=== PATIENT | female | born 1950 | race Caucasian/White ===

== ENCOUNTER 2024-02-09 10:04 | Outpatient (OUT) | payer MEDICARE, SELFPAY ==
--- NOTE | 2024-02-09 10:08 | VEIN_ITS ---
Patient Name: RADHA SALGADO MR#: [id number] : 1950 Exam Date: 02/09/2024 Ordering Doctor: DR AMINATA JACOBSEN RADIOLOGY REPORT PROCEDURE: [facility] - OFFICE VISIT INITIAL COMPARISON: None. PROGRESS NOTES: [age] year old female who presents with a 30 year history of dilated bulging veins, discolored veins, leg pain, swelling, muscle cramping. The patient's right leg symptoms are worse than the left. There has been a progression of symptoms over time. This increases with prolonged leg dependency. The patient describes an improvement with rest, elevation, and compression stockings. The patient denies any signs and symptoms to suggest arterial ischemia. The patient describes a family history varicose veins on maternal side. The patient has drinking and smoking history of occasional alcohol consumption; no tobacco use. Patient has a past medical history significant for hypothyroidism, cellulitis. The patient has a history of prior deep venous thrombus. See separate history and physical for medication list. Remote history of sclerotherapy for treatment of spider veins. Long-term use of compression stockings. After review of nurse notes, history and physical exam I discussed at length the pathophysiology of venous hypertension and possible treatments, therapies and strategies available. We discussed at length the importance of elevating the lower extremities above the level of the heart, increased physical activity and compression stocking use. Ultrasound venous reflux study performed today was discussed at length with the patient. The report demonstrates markedly dilated and incompetent great saphenous veins bilaterally. Abnormally dilated incompetent anterior accessory saphenous veins bilaterally. Incompetent and dilated sports doctor vein within right lower leg adjacent nonhealing wound. Numerous large and incompetent branch saphenous varicosities bilaterally. PHYSICAL EXAM: The right leg demonstrates numerous large varicosities, numerous spider veins, partially healed ulceration, moderate edema, mild skin discoloration. The left leg demonstrates numerous large varicosities, numerous spider veins, no ulceration, moderate edema, mild skin discoloration. Both thighs, legs and feet were symmetrically warm to the touch. Good posterior tibial and dorsalis pedis pulses were present bilaterally. VEIN/[facility] EST Comprehensive IMPRESSION: 1. Marked bilateral lower extremity venous insufficiency 2. Marked lower extremity varicose veins 3. Mild-moderate lower extremity subcutaneous edema 4. No flow significant arterial disease 5. CEAP: C6, EC, AP, VT PLAN: 1. Continued use of compression stockings 2. Elevated legs and increased physical activity symptomatic relief 3. Endovenous laser ablation of right great saphenous, left great saphenous, right sports doctor vein, left anterior accessory saphenous, right anterior accessory saphenous veins. 4. Microfoam chemical ablation of bilateral lower extremity incompetent branch saphenous varicosities. 5. Sclerotherapy of prominent reticular and spider veins bilaterally. Nurse notes, history and physical were reviewed and confirmed, see attached forms. The nurse was present throughout the physical exam and consultation Dictated by: Sundeep Wilkins M.D. on 02/09/2024 at 12:28 Approved by: Sundeep Wilkins M.D. on 02/09/2024 at 13:56
--- NOTE | 2024-02-09 10:09 | VEIN_ITS ---
Patient Name: RADHA SALGADO MR#: [id number] : 1950 Exam Date: 02/09/2024 Ordering Doctor: DR AMINATA JACOBSEN RADIOLOGY REPORT PROCEDURE: VC EXT VENOUS REFLUX DEE LMTD COMPARISON: None. INDICATIONS: I83.813 Bilateral leg painful varicose veins TECHNIQUE: Duplex imaging of the lower extremity to assess the deep and superficial venous system for the presence of deep or superficial venous incompetence and to document the location and severity of disease. The study includes evaluation of the great saphenous vein (GSV), anterior accessory saphenous vein (AASV) and small saphenous vein (SSV). Patient scanned in reverse Trendelenburg and standing. FINDINGS: RIGHT LOWER EXTREMITY: Saphenofemoral Junction Reflux: Yes 9.8mm 4.5 sec GSV: Diam (mm) Reflux/ Time (sec) Proximal Thigh 13.3 Yes 4.3 Mid Thigh 9.8 Yes 2.6 Distal Thigh 2.1 No Prox Calf 1.5 No Mid Calf 0.9 Saphenopopliteal Junction Reflux: 5.8mm Yes 2.9 SSV: Proximal Calf 4.6 Yes 2.1 Mid Calf 2.6 No AASV: Proximal Thigh 5.6 Yes 1.0 Mid Thigh 3.3 Yes 1.7 Distal Thigh Thrombi: No acute or chronic thrombus visualized Compressibility: Normal Flow: Normal Preforator: Mid/med calf near wound 3.7mm with 1.3s reflux. Tech Note: Incompetent GSV and AASV. Patent varicose vein mid/med calf 6.6mm with 3.8s reflux. Patent varicose vein prox/med calf 8.3mm with 2.8s reflux. Patent varicose vein mid/med thigh off GSV 13.3mm with 2.2s reflux. Patent varicose vein 10.1mm with 3.9s reflux. LEFT LOWER EXTREMITY: Saphenofemoral Junction Reflux: Yes 13.6 mm 4.6 sec GSV: Diam (mm) Reflux/Time (sec) Proximal Thigh 13.7 Yes 3.1 Mid Thigh 1.2 No Distal Thigh 1.4 No Prox Calf N/A Mid Calf N/A Saphenopopliteal Junction Relux: 4.3 mm No SSV: Proximal Calf 1.5 No Mid Calf 1.6 No AASV: Proximal Thigh 5.8 Yes 1.4 Mid Thigh 3.5 No Distal Thigh Thrombi: No acute or chronic thrombus visualized Compressibility: Normal Flow: Normal Accounts Receivable Manager: Dist/med 2.3mm with 0s reflux. Tech Note: Incompetent GSV. Patent varicose vein mid/med thigh 7.6mm with 3.4s reflux. Patent varicose vein dist/med thigh 9.0mm with 2.4s reflux. Patent varicose vein mid/med calf 6.4mm with 0s reflux. CONCLUSION: 1. Abnormally dilated and incompetent great saphenous and anterior accessory saphenous veins bilaterally. 2. Abnormally dilated and incompetent life insurance salesperson vein within right calf adjacent nonhealing wound. 3. Numerous large incompetent branch saphenous varicosities bilaterally. Dictated by: Sundeep Wilkins M.D. on 02/09/2024 at 12:07 Approved by: Sundeep Wilkins M.D. on 02/09/2024 at 12:28
== END 2024-02-09 10:05 | disposition home or self-care (01) ==
PROVIDERS: PCP Internal Medicine Infectious Disease; Visit Provider Internal Medicine Infectious Disease
DX: I83.813 Varicose veins of bilateral lower extremities with pain (principal); I80.00 Phlebitis and thrombophlebitis of superficial vessels of unspecified lower extremity
CPT/HCPCS: 93970; G0463

== ENCOUNTER 2024-02-22 09:47 | Outpatient (OUT) | payer MEDICARE, SELFPAY ==
--- NOTE | 2024-02-22 09:54 | VEIN_ITS ---
[address] [address] Patient Name: RADHA SALGADO MRN: [id number] date: 1950 Sex: F Assigned Patient Location: Current Patient Location: Accession/Order Number: [id number] Exam Date: 02/22/2024 09:54 Report Date: 02/22/2024 12:45 At the request of: MAEGAN WALLER Procedure: VC Endovenous Ablation 1VeinRT EXAMINATION: VC Endovenous Ablation 1VeinRT HISTORY: Pain due to varicose veins of bilateral legs I83.813 The risks and benefits of the procedure had been previously discussed, and were rediscussed at length. Informed written consent was obtained. Cristal Claros RDMS and Rossy Weller RDMS, RVT assisted. Time out procedure was performed. The right lower extremity was prepared and draped in the usual sterile fashion to allow knee flexion in the sterile field. Duplex ultrasound probe was draped in a sterile cover, sterile transmission gel was used. Venous mapping was performed with the areas of dilation and large tributaries marked. The total length was 12 cm from the entry mid-upper thigh to 3 cm below the Saphenofemoral junction. The diameter of the right great saphenous vein ranged from 13.3 mm. A 30 gauge needle and 1% buffered lidocaine was used to anesthetize the entry site. A 4 mm incision was made with a scalpel and the saphenous vein was entered percutaneously under direct ultrasound guidance with a micropuncture set, a single stick was successful in gaining access. A micro-guide wire was inserted and the needle removed. A micro-set including a dilator was inserted over the microwire and the needle and dilator were removed. A guide wire was inserted through the micro-set and guided through the saphenous vein to the saphenofemoral junction. The dilator was removed and an introducer sheath was inserted over the wire until the end of the sheath entered the saphenofemoral junction. The dilator and wire were removed and the 600 micron fiber was introduced and placed and positioned so that it extended beyond the sheath and was 3 cm distal to the saphenofemoral or saphenopopliteal junction. Final position of the fiber was determined by ultrasound guidance and duplex imaging. Tumescent anesthetic was delivered by ultrasound guidance. 75 cc of fluid was delivered along the entire course of the saphenous vein. The solution consisted of 1000 cc of normal saline with 40 mL of 1% lidocaine and 20 mL of sodium bicarbonate. A final positioning check was made. The energy source was turned on by means of the foot pedal and the fiber and sheath were withdrawn. The total number of Joules delivered was 619. The laser was active for 77 seconds under continuous pulse, average laser use of 8 J. Laser start time: 11:06 AM Laser stop time: 11:08 AM Date: 02/22/2024. A duplex ultrasound revealed compressibility and flow at the saphenofemoral junction immediately after the procedure. Hemostasis at the access site was achieved. The skin incision of the saphenous vein was closed with a 4 x 4. A compression stocking was applied. Postop instructions were given. A follow up appointment was recommended and scheduled. The patient tolerated the procedure well. Electronically authenticated by: MARIELA BARRAGAN Date: 02/22/2024 12:45
--- OUTSIDE RECORDS SUMMARY | 2024-02-22 10:04 | XMS_ITS | CCD ---
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 Role Phone Unavailable Primary Care Provider Ty Clinton Primary Care Provider [phone] AKSHAT WEBBER Attending TY [facility] TY Clinton Attending TY [facility] AKSHAT Pichardo Attending AKSHAT Cuevas Referring TY [facility] Reynold Corrales Unavailable MD Ty Del Angel Primary Care Provider MD Reynold Roper Attending Provider Medications Current Medications Medication Drug Class(es) Dates Sig (Normalized) Sig (Original) acetaminophen 325 mg oral capsule (2 sources) Start: 02-21-2020 take 650 mg by mouth every four to six hours Acetaminophen Active 650 MG PO EVERY 4-6 HOURS 60 February 21, 2020 12:00am Allergy (4 sources) Allergy PRN Acti ve calcium carbonate 1250 mg / cholecalciferol 200 unt oral tablet (2 sources) Vitamin D take 1 tablet by mouth once daily calcium-vitamin D (OS-SHAQUILLE +D) 500 mg(1,250mg) -200 unit per tablet Take 1 tablet by mouth daily . 0 Active fluconazole 150 mg oral tablet (1 source) Azole Antifungal Start: 04-15-2017 End: 04-15-2017 take 1 tablet by mouth once fluconazole (DIFLUCAN) 150 MG tablet Indications: Candidiasis of vulva and vagina Take 1 (one) tablet (150 mg total) by mouth once for 1 dose. 1 tablet 5 04/15/2017 04/15/2017 Active lactobacillus rhamnosus gg [id number] unt oral capsule (2 sources) take 1 capsule by mouth once daily Lactobacillus rhamnosus GG (CULTURELLE) 10 billion cell capsule Take 1 capsule by mouth daily Takes friendly Betsey . 0 Active levothyroxine sodium 0.075 mg oral tablet (10 sources) l-Thyroxine Start: 02-17-2017 take 1 tablet by mouth once daily Levothyroxine (Synthroid) 75 mcg Tablet Active 75 MCG PO Daily February 21, 2020 12:00am Levothyroxine So dium Active multivitamin (multivitamin) per tablet (2 sources) take 1 tablet by mouth once daily multivitamin (multivitamin) per tablet Take 1 tablet by mouth daily . 0 Active phentermine hydrochloride 37.5 mg oral tablet (1 source) Sympathomimetic Amine Anorectic Start: 017 End: 018 take 1 tablet by mouth once daily in the morning phentermine (ADIPEX-P) 37.5 mg tablet Indications: Fatigue, unspecified type Take 1 (one) tablet (37.5 mg total) by mouth every morning. 14 tablet 1 04/15/2017 04/15/2018 Active rOPINIRole 1 mg oral tablet (1 source) Nonergot Dopamine Agonist Start: 024 take 1 mg by mouth once daily at bedtime Ropinirole Active 1 MG PO Daily at bedtime February 01, 2024 12:00am Completed/Discontinued Medications Medication Drug Class(es) Dates Sig (Normalized) Sig (Original) Allergy Pill (2 sources) Start: 02-21-2020 End: 02-01-2024 take 1 tablet by mouth once daily Allergy Pill Discontinued 1 TAB PO Daily February 21, 2020 12:00am February 01, 2024 1:42pm Start: 02-21-2020 take 1 tablet by mouth once da daisy Allergy Pill Active 1 TAB PO Daily February 21, 2020 12:00am cephalexin 500 mg oral capsule (2 sources) Cephalosporin Antibacterial Start: 02-21-2020 End: 03-02-2020 take 1 capsule by mouth every six hours Cephalexin (Keflex) 500 mg capsule Discontinued 500 MG PO Q6H 28 7 February 21, 2020 12:00am March 02, 2020 9:43am diclofenac sodium 75 mg delayed release oral tablet (2 sources) Nonsteroidal Anti-inflammatory Drug Start: 02-21-2020 End: 02-01-2024 take 75 mg by mouth twice daily Diclofenac Sodium Discontinued 75 MG PO Twice daily February 21, 2020 12:00am February 01, 2024 1:42pm linezolid 600 mg oral tablet (2 sources) Oxazolidinone Antibacterial Start: 03-02-2020 End: 02-01-2024 take 600 mg by mouth twice daily Linezolid Discontinued 600 MG PO Twice daily 12 06March 02, 2020 12:00am February 01, 2024 1:40pm traMADol hydrochloride 50 mg oral tablet (2 sources) Opioid Agonist Start: 03-02-2020 End: 02-01-2024 take 50 mg by mouth every six hours Tramadol Discontinued 50 MG PO Q6H 10 01March 02, 2020 12:00am February 01, 2024 1:42pm Problems Active Problems Problem Classification Problem Date Documented Date Episodic/Chronic Menopausal disorders (1 source) Disorder associated with menstruation AND/OR menopause; Translations: [Menopausal disorder] Chronic Other circulatory disease (2 sources) Elevated blood pressure; Translations: [Elevated blood-pressure reading, without diagnosis of hypertension] 02-28-2020 Episodic Other nervous system disorders (4 sources) Chronic pain; Translations: [Other chronic pain] Chronic Other nervous system disorders (3 sources) Other chronic pain Onset: 04-21-2022 Resolved: 05-09-2022 Chronic Residual codes; unclassified (2 sources) Edema of right lower limb; Translations: [Localized edema] 02-28-2020 Episodic Skin and subcutaneous tissue infections (2 sources) Cellulitis; Translations: [Cellulitis, unspecified] 02-28-2020 Episodic Spondylosis; intervertebral disc disorders; other back problems (7 sources) Cervical spondylosis; Translations: [Spondylosis without myelopathy or radiculopathy, cervical region] Onset: 04-21-2022 Resolved: 05-09-2022 Chronic Spondylosis; intervertebral disc disorders; other back problems (3 sources) Occipital neuralgia Onset: 04-21-2022 Resolved: 05-09-2022 Episodic Unclassified (3 sources) Patient encounter status; Translations: [Encounter for gynecological examination without abnormal finding] Varicose veins of lower extremity (2 sources) Varicose veins of lower extremity; Translations: [Asymptomatic varicose veins of unspecified lower extremity] 02-28-2020 Episodic Past or Other Problems Problem Classification Problem Date Documented Da te Episodic/Chronic Malaise and fatigue (1 source) Fatigue Episodic Mycoses (1 source) Candidal vulvovaginitis Episodic Other bone disease and musculoskeletal deformities (1 source) Osteopenia Episodic Other screening for suspected conditions (not mental disorders or infectious disease) (1 source) Breast neoplasm screening status Episodic Unclassified (1 source) Encounter for gynecological examination without abnormal finding Unclassified (1 source) Screening status Results Test Name Value Interpretation Reference Range Facil ity XR cervical spine w flex/ext on 04-21-2022 XR cervical spine w flex/ext [facility] [place] [address] [place] [address] XRay Report Signed Patient: Janneth Arceo MR#: [id number] : 1950 Acct:[id number] Age/Sex: 71 / F ADM Date: 04/21/22 Loc: XD Room: Type: [facility] Attending Dr: Reynold Roper MD Copies to: Reynold Roper MD Ordering Provider: Reynold Roper MD Date of Service: 04/21/22 XR/XR cervical spine w flex/ext: Cervical spondylosis XR cervical spine w flex/ext 04/21/2022 3:22 PM SIGNS AND SYMPTOMS: Neck pain on right. Right shoulder pain PROTOCOLS: Frontal, lateral, oblique, and flexion-extension views of the cervical spine COMPARISON: None FINDINGS: There is a dextro convex curvature of the cervical spine. Flexion and extension views show no pathologic movement There is preservation of the vertebral body heights. There is severe disc height loss at C2-C3, C3-C4, and C4-C5 with moderate disc height loss at C5-C6, C6-C7, and C7-T1. There is facet hypertrophy throughout. There is uncovertebral joint spurring throughout. There is significant bilateral neural foraminal narrowing throughout cervical spine. Degenerative changes are noted between the lateral masses of C1 and C2 on the right. There is no fracture or destructive lesion. There is partial visualization of calcified mediastinal lymph nodes. XR/XR cervical spine w flex/ext IMPRESSION: No fracture, subluxation, or pathologic movement. Multilevel degenerative changes noted throughout cervical spine and between the lateral masses of C1 and C2 on the right. Impression dictated by: Boris Harrison M.D.04/21/2022 5:49 PM Dictation Location: [place] [address] Transcribed By: [facility] 04/21/221748 Dictated By: Boris Harrison II, MD 04/21/221746 Signed By: 04/21/221748 [facility] MM SCREENING BILATERALon MM SCREENING BILATERAL EXAMINATION: MM SCREENING BILATERAL HISTORY: Screening mammogram, encounter for. Asymptomatic screening. No family history of breast cancer. History of reduction mammoplasty. COMPARISON: Mammograms dating back to 03/22/2015. TECHNIQUE: Digital CC and MLO views of the bilateral breasts were obtained. Computer-aided detection was utilized in the interpretation of this exam. BREAST COMPOSITION: The breast parenchyma is predominantly fatty replaced. FINDINGS: Architectural distortion along the inferior aspects of both breasts redemonstrated related to reduction mammoplasty. Neither breast demonstrates suspicious grouped calcifications, developing mass or architectural distortion. IMPRESSION: No mammographic evidence of malignancy. BIRADS: BIRADS - CATEGORY 2 Benign, no evidence of malignancy. Normal interval follow-up is recommended in 12 months. OVERALL ASSESSMENT - BENIGN A letter of notification will be sent to the patient regarding the results. [facility], along with the [employer], the [employer], and [facility], recommend annual screening mammograms for women age 40 and older. MPH/ges Workstation ID: [id number] Dictated by: CHELSIE PURDY on ThuMay 04, 2020 10:15:06 AM EDT Transcribed by: JAZZY ALBERTO on ThuMay 04, 2020 10:28:17 AM EDT Finalized by: CHELSIE PURDY on ThuMay 04, 2020 10:38:22 AM EDT [facility] Comment on above: Order Comment: Reduc tion 15 years Mammography Screening Andre olivares 04-15-2017 Mammography Screening Bilateral No mammographic evidence of malignancy. BIRADS: BIRADS - CATEGORY 2 Benign, no evidence of malignancy. Normal interval follow-up is recommended in 12 months. OVERALL ASSESSMENT - BENIGN A letter of notification will be sent to the patient regarding the results. [facility], along with the [employer], the [employer], and [facility], recommend annual screening mammograms for women age 40 and older. DSS/margiev Workstation ID: [id number] [facility] Mamm[facility] Screening Bilateral EXAMINATION: MM SCREENING BILATERAL 04/15/2017 Computer-assisted detection utilized in the interpretation of this exam. COMPARISON: Mammogram dated 03/22/2015. FINDINGS: MLO and CC views of both breasts were obtained using digital technique. The breasts are almost entirely fatty. Mild scarring from bilateral reduction surgery again noted, not significantly changed. No standout mass, suspicious calcification, or architectural distortion identified. [facility] Vital Signs Date Time Vital Sign Value Performing Clinician Facility 02-01-2024 13:43-0400 Body height 154.94 cm [facility] 02-01-2024 13:43-0400 Body mass index (BMI) [Ratio] 31.1 kg/m2 [facility] 02-01-2024 13:43-0400 Body temperature 97.8 [degF] [facility] 02-01-2024 13:43-0400 Body weight 74.84 kg [facility] 02-01-2024 13:43-0400 Diastolic blood pressure 84 mm[Hg] [facility] 02-01-2024 13:43-0400 Heart rate 56 /min [facility] 02-01-2024 13:43-0400 Systolic blood pressure 173 mm[Hg] [facility] 05-29-2022 16:30-0400 Body height 160.02 cm Reynold Roper Other [facility] Other 05-29-2022 16:30-0400 Body mass index (BMI) [Ratio] 33.16 kg/m2 Reynold Roper Other [employer] [facility] Other 05-29-2022 16:30-0400 Body weight 84.91 kg Reynold Roper Other [facility] Other 05-29-2022 16:30-0400 Diastolic blood pressure 102 mm[Hg] Reynold Roper Other [employer] [facility] Other 05-29-2022 16:30-0400 SaO2% (BldA) [Mass fraction] 99 % Reynold Jacquelin Other [facility] Other 05-29-2022 16:30-0400 Systolic blood pressure 170 mm[Hg] Reynold Jacquelin Other [facility] Other 05-09-2022 11:15-0400 Body height 160.02 cm Reynold Jacquelin Other [facility] Other 05-09-2022 11:15-0400 Body mass index (BMI) [Ratio] 33.19 kg/m2 Reynold Jacquelin Other [facility] Other 05-09-2022 11:15-0400 Body weight 85 kg Reynold Jacquelin Other [facility] Other 05-09-2022 11:15-0400 Diastolic blood pressure 90 mm[Hg] Reynold Jacquelin Other [facility] Other 05-09-2022 11:15-0400 SaO2% (BldA) [Mass fraction] 99 % Reynold Jacquelin Other [facility] Other 05-09-2022 11:15-0400 Systolic blood pressure 164 mm[Hg] Reynold Jacquelin Other [facility] Other 04-21-2022 15:00-0400 Body height 160.02 cm Reynold Jacquelin Other [facility] Other 04-21-2022 15:00-0400 Body mass index (BMI) [Ratio] 33.12 kg/m2 Reynold Jacquelin Other [facility] Other 04-21-2022 15:00-0400 Body weight 84.82 kg Reynold Roper Other [facility] Other 04-21-2022 15:00-0400 Diastolic blood pressure 82 mm[Hg] Reynold Roper Other [facility] Other 04-21-2022 15:00-0400 SaO2% (BldA) [Mass fraction] 99 % Reynold Roper Other [facility] Other 04-21-2022 15:00-0400 Systolic blood pressure 140 mm[Hg] Reynold Roper Other [facility] Other 05-03-2020 14:46-0400 BMI (Body Mass Index) 31.79 kg/m2 [facility] 05-03-2020 14:46-0400 Body weight 78.83 kg [facility] 05-03-2020 14:46-0400 BP Diastolic 84 mm[Hg] [facility] 05-03-2020 14:46-0400 BP Systolic 160 mm[Hg] [facility] 05-03-2020 14:46-0400 Height 157.5 cm [facility] 05-03-2020 14:46-0400 Pulse (Heart Rate) 81 /min [facility] 04-15-2017 13:39-0400 BMI (Body Mass Index) 33.44 kg/m2 Akshat [facility] Work Phone: 04-15-2017 13:39-0400 BP Diastolic 76 mm[Hg] Akshat [facility] Work Phone: 04-15-2017 13:39-0400 BP Systolic 132 mm[Hg] Akshat [facility] Work Phone: 04-15-2017 13:39-0400 Height 154.9 cm [facility] Work Phone: 04-15-2017 13:39-0400 Weight 80.29 kg Akshat Webber [facility] Work Phone: Encounters Encounter Date Encounter Type Care Provider Facility Start: 02-01-2024 End: 02-01-2024 ambulatory [facility] Work Phone: Start: 02-01-2024 End: 02-01-2024 Patient encounter procedure [facility] Work Phone: Start: 05-29-2022 End: 05-29-2022 ambulatory Reynold Jacquelin Other [facility] Other Start: 05-29-2022 Office outpatient vi sit 25 minutes Reynold Jacquelin [facility] Start: 05-09-2022 End: 05-09-2022 ambulatory Reynold Jacquelin Other [facility] Other Start: 05-09-2022 Patient encounter procedure Reynold Jacquelin [facility] Start: 04-21-2022 End: 04-21-2022 Patient encounter procedure MD Ty Del Angel Work Phone: [facility] Start: 04-21-2022 End: 04-21-2022 ambulatory Reynold Jacquelin Other [facility] Other Start: 04-21-2022 Office consultation new/estab patient 60 min Reynold Jacquelin [facility] Start: 04-15-2022 End: 04-15-2022 ambulatory Reynold Jacquelin Other [facility] Other Start: 04-15-2022 Telephone encounter Reynold Jacquelin [facility] Start: 10-01-2020 End: 10-01-2020 Orders Only Elena De La Rosa Work Phone: [facility] Start: 05-03-2020 End: 05-04-2020 Patient encounter procedure AKSHAT WEBBER [facility] Start: 05-03-2020 End: 05-03-2020 Office outpatient new 30 minutes Akshat Webber Work Phone: [facility] Comment on above: Encounter for gyneco logical examination without abnormal finding (Primary Dx); Menopausal disorder; Special screening for malignant neoplasm of vagina Start: 05-03-2020 End: 05-03-2020 Subsequent hospital visit by physician Akshat Webber Work Phone: [facility] Comment on above: Screening mammogram, encounter for Start: 03-28-2020 End: 03-28-2020 Patient encounter procedure [facility] Start: 04-15-2017 End: 04-15-2017 Periodic preventive med est patient 65yrs& older Akshat Webber Work Phone: [facility] Comment on above: Encounter for gyneco logical examination without abnormal finding (Primary Dx);Special screening for malignant neoplasms, vagina;Candidiasis of vulva and vagina;Fatigue, unspecified type;Osteopenia, unspecified location Start: 04-15-2017 End: 04-15-2017 Patient encounter procedure Akshat Webber Work Phone: [facility] Comment on above: Visit for screening mammogram Procedures Date Procedure Procedure Detail Performing Clinician Start: 04-21-2022 X-ray of cervical spine MD Ty Del Angel Work Phone: Start: 05-03-2020 Mammography Elena doss Start: 04-15-2017 Mammography Akshat mcelroy Plan of Treatment Date Care Activity Detail Author Start: 05-03-2021 Screening mammography Mammogram [facility] Start: 04-24-2020 Influenza vaccinatio n given Sequential Influenza Vaccine (#1) [facility] Start: 04-15-2018 History and physical examination, annual for health maintenance Wellness Visit [facility] Start: 04-15-2018 Screening mammography Mammogram [facility] Start: 04-24-2017 SEQUENTIAL INFLUENZA VACCINE (#1) SEQUENTIAL INFLUENZA VACCINE (#1) [facility] Work Phone: Start: 12-18-2015 Pneumococcal vaccination Pneum ococcal Vaccine Age 65+ (1 of 2 - PCV13) [facility] Start: 12-18-2015 PNEUMOCOCCAL VACCINE AGE 65+ (1 of 2 - PCV13) PNEUMOCOCCAL VACCINE AGE 65+ (1 of 2 - PCV13) [facility] Work Phone: Start: 2010 Zoster vaccine hzv l latisha for subcutaneous use ZOSTER VACCINE [facility] Work Phone: Start: 2000 Administration of he rpes zoster vaccine Zoster Vaccines (1 of 2) [facility] Start: 2000 Screening for malign ant neoplasm of colon [facility] Start: 1968 Hepatitis C antibody , confirmatory test Hepatitis C Screening [facility] Start: 1966 COVID-19 Vaccine (1 of 2) COVI D-19 Vaccine (1 of 2) [facility] Start: 1962 Adolescent depressio n screening assessment Depression Screening (PHQ9) [facility] Start: 1950 Colonoscopy COLONOSCOPY [facility] Work Phone: Start: 1950 Fall risk assessment Falls Risk Asse ssment [facility] Start: 1950 HEPATITIS C SCREENING HEPATITIS C SC REENING [facility] Work Phone: Start: 1950 TETANUS EVERY 10 YR TETANUS EVERY 10 YR [facility] Work Phone: Start: 1950 Tetanus vaccination Tetanus: Every 1 0yrs [facility] End: 05-03-2021 Bone density scan XR Bone Density DEXA Axial Imaging Routine Menopausal disorder 1 Occurrences starting 05/03/2020 until 05/03/2021 [facility] Comment on above: 1 Occurrences starti ng 05/03/2020 until 05/03/2021 End: 05-03-2020 MG Breast - bilateral screening Mammography Screening Bilateral Imaging Routine Screening Mammogram, Encounter For Once for 1 Occurrences starting 05/03/2020 until 05/03/2020 [facility] Comment on above: Once for 1 Occurrenc es starting 05/03/2020 until 05/03/2020 MG Breast - bilatera l screening Mammography Screening Bilateral Imaging Routine Screening mammogram, encounter for 05/03/2020 2:07 PM EDT [facility] Microscopic examinat ion of vaginal Papanicolaou smear Thinprep Pap Smear Pathology and Cytology Routine Special screening for malignant neoplasm of vagina Ordered: 05/03/2020 [facility] Comment on above: Ordered: 05/03/2020 Thinprep Pap Smear, Screening Thinprep Pap Smear, Screening Routine Special screening for malignant neoplasms, vagina Ordered: 04/15/2017 [facility] Work Phone: Comment on above: Ordered: 04/15/2017 Payers Date Payer Category Payer Medicare [employer] MANAGED [facility] A[employer]NA MEDICARE PLAN (PPO) [id number] 2019-Present [id number] 2019 Medicare [id number] 1950 Unknown [id number] 1950 Unknown [id number] 1950 Unknown [id number] Medicare [id number] Medicare [id number] Medicare Medicare [id number] Self-pay Self Pay [id number] Social History Date Type Detail Facility Start: 04-15-2017 End: 02-28-2020 Tobacco smoking status [facility] Never smoker [facility] Sex Assigned At Not on file [facility] Work Phone: Start: 05-03-2020 Tobacco use and exposure Never used [facility] Start: 05-03-2020 Alcohol intake Current drinke r of alcohol (finding) [facility] Start: 04-15-2017 Alcohol Comment [facility] to SARS-CoV-2 (event) Not sure [facility] Sex Assigned At Sex Assigned At [facility] Other Start: 1950 Sex Assigned At Female F [facility] Evaluation note 05-29-2022 Note Date & Type Note Facility 05-29-2022 Evaluation note Encounter Date Diagnosis Assessment Notes May, Occipital neuralgia of right side (ICD-10 - M54.81) Patient reports 50% pain relief following procedure. If her pain persists or worsens, we can consider repeating the occipital nerve in the future, if applicable. May, Cervical spondylosis (ICD-10 - M47.812) 71 year old female here for follow up status post greater and lesser occipital branch nerve block on the right. Patient reports 50% pain relief following procedure. She continiues to complain of neck pain along with residual pain in the back of the skull. She feels pain continues to negatively impact her daily activities and sleeping pattern. Pertinent imaging were reviewed and discussed in detail with the patient which showed multiple levels of advanced arthritis of the cervical spine. Anatomy of cervical spine as well as different treatment options were discussed in detail with patient in regards to patients condition. I recommend we proceed with a right cervical facet medial branch nerve block under fluoroscopic guidance. Risks and benefits of procedure explained to patient; patient verbalizes understanding. Patient states she is leaving for [place] for 6 months and does not wish to proceed with injections at this time. May, Other chronic pain (ICD-10 - G89.29) Continue with current treatment plan. [facility] Other Evaluation note 05-09-2022 Note Date & Type Note Facility 05-09-2022 Evaluation note Encounter Date Diagnosis Assessment Notes Apr, Occipital neuralgia of right side (ICD-10 - M54.81) 71 year old female here for follow up to discuss chronic pain. She voices continued complaints of right sided neck pain with radiation up the back of the skull to her ear. I recommend proceeding with a right greater and lesser occipital nerve block today as previously discussed. She is to follow up in 2-3 weeks to reassess. If her neck pain persists we can consider cervical facet medial branch nerve blocks. Apr, Cervical spondylosis (ICD-10 - M47.812) In order to further evaluate her pain, I will order an updated x-ray of the cervical spine. Apr, Other chronic pain (ICD-10 - G89.29) Continue with current treatment plan. [facility] Other Evaluation note 04-21-2022 Note Date & Type Note Facility 04-21-2022 Evaluation note Encounter Date Diagnosis Assessment Notes Mar, Occipital neuralgia of right side (ICD-10 - M54.81) 71 year old female presents with complaints of pain in the back of her skull on the right side. She also complains of right sided neck and interscapular pain. She states at times her right upper extremity feels fatigued. She states her pain started 2 years ago with no known inciting trauma. She feels her pain negatively impacts her ROM and activities of daily living. 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 She feels pain is negatively impacting her daily activities and sleeping pattern. Prior to examining the patient, I reviewed office notes from referring provider, Dr Del Angel. Different treatment options were discussed in detail with the patient. I recommend we proceed with a right greater and lesser occipital branch nerve block at her next office visit. Risks and benefits of procedure explained to patient; patient verbalizes understanding. Mar, Cervical spondylosis (ICD-10 - M47.812) In order to further evaluate her pain, I will order an updated x-ray of the cervical spine. Mar, Other chronic pain (ICD-10 - G89.29) Continue with current treatment plan. Mar, Other Medical decision making shows a new problem to me with further workup planned or suggested with the potential for extensive treatment options that were considered with the most applicable given this patient's situation as noted above. Treatment options considered include a combination of physical therapy approaches, pharmacologic management, and interventional procedures. Those most applicable to the patient were discussed at this time. Risk of complications and/or morbidity and mortality is high given that acute and chronic pain poses a threat to life and bodily function if undertreated, poorly treated or with failure to maintain adequate treatment and timely followup. Given the serious and fluctuating nature of pain with extensive consideration for whenever pain changes, there always remains the possibility of prolonged functional impairment requiring constant patient reassessment and high-level medical decision making. The amount and complexity of data reviewed is high given that patient labs, radiology reports, and other test were obtained, reviewed and summarized as applicable from the physician portal and/or outside medical records. Pertinent positive and negative findings were considered in medical decision-making. [facility] Other Evaluation note Note Date & Type Note Facility Evaluation note No assessment information vanda cowart [facility] Work Phone: Evaluation note Note Date & Type Note Facility Evaluation note No Information [facility] Other History general Narrative - Reported Note Date & Type Note Facility History general Narrative - Reported Type Medical History CELLULITIS Medical History HYPOTHYROID Medical History hiatal hernia Surgical History HYSTERECTOMY Surgical History L KNEE Surgical History APPENDIX Surgical History GALLBLADDER Hospitalization History see above Hospitalization History cellulitis right leg [facility] Other History of Present Illness * Akshat Webber MD - 04/15/2017 1:47 PM EDT Formatting of this note may be different from the original. 66 y.o. female No LMP recorded. Patient has had a hysterectomy. enters for Annual Exam (During the last year, has been getting yeast infections) . Weight: 80.3 kg (177 lb) Height: 5' 1 BMI: Body mass index is 33.44 kg/(m^2). Vitals: BP 132/76 (BP Location: Right arm, Patient Position: Sitting) Ht 5' 1 Wt 80.3 kg (177 lb) BMI 33.44 kg/m2 History of Present Illness Dictation: HISTORY The patient is a 66-year-old white female, 2, para 1, abort 1, who enters for a well-woman examination. Her last Pap was 03/12/2015, which was negative. The patient had a mammogram today at 1o'clock and the results are still pending. Her last bone density was 03/22/2015 which shows osteopenia. It was recommended to the patient that she be on calcium. The patient has mentioned that she has some recurring vaginal discharge; she thinks it may be a yeast infection. She is nondiabetic and she has not been on antibiotics. The patient is on calcium supplement approximately 1200 mg a day. Physical Exam Dictation: PHYSICAL EXAMINATION General: The patient is an alert white female in no acute distress. HEENT: Normal. Neck: Supple. No masses are felt on her thyroid. Breasts: Symmetrical. The patient has had a breast reduction mammoplasty in the past. There are multiple scars with both breasts. No masses are felt. No dimpling, no retraction. The patient did have a mammogram today, and the results are still pending. Abdomen: Soft. There are no masses. There is no tenderness. Pelvic: Examination revealed the introitus to be marital. The external genitalia are normal. The urethra is normal. Urethral meatus is normal. A speculum was placed in the vagina. The bladder was well supported. The vaginal vault was normal. No abnormalities noted. A Pap smear was taken. The patient has had a previous hysterectomy. Bimanual examination did not reveal any masses. Adnexa were negative. The anus and perineum were negative. LABORATORY DATA A urine was examined; it was negative for protein, negative for glucose, negative for white blood cells. Assessment and Plan Dictation: ASSESSMENT/PLAN 1.Well-woman examination with a Pap test and breast exam. 2.Mammogram done today. Results are still pending. 3.Osteopenia. The last bone density on 03/22/2015 showed little change from previous. The patient is currently on calcium, and she was encouraged to continue this. 4.Fatigue. It is to be noted that the patient, from her previous visits in 2014, has lost 15-18 pounds. At one time I had her on Adipex to help, and she would like to go back on this. She is having some fatigue and feels that this has helped in the past. We reviewed dietary habits. She was given a prescription for Adipex, #14, to be taken once a day. I did put a refill on it. I did tell her that this was a controlled substance and she would have to eventually weight back in. 5.Recurrent yeast infections. The patient has been noticing recurrent yeast infections. She uses [id number] Monistat, which seems to help. I gave her a prescription for Diflucan 150 mg, #1 with 5 refills. I did tell the patient that if she would need refills after this expires, we can do this over the phone as long as it is within 1 year. Review of Systems: I have reviewed and agree with the ROS as gathered by the child support officer. Past Medical History: Diagnosis Date Disease of thyroid gland Past Surgical History: Procedure Laterality Date CHOLECYSTECTOMY HYSTERECTOMY Knee replacment Left OOPHORECTOMY REDUCTION MAMMAPLASTY Family History Problem Relation Age of Onset Cancer Mother uterine Cancer Father lumg Cancer Sister Jaw cancer Heart disease Sister Diabetes Sister Cancer Brother colon Heart disease Brother Cancer Brother lung Heart disease Brother Heart disease Brother Breast cancer Neg Hx Social History Social History Marital status: Spouse name: N/A Number of children: N/A Years of education: N/A Occupational History Not on file. Social History Main Topics Smoking status: Never Smoker Smokeless tobacco: Never Used Alcohol use Yes Comment: Social Drug use: No Sexual activity: Yes Partners: Male control/ protection: Surgical Other Topics Concern Not on file Social History Narrative SNOMED CT(R) 1. Encounter for gynecological examination without abnormal finding FEMALE GENITALIA FINDING No orders of the defined types were placed in this encounter. No results found for this or any previous visit (from the past 336 hour(s)). * Janneth Corral LPN - 04/15/2017 1:46 PM EDT Questions for the Staff to Ask Last Pap: 03/12/2015 neg Last Mammogram: 04/15/2017 Pending Last Bone Density: 03/22/2015 Osteopenia Review of Systems Janneth Arceo 04/15/17 CONSTITUTIONAL: does not report of fever or fatigue. EYES: does not report a change in vision, dry eyes, or painful eyes. ENT: does not report of dry mouth, mouth sores/lesions, dysphagia, or report of jaw pain. CVS: does not report chest pain/discomfort or palpitations. RESPIRATORY: does not report difficulty breathing or report of cough. GI: does not report abdominal pain or heartburn. : does not report hematuria or painful urination. NEURO/PSYCH: does not report oweakness other than involved extremity. SKIN: does not have a rash. HEM/ONC: does not report of bleeding easily. If Janneth Arceo reported Yes to any Review of Symptoms, please explain below: in this encounter* Akshat Webber MD - 05/03/2020 3:37 PM EDT 69 y.o. female No LMP recorded (lmp unknown). Patient has had a hysterectomy. enters for Annual Exam . Weight: 78.8 kg (173 lb 12.8 oz) Height: 5' 2 BMI: Body mass index is 31.79 kg/m . Vitals: BP (!) 160/84 Pulse 81 Ht 5' 2 Wt 78.8 kg (173 lb 12.8 oz) LMP (LMP Unknown) No BMI 31.79 kg/m History of Present Illness Dictation: The patient is a 69-year-old white female 2, para 1, abort 1, who had a previous hysterectomy and enters for a Well-Woman exam. Her last Pap was 04/15/2017, which was read as negative. On a recent reread, it was reread as ASCUS. Her last mammogram was 04/15/2017. She did have a mammogram today and the results are pending. Her last bone density was 03/22/2015, which showed osteopenia and she is currently taking calcium. Physical Exam Dictation: PHYSICAL EXAM General: The patient is an alert, white female in no acute distress. Head, Eyes, Ears, Nose, and Mouth: Normal. Neck: Supple. There is no mass on her thyroid. Breasts: Symmetrical. There are no masses, no dimpling, no retraction. She did have a mammogram today and the results are still pending. Abdomen: Soft. There are no masses. There is no tenderness. Pelvic: Examination revealed the introitus to be marital. Vagina was well- supported. The urethra was normal. The urethral meatus was normal. A speculum was placed in the vagina. The vaginal vault wasnormal. A Pap smear was taken. Bimanual examination did not reveal any masses. The perineum was normal and the rectum was normal. The patient was unable to leave us a urine to examine. Assessment and Plan Dictation: ASSESSMENT AND PLAN 1.Well-Woman examination with a Pap test. 2.Mammogram done today, results are pending. 3.History of osteopenia. Her last bone density was 03/22/2015. The patient is currently taking calcium. We did discuss repeating her bone density. Review of Systems: I have reviewed and agree with the ROS as gathered by the child support officer. Past Medical History: Diagnosis Date Anemia Arthritis Cellulitis and abscess of leg right leg 2020 Disease of thyroid gland hypothyroidism Osteopenia Past Surgical History: Procedure Laterality Date CHOLECYSTECTOMY HYSTERECTOMY (CERVIX REMOVED) Knee replacment Left OOPHORECTOMY REDUCTION MAMMAPLASTY TONSILLECTOMY Family History Problem Relation Age of Onset Cancer Mother uterine COPD Mother Cancer Father lumg Cancer Sister Jaw cancer Heart disease Sister Diabetes Sister Cancer Brother colon Heart disease Brother Cancer Brother lung Heart disease Brother Heart disease Brother Breast cancer Neg Hx Social History Socioeconomic History Marital status: Spouse name: Not on file Number of children: Not on file Years of education: Not on file Highest education level: Not on file Occupational History Not on file Social Needs Financial resource strain: Not on file Food insecurity Worry: Not on file Inability: Not on file Transportation needs Medical: Not on file Non-medical: Not on file Tobacco Use Smoking status: Never Smoker Smokeless tobacco: Never Used Substance and Sexual Activity Alcohol use: Yes Comment: Social Drug use: No Sexual activity: Yes Partners: Male control/protection: Surgical Lifestyle Physical activity Days per week: Not on file Minutes per session: Not on file Stress: Not on file Relationships Social connections Talks on phone: Not on file Gets together: Not on file Attends nondenominational service: Not on file Active member of club or organization: Not on file Attends meetings of clubs or organizations: Not on file Relationship status: Not on file Other Topics Concern Not on file Social History Narrative Not on file No diagnosis found. No orders of the defined types were placed in this encounter. No results found for this or any previous visit (from the past 336 hour(s)). documented in this encounter Assessments Diagnosis Encounter for gynecological examination without abnormal finding - Primary Special screening for malign ant neoplasms, vagina Candidiasis of vulva and vag jame Fatigue, unspecified type Osteopenia, unspecified loca tion Diagnosis Visit for screening mammogra m Diagnosis Encounter for gynecological examination without abnormal finding- Primary Menopausal disorder Unspecified menopausal and postmenopausal disorder Special screening for malignant neoplasm of vagina Special screening for malignant neoplasms, vagina Diagnosis Screening mammogram, encounter for Reason for Referral Status Reason Specialty Diagnoses / Procedures Referre d By Contact Referred To Contact Closed Radiology Diagnoses Visit for screening mammogram Procedures Mammography Screening Bilateral Akshat Webber MD [address] [place] [address] [facility] [address] [id number] Status Reason Specialty Diagnoses / Procedures Referred By Contact Referred To Contact Authorized Radiology Diagnoses Menopausal disorder Procedures XR Bone Density DEXA Axial Akshat Webber MD [address] [place] [id number] Status Reason Specialty Diagnoses / Procedures Referred By Contact Referred To Contact Pending Review Radiology Diagnoses Screening mammogram, encounter for Procedures Mammography Screening Bilateral Akshat Webber MD [address] [place] [phone] Advance Directives Documents on File Type Date Recorded 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 Advance Directives and Livin g Will 05/03/2020 12:00 AM Documents on File Type Date Recorded 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 anation Advance Directives and Livin g Will 05/03/2020 12:00 AM Advance Directive Response Recorded Date/ Time Advance Directives No February 20 4:34pm Summary Purpose Family History Relationship Condition Age at Onset Recorded Date/T rusty father Malignant neoplasm Unknown Unknown Not Specified Unknown Chief Complaint and Reason for Visit Chief Complaint M47.812 Chief Complaint sore on leg Additional Source Comments Reason for Visit (unrecogniz ed section and content) Reason Comments Annual Exam During the last year , has been getting yeast infections Status Reason Specialty Diagnoses / Procedures Referre d By Contact Referred To Contact Closed Radiology Diagnoses Visit for screening mammogram Procedures Mammography Screening Bilateral Akshat Webber MD [address] [place] [id number] [facility] [address] [place] [address] Reason Comments Annual Exam Status Reason Specialty Diagnoses / Procedures Referred By Contact Referred To Contact Pending Review Radiology Diagnoses Screening mammogram, encounter for Procedures Mammography Screening Bilateral Akshat Webber MD [address] [place] [phone] INFORMATION SOURCE (unrecogn ized section and content) DATE CREATED AUTHOR 05/03/2020 [facility] DATE CREATED AUTHOR AUTHOR'S ORGANIZ ATION 05/09/2020 [facility] DATE CREATED AUTHOR AUTHOR'S ORGANIZ ATION 04/22/2022 [facility] Quick Note - Quan, Sallie L, TECHNOLOGIST - 05/03/2020 2:00 PM EDT Miscellaneous Notes (unrecog nized section and content) Pt and Tech wore P.P.E. documented in this encounter Care Teams (unrecognized sec tion and content) Team Status: Inactive Member Role Status Dates Ty Del Angel MD Primary Care Provider Active Reynold Roper MD Attending Provider Active Team Status: Active Member Role Status Dates Ty Del Angel MD Primary Care Provider Active Team Status: Inactive Member Role Status Dates Ty Del Angel MD Primary Care Provider Active Start: February 01, 2024 End: February 01, 2024 Andres Reyes MD Attending Provider Active Sta rt: February 01, 2024 End: February 01, 2024 Goals (unrecognized section and content) Goals may be documented in a n alternate section FOR RECORDS PERTAINING TO PATIENTS WHO ARE OR HAVE BEEN ENROLLED IN A CHEMICAL DEPENDENCY/SUBSTANCEABUSE PROGRAM, SOME INFORMATION MAY BE OMITTED. This clinical summary was aggregated from multiple sources. Caution should be exercised in using it in the provision of clinical care. This summary normalizes information from multiple sources, and as a consequence, information in this document may materially change the coding, format and clinical context of patient data. In addition, data may be omitted in some cases. CLINICAL DECISIONS SHOULD BE BASED ON THE PRIMARY CLINICAL RECORDS. [employer] provides no warranty or guarantee of the accuracy or completeness of information in this document.
[2024-02-22] MEDS: LIDOCAINE HCL 1% 100 MG/10 ML MDV INJ (13:07)
[2024-02-22] MEDS: 0.9 % SODIUM CHLORIDE 500 ML, LIDOCAINE HCL 20 ML, SODIUM BICARBONATE 10 MEQ INJ (13:08)
[2024-02-22 14:16] VITALS: BP 150/82; PULSE 68; O2SAT 100; BMI 30.6
--- NOTE | 2024-02-22 14:16 | VEINCLINIC_ITS ---
Vital Signs 02/22/24 14:16 Height 5 ft 1 in Weight 73.482 kg BMI 30.6 BP 150/82 H BP Location Left Brachial BP Position Sitting BP Cuff Size Adult BP Source Manual Cuff Respiration 18 Pulse 68 Pulse Oximetry (%) 100 Comment The patient's blood pressure is elevated. Varicose Veins Sundeep Arzola MD personally performed the services described in this doc umentation, as scribed by Rossy Weller RVT, RDMS in my presence and it is both accurate and complete. Rossy Arzola RVT, RDMS, am scribing for, and in the presence of, Dr. Sundeep Wilkins and in the presence of the patient. medial (Distal/medial right leg ulcer) thigh: bilateral, knee: bilateral, calf: bilateral and ankle: bilateral cramping, sharp and other 7 30+ years Worsened in recent months: Yes standing elevating extremities, compression stockings and other (Rest) Reports edema, leg edema and other (stasis ulcer to right distal/medial calf, cellulitis, DVT) History of lower extremity trauma: No Superficial thrombophlebitis: No Family history of varicose veins: yes Has patient had previous lower extremity venous surgery: No Patient has previously received the following treatment(s) for lower extremity varicose veins: Reports sclerotherapy Does patient have a history of : yes Does patient intend to have future pregnancies: no Has patient had lower extremity venous scan with relux testing: Yes Support hose used: Yes Prescribed by provider: No Problems walking or doing physical activity: No Do you walk much: Yes Do you stand much: Yes Medication compliance: good Large amounts of Vitamin K: No Review of Systems ROS Narrative Sundeep Arzola MD personally performed the services described in this documentation, as scribed by Rossy Weller RVT, RDMS in my presence and it is both accurate and complete. Rossy Arzola RVT, RDMS, am scribing for, and in the presence of, Dr. Sundeep Wilkins and in the presence of the patient. Status of ROS 10 or more systems reviewed and unremark able except as noted in history and below Cardiovascular Reports: edema, swelling of feet/ankles and leg pain with exertion Musculoskeletal Reports: extremity pain, extremity swelling and muscle cramps Integumentary/Breast Reports: redness, skin swelling, new lesion, non-healing lesion and changes in skin color Neurological Reports: weakness in extremities PFSH [facility] Medical History (Updated 02/22/24 @ 14:50 by Rossy Weller) Varicose veins of bilateral lower extremities with pain ?I83.813 - Varicose veins of bilateral lower extremities with pain (ICD-10) Hypothyroidism ?E03.9 - Hypothyroidism, unspecified (ICD-10) Cellulitis and abscess of leg ?L03.119 - Cellulitis of unspecified part of limb (ICD-10) ?L02.419 - Cutaneous abscess of limb, unspecified (ICD-10) DVT (deep venous thrombosis) ?I82.409 - Acute embolism and thrombosis of unspecified deep veins of unspecified lower extremity (ICD-10) 3 para 3 ?Z78.9 - Other specified health status (ICD-10) Surgical History (Updated 02/22/24 @ 14:45 by Rossy Weller) History of arthroscopic knee surgery ?Z98.890 - Other specified postprocedural states (ICD-10) History of cholecystectomy ?Z90.49 - Acquired absence of other specified parts of digestive tract (ICD- 10) History of hysterectomy ?Z90.710 - Acquired absence of both cervix and uterus (ICD-10) Family History (Updated 02/22/24 @ 14:46 by Rossy Weller) Mother Family history of cancer Varicose veins of bilateral lower extremities with pain Father Family history of cancer Brother Family history of cancer Sister Family history of cancer Social History (Updated 02/22/24 @ 14:47 by Rossy Weller) Within the past year, how often did you have a drink containing alcohol: 2-4 times a month Smoking status: Never smoker Non-prescribed substance use: denies use Meds Home Medications and Allergies Home Medications ?Medication ?Instructions ?Recorded ?Confirmed ?Type ibuprofen 200 mg tablet (IBU-200) 200 mg PO Q8H 02/22/24 02/22/24 History levothyroxine .ROUTE 02/22/24 History ropinirole .ROUTE 02/22/24 History Allergies Allergy/AdvReac Type Severity Reaction Status Date / Time No Known Drug Allergies Allergy Unverified 02/22/24 14:43 Exam Narrative Exam Narrative: Sundeep Arzola MD personally performed the services described in this documentation, as scribed by Rossy Weller RVT, RDMS in my presence and it is both accurate and complete. I, Rossy Weller RVT, RDMS, am scribing for, and in the presence of, Dr. Sundeep Wilkins and in the presence of the patient. Constitutional Documenting provider has reviewed patient's vital signs: yes Common normals: oriented x3 Lymph Lymphatic: no lymphedema noted Cardio Common normals: regular rate Rate: regular rate Peripheral pulses: posterior tibial pulses present and dorsalis pedis pulses present Extremity Common normals: normal capillary refill General: calf tenderness and edema Right lower extremity: upper leg and lower leg Left lower extremity: upper leg and lower leg Neuro Common normals: oriented x3 Assessment and Plan Assessment and Plan (1) Varicose veins of bilateral lower extremities with pain: Plan Plan of care: Risks and benefits of the procedure were discussed at length and informed written consent was obtained.? Time-out completed for verification of correct patient, procedure and site.? Staff present during time-out: ? Sundeep Wilkins MD, Rossy Weller RDMS,JAMA and Cristal Garnett RDMS Time Out Time___1040____ Patient prepped and procedure performed in usual sterile fashion. Risk of injury related to use of Diode laser and/or laser devices? __ME___ ? Serial number of laser used :? [id number] Control panel self test performed, electrical cords in good condition, floor is dry, basin of water available, fire extinguisher in close proximity_EM__ Polycarbonate goggles available and Laser warning signs outside of doors___ME___ Eye protection provided to patient and staff in room_ME___ Use of laser retardant drapes and dull blackened instruments as directed__ME___ Use of nonflammable prep solutions and use of saline soaked sponges to protect tissues as indicated _ME___ Length ____12____ cm Laser operated by ____Dr. Wilkins Physician verbal confirmation laser locked in place__ME__ Laser start time (date and time) ___1106 Laser stop time(date and time) 1108 Good _8.0___ Average laser use __619 Joules Average laser use___77____seconds Pulse continuous ___ME_? Pulse intermittent ___ Amount of Tumescent used ___75___ Evaluated patient for signs and symptoms of electrical injury __ME___ ? Skin clear at insertion site __ME__ Patient tolerated procedure well.? Right leg Coban dressing applied to access site.? Applied Right thigh high leg compression stocking. Will return on 02/29/2024 for Right leg limited venous ultrasound and exam. ISundeep MD personally performed the services described in this documentation, as scribed by Rossy Weller RVT, RDMS in my presence and it is both accurate and complete. I, Rossy Weller RVT, RDMS, am scribing for, and in the presence of, Dr. Sundeep Wilkins and in the presence of the patient.
--- NOTE | 2024-02-22 14:53 | W.VEIN ---
Discharge Plan Discharge Disposition: Home, Self-Care Outpatient Diagnostics: VC EXT Venous RT LMTD (Routine) Timeframe: 2 Weeks Facility: [facility] - Location: Vein Center Ordered By: Sundeep Wilkins Follow Up Appointments: 02/29/2024 Patient Instructions: Endovenous Ablation (DC) Print Language: Croatian Discharge Date/Time: 02/22/24 14:55
== END 2024-02-22 14:55 | disposition home or self-care (01) ==
PROVIDERS: PCP Radiology Diagnostic Radiology; Visit Provider Radiology Diagnostic Radiology
DX: I83.813 Varicose veins of bilateral lower extremities with pain (principal)
CPT/HCPCS: 36478

== ENCOUNTER 2024-02-29 10:18 | Outpatient (OUT) | payer MEDICARE, SELFPAY ==
--- NOTE | 2024-02-29 | VEIN_ITS ---
Patient Name: RADHA SALGADO MR#: [id number] : 1950 Exam Date: 02/29/2024 Ordering Doctor: DR VANCE ZHU M.D. RADIOLOGY REPORT PROCEDURE: VC FACILITY EST LMTD VEIN CENTER - OFFICE VISIT FOLLOW UP COMPARISON: None. PROGRESS NOTES: The patient reports no significant discomfort following endovenous ablation the right great saphenous vein. The patient has worn her compression stocking as directed. The patient does exercise. Physical exam demonstrates no bruising. The incision is healed. No erythema or warmth to suggest cellulitis or thrombophlebitis. No active ulceration. Review of the ultrasound performed the same day demonstrates a small amount of nonocclusive thrombus in the treated right great saphenous vein. No deep vein thrombus These findings were discussed with the patient. Repeat intravenous laser ablation was recommended to the patient in light of her active venous stasis ulceration. VEIN/ Facility EST LMTD IMPRESSION: 1. Technically unsuccessful ablation of the right great saphenous vein 2. Persistent incompetent right great saphenous vein. PLAN: Intravenous laser ablation right great saphenous vein Nurse notes, history and physical were reviewed and confirmed, see attached forms. The nurse was present throughout the physical exam and consultation Dictated by: Vance Zhu MD on 02/29/2024 at 11:18 Approved by: Vance Zhu MD on 02/29/2024 at 11:28
--- NOTE | 2024-02-29 08:38 | VEINCLINIC_ITS ---
Vital Signs 3 02/29/24 11:03 Height 5 ft 1 in Weight 73.482 kg BMI 30.6 BP 150/86 H BP Location Left Brachial BP Position Sitting BP Cuff Size Adult BP Source Manual Cuff Respiration 16 Pulse 72 Pulse Oximetry (%) 100 Comment The patient's blood pressure is elevated. Varicose Veins Vance Arzola MD personally performed the services described in this documentation, as scribed by Cristal Garnett RDMS in my presence and it is both accurate and complete. ICristal RDMS, am scribing for, and in the presence of, Dr. Vance Zhu and in the presence of the patient. medial (Distal/medial right leg ulcer) thigh: bilateral, knee: bilateral, calf: bilateral and ankle: bilateral cramping, sharp and other 7 30+ years Worsened in recent months: Yes standing elevating extremities, compression stockings and other (Rest) Reports edema, leg edema and other (stasis ulcer to right distal/medial calf, cellulitis, DVT) History of lower extremity trauma: No Superficial thrombophlebitis: No Family history of varicose veins: yes Has patient had previous lower extremity venous surgery: No Patient has previously received the following treatment(s) for lower extremity varicose veins: Reports sclerotherapy Does patient have a history of : yes Does patient intend to have future pregnancies: no Has patient had lower extremity venous scan with relux testing: Yes Support hose used: Yes Prescribed by provider: No Problems walking or doing physical activity: No Do you walk much: Yes Do you stand much: Yes Medication compliance: good Large amounts of Vitamin K: No Review of Systems 2 ROS0 Narrative Vance Arzola MD personally performed the services described in this documentation, as scribed by Cristal Garnett RDMS in my presence and it is both accurate and complete. Cristal Arzola RDMS, am scribing for, and in the presence of, Dr. Vance Zhu and in the presence of the patient. Status of ROS 10 or more systems reviewed and unremark able except as noted in history and below Cardiovascular Reports: edema, swelling of feet/ankles and leg pain with exertion Musculoskeletal Reports: extremity pain, extremity swelling, joint pain, joint swelling, muscle cramps and muscle weakness Integumentary/Breast Reports: itching, redness, skin pain, skin tenderness, skin swelling, sores, new lesion, changing lesion, non-healing lesion and changes in skin color Neurological Reports: weakness in extremities Hematologic/Lymphatic Reports: easy bruising PFSH PFS Medical History (Updated 02/22/24 @ 14:54 by Rossy Weller) Phlebitis and thrombophlebitis of superficial vessels of right lower extremity ?I80.01 - Phlebitis and thrombophlebitis of superficial vessels of right lower extremity (ICD-10) Varicose veins of bilateral lower extremities with pain ?I83.813 - Varicose veins of bilateral lower extremities with pain (ICD-10) Hypothyroidism ?E03.9 - Hypothyroidism, unspecified (ICD-10) Cellulitis and abscess of leg ?L03.119 - Cellulitis of unspecified part of limb (ICD-10) ?L02.419 - Cutaneous abscess of limb, unspecified (ICD-10) DVT (deep venous thrombosis) ?I82.409 - Acute embolism and thrombosis of unspecified deep veins of unspecified lower extremity (ICD-10) 3 para 3 ?Z78.9 - Other specified health status (ICD-10) Surgical History (Updated 02/22/24 @ 14:45 by Rossy Weller) History of arthroscopic knee surgery ?Z98.890 - Other specified postprocedural states (ICD-10) History of cholecystectomy ?Z90.49 - Acquired absence of other specified parts of digestive tract (ICD- 10) History of hysterectomy ?Z90.710 - Acquired absence of both cervix and uterus (ICD-10) Family History (Updated 02/22/24 @ 14:46 by Rossy Weller) Mother Family history of cancer Varicose veins of bilateral lower extremities with pain Father Family history of cancer Brother Family history of cancer Sister Family history of cancer Social History (Updated 02/22/24 @ 14:47 by Rossy Weller) Within the past year, how often did you have a drink containing alcohol: 2-4 times a month Smoking status: Never smoker Non-prescribed substance use: denies use Meds Home Medications and Allergies Home Medications ?Medication ?Instructions ?Recorded ?Confirmed ?Type ibuprofen 200 mg tablet (IBU-200) 200 mg PO Q8H 02/22/24 02/22/24 History levothyroxine .ROUTE 02/22/24 History ropinirole .ROUTE 02/22/24 History Allergies Allergy/AdvReac Type Severity Reaction Status Date / Time No Known Drug Allergies Allergy Unverified 02/22/24 14:43 Exam Narrative Exam Narrative: Vance Arzola MD personally performed the services described in this documentation, as scribed by Cristal Garnett RDMS in my presence and it is both accurate and complete. Cristal Arzola RDMS, am scribing for, and in the presence of, Dr. Vance Zhu and in the presence of the patient. Constitutional Documenting provider has reviewed patient's vital signs: yes Common normals: oriented x3 Lymph Lymphatic: no lymphedema noted Cardio Common normals: regular rate Rate: regular rate Peripheral pulses: posterior tibial pulses present and dorsalis pedis pulses present Extremity Common normals: normal capillary refill General: calf tenderness, edema and other findings (Non-healing Ulcer right anterior lower leg) Right lower extremity: lower leg Right lower leg: inspection and palpation Left lower extremity: lower leg Left lower leg: inspection (non-healing venous stasis ulcer mid left calf 2 cm in diameter x 2 months) and palpation Extremity image (front): 2 1. ulcer Neuro Common normals: oriented x3 Results Imaging Venous US: Radiologist's impression: Heat induced partial thrombus in right prox GSV. Unsuccessful ablation of right GSV. Vance Arzola MD personally performed the services described in this documentation, as scribed by Cristal Garnett RDMS in my presence and it is both accurate and complete. Cristal Arzola RDMS, am scribing for, and in the presence of, Dr. Vance Zhu and in the presence of the patient. Assessment and Plan Assessment and Plan (1) Varicose veins of bilateral lower extremities with pain: Plan Patient in today for follow up ultrasound of right lower extremity following EVLT of right GSV completed on 02/22/24. Vance Arzola MD personally performed the services described in this documentation, as scribed by Cristal Garnett RDMS in my presence and it is both accurate and complete. Cristal Arzola RDMS, am scribing for, and in the presence of, Dr. Vance Zhu and in the presence of the patient.
--- NOTE | 2024-02-29 10:32 | VEIN_ITS ---
Patient Name: RADHA SALGADO MR#: [id number] : 1950 Exam Date: 02/29/2024 Ordering Doctor: DR MARIELA BARRAGAN M.D. RADIOLOGY REPORT PROCEDURE: VC EXT VENOUS RT LMTD COMPARISON: None. INDICATIONS: I80.01 - Phlebitis and thrombophlebitis of superficial veins in right lower leg TECHNIQUE: Lower extremity lora scale and Duplex Doppler evaluation of the deep venous system from the inguinal ligament through the calf veins. FINDINGS: REGION: Right lower extremity. THROMBI: Negative for DVT. Minimal heat induced partial thrombus in proximal GSV. Vein remains patent. COMPRESSIBILITY: Partial compressibility of segments. FLOW: Normal waveform and antegrade flow between 5 and 20 cm/s. CONCLUSION: Minimal nonocclusive heat induced thrombus in the proximal right great saphenous vein Dictated by: Vance Zhu MD on 02/29/2024 at 10:55 Approved by: Vance Zhu MD on 02/29/2024 at 10:58
[2024-02-29 11:03] VITALS: BP 150/86; PULSE 72; O2SAT 100; BMI 30.6
--- NOTE | 2024-02-29 11:07 | P.DS_ITS ---
Discharge Plan Discharge Disposition: Home, Self-Care Outpatient Diagnostics: VC Facility EST LMTD (Routine) Timeframe: 2 Weeks Facility: [facility] - Location: Vein Center Ordered By: Vance Zhu VC Endovenous Ablation 1VeinRT (Routine) Timeframe: 2 Weeks Facility: [facility] - Location: Vein Center Ordered By: Vance Zhu Follow Up Appointments: Repeat EVLT of right GSV 03/07/24 Plan of Treatment: Right GSV Allergies: NKDA EVLT Tumescent Anesthesia: 500 mL 0.9% NS with 20 mL 1% Lidocaine and 10 mL 8.4% NAHCO3 Buffered Local Anesthesia: 10 mL of 1% Lidocaine Buffered Print Language: [place] Islander Discharge Date/Time: 02/29/24 14:35
== END 2024-02-29 14:35 | disposition home or self-care (01) ==
PROVIDERS: PCP Radiology Diagnostic Radiology; Visit Provider Radiology Diagnostic Radiology
DX: I80.01 Phlebitis and thrombophlebitis of superficial vessels of right lower extremity (principal)
CPT/HCPCS: 93971; G0463

== ENCOUNTER 2024-03-07 08:17 | Outpatient (OUT) | payer MEDICARE, OTHER, SELFPAY ==
[2024-03-07 08:09] VITALS: BP 136/82; PULSE 74; O2SAT 100; BMI 30.6
--- NOTE | 2024-03-07 08:20 | VEIN_ITS ---
[address] [address] Patient Name: RADHA SALGADO MRN: [id number] date: 1950 Sex: F Assigned Patient Location: Current Patient Location: Accession/Order Number: [id number] Exam Date: 03/07/2024 08:20 Report Date: 03/07/2024 09:38 At the request of: MAEGAN WALLER Procedure: VC Endovenous Ablation 1VeinRT EXAMINATION: VC Endovenous Ablation 1VeinRT HISTORY: I83.813 - Varicose veins of bilateral lower extremities w... COMPARISON: No relevant comparison available. TECHNIQUE: The risks and benefits of the procedure had been previously discussed, and were rediscussed at length. Informed written consent was obtained. Odessa Weller and Mikael Collins assisted. Time out procedure was performed. The right lower extremity was prepared and draped in the usual sterile fashion to allow knee flexion in the sterile field. Duplex ultrasound probe was draped in a sterile cover, sterile transmission gel was used. Venous mapping was performed with the areas of dilation and large tributaries marked. The total length was 16 cm from the entry mid thigh to 3 cm below the saphenofemoral junction. The vein beneath the entry point was tortuous and not amenable to intravenous laser ablation The diameter of the greater saphenous vein ranged from 12-14 mm. A 30 gauge needle and 1% buffered lidocaine was used to anesthetize the entry site. A 4 mm incision was made with a scalpel and the saphenous vein was entered percutaneously under direct ultrasound guidance with a micropuncture set, a single stick was successful in gaining access. A micro-guide wire was inserted and the needle removed. A micro-set including a dilator was inserted over the microwire and the needle and dilator were removed. A 0.018 guide wire was inserted through the micro-set and threaded through the saphenous vein to the saphenofemoral junction. The dilator was removed and an introducer sheath was inserted over the wire until the end of the sheath entered the saphenofemoral junction. The dilator and wire were removed and the 600 micron fiber was introduced and placed and positioned so that it extended beyond the sheath and was 3 cm peripheral to the saphenofemoral femoral junction. Final position of the fiber was determined by ultrasound guidance and duplex imaging. Tumescent anesthetic was delivered by ultrasound guidance. 100 cc of fluid was delivered along the entire course of the saphenous vein. The solution consisted of 1000 cc of normal saline with 40 mL of 1% lidocaine and 20 mL of sodium bicarbonate. A final positioning check was made. The energy source was turned on by means of the foot pedal and the fiber and sheath were withdrawn. The total number of Joules delivered was 1481. The laser was active for 185seconds under continuous pulse, average laser use of 8 J. Laser start time 8:59 AM 03/07/2024 . Laser stop time 9:03 AM 03/07/2024 . A duplex ultrasound revealed compressibility and flow at the saphenofemoral junction immediately after the procedure. Hemostasis at the access site was achieved. The skin incision of the saphenous vein was closed with a 4 x 4. A compression stocking was applied. Postop instructions were given. A follow up appointment was recommended and scheduled. The patient tolerated the procedure well and was discharged in good condition . VEIN/VC Endovenous Ablation 1VeinRT IMPRESSION: Technically successful endovenous laser ablation right great saphenous vein Electronically authenticated by: MAEGAN WALLER Date: 03/07/2024 09:38
--- NOTE | 2024-03-07 09:19 | VEINCLINIC_ITS ---
Vital Signs 03/07/24 08:09 Height 5 ft 1 in Weight 73.482 kg BMI 30.6 BP 136/82 BP Location Left Brachial BP Position Sitting BP Cuff Size Adult BP Source Manual Cuff Respiration 16 Pulse 74 Pulse Oximetry (%) 100 Oxygen Delivery Method Room Air Comment The patient's blood pressure is elevated. Varicose Veins Vance Arzola MD personally performed the services described in this documentation, as scribed by Lobo collins RDMS in my presence and it is both accurate and complete. ILobo RDMS, am scribing for, and in the presence of, Dr. Vance Zhu and in the presence of the patient. medial (Distal/medial right leg ulcer) thigh: bilateral, knee: bilateral, calf: bilateral and ankle: bilateral cramping, sharp and other 7 30+ years Worsened in recent months: Yes standing elevating extremities, compression stockings and other (Rest) Reports edema, leg edema and other (stasis ulcer to right distal/medial calf, cellulitis, DVT) History of lower extremity trauma: No Superficial thrombophlebitis: No Family history of varicose veins: yes Has patient had previous lower extremity venous surgery: No Patient has previously received the following treatment(s) for lower extremity varicose veins: Reports sclerotherapy Does patient have a history of : yes Does patient intend to have future pregnancies: no Has patient had lower extremity venous scan with relux testing: Yes Support hose used: Yes Prescribed by provider: No Problems walking or doing physical activity: No Do you walk much: Yes Do you stand much: Yes Medication compliance: good Large amounts of Vitamin K: No Review of Systems ROS Narrative Vance Arzola MD personally performed the services described in this documentation, as scribed by Lobo Collins RDMS in my presence and it is both accurate and complete. Lobo Arzola RDMS, am scribing for, and in the presence of, Dr. Vance Zhu and in the presence of the patient. Status of ROS 10 or more systems reviewed and unremark able except as noted in history and below Cardiovascular Reports: edema, swelling of feet/ankles and leg pain with exertion Musculoskeletal Reports: extremity pain, extremity swelling, joint pain, joint swelling, muscle cramps and muscle weakness Integumentary/Breast Reports: itching, redness, skin pain, skin tenderness, skin swelling, sores, new lesion, changing lesion, non-healing lesion and changes in skin color Neurological Reports: weakness in extremities Hematologic/Lymphatic Reports: easy bruising PFSH [facility] Medical History (Updated 02/22/24 @ 14:54 by Rossy Weller) Phlebitis and thrombophlebitis of superficial vessels of right lower extremity ?I80.01 - Phlebitis and thrombophlebitis of superficial vessels of right l ower extremity (ICD-10) Varicose veins of bilateral lower extremities with pain ?I83.813 - Varicose veins of bilateral lower extremities with pain (ICD-10) Hypothyroidism ?E03.9 - Hypothyroidism, unspecified (ICD-10) Cellulitis and abscess of leg ?L03.119 - Cellulitis of unspecified part of limb (ICD-10) ?L02.419 - Cutaneous abscess of limb, unspecified (ICD-10) DVT (deep venous thrombosis) ?I82.409 - Acute embolism and thrombosis of unspecified deep veins of unspecified lower extremity (ICD-10) 3 para 3 ?Z78.9 - Other specified health status (ICD-10) Surgical History (Updated 02/22/24 @ 14:45 by Rossy Weller) History of arthroscopic knee surgery ?Z98.890 - Other specified postprocedural states (ICD-10) History of cholecystectomy ?Z90.49 - Acquired absence of other specified parts of digestive tract (ICD- 10) History of hysterectomy ?Z90.710 - Acquired absence of both cervix and uterus (ICD-10) Family History (Updated 02/22/24 @ 14:46 by Rossy Weller) Mother Family history of cancer Varicose veins of bilateral lower extremities with pain Father Family history of cancer Brother Family history of cancer Sister Family history of cancer Social History (Updated 02/22/24 @ 14:47 by Rossy Weller) Within the past year, how often did you have a drink containing alcohol: 2-4 times a month Smoking status: Never smoker Non-prescribed substance use: denies use Meds Home Medications and Allergies Home Medications ?Medication ?Instructions ?Recorded ?Confirmed ?Type ibuprofen 200 mg tablet (IBU-200) 200 mg PO Q8H 02/22/24 03/07/24 History levothyroxine .ROUTE 02/22/24 History ropinirole .ROUTE 02/22/24 History Allergies Allergy/AdvReac Type Severity Reaction Status Date / Time No Known Drug Allergies Allergy Unverified 02/22/24 14:43 Exam Narrative Exam Narrative: I, Vance Zhu MD personally performed the services described in this documentation, as scribed by Lobo Collins RDMS in my presence and it is both accurate and complete. I, Lobo Collins RDMS, am scribing for, and in the presence of, Dr. Vance Zhu and in the presence of the patient. Constitutional Documenting provider has reviewed patient's vital signs: yes Common normals: oriented x3 Lymph Lymphatic: no lymphedema noted Cardio Common normals: regular rate Rate: regular rate Peripheral pulses: posterior tibial pulses present and dorsalis pedis pulses present Extremity Common normals: normal capillary refill General: calf tenderness, edema and other findings (Non-healing Ulcer right anterior lower leg) Right lower extremity: lower leg Right lower leg: inspection and palpation Left lower extremity: lower leg Left lower leg: inspection (non-healing venous stasis ulcer mid left calf 2 cm in diameter x 2 months) and palpation Neuro Common normals: oriented x3 Assessment and Plan Assessment and Plan (1) Varicose veins of bilateral lower extremities with pain: Plan Plan of care: Risks and benefits of the procedure were discussed at length and informed written consent was obtained.? Time-out completed for verification of correct patient, procedure and site.? Staff present during time-out: Lobo Collins RDMS,? Vance Zhu MD, [facility] KEIRY,T. Time Out Time___815____ Patient prepped and procedure performed in usual sterile fashion. Risk of injury related to use of Diode laser and/or laser devices? __DS___ ? Serial number of laser used :? [id number] Control panel self test performed, electrical cords in good condition, floor is dry, basin of water available, fire extinguisher in close proximity_DS__ Polycarbonate goggles available and Laser warning signs outside of doors___DS__ Eye protection provided to patient and staff in room_DS___ Use of laser retardant drapes and dull blackened instruments as directed__DS___ Use of nonflammable prep solutions and use of saline soaked sponges to protect tissues as indicated _DS___ Length __16 cm Laser operated by ____Vance Zhu MD Physician verbal confirmation laser locked in place__DS__ Laser start time (date and time) ____08:53 Laser stop time(date and time) ____09:02 Good _8.0___ Average laser use ___1481___Joules Average laser use____185____seconds Pulse continuous ___DS_? Pulse intermittent ___ Amount of Tumescent used _100cc____ Evaluated patient for signs and symptoms of electrical injury __DS___ ? Skin clear at insertion site __CR___ Patient tolerated procedure well.? Right leg Coban dressing applied to access site.? Applied Right thigh high leg compression stocking. Will return on 03/10/24 for Right leg limited venous ultrasound and exam. IVance MD personally performed the services described in this documentation, as scribed by Lobo Collins RDMS in my presence and it is both accurate and complete. ILobo RDMS, am scribing for, and in the presence of, Dr. Vance Zhu and in the presence of the patient. Procedures Procedure Note Date of procedure: 03/07/24 Pre-op diagnosis: Painful varicose veins Procedure: EVLT Right GSV Anesthesia: local Surgeon: Vance Zhu Pathology: none sent Condition: stable Disposition: same day
--- NOTE | 2024-03-07 09:34 | W.VEIN ---
Discharge Plan Discharge Discharge Medications: No Action levothyroxine .ROUTE ropinirole .ROUTE ibuprofen [IBU-200] 200 mg tablet 200 mg PO Q8H Print Language: Barbadian
[2024-03-07] MEDS: 0.9 % SODIUM CHLORIDE 500 ML, LIDOCAINE HCL 20 ML, SODIUM BICARBONATE 10 MEQ INJ (09:36)
[2024-03-07] MEDS: LIDOCAINE HCL 1% 100 MG/10 ML MDV INJ (09:36)
--- NOTE | 2024-03-07 10:04 | W.VEIN ---
Discharge Plan Discharge Disposition: Home, Self-Care Outpatient Diagnostics: VC Facility EST LMTD (Routine) Timeframe: 2 Weeks Facility: [facility] - Location: Vein Center Ordered By: Vance Zhu VC EXT Venous RT LMTD (Routine) Timeframe: 2 Weeks Facility: [facility] - Location: Vein Center Ordered By: Vance Zhu Follow Up Appointments: 03/10/24 Plan of Treatment: Follow-up Right lower extremity post EVLT RT GSV Patient Instructions: Endovenous Ablation (DC) Print Language: Lebanese Discharge Date/Time: 03/07/24 10:07
== END 2024-03-07 10:07 | disposition home or self-care (01) ==
PROVIDERS: PCP Radiology Diagnostic Radiology; Visit Provider Radiology Diagnostic Radiology
DX: I83.813 Varicose veins of bilateral lower extremities with pain (principal)
CPT/HCPCS: 36478

== ENCOUNTER 2024-03-10 09:21 | Outpatient (OUT) | payer MEDICARE, SELFPAY ==
--- NOTE | 2024-03-10 07:35 | VEINCLINIC_ITS ---
Vital Signs 03/10/24 07:37 Height 5 ft 1 in Weight 73 kg BMI 30.4 Varicose Veins Patient in this day for follow up ultrasound post EVLT of right leg GSV. Sundeep Arzola MD personally performed the services described in this documentation, as scribed by Rossy Weller RVT, RDMS in my presence and it is both accurate and complete. Rossy Arzola RVT, RDMS, am scribing for, and in the presence of, Dr. Sundeep Wilkins and in the presence of the patient. medial (Distal/medial right leg ulcer) thigh: bilateral, knee: bilateral, calf: bilateral and ankle: bilateral cramping, sharp and other 7 30+ years Worsened in recent months: Yes standing elevating extremities, compression stockings and other (Rest) Reports edema, leg edema and other (stasis ulcer to right distal/medial calf, cellulitis, DVT) History of lower extremity trauma: No Superficial thrombophlebitis: No Family history of varicose veins: yes Has patient had previous lower extremity venous surgery: No Patient has previously received the following treatment(s) for lower extremity varicose veins: Reports sclerotherapy Does patient have a history of : yes Does patient intend to have future pregnancies: no Has patient had lower extremity venous scan with relux testing: Yes Support hose used: Yes Prescribed by provider: No Problems walking or doing physical activity: No Do you walk much: Yes Do you stand much: Yes Medication compliance: good Large amounts of Vitamin K: No Review of Systems ROS Narrative Sundeep Arzola MD personally performed the services described in this documentation, as scribed by Rossy Weller RVT, RDMS in my presence and it is both accurate and complete. Rossy Arzola RVT, RDMS, am scribing for, and in the presence of, Dr. Sundeep Wilkins and in the presence of the patient. Status of ROS 10 or more systems reviewed and unremark able except as noted in history and below Cardiovascular Reports: edema and leg pain with exertion Musculoskeletal Reports: extremity pain, extremity swelling and muscle cramps Integumentary/Breast Reports: itching, redness, changing lesion, non-healing lesion and changes in skin color Neurological Reports: weakness in extremities Hematologic/Lymphatic Reports: easy bruising PFSH PFS Medical History (Updated 02/22/24 @ 14:54 by Rossy Weller) Phlebitis and thrombophlebitis of superficial vessels of right lower extremity ?I80.01 - Phlebitis and thrombophlebitis of superficial vessels of right lower extremity (ICD-10) Varicose veins of bilateral lower extremities with pain ?I83.813 - Varicose veins of bilateral lower extremities with pain (ICD-10) Hypothyroidism ?E03.9 - Hypothyroidism, unspecified (ICD-10) Cellulitis and abscess of leg ?L03.119 - Cellulitis of unspecified part of limb (ICD-10) ?L02.419 - Cutaneous abscess of limb, unspecified (ICD-10) DVT (deep venous thrombosis) ?I82.409 - Acute embolism and thrombosis of unspecified deep veins of unspecified lower extremity (ICD-10) 3 para 3 ?Z78.9 - Other specified health status (ICD-10) Surgical History (Updated 02/22/24 @ 14:45 by Rossy Weller) History of arthroscopic knee surgery ?Z98.890 - Other specified postprocedural states (ICD-10) History of cholecystectomy ?Z90.49 - Acquired absence of other specified parts of digestive tract (ICD- 10) History of hysterectomy ?Z90.710 - Acquired absence of both cervix and uterus (ICD-10) Family History (Updated 02/22/24 @ 14:46 by Rossy Weller) Mother Family history of cancer Varicose veins of bilateral lower extremities with pain Father Family history of cancer Brother Family history of cancer Sister Family history of cancer Social History (Updated 02/22/24 @ 14:47 by Rossy Weller) Within the past year, how often did you have a drink containing alcohol: 2-4 times a month Smoking status: Never smoker Non-prescribed substance use: denies use Meds Home Medications and Allergies Home Medications ?Medication ?Instructions ?Recorded ?Confirmed ?Type ibuprofen 200 mg tablet (IBU-200) 200 mg PO Q8H 02/22/24 03/07/24 History levothyroxine .ROUTE 02/22/24 History ropinirole .ROUTE 02/22/24 History Allergies Allergy/AdvReac Type Severity Reaction Status Date / Time No Known Drug Allergies Allergy Unverified 02/22/24 14:43 Exam Narrative Exam Narrative: Sundeep Arzola MD personally performed the services described in this documentation, as scribed by Rossy Weller RVT, RDMS in my presence and it is both accurate and complete. I, Rossy Weller RVT, RDMS, am scribing for, and in the presence of, Dr. Sundeep Wilkins and in the presence of the patient. Constitutional Documenting provider has reviewed patient's vital signs: yes Common normals: oriented x3 Lymph Lymphatic: no lymphedema noted Cardio Common normals: regular rate Rate: regular rate Peripheral pulses: posterior tibial pulses present and dorsalis pedis pulses present Extremity Common normals: normal capillary refill General: other findings (Non-healing Ulcer right anterior lower leg) Right lower extremity: lower leg Right lower leg: inspection and palpation Left lower extremity: lower leg Left lower leg: inspection (non-healing venous stasis ulcer mid left calf 2 cm in diameter x 2 months) and palpation Neuro Common normals: oriented x3 Results Imaging Venous US: Radiologist's impression: The ultrasound demonstrates Heat induced thrombus visualized 1.5cm from the SFJ. The heat induced thrombus extends from groin to mid thigh. Assessment and Plan Assessment and Plan (1) Phlebitis and thrombophlebitis of superficial vessels of right lower extremity: (2) Varicose veins of bilateral lower extremities with pain: Plan Patient in today for follow up ultrasound of lower extremity following treatment of EVLT right leg GSV completed on 03/07/2024. The plan is for the patient to return for EVLT of left leg GSV.
[2024-03-10 07:37] VITALS: BMI 30.4
--- NOTE | 2024-03-10 08:43 | W.VEIN ---
Discharge Plan Discharge Disposition: Home, Self-Care Outpatient Diagnostics: VC Endovenous Ablation 1VeinLT (Routine) Timeframe: 2 Weeks Facility: [facility] - Location: [facility] Ordered By: Vance Zhu Follow Up Appointments: 03/15/2024 Plan of Treatment: EVLT of left leg GSV. Print Language: Romanian Discharge Date/Time: 03/10/24 09:59
--- NOTE | 2024-03-10 09:21 | VEIN_ITS ---
Patient Name: RADHA SALGADO MR#: [id number] : 1950 Exam Date: 03/10/2024 Ordering Doctor: DR MAEGAN WALLER M.D. RADIOLOGY REPORT PROCEDURE: [facility] - OFFICE VISIT FOLLOW [facility] PROGRESS NOTES: The patient reports improvement in leg symptoms. There has been interval reduction in varicosities. The patient has followed our recommendations to walk 20-30 minutes once or twice per day since the procedure. Physical exam demonstrates decrease in varicosities of the leg. Persistent varicosities are identified along the legs bilaterally. Review of the ultrasound performed the same day demonstrates occlusive thrombus extending throughout the treated vein(s), see separate report, consistent with a successful ablation. No thrombus extending into or beyond the saphenofemoral junction. The patient expressed a desire to proceed with treatment of remaining incompetent varicosities. The patient was informed that treatment was a process and would require several procedures/sessions. [facility] 1. Successful ablation of the right great saphenous vein(s). 2. Persistent bilateral varicose veins and lower extremity symptoms. PLAN: 1. Endovenous laser ablation of left great saphenous vein. Nurse notes, history and physical were reviewed and confirmed, see attached forms. The nurse was present throughout the physical exam and consultation Dictated by: Sundeep Wilkins M.D. on 03/10/2024 at 09:49 Approved by: Sundeep Wilkins M.D. on 03/10/2024 at 09:50
--- NOTE | 2024-03-10 09:21 | VEIN_ITS ---
Patient Name: RADHA SALGADO MR#: [id number] : 1950 Exam Date: 03/10/2024 Ordering Doctor: DR MAEGAN WALLER M.D. RADIOLOGY REPORT PROCEDURE: VC EXT VENOUS RT LMTD COMPARISON: VC EXT VENOUS RT LMTD, 02/29/2024. INDICATIONS: I80.01 - Phlebitis and thrombophlebitis of superficial ve... TECHNIQUE: Lower extremity lora scale and Duplex Doppler evaluation of the deep venous system from the inguinal ligament through the calf veins. FINDINGS: REGION: Right lower extremity. THROMBI: Negative for DVT. Heat induced thrombus visualized 1.5cm from the SFJ. The heat induced thrombus extends from groin to mid thigh. COMPRESSIBILITY: Non-compressible segments corresponding to thrombus FLOW: Areas of no flow corresponding to thrombus OTHER: CONCLUSION: 1. Successful post ablation occlusion of right great saphenous vein. Dictated by: Sundeep Wilkins M.D. on 03/10/2024 at 09:47 Approved by: Sundeep Wilkins M.D. on 03/10/2024 at 09:49
--- OUTSIDE RECORDS SUMMARY | 2024-03-10 09:33 | XMS_ITS | CCD ---
Author Organization [facility] Care Team Providers Care Director Career Services Name Role Phone Unavailable Primary Care Provider Ty Clinton Primary Care Provider AKSHAT WEBBER Attending TY Austin Primary Care TY Clinton Attending TY Clinton Primary Care AKSHAT Pichardo Attending AKSHAT Cuevas Referring TY Austin Primary Care Reynold Corrales Unavailable MD Ty Del Angel Primary Care Provider [phone] MD Reynold Roper Attending Provider Medications Current [...] 5 04/15/2017 04/15/2017 Active lactobacillus rhamnosus gg [id number] unt oral capsule (2 sources) take 1 [...] on 04-21-2022 XR cervical spine w flex/ext [facility] [place] [address] [place] [address] XRay Report Signed Patient: Janneth Arceo MR#: [id number] : 1950 Acct:[id number] Age/Sex: 71 / F ADM Date: 04/21/22 Loc: XD Room: Type: [facility] Attending Dr: Reynold Roper MD Copies to: [...] Boris Harrison M.D.04/21/2022 5:49 PM Dictation Location: [place] [address] Transcribed By: [facility] 04/21/221748 Dictated By: Boris Harrison II, MD 04/21/221746 Signed By: 04/21/221748 [facility] MM SCREENING BILATERALon MM SCREENING BILATERAL [...] sent to the patient regarding the results. [facility], along with the National [employer], the [employer], and [facility], recommend annual screening mammograms for women age 40 and older. MPH/ges Workstation ID: [id number] Dictated by: CHELSIE PURDY on ThuMay 04, 2020 10:15:06 AM EDT Transcribed by: JAZZY ALBERTO on ThuMay 04, 2020 10:28:17 AM EDT Finalized by: CHELSIE PURDY on ThuMay 04, 2020 10:38:22 AM EDT [facility] Comment on above: Order Comment: Reduc tion 15 years Mammography Screening Andre olivares 04-15-2017 Mammography Screening Bilateral No mammographic evidence of malignancy. BIRADS: BIRADS - CATEGORY 2 Benign, no evidence of malignancy. Normal interval follow-up is recommended in 12 months. OVERALL ASSESSMENT - BENIGN A letter of notification will be sent to the patient regarding the results. [facility], along with the National [employer], [employer], and [facility], recommend annual screening mammograms for women age 40 and older. DSS/margiev Workstation ID: [id number] [facility] Scre[facility] Bilateral EXAMINATION: MM SCREENING BILATERAL 04/15/2017 Computer-assisted detection utilized in the interpretation of this exam. COMPARISON: Mammogram dated 03/22/2015. FINDINGS: MLO and CC views of both breasts were obtained using digital technique. The breasts are almost entirely fatty. Mild scarring from bilateral reduction surgery again noted, not significantly changed. No standout mass, suspicious calcification, or architectural distortion identified. [facility] Vital Signs Date Time Vital Sign Value Performing Clinician Facility 02-01-2024 13:43-0400 Body height 154.94 cm [facility] 02-01-2024 13:43-0400 Body mass index (BMI) [Ratio] 31.1 kg/m2 [facility] 02-01-2024 13:43-0400 Body temperature 97.8 [degF] [facility] 02-01-2024 13:43-0400 Body weight 74.84 kg [facility] 02-01-2024 13:43-0400 Diastolic blood pressure 84 mm[Hg] [facility] 02-01-2024 13:43-0400 Heart rate 56 /min [facility] 02-01-2024 13:43-0400 Systolic blood pressure 173 mm[Hg] [facility] 05-29-2022 16:30-0400 Body height 160.02 cm Reynold Roper Other [facility] Other 05-29-2022 16:30-0400 Body mass index (BMI) [Ratio] 33.16 kg/m2 Reynold Roper Other [facility] Other 05-29-2022 16:30-0400 Body weight 84.91 kg Reynold Roper Other [facility] Other 05-29-2022 16:30-0400 Diastolic blood pressure 102 mm[Hg] Reynold Roper Other [facility] Other 05-29-2022 16:30-0400 SaO2% (BldA) [Mass fraction] 99 % Reynold Jacquelin Other [facility] Other 05-29-2022 16:30-0400 Systolic blood pressure 170 mm[Hg] Reynold Jacquelin Other [facility] Other 05-09-2022 11:15-0400 Body height 160.02 cm Reynold Jacquelin Other [facility] Other 05-09-2022 11:15-0400 Body mass index (BMI) [Ratio] 33.19 kg/m2 Reynold Jacquelin Other [facility] Other 05-09-2022 11:15-0400 Body weight 85 kg Reynold Jacquelin Other [facility] Other 05-09-2022 11:15-0400 Diastolic blood pressure 90 mm[Hg] Reynold Jacquelin Other [facility] Other 05-09-2022 11:15-0400 SaO2% (BldA) [Mass fraction] 99 % Reynold Jacquelin Other [facility] Other 05-09-2022 11:15-0400 Systolic blood pressure 164 mm[Hg] Reynold Jacquelin Other [facility] Other 04-21-2022 15:00-0400 Body height 160.02 cm Reynold Jacquelin Other [facility] Other 04-21-2022 15:00-0400 Body mass index (BMI) [Ratio] 33.12 kg/m2 Reynold Jacquelin Other [facility] Other 04-21-2022 15:00-0400 Body weight 84.82 kg Reynold Roper Other [facility] Other 04-21-2022 15:00-0400 Diastolic blood pressure 82 mm[Hg] Reynold Roper Other [facility] Other 04-21-2022 15:00-0400 SaO2% (BldA) [Mass fraction] 99 % Reynold Roper Other [facility] Other 04-21-2022 15:00-0400 Systolic blood pressure 140 mm[Hg] Reynold Roper Other [facility] Other 05-03-2020 14:46-0400 BMI (Body Mass Index) 31.79 kg/m2 [facility] 05-03-2020 14:46-0400 Body weight 78.83 kg [facility] 05-03-2020 14:46-0400 BP Diastolic 84 mm[Hg] [facility] 05-03-2020 14:46-0400 BP Systolic 160 mm[Hg] [facility] 05-03-2020 14:46-0400 Height 157.5 cm [facility] 05-03-2020 14:46-0400 Pulse (Heart Rate) 81 /min [facility] 04-15-2017 13:39-0400 BMI (Body Mass Index) 33.44 kg/m2 Akshat [facility] Work Phone: 04-15-2017 13:39-0400 BP Diastolic 76 mm[Hg] Akshat [facility] Work Phone: 04-15-2017 13:39-0400 BP Systolic 132 mm[Hg] Akshat [facility] Work Phone: 04-15-2017 13:39-0400 Height 154.9 cm [facility] Work Phone: 04-15-2017 13:39-0400 Weight 80.29 kg Akshat Webber [facility] Work Phone: Encounters Encounter Date Encounter Type Care Provider Facility Start: 02-01-2024 End: 02-01-2024 ambulatory [facility] Work Phone: Start: 02-01-2024 End: 02-01-2024 Patient encounter procedure [facility] Physician [facility] Work Phone: Start: 05-29-2022 End: 05-29-2022 ambulatory Reynold Jacquelin Other [facility] Other Start: 05-29-2022 Office outpatient vi sit 25 minutes Reynold Jacquelin [facility] Start: 05-09-2022 End: 05-09-2022 ambulatory Reynold Jacquelin Other [facility] Other Start: 05-09-2022 Patient encounter procedure Reynold Jacquelin [facility] Start: 04-21-2022 End: 04-21-2022 Patient encounter procedure MD Ty Del Angel Work Phone: [facility] Start: 04-21-2022 End: 04-21-2022 ambulatory Reynold Jacquelin Other [facility] Other Start: 04-21-2022 Office consultation new/estab patient 60 min Reynold Jacquelin [facility] Start: 04-15-2022 End: 04-15-2022 ambulatory Reynold Jacquelin Other [facility] Other Start: 04-15-2022 Telephone encounter Reynold Jacquelin [facility] Start: 10-01-2020 End: 10-01-2020 Orders Only Elena De La Rosa Work Phone: [facility] Start: 05-03-2020 End: 05-04-2020 Patient encounter procedure AKSHAT WEBBER [facility] Start: 05-03-2020 End: 05-03-2020 Office outpatient new 30 minutes Akshat Webber Work Phone: [facility] Comment on above: Encounter for gyneco logical examination without abnormal finding (Primary Dx); Menopausal disorder; Special screening for malignant neoplasm of vagina Start: 05-03-2020 End: 05-03-2020 Subsequent hospital visit by physician Akshat Webber Work Phone: [facility] Comment on above: Screening mammogram, encounter for Start: 03-28-2020 End: 03-28-2020 Patient encounter procedure [facility] Start: 04-15-2017 End: 04-15-2017 Periodic preventive med est patient 65yrs& older Akshat Webber Work Phone: [facility]ne[facility] Comment on above: Encounter for gyneco logical examination without abnormal finding (Primary Dx);Special screening for malignant neoplasms, vagina;Candidiasis of vulva and vagina;Fatigue, unspecified type;Osteopenia, unspecified location Start: 04-15-2017 End: 04-15-2017 Patient encounter procedure Akshat Webber Work Phone: [facility] M[facility] Comment on above: Visit for screening mammogram Procedures Date Procedure Procedure Detail Performing Clinician Start: 04-21-2022 X-ray of cervical spine MD Ty Del Angel Work Phone: Start: 05-03-2020 Mammography Elena doss Start: 04-15-2017 Mammography Akshat mcelroy Plan of Treatment Date Care Activity Detail Author Start: 05-03-2021 Screening mammography Mammogram [facility] Start: 04-24-2020 Influenza vaccinatio n given Sequential Influenza Vaccine (#1) [facility] Start: 04-15-2018 History and physical examination, annual for health maintenance Wellness Visit [facility] Start: 04-15-2018 Screening mammography Mammogram [facility] Start: 04-24-2017 SEQUENTIAL INFLUENZA VACCINE (#1) SEQUENTIAL INFLUENZA VACCINE (#1) [facility] Work Phone: Start: 12-18-2015 Pneumococcal vaccination Pneum ococcal Vaccine Age 65+ (1 of 2 - PCV13) [facility] Start: 12-18-2015 PNEUMOCOCCAL VACCINE AGE 65+ (1 of 2 - PCV13) PNEUMOCOCCAL VACCINE AGE 65+ (1 of 2 - PCV13) [facility] Work Phone: Start: 2010 Zoster vaccine hzv l latisha for subcutaneous use ZOSTER VACCINE [facility] Work Phone: Start: 2000 Administration of he rpes zoster vaccine Zoster Vaccines (1 of 2) [facility] Start: 2000 Screening for malign ant neoplasm of colon [facility] Start: 1968 Hepatitis C antibody , confirmatory test Hepatitis C Screening [facility] Start: 1966 COVID-19 Vaccine (1 of 2) COVI D-19 Vaccine (1 of 2) [facility] Start: 1962 Adolescent depressio n screening assessment Depression Screening (PHQ9) [facility] Start: 1950 Colonoscopy COLONOSCOPY [facility] Work Phone: Start: 1950 Fall risk assessment Falls Risk Asse ssment [facility] Start: 1950 HEPATITIS C SCREENING HEPATITIS C SC REENING [facility] Work Phone: Start: 1950 TETANUS EVERY 10 YR TETANUS EVERY 10 YR [facility] Work Phone: Start: 1950 Tetanus vaccination Tetanus: Every 1 0yrs [facility] End: 05-03-2021 Bone density scan XR Bone Density DEXA Axial Imaging Routine Menopausal disorder 1 Occurrences starting 05/03/2020 until 05/03/2021 [facility] Comment on above: 1 Occurrences starti ng 05/03/2020 until 05/03/2021 End: 05-03-2020 MG Breast - bilateral screening Mammography Screening Bilateral Imaging Routine Screening Mammogram, Encounter For Once for 1 Occurrences starting 05/03/2020 until 05/03/2020 [facility] Comment on above: Once for 1 Occurrenc es starting 05/03/2020 until 05/03/2020 MG Breast - bilatera l screening Mammography Screening Bilateral Imaging Routine Screening mammogram, encounter for 05/03/2020 2:07 PM EDT [facility] Microscopic examinat ion of vaginal Papanicolaou smear Thinprep Pap Smear Pathology and Cytology Routine Special screening for malignant neoplasm of vagina Ordered: 05/03/2020 [facility] Comment on above: Ordered: 05/03/2020 Thinprep Pap Smear, Screening Thinprep Pap Smear, Screening Routine Special screening for malignant neoplasms, vagina Ordered: 04/15/2017 [facility] Work Phone: Comment on above: Ordered: 04/15/2017 Payers Date Payer Category Payer Medicare [employer] [place] [employer] A[employer] MEDICARE PLAN (PPO) [id number] 2019-Present [id number] 2019 Medicare [id number] 1950 Unknown [id number] 1950 Unknown [id number] 1950 Unknown [id number] Medicare [id number] Medicare [id number] Medicare Medicare [id number] Self-pay Self Pay [id number] Social History Date Type Detail Facility Start: 04-15-2017 End: 02-28-2020 Tobacco smoking status [facility] Never smoker [facility] Sex Assigned At Not on file [facility] Work Phone: Start: 05-03-2020 Tobacco use and exposure Never used [facility] Start: 05-03-2020 Alcohol intake Current drinke r of alcohol (finding) [facility] Start: 04-15-2017 Alcohol Comment Social [facility] Exposure to SARS-CoV-2 (event) Not sure [facility] Sex Assigned At Sex Assigned At [facility] Other Start: 1950 Sex Assigned At Female F [facility] Evaluation note 05-29-2022 Note Date & Type [...] understanding. Patient states she is leaving for [place] for 6 months and does not wish to proceed with injections at this time. May, Other chronic pain (ICD-10 - G89.29) Continue with current treatment plan. [facility] Other Evaluation note 05-09-2022 Note Date & [...] - G89.29) Continue with current treatment plan. 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 She feels pain is negatively impacting [...] negative findings were considered in medical decision-making. [facility] Other Evaluation note Note Date & Type Note Facility Evaluation note No assessment information vanda cowart [facility] Work Phone: Evaluation note Note Date & Type Note Facility Evaluation note No Information [employer] Other History general Narrative - Reported Note Date & Type Note Facility History general Narrative - Reported Type Medical History CELLULITIS Medical History HYPOTHYROID Medical History hiatal hernia Surgical History HYSTERECTOMY Surgical History L KNEE Surgical History APPENDIX Surgical History GALLBLADDER Hospitalization History see above Hospitalization History cellulitis right leg [facility] Other History of Present Illness * Akshat [...] been noticing recurrent yeast infections. She uses [id number] Monistat, which seems to help. I gave her a prescription for Diflucan 150 mg, #1 with 5 refills. I did tell the patient that if she would need refills after this expires, we can do this over the phone as long as it is within 1 year. Review of Systems: I have reviewed and agree with the ROS as gathered by the integrated logistics support manager. Past Medical History: Diagnosis Date Disease of [...] with the ROS as gathered by the integrated logistics support manager. Past Medical History: Diagnosis Date Anemia Arthritis [...] file Gets together: Not on file Attends methodist service: Not on file Active member of [...] Mammography Screening Bilateral Akshat Webber MD [address] [place] [address] [facility] [address] [place] [id number] Status Reason Specialty Diagnoses / Procedures Referred By Contact Referred To Contact Authorized Radiology Diagnoses Menopausal disorder Procedures XR Bone Density DEXA Axial Akshat Webber MD [address] [place] [id number] Status Reason Specialty Diagnoses / Procedures Referred By Contact Referred To Contact Pending Review Radiology Diagnoses Screening mammogram, encounter for Procedures Mammography Screening Bilateral Akshat Webber MD [address] [place] [id number] Advance Directives Documents on File Type Date Recorded Patient Supervisor Drapery Hanging Expl anation Advance Directives and Livin g Will 05/03/2020 12:00 AM Documents on File Type Date Recorded Patient Supervisor Drapery Hanging Expl anation Advance Directives and Livin g [...] Procedures Mammography Screening Bilateral Akshat Webber MD [address] [place] [id number] [facility] [address] [place] [address] Reason Comments Annual Exam Status Reason Specialty Diagnoses / Procedures Referred By Contact Referred To Contact Pending Review Radiology Diagnoses Screening mammogram, encounter for Procedures Mammography Screening Bilateral Akshat Webber MD [address] [place] [id number] INFORMATION SOURCE (unrecogn ized section and content) DATE CREATED AUTHOR 05/03/2020 [facility] DATE CREATED AUTHOR AUTHOR'S ORGANIZ ATION 05/09/2020 [facility] DATE CREATED AUTHOR AUTHOR'S ORGANIZ ATION 04/22/2022 [facility] Quick Note - Quan, Sallie L, [...] BE BASED ON THE PRIMARY CLINICAL RECORDS. [employer] provides no warranty or guarantee of the accuracy or completeness of information in this document.
== END 2024-03-10 09:59 | disposition home or self-care (01) ==
LOC: VC 09:21
PROVIDERS: PCP Radiology Diagnostic Radiology; Visit Provider Radiology Diagnostic Radiology
DX: I80.01 Phlebitis and thrombophlebitis of superficial vessels of right lower extremity (principal)
CPT/HCPCS: 93971; G0463

== ENCOUNTER 2024-03-15 08:41 | Outpatient (OUT) | payer MEDICARE, SELFPAY ==
--- NOTE | 2024-03-14 14:24 | VEINCLINIC_ITS ---
Vital Signs 03/15/24 08:18 03/15/24 09:08 Height 5 ft 1 in Weight 73.482 kg BP 142/70 H BP Location Right Brachial BP Position Sitting BP Cuff Size Adult BP Source Manual Cuff Respiration 16 Pulse 61 Pulse Source Monitor Pulse Oximetry (%) 97 Oxygen Delivery Method Room Air Comment The patient's blood pressure is elevated. Varicose Veins Patient in this day for EVLT of left GSV Sundeep Arzola MD personally performed the services described in this documentation, as scribed by Ranjit Henderson RN in my presence and it is both accurate and complete. IRanjit RN, am scribing for, and in the presence of, Dr. Sundeep Wilkins and in the presence of the patient. medial (Distal/medial right leg ulcer) thigh: bilateral, knee: bilateral, calf: bilateral and ankle: bilateral cramping, sharp and other 7 30+ years Worsened in recent months: Yes standing elevating extremities, compression stockings and other (Rest) Reports edema, leg edema and other (stasis ulcer to right distal/medial calf, cellulitis, DVT) History of lower extremity trauma: No Superficial thrombophlebitis: No Family history of varicose veins: yes Has patient had previous lower extremity venous surgery: No Patient has previously received the following treatment(s) for lower extremity varicose veins: Reports sclerotherapy Does patient have a history of : yes Does patient intend to have future pregnancies: no Has patient had lower extremity venous scan with relux testing: Yes Support hose used: Yes Prescribed by provider: No Problems walking or doing physical activity: No Do you walk much: Yes Do you stand much: Yes Medication compliance: good Large amounts of Vitamin K: No Review of Systems ROS Narrative Sundeep Arzola MD personally performed the services described in this documentation, as scribed by Ranjit Henderson RN in my presence and it is both accurate and complete. Ranjit Arzola RN, am scribing for, and in the presence of, Dr. Sundeep Wilkins and in the presence of the patient. Status of ROS 10 or more systems reviewed and unremark able except as noted in history and below Cardiovascular Reports: edema and leg pain with exertion Musculoskeletal Reports: extremity pain, extremity swelling and muscle cramps Integumentary/Breast Reports: itching, redness, changing lesion, non-healing lesion and changes in skin color Neurological Reports: weakness in extremities Hematologic/Lymphatic Reports: easy bruising [facility] Medical History (Updated 03/10/24 @ 09:44 by Rossy Weller) Phlebitis and thrombophlebitis of superficial vessels of left lower extremity ?I80.02 - Phlebitis and thrombophlebitis of superficial vessels of left lower extremity (ICD-10) Phlebitis and thrombophlebitis of superficial vessels of right lower extremity ?I80.01 - Phlebitis and thrombophlebitis of superficial vessels of right lower extremity (ICD-10) Varicose veins of bilateral lower extremities with pain ?I83.813 - Varicose veins of bilateral lower extremities with pain (ICD-10) Hypothyroidism ?E03.9 - Hypothyroidism, unspecified (ICD-10) Cellulitis and abscess of leg ?L03.119 - Cellulitis of unspecified part of limb (ICD-10) ?L02.419 - Cutaneous abscess of limb, unspecified (ICD-10) DVT (deep venous thrombosis) ?I82.409 - Acute embolism and thrombosis of unspecified deep veins of unspecified lower extremity (ICD-10) 3 para 3 ?Z78.9 - Other specified health status (ICD-10) Surgical History (Updated 02/22/24 @ 14:45 by Rossy Weller) History of arthroscopic knee surgery ?Z98.890 - Other specified postprocedural states (ICD-10) History of cholecystectomy ?Z90.49 - Acquired absence of other specified parts of digestive tract (ICD- 10) History of hysterectomy ?Z90.710 - Acquired absence of both cervix and uterus (ICD-10) Family History (Updated 02/22/24 @ 14:46 by Rossy Weller) Mother Family history of cancer Varicose veins of bilateral lower extremities with pain Father Family history of cancer Brother Family history of cancer Sister Family history of cancer Social History (Updated 02/22/24 @ 14:47 by Rossy Weller) Within the past year, how often did you have a drink containing alcohol: 2-4 times a month Smoking status: Never smoker Non-prescribed substance use: denies use Meds Home Medications and Allergies Home Medications ?Medication ?Instructions ?Recorded ?Confirmed ?Type ibuprofen 200 mg tablet (IBU-200) 200 mg PO Q8H 02/22/24 03/07/24 History levothyroxine .ROUTE 02/22/24 History ropinirole .ROUTE 02/22/24 History Allergies Allergy/AdvReac Type Severity Reaction Status Date / Time No Known Drug Allergies Allergy Unverified 02/22/24 14:43 Exam Narrative Exam Narrative: Sundeep Arzola MD personally performed the services described in this documentation, as scribed by Ranjit Henderson RN in my presence and it is both accurate and complete. I, Ranjit Henderson RN, am scribing for, and in the presence of, Dr. Sundeep Wilkins and in the presence of the patient. Constitutional Documenting provider has reviewed patient's vital signs: yes Common normals: oriented x3 Lymph Lymphatic: no lymphedema noted Cardio Common normals: regular rate Rate: regular rate Peripheral pulses: posterior tibial pulses present and dorsalis pedis pulses present Extremity Common normals: normal capillary refill General: other findings (Non-healing Ulcer right anterior lower leg) Right lower extremity: lower leg Right lower leg: inspection and palpation Left lower extremity: lower leg Left lower leg: inspection (non-healing venous stasis ulcer mid left calf 2 cm in diameter x 2 months) and palpation Neuro Common normals: oriented x3 Assessment and Plan Assessment and Plan (1) Varicose veins of bilateral lower extremities with pain: Plan Plan of care: Risks and benefits of the procedure were discussed at length and informed written consent was obtained.? Time-out completed for verification of correct patient, procedure and site.? Staff present during time-out: Ranjit Henderson RN,? Sundeep Wilkins MD, [facility],RVT. Oralia Multani (student) Time Out Time_932 Patient prepped and procedure performed in usual sterile fashion. Risk of injury related to use of Diode laser and/or laser devices__CR___ ? Serial number of laser used :? [id number] Control panel self test performed, electrical cords in good condition, floor is dry, basin of water available, fire extinguisher in close proximity_CR__ Polycarbonate goggles available and Laser warning signs outside of doors___CR__ Eye protection provided to patient and staff in room_CR___ Use of laser retardant drapes and dull blackened instruments as directed__CR___ Use of nonflammable prep solutions and use of saline soaked sponges to protect tissues as indicated _CR___ Length _27__ cm Laser operated by _Dr. Wilkins____ Physician verbal confirmation laser locked in place__CR__ Laser start time (date and time) _03/15/2024@_0950____ Laser stop time(date and time) _03/15/2024@_0953 Good _8.0___ Average laser use __1762 Joules Average laser use__220 seconds Pulse continuous ___CR_? Pulse intermittent ___ Amount of Tumescent used _225cc Evaluated patient for signs and symptoms of electrical injury __CR___ ? Skin clear at insertion site __CR___ Patient tolerated procedure well.? Left leg Coban dressing applied to access site.? Applied Left thigh high leg compression stocking. Will return on 03/18/2024 for Left leg limited venous ultrasound and exam. ISundeep MD personally performed the services described in this documentation, as scribed by Ranjit Henderson RN in my presence and it is both accurate and complete. I, Ranjit Henderson RN, am scribing for, and in the presence of, Dr. Sundeep Wilkins and in the presence of the patient.
--- NOTE | 2024-03-15 08:18 | P.DS_ITS ---
Discharge Plan Discharge Disposition: Home, Self-Care Outpatient Diagnostics: VC Facility EST LMTD (Routine) Timeframe: 2 Weeks Facility: [facility] - Location: [facility] Ordered By: Vance Zhu VC EXT Venous LT Limited (Routine) Timeframe: 2 Weeks Facility: [facility] - Location: Vein Center Ordered By: Vance Zhu Follow Up Appointments: 03/18/2024@0800 Plan of Treatment: follow-up evaluation with physician along with left leg limited u/s Patient Instructions: Endovenous Ablation (DC) Print Language: [place] Discharge Date/Time: 03/15/24 09:39
[2024-03-15] MEDS: LIDOCAINE HCL 1% 100 MG/10 ML MDV INJ (08:54)
[2024-03-15] MEDS: 0.9 % SODIUM CHLORIDE 500 ML, LIDOCAINE HCL 20 ML, SODIUM BICARBONATE 10 MEQ INJ (08:54)
--- NOTE | 2024-03-15 08:59 | VEIN_ITS ---
The [address] [address] Patient Name: RADHA SALGADO MRN: [id number] date: 1950 Sex: F Assigned Patient Location: Current Patient Location: Accession/Order Number: [id number] Exam Date: 03/15/2024 09:02 Report Date: 03/15/2024 11:27 At the request of: MAEGAN WALLER Procedure: VC Endovenous Ablation 1VeinLT EXAMINATION: VC Endovenous Ablation 1VeinLT HISTORY: I83.813 bilateral leg painful varicose veins The risks and benefits of the procedure had been previously discussed, and were rediscussed at length. Informed written consent was obtained. Ranjit Henderson RN and Rossy Weller RDMS, RVT assisted. Time out procedure was performed. The left lower extremity was prepared and draped in the usual sterile fashion to allow knee flexion in the sterile field. Duplex ultrasound probe was draped in a sterile cover, sterile transmission gel was used. Venous mapping was performed with the areas of dilation and large tributaries marked. The total length was 27 cm from the entry distal thigh to 3 cm below the Saphenofemoral junction. The diameter of the left great saphenous vein ranged from 13.7 mm. A 30 gauge needle and 1% buffered lidocaine was used to anesthetize the entry site. A 4 mm incision was made with a scalpel and the saphenous vein was entered percutaneously under direct ultrasound guidance with a micropuncture set, a single stick was successful in gaining access. A micro-guide wire was inserted and the needle removed. A micro-set including a dilator was inserted over the microwire and the needle and dilator were removed. A guide wire was inserted through the micro-set and guided through the saphenous vein to the saphenofemoral junction. The dilator was removed and an introducer sheath was inserted over the wire until the end of the sheath entered the saphenofemoral junction. The dilator and wire were removed and the 600 micron fiber was introduced and placed and positioned so that it extended beyond the sheath and was 3 cm distal to the saphenofemoral or saphenopopliteal junction. Final position of the fiber was determined by ultrasound guidance and duplex imaging. Tumescent anesthetic was delivered by ultrasound guidance. 2025 cc of fluid was delivered along the entire course of the saphenous vein. The solution consisted of 1000 cc of normal saline with 40 mL of 1% lidocaine and 20 mL of sodium bicarbonate. A final positioning check was made. The energy source was turned on by means of the foot pedal and the fiber and sheath were withdrawn. The total number of Joules delivered was 1762. The laser was active for 220 seconds under continuous pulse, average laser use of 8 J. Laser start time: 9:50 AM Laser stop time: 9:53 AM Date: 03/15/2024. A duplex ultrasound revealed compressibility and flow at the saphenofemoral junction immediately after the procedure. Hemostasis at the access site was achieved. The skin incision of the saphenous vein was closed with a 4 x 4. A compression stocking was applied. Postop instructions were given. A follow up appointment was recommended and scheduled. The patient tolerated the procedure well. Electronically authenticated by: MARIELA BARRAGAN Date: 03/15/2024 11:27
[2024-03-15 09:08] VITALS: BP 142/70; PULSE 61; O2SAT 97
--- NOTE | 2024-03-15 09:08 | V.VEINS.HP ---
Vital Signs 03/15/24 08:18 03/15/24 09:08 Height 5 ft 1 in Weight 73.482 kg BP Location Right Brachial BP Position Sitting BP Cuff Size Adult BP Source Manual Cuff Respiration 16 Pulse 61 Pulse Source Monitor Pulse Oximetry (%) 97 Oxygen Delivery Method Room Air Varicose Veins Patient in this day for follow up ultrasound post EVLT of left leg GSV. Sundeep Arzola MD personally performed the services described in this documentation, as scribed by Ranjit Henderson RN in my presence and it is both accurate and complete. Ranjit Arzola RN, am scribing for, and in the presence of, Dr. Sundeep Wilkins and in the presence of the patient. medial (Distal/medial right leg ulcer) thigh: bilateral, knee: bilateral, calf: bilateral and ankle: bilateral cramping, sharp and other 7 30+ years Worsened in recent months: Yes standing elevating extremities, compression stockings and other (Rest) Reports edema, leg edema and other (stasis ulcer to right distal/medial calf, cellulitis, DVT) History of lower extremity trauma: No Superficial thrombophlebitis: No Family history of varicose veins: yes Has patient had previous lower extremity venous surgery: No Patient has previously received the following treatment(s) for lower extremity varicose veins: Reports sclerotherapy Does patient have a history of : yes Does patient intend to have future pregnancies: no Has patient had lower extremity venous scan with relux testing: Yes Support hose used: Yes Prescribed by provider: No Problems walking or doing physical activity: No Do you walk much: Yes Do you stand much: Yes Medication compliance: good Large amounts of Vitamin K: No Review of Systems ROS Narrative Sundeep Arzola MD personally performed the services described in this documentation, as scribed by Rossy Weller RVT, RDMS in my presence and it is both accurate and complete. Rossy Arzola RVT, RDMS, am scribing for, and in the presence of, Dr. Sundeep Wilkins and in the presence of the patient. Status of ROS 10 or more systems reviewed and unremarkable except as noted in history and below Cardiovascular Reports: edema and leg pain with exertion Musculoskeletal Reports: extremity pain, extremity swelling and muscle cramps Integumentary/Breast Reports: itching, redness, changing lesion, non-healing lesion and changes in skin color Neurological Reports: weakness in extremities Hematologic/Lymphatic Reports: easy bruising [facility] Medical History (Updated 03/10/24 @ 09:44 by Rossy Weller) Phlebitis and thrombophlebitis of superficial vessels of left lower extremity ?I80.02 - Phlebitis and thrombophlebitis of superficial vessels of left lower extremity (ICD-10) Phlebitis and thrombophlebitis of superficial vessels of right lower extremity ?I80.01 - Phlebitis and thrombophlebitis of superficial vessels of right lower extremity (ICD-10) Varicose veins of bilateral lower extremities with pain ?I83.813 - Varicose veins of bilateral lower extremities with pain (ICD-10) Hypothyroidism ?E03.9 - Hypothyroidism, unspecified (ICD-10) Cellulitis and abscess of leg ?L03.119 - Cellulitis of unspecified part of limb (ICD-10) ?L02.419 - Cutaneous abscess of limb, unspecified (ICD-10) DVT (deep venous thrombosis) ?I82.409 - Acute embolism and thrombosis of unspecified deep veins of unspecified lower extremity (ICD-10) 3 para 3 ?Z78.9 - Other specified health status (ICD-10) Surgical History (Updated 02/22/24 @ 14:45 by Rossy Weller) History of arthroscopic knee surgery ?Z98.890 - Other specified postprocedural states (ICD-10) History of cholecystectomy ?Z90.49 - Acquired absence of other specified parts of digestive tract (ICD-10) History of hysterectomy ?Z90.710 - Acquired absence of both cervix and uterus (ICD-10) Family History (Updated 02/22/24 @ 14:46 by Rossy Weller) Mother Family history of cancer Varicose veins of bilateral lower extremities with pain Father Family history of cancer Brother Family history of cancer Sister Family history of cancer Social History (Updated 02/22/24 @ 14:47 by Rossy Weller) Within the past year, how often did you have a drink containing alcohol: 2-4 times a month Smoking status: Never smoker Non-prescribed substance use: denies use Meds Home Medications and Allergies Home Medications ?Medication ?Instructions ?Recorded ?Confirmed ?Type ibuprofen 200 mg tablet (IBU-200) 200 mg PO Q8H 02/22/24 03/07/24 History levothyroxine .ROUTE 02/22/24 History ropinirole .ROUTE 02/22/24 History Allergies Allergy/AdvReac Type Severity Reaction Status Date / Time No Known Drug Allergies Allergy Unverified 02/22/24 14:43 Assessment and Plan Assessment and Plan (1) Varicose veins of bilateral lower extremities with pain: Plan Plan of care: Risks and benefits of the procedure were discussed at length and informed written consent was obtained.? Time-out completed for verification of correct patient, procedure and site.? Staff present during time-out: Ranjit Henderson RN,? Sundeep Wilkins MD, Rossy Weller RDMS,RVT. Time Out Time Patient prepped and procedure performed in usual sterile fashion. Risk of injury related to use of Diode laser and/or laser devices__CR___ ? Serial number of laser used :? [id number] Control panel self test performed, electrical cords in good condition, floor is dry, basin of water available, fire extinguisher in close proximity_CR__ Polycarbonate goggles available and Laser warning signs outside of doors___CR__ Eye protection provided to patient and staff in room_CR___ Use of laser retardant drapes and dull blackened instruments as directed__CR___ Use of nonflammable prep solutions and use of saline soaked sponges to protect tissues as indicated _CR___ Length cm Laser operated by _Dr. Wilkins____ Physician verbal confirmation laser locked in place__CR__ Laser start time (date and time) _03/15/2024@ Laser stop time(date and time) _03/15/2024@ Good _8.0___ Average laser use Joules Average laser use seconds Pulse continuous ___CR_? Pulse intermittent ___ Amount of Tumescent used Evaluated patient for signs and symptoms of electrical injury __CR___ ? Skin clear at insertion site __CR___ Patient tolerated procedure well.? Left leg Coban dressing applied to access site.? Applied Left thigh high leg compression stocking. Will return on 03/18/2024 for Left leg limited venous ultrasound and exam.
== END 2024-03-15 09:39 | disposition home or self-care (01) ==
LOC: VC 08:53
PROVIDERS: PCP Radiology Diagnostic Radiology; Visit Provider Radiology Diagnostic Radiology
DX: I83.813 Varicose veins of bilateral lower extremities with pain (principal)
CPT/HCPCS: 36478

== ENCOUNTER 2024-03-18 07:48 | Outpatient (OUT) | payer MEDICARE, SELFPAY ==
--- NOTE | 2024-03-18 07:28 | VEINCLINIC_ITS ---
Vital Signs 03/18/24 07:29 Height 5 ft 1 in Weight 73 kg BMI 30.4 BP 128/72 BP Location Left Brachial BP Position Sitting BP Cuff Size Adult BP Source Manual Cuff Respiration 18 Pulse Oximetry (%) 100 Comment The patient's blood pressure is elevated. Varicose Veins Patient in this day for follow up ultrasound post EVLT of left GSV Sundeep Arzola MD personally performed the services described in this documentation, as scribed by Rossy Weller RVT, RDMS in my presence and it is both accurate and complete. Rossy Arzola RVT, RDMS, am scribing for, and in the presence of, Dr. Sundeep Wilkins and in the presence of the patient. medial (Distal/medial right leg ulcer) thigh: bilateral, knee: bilateral, calf: bilateral and ankle: bilateral cramping, sharp and other 7 30+ years Worsened in recent months: Yes standing elevating extremities, compression stockings and other (Rest) Reports edema, leg edema and other (stasis ulcer to right distal/medial calf, cellulitis, DVT) History of lower extremity trauma: No Superficial thrombophlebitis: No Family history of varicose veins: yes Has patient had previous lower extremity venous surgery: No Patient has previously received the following treatment(s) for lower extremity varicose veins: Reports sclerotherapy Does patient have a history of : yes Does patient intend to have future pregnancies: no Has patient had lower extremity venous scan with relux testing: Yes Support hose used: Yes Prescribed by provider: No Problems walking or doing physical activity: No Do you walk much: Yes Do you stand much: Yes Medication compliance: good Large amounts of Vitamin K: No Review of Systems ROS Narrative Sundeep Arzola MD personally performed the services described in this documentation, as scribed by Rossy Weller RVT, RDMS in my presence and it is both accurate and complete. Rossy Arzola RVT, RDMS, am scribing for, and in the presence of, Dr. Sundeep Wilkins and in the presence of the patient. Status of ROS 10 or more systems reviewed and unremark able except as noted in history and below Cardiovascular Reports: edema and leg pain with exertion Musculoskeletal Reports: extremity pain, extremity swelling and muscle cramps Integumentary/Breast Reports: itching, redness, changing lesion, non-healing lesion and changes in skin color Neurological Reports: weakness in extremities Hematologic/Lymphatic Reports: easy bruising PFSH PFS Medical History (Updated 03/10/24 @ 09:44 by Rossy Weller) Phlebitis and thrombophlebitis of superficial vessels of left lower extremity ?I80.02 - Phlebitis and thrombophlebitis of superficial vessels of left lower extremity (ICD-10) Phlebitis and thrombophlebitis of superficial vessels of right lower extremity ?I80.01 - Phlebitis and thrombophlebitis of superficial vessels of right lower extremity (ICD-10) Varicose veins of bilateral lower extremities with pain ?I83.813 - Varicose veins of bilateral lower extremities with pain (ICD-10) Hypothyroidism ?E03.9 - Hypothyroidism, unspecified (ICD-10) Cellulitis and abscess of leg ?L03.119 - Cellulitis of unspecified part of limb (ICD-10) ?L02.419 - Cutaneous abscess of limb, unspecified (ICD-10) DVT (deep venous thrombosis) ?I82.409 - Acute embolism and thrombosis of unspecified deep veins of unspecified lower extremity (ICD-10) 3 para 3 ?Z78.9 - Other specified health status (ICD-10) Surgical History (Updated 02/22/24 @ 14:45 by Rossy Weller) History of arthroscopic knee surgery ?Z98.890 - Other specified postprocedural states (ICD-10) History of cholecystectomy ?Z90.49 - Acquired absence of other specified parts of digestive tract (ICD- 10) History of hysterectomy ?Z90.710 - Acquired absence of both cervix and uterus (ICD-10) Family History (Updated 02/22/24 @ 14:46 by Rossy Weller) Mother Family history of cancer Varicose veins of bilateral lower extremities with pain Father Family history of cancer Brother Family history of cancer Sister Family history of cancer Social History (Updated 02/22/24 @ 14:47 by Rossy Weller) Within the past year, how often did you have a drink containing alcohol: 2-4 times a month Smoking status: Never smoker Non-prescribed substance use: denies use Meds Home Medications and Allergies Home Medications ?Medication ?Instructions ?Recorded ?Confirmed ?Type ibuprofen 200 mg tablet (IBU-200) 200 mg PO Q8H 07/01/24 07/15/24 History levothyroxine .ROUTE 02/22/24 History ropinirole .ROUTE 02/22/24 History Allergies Allergy/AdvReac Type Severity Reaction Status Date / Time No Known Drug Allergies Allergy Unverified 02/22/24 14:43 Exam Narrative Exam Narrative: Sundeep Arzola MD personally performed the services described in this documentation, as scribed by Rossy Weller RVT, RDMS in my presence and it is both accurate and complete. Rossy Arzola RVT, RDMS, am scribing for, and in the presence of, Dr. Sundeep Wilkins and in the presence of the patient. Results Imaging Venous US: Radiologist's impression: The ultrasound demonstrates Heat induced thrombus visualized 2.2cm from the SGFJ. The heat induced thrombus extends from groin to knee. Assessment and Plan Assessment and Plan (1) Phlebitis and thrombophlebitis of superficial vessels of left lower extremity: (2) Varicose veins of bilateral lower extremities with pain: Plan Patient in today for follow up ultrasound of lower extremity following treatment of EVLT of left leg GSV. The plan if for the patient to return for EVLT of right leg perforating veins.
[2024-03-18 07:29] VITALS: BP 128/72; O2SAT 100; BMI 30.4
--- NOTE | 2024-03-18 07:33 | W.VEIN ---
Discharge Plan Discharge Disposition: Home, Self-Care Outpatient Diagnostics: VC Endovenous Perf Ablation RT (Routine) Timeframe: 2 Weeks Facility: [facility] - Location: Vein Center Ordered By: Vance Zhu Follow Up Appointments: 03/21/24 Print Language: Citizen [place]
--- NOTE | 2024-03-18 07:53 | VEIN_ITS ---
Patient Name: RADHA SALGADO MR#: [id number] : 1950 Exam Date: 03/18/2024 Ordering Doctor: DR MAEGAN WALLER M.D. RADIOLOGY REPORT PROCEDURE: VC EXT VENOUS LT LIMITED COMPARISON: None. INDICATIONS: I80.02 Phlebitis of superficial veins of lt lower extremity TECHNIQUE: Lower extremity lora scale and Duplex Doppler evaluation of the deep venous system from the inguinal ligament through the calf veins. FINDINGS: REGION: Left lower extremity. THROMBI: Negative for DVT. Heat induced thrombus visualized 2.2cm from the SFJ. The heat induced thrombus extends from groin to knee. COMPRESSIBILITY: Non-compressible segments corresponding to thrombus FLOW: Areas of no flow corresponding to thrombus OTHER: CONCLUSION: 1. Successful post ablation occlusion of left great saphenous vein. Dictated by: Sundeep Wilkins M.D. on 03/18/2024 at 10:34 Approved by: Sundeep Wilkins M.D. on 03/18/2024 at 11:41
--- NOTE | 2024-03-18 07:53 | VEIN_ITS ---
Patient Name: RADHA SALGADO MR#: [id number] : 1950 Exam Date: 03/18/2024 Ordering Doctor: DR MAEGAN WALLER M.D. RADIOLOGY REPORT PROCEDURE: [facility] - OFFICE VISIT FOLLOW UP [facility] PROGRESS NOTES: The patient reports improvement in leg symptoms. There has been interval reduction in varicosities. The patient has followed our recommendations to walk 20-30 minutes once or twice per day since the procedure. Physical exam demonstrates decrease in varicosities of the leg. Persistent varicose veins are identified along the legs bilaterally. Review of the ultrasound performed the same day demonstrates occlusive thrombus extending throughout the treated vein(s), see separate report, consistent with a successful ablation. No thrombus extending into or beyond the saphenofemoral junction. The patient expressed a desire to proceed with treatment of remaining incompetent varicosities. The patient was informed that treatment was a process and would require several procedures/sessions. VEIN/[facility] EST TD IMPRESSION: 1. Successful ablation of the left great saphenous vein(s). 2. Persistent varicose veins and lower extremity symptoms. PLAN: 1. Endovenous laser ablation of lower right leg lead network architect vein(s). Nurse notes, history and physical were reviewed and confirmed, see attached forms. The nurse was present throughout the physical exam and consultation Dictated by: Sundeep Wilkins M.D. on 03/18/2024 at 11:41 Approved by: Sundeep Wilkins M.D. on 03/18/2024 at 11:42
--- OUTSIDE RECORDS SUMMARY | 2024-03-18 07:54 | XMS_ITS | CCD ---
Author Organization [facility] Care Team Providers Care Sales Strategy Manager Name Role Phone Unavailable Primary Care Provider Ty Clinton Primary Care Provider [phone] AKSHAT WEBBER Attending TY [facility] TY Clinton Attending TY Clinton [facility] AKSHAT Pichardo Attending AKSHAT Cuevas Referring TY [facility] Reynold Corrales Unavailable MD Ty Del Angel Primary Care Provider [phone] MD Reynold Roper Attending Provider Medications Current [...] 5 04/15/2017 04/15/2017 Active lactobacillus rhamnosus gg [id number] unt oral capsule (2 sources) take 1 [...] on 04-21-2022 XR cervical spine w flex/ext [facility] Main [place] [address] [place] [address] XRay Report Signed Patient: Janneth Arceo MR#: [id number] : 1950 Acct:[id number] Age/Sex: 71 / F ADM Date: 04/21/22 Loc: XD Room: Type: [facility] Attending Dr: Reynold Roper MD Copies to: [...] Boris Harrison M.D.04/21/2022 5:49 PM Dictation Location: [place] [address] Transcribed By: [facility] 04/21/221748 Dictated By: Boris Harrison II, MD 04/21/221746 Signed By: 04/21/221748 [facility] MM SCREENING BILATERALon MM SCREENING [...] sent to the patient regarding the results. [facility], along with the [employer], the [employer], and [facility], recommend annual screening mammograms for women age 40 and older. MPH/ges Workstation ID: [id number] Dictated by: CHELSIE PURDY on ThuMay 04, 2020 10:15:06 AM EDT Transcribed by: JAZZY ALBERTO on ThuMay 04, 2020 10:28:17 AM EDT Finalized by: CHELSIE PURDY on ThuMay 04, 2020 10:38:[address] [facility] Comment on above: Order Comment: Reduc tion 15 years Mammography Screening Andre olivares 04-15-2017 Mammography Screening Bilateral No mammographic evidence of malignancy. BIRADS: BIRADS - CATEGORY 2 Benign, no evidence of malignancy. Normal interval follow-up is recommended in 12 months. OVERALL ASSESSMENT - BENIGN A letter of notification will be sent to the patient regarding the results. [facility], along with the National [employer], the [employer], and [facility], recommend annual screening mammograms for women age 40 and older. DSS/margiev Workstation ID: [id number] [facility] M[facility] Screening Bilateral EXAMINATION: MM SCREENING BILATERAL 04/15/2017 Computer-assisted detection utilized in the interpretation of this exam. COMPARISON: Mammogram dated 03/22/2015. FINDINGS: MLO and CC views of both breasts were obtained using digital technique. The breasts are almost entirely fatty. Mild scarring from bilateral reduction surgery again noted, not significantly changed. No standout mass, suspicious calcification, or architectural distortion identified. [facility] Vital Signs Date Time Vital Sign Value Performing Clinician Facility 02-01-2024 13:43-0400 Body height 154.94 cm [facility] 02-01-2024 13:43-0400 Body mass index (BMI) [Ratio] 31.1 kg/m2 [facility] 02-01-2024 13:43-0400 Body temperature 97.8 [degF] [facility] 02-01-2024 13:43-0400 Body weight 74.84 kg [facility] 02-01-2024 13:43-0400 Diastolic blood pressure 84 mm[Hg] [facility] 02-01-2024 13:43-0400 Heart rate 56 /min [facility] 02-01-2024 13:43-0400 Systolic blood pressure 173 mm[Hg] [facility] 05-29-2022 16:30-0400 Body height 160.02 cm Reynold Roper Other [facility] [employer] Other 05-29-2022 16:30-0400 Body mass index (BMI) [Ratio] 33.16 kg/m2 Reynold Roper Other [employer] [facility] [employer] Other 05-29-2022 16:30-0400 Body weight 84.91 kg Reynold Roper Other [employer] Other 05-29-2022 16:30-0400 Diastolic blood pressure 102 mm[Hg] Reynold Roper Other [employer] [facility] [employer] Other 05-29-2022 16:30-0400 SaO2% (BldA) [Mass fraction] 99 % Reynold Jacquelin Other [employer] Other 05-29-2022 16:30-0400 Systolic blood pressure 170 mm[Hg] Reynold Jacquelin Other [employer] Other 05-09-2022 11:15-0400 Body height 160.02 cm Reynold Jacquelin Other [employer] Other 05-09-2022 11:15-0400 Body mass index (BMI) [Ratio] 33.19 kg/m2 Reynold Jacquelin Other [employer] Other 05-09-2022 11:15-0400 Body weight 85 kg Reynold Jacquelin Other [employer] Other 05-09-2022 11:15-0400 Diastolic blood pressure 90 mm[Hg] Reynold Jacquelin Other [employer] Other 05-09-2022 11:15-0400 SaO2% (BldA) [Mass fraction] 99 % Reynold Jacquelin Other [employer] Other 05-09-2022 11:15-0400 Systolic blood pressure 164 mm[Hg] Reynold Jacquelin Other [employer] Other 04-21-2022 15:00-0400 Body height 160.02 cm Reynold Jacquelin Other [employer] Other 04-21-2022 15:00-0400 Body mass index (BMI) [Ratio] 33.12 kg/m2 Reynold Jacquelin Other [employer] Other 04-21-2022 15:00-0400 Body weight 84.82 kg Reynold Roper Other [employer] Other 04-21-2022 15:00-0400 Diastolic blood pressure 82 mm[Hg] Reynold Roper Other [employer] Other 04-21-2022 15:00-0400 SaO2% (BldA) [Mass fraction] 99 % Reynold Roper Other [employer] Other 04-21-2022 15:00-0400 Systolic blood pressure 140 mm[Hg] Reynold Roper Other [employer] Other 05-03-2020 14:46-0400 BMI (Body Mass Index) 31.79 kg/m2 [facility] 05-03-2020 14:46-0400 Body weight 78.83 kg [facility] 05-03-2020 14:46-0400 BP Diastolic 84 mm[Hg] [facility] 05-03-2020 14:46-0400 BP Systolic 160 mm[Hg] [facility] 05-03-2020 14:46-0400 Height 157.5 cm [facility] 05-03-2020 14:46-0400 Pulse (Heart Rate) 81 /min [facility] 04-15-2017 13:39-0400 BMI (Body Mass Index) 33.44 kg/m2 Akshat [facility] Work Phone: 04-15-2017 13:39-0400 BP Diastolic 76 mm[Hg] Akshat [facility] Work Phone: 04-15-2017 13:39-0400 BP Systolic 132 mm[Hg] Akshat [facility] Work Phone: 04-15-2017 13:39-0400 Height 154.9 cm [facility] Work Phone: 04-15-2017 13:39-0400 Weight 80.29 kg Akshat Webber [facility] Work Phone: Encounters Encounter Date Encounter Type Care Provider Facility Start: 02-01-2024 End: 02-01-2024 ambulatory [facility] Work Phone: Start: 02-01-2024 End: 02-01-2024 Patient encounter procedure [facility] Work Phone: Start: 05-29-2022 End: 05-29-2022 ambulatory Reynold Jacquelin Other [employer] Other Start: 05-29-2022 Office outpatient vi sit 25 minutes Reynold Jacquelin [facility] Start: 05-09-2022 End: 05-09-2022 ambulatory Reynold Jacquelin Other [employer] Other Start: 05-09-2022 Patient encounter procedure Reynold Jacquelin [facility] Start: 04-21-2022 End: 04-21-2022 Patient encounter procedure MD Ty Del Angel Work Phone: [facility] Start: 04-21-2022 End: 04-21-2022 ambulatory Reynold Jacquelin Other [employer] Other Start: 04-21-2022 Office consultation new/estab patient 60 min Reynold Jacquelin [facility] Start: 04-15-2022 End: 04-15-2022 ambulatory Reynold Jacquelin Other [employer] Other Start: 04-15-2022 Telephone encounter Reynold Jacquelin [facility] Start: 10-01-2020 End: 10-01-2020 Orders Only Elena De La Rosa Work Phone: [facility] Start: 05-03-2020 End: 05-04-2020 Patient encounter procedure AKSHAT WEBBER [facility] Start: 05-03-2020 End: 05-03-2020 Office outpatient new 30 minutes Akshat Webber Work Phone: [facility] Comment on above: Encounter for gyneco logical examination without abnormal finding (Primary Dx); Menopausal disorder; Special screening for malignant neoplasm of vagina Start: 05-03-2020 End: 05-03-2020 Subsequent hospital visit by physician Akshat Webber Work Phone: [facility] Comment on above: Screening mammogram, encounter for Start: 03-28-2020 End: 03-28-[address] [facility] Start: 04-15-2017 End: 04-15-2017 Periodic preventive med est patient 65yrs& older Akshat Webber Work Phone: [facility] Comment on above: Encounter for gyneco logical examination without abnormal finding (Primary Dx);Special screening for malignant neoplasms, vagina;Candidiasis of vulva and vagina;Fatigue, unspecified type;Osteopenia, unspecified location Start: 04-15-2017 End: 04-15-2017 Patient encounter procedure Akshat Webber Work Phone: [facility] Comment on above: Visit [...] vaccinatio n given Sequential Influenza Vaccine (#1) [facility] Start: 04-15-2018 History and physical examination, annual for health maintenance Wellness Visit [facility] Start: 04-15-2018 Screening mammography Mammogram [facility] Start: 04-24-2017 SEQUENTIAL INFLUENZA VACCINE (#1) SEQUENTIAL INFLUENZA VACCINE (#1) [facility] Work Phone: Start: 12-18-2015 Pneumococcal vaccination Pneum ococcal Vaccine Age 65+ (1 of 2 - PCV13) [facility] Start: 12-18-2015 PNEUMOCOCCAL VACCINE AGE 65+ (1 of 2 - PCV13) PNEUMOCOCCAL VACCINE AGE 65+ (1 of 2 - PCV13) [facility] Work Phone: Start: 2010 Zoster vaccine hzv l latisha for subcutaneous use ZOSTER VACCINE [facility] Work Phone: Start: 2000 Administration of he rpes zoster vaccine Zoster Vaccines (1 of 2) [facility] Start: 2000 Screening for malign ant neoplasm of colon [facility] Start: 1968 Hepatitis C antibody , confirmatory test Hepatitis C Screening [facility] Start: 1966 COVID-19 Vaccine (1 of 2) COVI D-19 Vaccine (1 of 2) [facility] Start: 1962 Adolescent depressio n screening assessment Depression Screening (PHQ9) [facility] Start: 1950 Colonoscopy COLONOSCOPY [facility] Work Phone: Start: 1950 Fall risk assessment Falls Risk Asse ssment [facility] Start: 1950 HEPATITIS C SCREENING HEPATITIS C SC REENING [facility] Work Phone: Start: 1950 TETANUS EVERY 10 YR TETANUS EVERY 10 YR [facility] Work Phone: Start: 1950 Tetanus vaccination Tetanus: Every 1 0yrs [facility] End: 05-03-2021 Bone density scan XR Bone Density DEXA Axial Imaging Routine Menopausal disorder 1 Occurrences starting 05/03/2020 until 05/03/2021 [facility] Comment on above: 1 Occurrences starti ng 05/03/2020 until 05/03/2021 End: 05-03-2020 MG Breast - bilateral screening Mammography Screening Bilateral Imaging Routine Screening Mammogram, Encounter For Once for 1 Occurrences starting 05/03/2020 until 05/03/2020 [facility] Comment on above: Once for 1 Occurrenc es starting 05/03/2020 until 05/03/2020 MG Breast - bilatera l screening Mammography Screening Bilateral Imaging Routine Screening mammogram, encounter for 05/03/2020 2:07 PM EDT [facility] Microscopic examinat ion of vaginal Papanicolaou smear Thinprep Pap Smear Pathology and Cytology Routine Special screening for malignant neoplasm of vagina Ordered: 05/03/2020 [facility] Comment on above: Ordered: 05/03/2020 Thinprep Pap Smear, Screening Thinprep Pap Smear, Screening Routine Special screening for malignant neoplasms, vagina Ordered: 04/15/2017 [facility] Work Phone: Comment on above: Ordered: 04/15/2017 Payers Date Payer Category Payer Medicare [employer] [facility] AETNA MEDICARE PLAN (PPO) [id number] 2019-Present [id number] 2019 Medicare [id number] 1950 Unknown [id number] 1950 Unknown [id number] 1950 Unknown [id number] Medicare [id number] Medicare [id number] Medicare Medicare [id number] Self-pay Self Pay [id number] Social History Date Type Detail Facility Start: 04-15-2017 End: 02-28-2020 Tobacco smoking status [facility] Never smoker [facility] Sex Assigned At Not on file [facility] Work Phone: Start: 05-03-2020 Tobacco use and exposure Never used [facility] Start: 05-03-2020 Alcohol intake Current drinke r of alcohol (finding) [facility] Start: 04-15-2017 Alcohol Comment [facility] to SARS-CoV-2 (event) Not sure [facility] Sex Assigned At Sex Assigned At [facility] [employer] Other Start: 1950 Sex Assigned At Female F [facility] Evaluation note 05-29-2022 Note Date & [...] understanding. Patient states she is leaving for [place] for 6 months and does not wish to proceed with injections at this time. May, Other chronic pain (ICD-10 - G89.29) Continue with current treatment plan. [employer] Other Evaluation note 05-09-2022 Note Date & [...] - G89.29) Continue with current treatment plan. 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 She feels pain is negatively impacting [...] negative findings were considered in medical decision-making. [employer] Other Evaluation note Note Date & Type Note Facility Evaluation note No assessment information vanda cowart [facility] Work Phone: Evaluation note Note Date & Type Note Facility Evaluation note No Information Service[employer] Other History general Narrative - Reported Note Date & Type Note Facility History general Narrative - Reported Type Medical History CELLULITIS Medical History HYPOTHYROID Medical History hiatal hernia Surgical History HYSTERECTOMY Surgical History L KNEE Surgical History APPENDIX Surgical History GALLBLADDER Hospitalization History see above Hospitalization History cellulitis right leg [employer] Other History of Present Illness * Akshat [...] been noticing recurrent yeast infections. She uses [id number] Monistat, which seems to help. I gave her a prescription for Diflucan 150 mg, #1 with 5 refills. I did tell the patient that if she would need refills after this expires, we can do this over the phone as long as it is within 1 year. Review of Systems: I have reviewed and agree with the ROS as gathered by the peer support specialist. Past Medical History: Diagnosis Date Disease of [...] with the ROS as gathered by the peer support specialist. Past Medical History: Diagnosis Date Anemia Arthritis [...] file Gets together: Not on file Attends uatsdin service: Not on file Active member of [...] Mammography Screening Bilateral Akshat Webber MD [address] [place] [address] [facility] [address] [place] [id number] Status Reason Specialty Diagnoses / Procedures Referred By Contact Referred To Contact Authorized Radiology Diagnoses Menopausal disorder Procedures XR Bone Density DEXA Axial Akshat Webber MD [address] [place] [id number] Status Reason Specialty Diagnoses / Procedures Referred By Contact Referred To Contact Pending Review Radiology Diagnoses Screening mammogram, encounter for Procedures Mammography Screening Bilateral Akshat Webber MD [address] [place] [id number] Advance Directives Documents on File Type Date Recorded 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 Advance Directives and Livin g Will 05/03/2020 12:00 AM Documents on File Type Date Recorded 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 Advance Directives and Livin g [...] Procedures Mammography Screening Bilateral Akshat Webber MD [address] [place] [id number] [facility] [address] [place] [address] Reason Comments Annual Exam Status Reason Specialty Diagnoses / Procedures Referred By Contact Referred To Contact Pending Review Radiology Diagnoses Screening mammogram, encounter for Procedures Mammography Screening Bilateral Akshat Webber MD [address] [place] [id number] INFORMATION SOURCE (unrecogn ized section and content) DATE CREATED AUTHOR 05/03/2020 [facility] DATE CREATED AUTHOR AUTHOR'S ORGANIZ ATION 05/09/2020 [facility] DATE CREATED AUTHOR AUTHOR'S ORGANIZ ATION 04/22/2022 [facility] Quick Note - Quan, Sallie L, [...] BE BASED ON THE PRIMARY CLINICAL RECORDS. [employer] provides no warranty or guarantee of the accuracy or completeness of information in this document.
== END 2024-03-18 08:21 | disposition home or self-care (01) ==
LOC: VC 07:52
PROVIDERS: PCP Radiology Diagnostic Radiology; Visit Provider Radiology Diagnostic Radiology
DX: I80.02 Phlebitis and thrombophlebitis of superficial vessels of left lower extremity (principal)
CPT/HCPCS: 93971; G0463

== ENCOUNTER 2024-03-21 09:25 | Outpatient (OUT) | payer MEDICARE, SELFPAY ==
--- NOTE | 2024-03-18 13:33 | V.VEINS.HP ---
Vital Signs 03/18/24 13:41 03/21/24 09:46 Height 5 ft 1 in Weight 162 kg BP 160/78 H BP Location Left Brachial BP Position Sitting BP Cuff Size Adult BP Source Manual Cuff Respiration 18 Pulse 64 Pulse Source Monitor Pulse Oximetry (%) 98 Oxygen Delivery Method Room Air Comment The patient's blood pressure is elevated. Varicose Veins Patient in this day for EVLT of right leg perforating veins Sundeep Arzola MD personally performed the services described in this documentation, as scribed by Ranjit Henderson RN in my presence and it is both accurate and complete. IRanjit RN, am scribing for, and in the presence of, Dr. Sundeep Wilkins and in the presence of the patient. medial (Distal/medial right leg ulcer) thigh: bilateral, knee: bilateral, calf: bilateral and ankle: bilateral cramping, sharp and other 7 30+ years Worsened in recent months: Yes standing elevating extremities, compression stockings and other (Rest) Reports edema, leg edema and other (stasis ulcer to right distal/medial calf, cellulitis, DVT) History of lower extremity trauma: No Superficial thrombophlebitis: No Family history of varicose veins: yes Has patient had previous lower extremity venous surgery: No Patient has previously received the following treatment(s) for lower extremity varicose veins: Reports sclerotherapy Does patient have a history of : yes Does patient intend to have future pregnancies: no Has patient had lower extremity venous scan with relux testing: Yes Support hose used: Yes Prescribed by provider: No Problems walking or doing physical activity: No Do you walk much: Yes Do you stand much: Yes Medication compliance: good Large amounts of Vitamin K: No Review of Systems ROS Narrative Sundeep Arzola MD personally performed the services described in this documentation, as scribed by Ranjit Henderson RN in my presence and it is both accurate and complete. IRanjit RN, am scribing for, and in the presence of, Dr. Sundeep Wilkins and in the presence of the patient.. Status of ROS 10 or more systems reviewed and unremarkable except as noted in history and below Cardiovascular Reports: edema and leg pain with exertion Musculoskeletal Reports: extremity pain, extremity swelling and muscle cramps Integumentary/Breast Reports: itching, redness, changing lesion, non-healing lesion and changes in skin color Neurological Reports: weakness in extremities Hematologic/Lymphatic Reports: easy bruising [facility] Medical History (Updated 03/10/24 @ 09:44 by Rossy Weller) Phlebitis and thrombophlebitis of superficial vessels of left lower extremity ?I80.02 - Phlebitis and thrombophlebitis of superficial vessels of left lower extremity (ICD-10) Phlebitis and thrombophlebitis of superficial vessels of right lower extremity ?I80.01 - Phlebitis and thrombophlebitis of superficial vessels of right lower extremity (ICD-10) Varicose veins of bilateral lower extremities with pain ?I83.813 - Varicose veins of bilateral lower extremities with pain (ICD-10) Hypothyroidism ?E03.9 - Hypothyroidism, unspecified (ICD-10) Cellulitis and abscess of leg ?L03.119 - Cellulitis of unspecified part of limb (ICD-10) ?L02.419 - Cutaneous abscess of limb, unspecified (ICD-10) DVT (deep venous thrombosis) ?I82.409 - Acute embolism and thrombosis of unspecified deep veins of unspecified lower extremity (ICD-10) 3 para 3 ?Z78.9 - Other specified health status (ICD-10) Surgical History (Updated 02/22/24 @ 14:45 by Rossy Weller) History of arthroscopic knee surgery ?Z98.890 - Other specified postprocedural states (ICD-10) History of cholecystectomy ?Z90.49 - Acquired absence of other specified parts of digestive tract (ICD-10) History of hysterectomy ?Z90.710 - Acquired absence of both cervix and uterus (ICD-10) Family History (Updated 02/22/24 @ 14:46 by Rossy Weller) Mother Family history of cancer Varicose veins of bilateral lower extremities with pain Father Family history of cancer Brother Family history of cancer Sister Family history of cancer Social History (Updated 02/22/24 @ 14:47 by Rossy Weller) Within the past year, how often did you have a drink containing alcohol: 2-4 times a month Smoking status: Never smoker Non-prescribed substance use: denies use Meds Home Medications and Allergies Home Medications ?Medication ?Instructions ?Recorded ?Confirmed ?Type ibuprofen 200 mg tablet (IBU-200) 200 mg PO Q8H 02/22/24 03/21/24 History levothyroxine .ROUTE 02/22/24 History ropinirole .ROUTE 02/22/24 History Allergies Allergy/AdvReac Type Severity Reaction Status Date / Time No Known Drug Allergies Allergy Unverified 02/22/24 14:43 Exam Narrative Exam Narrative: Sundeep Arzola MD personally performed the services described in this documentation, as scribed by Ranjit Henderson RN in my presence and it is both accurate and complete. I, Ranjit Henderson RN, am scribing for, and in the presence of, Dr. Sundeep Wilkins and in the presence of the patient. Assessment and Plan Assessment and Plan (1) Varicose veins of bilateral lower extremities with pain: (2) Phlebitis and thrombophlebitis of superficial vessels of right lower extremity: (3) Phlebitis and thrombophlebitis of superficial vessels of left lower extremity: Plan f/u examination with physician along with limited u/s right leg Procedures Procedure Instructions Procedures Plan of care: Risks and benefits of the procedure were discussed at length and informed written consent was obtained.? Time-out completed for verification of correct patient, procedure and site.? Staff present during time-out: Ranjit Henderson RN,? Sundeep Wilkins MD, [facility]. Time Out Time__1011 Patient prepped and procedure performed in usual sterile fashion. Risk of injury related to use of Diode laser and/or laser devices__CR___ Serial number of laser used :? [id number] Control panel self test performed, electrical cords in good condition, floor is dry, basin of water available, fire extinguisher in close proximity_CR__ Polycarbonate goggles available and Laser warning signs outside of doors___CR__ Eye protection provided to patient and staff in room_CR___ Use of laser retardant drapes and dull blackened instruments as directed__CR___ Use of nonflammable prep solutions and use of saline soaked sponges to protect tissues as indicated _CR___ Laser operated by _Dr. Wilkins___ Laser Site #1 right distal medial lower leg Seconds: 22 Joules: 181 Laser Site #2 right mid anterior lower leg Seconds: 15 Joules: 119 Physician verbal confirmation laser locked in place__CR__ Laser start time (date and time) _03/21/2024@__1022 Laser stop time(date and time) __03/21/2024@__1030 Good _8.0___ Pulse continuous ___CR_? Pulse intermittent ___ Evaluated patient for signs and symptoms of electrical injury __CR___ ? Skin clear at insertion site __CR___ Patient tolerated procedure well.? Left leg Coban dressing applied to access site.? Applied Left thigh high leg compression stocking. Will return on 03/28/2024 for Left leg limited venous ultrasound and exam. ISundeep MD personally performed the services described in this documentation, as scribed by Ranjit Henderson RN in my presence and it is both accurate and complete. I, Ranjit Henderson RN, am scribing for, and in the presence of, Dr. Sundeep Wilkins and in the presence of the patient.
--- NOTE | 2024-03-18 13:39 | W.VEIN ---
Discharge Plan Discharge Disposition: Home, Self-Care Outpatient Diagnostics: VC Facility EST LMTD (Routine) Timeframe: 2 Weeks Facility: [facility] - Location: [facility] Ordered By: Vance Zhu VC EXT Venous RT LMTD (Routine) Timeframe: 2 Weeks Facility: [facility] - Location: Vein Center Ordered By: Vance Zhu Follow Up Appointments: 03/28/2024 Plan of Treatment: EVLT of left AASV Patient Instructions: Endovenous Ablation (DC) Print Language: Indonesian Discharge Date/Time: 03/21/24 10:14
--- NOTE | 2024-03-21 09:27 | VEIN_ITS ---
[address] [address] Patient Name: RADHA SALGADO MRN: [id number] date: 1950 Sex: F Assigned Patient Location: Current Patient Location: Accession/Order Number: [id number] Exam Date: 03/21/2024 09:31 Report Date: 03/21/2024 12:08 At the request of: MAEGAN WALLER Procedure: VC Endovenous Perf Ablation RT EXAMINATION: VC Endovenous Perf Ablation RT COMPARISON: INDICATIONS: I83.813 Bilateral leg painful varicose veins OPERATIVE REPORT: Diagnosis: Superficial venous reflux, incompetent perforating veins Procedure: Endovenous laser ablation of the right carpet installation specialist(s) Procedure: The patient was positioned supine on the table and the leg was prepped and draped to allow for visualization during venous access. A sterile cover was draped over a 16 mhz ultrasound probe. Venous mapping was performed prior to the procedure noting location and size of vessel(s). Instrumentation Manager vein 1: Distal medial lower right leg. The diameter of the vein ranged from 4 mm's below the muscular fascia to 4 mm's at the entry point. Using a 30 gauge needle the entry site was anesthetized with 1 cc of 1% buffered lidocaine. Access was gained percutaneously, with a 21-gauge needle, into the carpet installation specialist vein under ultrasound guidance. The needle was advanced into the desired position and the pre-measured 400-micron fiber was then inserted into the needle and locked in place. The position of the fiber was imaged with ultrasound guidance. The fiber tip was visualized to be 10 mm from the deep vessel. An anesthetic solution of 6 cc 1% buffered lidocaine was delivered along the course of the vein under ultrasound guidance using a syringe. A final positioning check of the laser fiber tip was performed. The laser was activated by means of a foot-pedal and the fiber and needle were withdrawn together in accordance to the desired joules per treatment area/spot weld. 3 areas/spot welds were performed, and the total number of joules delivered was 181. The total time of energy delivery was 22 seconds. A duplex ultrasound revealed compressibility and flow of the deep system immediately after the procedure. Hemostasis of the access site was achieved and dressed. A 20-30 mm compression stocking over coban was placed on the treated leg. Post-Op instructions were given, and a follow-up appointment was made. Instrumentation Manager vein 2: Distal medial lower right leg. The diameter of the vein ranged from 4 mm's below the muscular fascia to 4 mm's at the entry point. Using a 30 gauge needle the entry site was anesthetized with 1 cc of 1% buffered lidocaine. Access was gained percutaneously, with a 21-gauge needle, into the carpet installation specialist vein under ultrasound guidance. The needle was advanced into the desired position and the pre-measured 400-micron fiber was then inserted into the needle and locked in place. The position of the fiber was imaged with ultrasound guidance. The fiber tip was visualized to be 10 mm from the deep vessel. An anesthetic solution of 8 cc 1% buffered lidocaine was delivered along the course of the vein under ultrasound guidance using a syringe. A final positioning check of the laser fiber tip was performed. The laser was activated by means of a foot-pedal and the fiber and needle were withdrawn together in accordance to the desired joules per treatment area/spot weld. 2 areas/spot welds were performed, and the total number of joules delivered was 119. The total time of energy delivery was 15 seconds. A duplex ultrasound revealed compressibility and flow of the deep system immediately after the procedure. Hemostasis of the access site was achieved and dressed. A 20-30 mm compression stocking over coban was placed on the treated leg. Post-Op instructions were given, and a follow-up appointment was made. CONCLUSION: 1. Technically successful endovenous laser ablation of 2 carpet installation specialist veins within distal lower right leg. Electronically authenticated by: MARIELA BARRAGAN Date: 03/21/2024 12:08
--- OUTSIDE RECORDS SUMMARY | 2024-03-21 09:27 | XMS_ITS | CCD ---
Author Organization [facility] Care Team Providers Care Watch Mechanic Name Role Phone Unavailable Primary Care Provider Ty Clinton Primary Care Provider [phone] AKSHAT WEBBER Attending TY Austin Primary Care TY Clinton Attending TY Clinton Primary Care AKSHAT Pichardo Attending AKSHAT Cuevas Referring TY Austin Primary Care Reynold Corrales Unavailable MD Ty Del Angel Primary Care Provider [phone] MD Reynold Roper Attending Provider [phone] Medications Current Medications Medication Drug Class(es) Dates [...] 5 04/15/2017 04/15/2017 Active lactobacillus rhamnosus gg [id number] unt oral capsule (2 sources) take 1 [...] on 04-21-2022 XR cervical spine w flex/ext [facility] [place] [address] [place] [address] XRay Report Signed Patient: Janneth Arceo MR#: [id number] : 1950 Acct:[id number] Age/Sex: 71 / F ADM Date: 04/21/22 Loc: XD Room: Type: [facility] Attending Dr: Reynold Roper MD Copies [...] Boris Harrison M.D.04/21/2022 5:49 PM Dictation Location: [place] [address] Transcribed By: [facility] 04/21/221748 Dictated By: Boris Harrison II, MD 04/21/221746 Signed By: 04/21/221748 [facility] MM SCREENING BILATERALon MM SCREENING BILATERAL [...] sent to the patient regarding the results. [facility], along with the National [employer], the [employer], and [facility], recommend annual screening mammograms for women age 40 and older. MPH/ges Workstation ID: [id number] Dictated by: CHELSIE PURDY on ThuMay 04, 2020 10:15:06 AM EDT Transcribed by: JAZZY ALBERTO on ThuMay 04, 2020 10:28:17 AM EDT Finalized by: CHELSIE PURDY on ThuMay 04, 2020 10:38:22 AM EDT [facility] Comment on above: Order Comment: Reduc tion 15 years Mammography Screening Andre olivares 04-15-2017 Mammography Screening Bilateral No mammographic evidence of malignancy. BIRADS: BIRADS - CATEGORY 2 Benign, no evidence of malignancy. Normal interval follow-up is recommended in 12 months. OVERALL ASSESSMENT - BENIGN A letter of notification will be sent to the patient regarding the results. [facility], along with the National Comprehensive [employer], the [employer], and [facility], recommend annual screening mammograms for women age 40 and older. DSS/margiev Workstation ID: [id number] [facility] Mamm[facility] Screening Bilateral EXAMINATION: MM SCREENING BILATERAL 04/15/2017 Computer-assisted detection utilized in the interpretation of this exam. COMPARISON: Mammogram dated 03/22/2015. FINDINGS: MLO and CC views of both breasts were obtained using digital technique. The breasts are almost entirely fatty. Mild scarring from bilateral reduction surgery again noted, not significantly changed. No standout mass, suspicious calcification, or architectural distortion identified. [facility] Vital Signs Date Time Vital Sign Value Performing Clinician Facility 02-01-2024 13:43-0400 Body height 154.94 cm [facility] 02-01-2024 13:43-0400 Body mass index (BMI) [Ratio] 31.1 kg/m2 [facility] 02-01-2024 13:43-0400 Body temperature 97.8 [degF] [facility] 02-01-2024 13:43-0400 Body weight 74.84 kg [facility] 02-01-2024 13:43-0400 Diastolic blood pressure 84 mm[Hg] [facility] 02-01-2024 13:43-0400 Heart rate 56 /min [facility] 02-01-2024 13:43-0400 Systolic blood pressure 173 mm[Hg] [facility] 05-29-2022 16:30-0400 Body height 160.02 cm Reynold Roper Other Located [facility] Other 05-29-2022 16:30-0400 Body mass index (BMI) [Ratio] 33.16 kg/m2 Reynold Roper Other [facility] Other 05-29-2022 16:30-0400 Body weight 84.91 kg Reynold Roper Other [facility] Other 05-29-2022 16:30-0400 Diastolic blood pressure 102 mm[Hg] Reynold Roper Other [facility] Other 05-29-2022 16:30-0400 SaO2% (BldA) [Mass fraction] 99 % Reynold Jacquelin Other [facility] Other 05-29-2022 16:30-0400 Systolic blood pressure 170 mm[Hg] Reynold Jacquelin Other [facility] Other 05-09-2022 11:15-0400 Body height 160.02 cm Reynold Jacquelin Other [facility] Other 05-09-2022 11:15-0400 Body mass index (BMI) [Ratio] 33.19 kg/m2 Reynold Jacquelin Other [facility] Other 05-09-2022 11:15-0400 Body weight 85 kg Reynold Jacquelin Other [facility] Other 05-09-2022 11:15-0400 Diastolic blood pressure 90 mm[Hg] Reynold Jacquelin Other [facility] Other 05-09-2022 11:15-0400 SaO2% (BldA) [Mass fraction] 99 % Reynold Jacquelin Other [facility] Other 05-09-2022 11:15-0400 Systolic blood pressure 164 mm[Hg] Reynold Jacquelin Other [facility] Other 04-21-2022 15:00-0400 Body height 160.02 cm Reynold Jacquelin Other [facility] Other 04-21-2022 15:00-0400 Body mass index (BMI) [Ratio] 33.12 kg/m2 Reynold Jacquelin Other [facility] Other 04-21-2022 15:00-0400 Body weight 84.82 kg Reynold Roper Other [facility] Other 04-21-2022 15:00-0400 Diastolic blood pressure 82 mm[Hg] Reynold Roper Other [facility] Other 04-21-2022 15:00-0400 SaO2% (BldA) [Mass fraction] 99 % Reynold Roper Other [facility] Other 04-21-2022 15:00-0400 Systolic blood pressure 140 mm[Hg] Reynold Roper Other [facility] Other 05-03-2020 14:46-0400 BMI (Body Mass Index) 31.79 kg/m2 [facility] 05-03-2020 14:46-0400 Body weight 78.83 kg [facility] 05-03-2020 14:46-0400 BP Diastolic 84 mm[Hg] [facility] 05-03-2020 14:46-0400 BP Systolic 160 mm[Hg] [facility] 05-03-2020 14:46-0400 Height 157.5 cm [facility] 05-03-2020 14:46-0400 Pulse (Heart Rate) 81 /min [facility] 04-15-2017 13:39-0400 BMI (Body Mass Index) 33.44 kg/m2 Akshat [facility] Work Phone: 04-15-2017 13:39-0400 BP Diastolic 76 mm[Hg] Akshat [facility] Work Phone: 04-15-2017 13:39-0400 BP Systolic 132 mm[Hg] Akshat [facility] Work Phone: 04-15-2017 13:39-0400 Height 154.9 cm [facility] Work Phone: 04-15-2017 13:39-0400 Weight 80.29 kg Akshat Webber [facility] Work Phone: Encounters Encounter Date Encounter Type Care Provider Facility Start: 02-01-2024 End: 02-01-[address] [facility] Work Phone: Start: 02-01-2024 End: 02-01-2024 Patient encounter procedure [facility] Phys[facility] Work Phone: Start: 05-29-2022 End: 05-29-2022 ambulatory Reynold Jacquelin Other [facility] Other Start: 05-29-2022 Office outpatient vi sit 25 minutes Reynold Jacquelin [facility] Start: 05-09-2022 End: 05-09-2022 ambulatory Reynold Jacquelin Other [facility] Other Start: 05-09-2022 Patient encounter procedure Reynold Jacquelin [facility] Start: 04-21-2022 End: 04-21-2022 Patient encounter procedure MD Ty Del Angel Work Phone: [facility] Start: 04-21-2022 End: 04-21-2022 ambulatory Reynold Jacquelin Other [facility] Other Start: 04-21-2022 Office consultation new/estab patient 60 min Reynold Jacquelin [facility] Start: 04-15-2022 End: 04-15-2022 ambulatory Reynold Jacquelin Other [facility] Other Start: 04-15-2022 Telephone encounter Reynold Jacquelin [facility] Start: 10-01-2020 End: 10-01-2020 Orders Only Elena De La Rosa Work Phone: [facility] Start: 05-03-2020 End: 05-04-2020 Patient encounter procedure AKSHAT WEBBER [facility] Start: 05-03-2020 End: 05-03-2020 Office outpatient new 30 minutes Akshat Webber Work Phone: [facility] Comment on above: Encounter for gyneco logical examination without abnormal finding (Primary Dx); Menopausal disorder; Special screening for malignant neoplasm of vagina Start: 05-03-2020 End: 05-03-2020 Subsequent hospital visit by physician Akshat Webber Work Phone: [facility] Comment on above: Screening mammogram, encounter for Start: 03-28-2020 End: 03-28-2020 Patient encounter procedure [facility] Start: 04-15-2017 End: 04-15-2017 Periodic preventive med est patient 65yrs& older Akshat Webber Work Phone: [facility] Comment on above: Encounter for gyneco logical examination without abnormal finding (Primary Dx);Special screening for malignant neoplasms, vagina;Candidiasis of vulva and vagina;Fatigue, unspecified type;Osteopenia, unspecified location Start: 04-15-2017 End: 04-15-2017 Patient encounter procedure Akshat Webber Work Phone: [facility] Comment on above: Visit [...] vaccinatio n given Sequential Influenza Vaccine (#1) [facility] Start: 04-15-2018 History and physical examination, annual for health maintenance Wellness Visit [facility] Start: 04-15-2018 Screening mammography Mammogram [facility] Start: 04-24-2017 SEQUENTIAL INFLUENZA VACCINE (#1) SEQUENTIAL INFLUENZA VACCINE (#1) [facility] Work Phone: Start: 12-18-2015 Pneumococcal vaccination Pneum ococcal Vaccine Age 65+ (1 of 2 - PCV13) [facility] Start: 12-18-2015 PNEUMOCOCCAL VACCINE AGE 65+ (1 of 2 - PCV13) PNEUMOCOCCAL VACCINE AGE 65+ (1 of 2 - PCV13) [facility] Work Phone: Start: 2010 Zoster vaccine hzv l latisha for subcutaneous use ZOSTER VACCINE [facility] Work Phone: Start: 2000 Administration of he rpes zoster vaccine Zoster Vaccines (1 of 2) [facility] Start: 2000 Screening for malign ant neoplasm of colon [facility] Start: 1968 Hepatitis C antibody , confirmatory test Hepatitis C Screening [facility] Start: 1966 COVID-19 Vaccine (1 of 2) COVI D-19 Vaccine (1 of 2) [facility] Start: 1962 Adolescent depressio n screening assessment Depression Screening (PHQ9) [facility] Start: 1950 Colonoscopy COLONOSCOPY [facility] Work Phone: Start: 1950 Fall risk assessment Falls Risk Asse ssment [facility] Start: 1950 HEPATITIS C SCREENING HEPATITIS C SC REENING [facility] Work Phone: Start: 1950 TETANUS EVERY 10 YR TETANUS EVERY 10 YR [facility] Work Phone: Start: 1950 Tetanus vaccination Tetanus: Every 1 0yrs [facility] End: 05-03-2021 Bone density scan XR Bone Density DEXA Axial Imaging Routine Menopausal disorder 1 Occurrences starting 05/03/2020 until 05/03/2021 [facility] Comment on above: 1 Occurrences starti ng 05/03/2020 until 05/03/2021 End: 05-03-2020 MG Breast - bilateral screening Mammography Screening Bilateral Imaging Routine Screening Mammogram, Encounter For Once for 1 Occurrences starting 05/03/2020 until 05/03/2020 [facility] Comment on above: Once for 1 Occurrenc es starting 05/03/2020 until 05/03/2020 MG Breast - bilatera l screening Mammography Screening Bilateral Imaging Routine Screening mammogram, encounter for 05/03/2020 2:07 PM EDT [facility] Microscopic examinat ion of vaginal Papanicolaou smear Thinprep Pap Smear Pathology and Cytology Routine Special screening for malignant neoplasm of vagina Ordered: 05/03/2020 [facility] Comment on above: Ordered: 05/03/2020 Thinprep Pap Smear, Screening Thinprep Pap Smear, Screening Routine Special screening for malignant neoplasms, vagina Ordered: 04/15/2017 [facility] Work Phone: Comment on above: Ordered: 04/15/2017 Payers Date Payer Category Payer Medicare [employer] [facility] [place] [facility]IC[facility]AN (PPO) [id number] 2019-Present [id number] 2019 Medicare [id number] 1950 Unknown [id number] 1950 Unknown [id number] 1950 Unknown [id number] Medicare [id number] Medicare [id number] Medicare Medicare [id number] Self-pay Self Pay [id number] Social History Date Type Detail Facility Start: 04-15-2017 End: 02-28-2020 Tobacco smoking status [facility] Never smoker [facility] Sex Assigned At Not on file [facility] Work Phone: Start: 05-03-2020 Tobacco use and exposure Never used [facility] Start: 05-03-2020 Alcohol intake Current drinke r of alcohol (finding) [facility] Start: 04-15-2017 Alcohol Comment [facility] Exposure to SARS-CoV-2 (event) Not sure [facility] Sex Assigned At Sex Assigned At [facility] Start: 1950 Sex Assigned At Female F [facility] Evaluation note 05-29-2022 Note Date & Type [...] understanding. Patient states she is leaving for [place] for 6 months and does not wish to proceed with injections at this time. May, Other chronic pain (ICD-10 - G89.29) Continue with current treatment plan. [facility] Other Evaluation note 05-09-2022 Note Date & [...] - G89.29) Continue with current treatment plan. [facility] Other Evaluation note 04-21-2022 Note Date & [...] recently attended physical therapy which provided minimal director long term care improvement. She feels pain is negatively impacting [...] negative findings were considered in medical decision-making. [facility] Other Evaluation note Note Date & Type Note Facility Evaluation note No assessment information vanda cowart [facility] Work Phone: Evaluation note Note Date & Type Note Facility Evaluation note No Information [employer] Other History general Narrative - Reported Note Date & Type Note Facility History general Narrative - Reported Type Medical History CELLULITIS Medical History HYPOTHYROID Medical History hiatal hernia Surgical History HYSTERECTOMY Surgical History L KNEE Surgical History APPENDIX Surgical History GALLBLADDER Hospitalization History see above Hospitalization History cellulitis right leg [facility] Other History of Present Illness * Akshat [...] been noticing recurrent yeast infections. She uses [id number] Monistat, which seems to help. I gave her a prescription for Diflucan 150 mg, #1 with 5 refills. I did tell the patient that if she would need refills after this expires, we can do this over the phone as long as it is within 1 year. Review of Systems: I have reviewed and agree with the ROS as gathered by the software support technician. Past Medical History: Diagnosis Date Disease of [...] with the ROS as gathered by the software support technician. Past Medical History: Diagnosis Date Anemia Arthritis [...] file Gets together: Not on file Attends hinduism service: Not on file Active member of [...] Mammography Screening Bilateral Akshat Webber MD [address] [place] [address] [facility] [address] [place] [id number] Status Reason Specialty Diagnoses / Procedures Referred By Contact Referred To Contact Authorized Radiology Diagnoses Menopausal disorder Procedures XR Bone Density DEXA Axial Akshat Webber MD [address] [place] [id number] Status Reason Specialty Diagnoses / Procedures Referred By Contact Referred To Contact Pending Review Radiology Diagnoses Screening mammogram, encounter for Procedures Mammography Screening Bilateral Akshat Webber MD [address] [place] [id number] Advance Directives Documents on File Type Date Recorded Patient Systems Software Developer Expl anation Advance Directives and Livin g Will 05/03/2020 12:00 AM Documents on File Type Date Recorded Patient Systems Software Developer Expl anation Advance Directives and Livin g [...] Procedures Mammography Screening Bilateral Akshat Webber MD [address] [place] [address] [facility] [address] [place] [address] Reason Comments Annual Exam Status Reason Specialty Diagnoses / Procedures Referred By Contact Referred To Contact Pending Review Radiology Diagnoses Screening mammogram, encounter for Procedures Mammography Screening Bilateral Akshat Webber MD [address] [place] [id number] INFORMATION SOURCE (unrecogn ized section and content) DATE CREATED AUTHOR 05/03/2020 [facility] DATE CREATED AUTHOR AUTHOR'S ORGANIZ ATION 05/09/2020 [facility] DATE CREATED AUTHOR AUTHOR'S ORGANIZ ATION 04/22/2022 [facility] Quick Note - Quan, Sallie L, TECHNOLOGIST [...] BE BASED ON THE PRIMARY CLINICAL RECORDS. [employer] provides no warranty or guarantee of the accuracy or completeness of information in this document.
[2024-03-21] MEDS: LIDOCAINE HCL 20 ML, SODIUM BICARBONATE 2 MEQ INJ (09:35)
[2024-03-21 09:46] VITALS: BP 160/78; PULSE 64; O2SAT 98
== END 2024-03-21 10:14 | disposition home or self-care (01) ==
LOC: VC 09:25
PROVIDERS: PCP Radiology Diagnostic Radiology; Visit Provider Radiology Diagnostic Radiology
DX: I83.813 Varicose veins of bilateral lower extremities with pain (principal)
CPT/HCPCS: 36478

== ENCOUNTER 2024-03-28 09:12 | Outpatient (OUT) | payer MEDICARE, SELFPAY ==
--- NOTE | 2024-03-28 09:17 | VEIN_ITS ---
[address] [address] Patient Name: RADHA SALGADO MRN: [id number] date: 1950 Sex: F Assigned Patient Location: Current Patient Location: Accession/Order Number: [id number] Exam Date: 03/28/2024 09:30 Report Date: 03/28/2024 10:25 At the request of: MAEGAN WALLER Procedure: VC Endovenous Ablation 1VeinLT EXAMINATION: VC Endovenous Ablation 1VeinLT HISTORY: I83.813 - Varicose veins of bilateral lower extremities w... The risks and benefits of the procedure had been previously discussed, and were rediscussed at length. Informed written consent was obtained. Ranjit Henderson RN and Cristal Claros RDMS assisted. Time out procedure was performed. The left lower extremity was prepared and draped in the usual sterile fashion to allow knee flexion in the sterile field. Duplex ultrasound probe was draped in a sterile cover, sterile transmission gel was used. Venous mapping was performed with the areas of dilation and large tributaries marked. The total length was 8 cm from the entry mid-upper thigh to 4 cm below the Saphenofemoral junction. The diameter of the left anterior accessory saphenous vein ranged from 5.8 mm. A 30 gauge needle and 1% buffered lidocaine was used to anesthetize the entry site. A 4 mm incision was made with a scalpel and the saphenous vein was entered percutaneously under direct ultrasound guidance with a micropuncture set, a single stick was successful in gaining access. A micro-guide wire was inserted and the needle removed. A micro-set including a dilator was inserted over the microwire and the needle and dilator were removed. A guide wire was inserted through the micro-set and guided through the saphenous vein to the saphenofemoral junction. The dilator was removed and an introducer sheath was inserted over the wire until the end of the sheath entered the saphenofemoral junction. The dilator and wire were removed and the 600 micron fiber was introduced and placed and positioned so that it extended beyond the sheath and was 3 cm distal to the saphenofemoral or saphenopopliteal junction. Final position of the fiber was determined by ultrasound guidance and duplex imaging. Tumescent anesthetic was delivered by ultrasound guidance. 75 cc of fluid was delivered along the entire course of the saphenous vein. The solution consisted of 1000 cc of normal saline with 40 mL of 1% lidocaine and 20 mL of sodium bicarbonate. A final positioning check was made. The energy source was turned on by means of the foot pedal and the fiber and sheath were withdrawn. The total number of Joules delivered was 592. The laser was active for 74 seconds under continuous pulse, average laser use of 8 J. Laser start time: 10:09 AM Laser stop time: 10:10 AM Date: 03/28/2024. A duplex ultrasound revealed compressibility and flow at the saphenofemoral junction immediately after the procedure. Hemostasis at the access site was achieved. The skin incision of the saphenous vein was closed with a 4 x 4. A compression stocking was applied. Postop instructions were given. A follow up appointment was recommended and scheduled. The patient tolerated the procedure well. Electronically authenticated by: MARIELA BARRAGAN Date: 03/28/2024 10:25
--- OUTSIDE RECORDS SUMMARY | 2024-03-28 09:28 | XMS_ITS | CCD ---
Author Organization [facility] Care Team Providers Care Reducing Salon Attendant Name Role Phone Unavailable Primary Care Provider Ty Clinton Primary Care Provider AKSHAT WEBBER Attending TY Austin Primary Care TY Clinton Attending TY Clinton Primary Care AKSHAT Pichardo Attending AKSHAT Cuevas Referring TY Austin Primary Care Reynold Corrales Unavailable MD Ty Del nAgel Primary Care Provider [phone] MD Reynold Roper Attending Provider Medications Current [...] 5 04/15/2017 04/15/2017 Active lactobacillus rhamnosus gg [id number] unt oral capsule (2 sources) take 1 [...] on 04-21-2022 XR cervical spine w flex/ext [facility] Main [place] [address] [place] [address] XRay Report Signed Patient: Janneth Arceo MR#: [id number] : 1950 Acct:[id number] Age/Sex: 71 / F ADM Date: 04/21/22 Loc: XD Room: Type: [facility] Attending Dr: Reynold Roper MD Copies [...] Boris Harrison M.D.04/21/2022 5:49 PM Dictation Location: [place] [address] Transcribed By: [facility] 04/21/221748 Dictated By: Boris Harrison II, MD 04/21/221746 Signed By: 04/21/221748 [facility] [place] MM SCREENING BILATERALon MM SCREENING BILATERAL EXAMINATION: [...] sent to the patient regarding the results. [facility], along with the National [employer], the [employer], and [facility], recommend annual screening mammograms for women age 40 and older. MPH/ges Workstation ID: [id number] Dictated by: CHELSIE PURDY on ThuMay 04, 2020 10:15:06 AM EDT Transcribed by: JAZZY ALBERTO on ThuMay 04, 2020 10:28:17 AM EDT Finalized by: CHELSIE PURDY on ThuMay 04, 2020 10:38:22 AM EDT [facility] Comment on above: Order Comment: Reduc tion 15 years Mammography Screening Andre olivares 04-15-2017 Mammography Screening Bilateral No mammographic evidence of malignancy. BIRADS: BIRADS - CATEGORY 2 Benign, no evidence of malignancy. Normal interval follow-up is recommended in 12 months. OVERALL ASSESSMENT - BENIGN A letter of notification will be sent to the patient regarding the results. [facility], along with the National Comprehensive Cancer Network, the [employer], and [facility], recommend annual screening mammograms for women age 40 and older. DSS/margiev Workstation ID: [id number] [employer] [facility] Mammography Screening Bilateral EXAMINATION: MM SCREENING BILATERAL 04/15/2017 Computer-assisted detection utilized in the interpretation of this exam. COMPARISON: Mammogram dated 03/22/2015. FINDINGS: MLO and CC views of both breasts were obtained using digital technique. The breasts are almost entirely fatty. Mild scarring from bilateral reduction surgery again noted, not significantly changed. No standout mass, suspicious calcification, or architectural distortion identified. [facility] Vital Signs Date Time Vital Sign Value Performing Clinician Facility 02-01-2024 13:43-0400 Body height 154.94 cm [facility] 02-01-2024 13:43-0400 Body mass index (BMI) [Ratio] 31.1 kg/m2 [facility] 02-01-2024 13:43-0400 Body temperature 97.8 [degF] [facility] 02-01-2024 13:43-0400 Body weight 74.84 kg [facility] 02-01-2024 13:43-0400 Diastolic blood pressure 84 mm[Hg] [facility] 02-01-2024 13:43-0400 Heart rate 56 /min [facility] 02-01-2024 13:43-0400 Systolic blood pressure 173 mm[Hg] [facility] 05-29-2022 16:30-0400 Body height 160.02 cm Reynold Roper Other [facility] [employer] Other 05-29-2022 16:30-0400 Body mass index (BMI) [Ratio] 33.16 kg/m2 Reynold Roper Other [facility] [employer] Other 05-29-2022 16:30-0400 Body weight 84.91 kg Reynold Roper Other [facility] Other 05-29-2022 16:30-0400 Diastolic blood pressure 102 mm[Hg] Reynold Roper Other [facility] [employer] Other 05-29-2022 16:30-0400 SaO2% (BldA) [Mass fraction] 99 % Reynold Jacquelin Other [facility] Other 05-29-2022 16:30-0400 Systolic blood pressure 170 mm[Hg] Reynold Jacquelin Other [facility] Other 05-09-2022 11:15-0400 Body height 160.02 cm Reynold Jacquelin Other [facility] Other 05-09-2022 11:15-0400 Body mass index (BMI) [Ratio] 33.19 kg/m2 Reynold Jacquelin Other [facility] Other 05-09-2022 11:15-0400 Body weight 85 kg Reynold Jacquelin Other [facility] Other 05-09-2022 11:15-0400 Diastolic blood pressure 90 mm[Hg] Reynold Jacquelin Other [facility] Other 05-09-2022 11:15-0400 SaO2% (BldA) [Mass fraction] 99 % Reynold Jacquelin Other [facility] Other 05-09-2022 11:15-0400 Systolic blood pressure 164 mm[Hg] Reynold Jacquelin Other [facility] Other 04-21-2022 15:00-0400 Body height 160.02 cm Reynold Jacquelin Other [facility] Other 04-21-2022 15:00-0400 Body mass index (BMI) [Ratio] 33.12 kg/m2 Reynold Jacquelin Other [employer] Other 04-21-2022 15:00-0400 Body weight 84.82 kg Reynold Roper Other [employer] Other 04-21-2022 15:00-0400 Diastolic blood pressure 82 mm[Hg] Reynold Roper Other [facility] Other 04-21-2022 15:00-0400 SaO2% (BldA) [Mass fraction] 99 % Reynold Roper Other [facility] Other 04-21-2022 15:00-0400 Systolic blood pressure 140 mm[Hg] Reynold Roper Other [employer] Other 05-03-2020 14:46-0400 BMI (Body Mass Index) 31.79 kg/m2 [facility] 05-03-2020 14:46-0400 Body weight 78.83 kg [facility] 05-03-2020 14:46-0400 BP Diastolic 84 mm[Hg] [facility] 05-03-2020 14:46-0400 BP Systolic 160 mm[Hg] [facility] 05-03-2020 14:46-0400 Height 157.5 cm [facility] 05-03-2020 14:46-0400 Pulse (Heart Rate) 81 /min [facility] 04-15-2017 13:39-0400 BMI (Body Mass Index) 33.44 kg/m2 Akshat [facility] Work Phone: 04-15-2017 13:39-0400 BP Diastolic 76 mm[Hg] Akshat [facility] Work Phone: 04-15-2017 13:39-0400 BP Systolic 132 mm[Hg] Akshat [facility] Work Phone: 04-15-2017 13:39-0400 Height 154.9 cm [facility] Work Phone: 04-15-2017 13:39-0400 Weight 80.29 kg Akshat Webber [facility] Work Phone: Encounters Encounter Date Encounter Type Care Provider Facility Start: 02-01-2024 End: 02-01-2024 ambulatory [facility] Work Phone: Start: 02-01-2024 End: 02-01-2024 Patient encounter procedure [facility] Phys[facility] Work Phone: Start: 05-29-2022 End: 05-29-2022 ambulatory Reynold Jacquelin Other [facility] Other Start: 05-29-2022 Office outpatient vi sit 25 minutes Reynold Jacquelin [facility] Start: 05-09-2022 End: 05-09-2022 ambulatory Reynold Jacquelin Other [facility] Other Start: 05-09-2022 Patient encounter procedure Reynold Jacquelin [facility] Start: 04-21-2022 End: 04-21-2022 Patient encounter procedure MD Ty Del Angel Work Phone: [facility] Start: 04-21-2022 End: 04-21-2022 ambulatory Reynold Jacquelin Other [facility] Other Start: 04-21-2022 Office consultation new/estab patient 60 min Reynold Jacquelin [facility] Start: 04-15-2022 End: 04-15-2022 ambulatory Reynold Jacquelin Other [facility] Other Start: 04-15-2022 Telephone encounter Reynold Jacquelin [facility] Start: 10-01-2020 End: 10-01-2020 Orders Only Elena De La Rosa Work Phone: [facility] Start: 05-03-2020 End: 05-04-2020 Patient encounter procedure AKSHAT WEBBER [facility] Start: 05-03-2020 End: 05-03-2020 Office outpatient new 30 minutes Akshat Webber Work Phone: [facility] Comment on above: Encounter for gyneco logical examination without abnormal finding (Primary Dx); Menopausal disorder; Special screening for malignant neoplasm of vagina Start: 05-03-2020 End: 05-03-2020 Subsequent hospital visit by physician Akshat Webber Work Phone: [facility] Comment on above: Screening mammogram, encounter for Start: 03-28-2020 End: 03-28-2020 Patient encounter procedure [facility] Start: 04-15-2017 End: 04-15-2017 Periodic preventive med est patient 65yrs& older Akshat Webber Work Phone: [facility] Comment on above: Encounter for gyneco logical examination without abnormal finding (Primary Dx);Special screening for malignant neoplasms, vagina;Candidiasis of vulva and vagina;Fatigue, unspecified type;Osteopenia, unspecified location Start: 04-15-2017 End: 04-15-2017 Patient encounter procedure Akshat Webber Work Phone: [facility] Comment on above: [...] vaccinatio n given Sequential Influenza Vaccine (#1) [facility] Start: 04-15-2018 History and physical examination, annual for health maintenance Wellness Visit [facility] Start: 04-15-2018 Screening mammography [facility] Start: 04-24-2017 SEQUENTIAL INFLUENZA VACCINE (#1) SEQUENTIAL INFLUENZA VACCINE (#1) [facility] Work Phone: Start: 12-18-2015 Pneumococcal vaccination Pneum ococcal Vaccine Age 65+ (1 of 2 - PCV13) [facility] Start: 12-18-2015 PNEUMOCOCCAL VACCINE AGE 65+ (1 of 2 - PCV13) PNEUMOCOCCAL VACCINE AGE 65+ (1 of 2 - PCV13) [facility] Work Phone: Start: 2010 Zoster vaccine hzv l latisha for subcutaneous use ZOSTER VACCINE [facility] Work Phone: Start: 2000 Administration of he rpes zoster vaccine Zoster Vaccines (1 of 2) [facility] Start: 2000 Screening for malign ant neoplasm of colon [facility] Start: 1968 Hepatitis C antibody , confirmatory test Hepatitis C Screening [facility] Start: 1966 COVID-19 Vaccine (1 of 2) COVI D-19 Vaccine (1 of 2) [facility] Start: 1962 Adolescent depressio n screening assessment Depression Screening (PHQ9) [facility] Start: 1950 Colonoscopy COLONOSCOPY [facility] Work Phone: Start: 1950 Fall risk assessment Falls Risk Asse ssment [facility] Start: 1950 HEPATITIS C SCREENING HEPATITIS C SC REENING [facility] Work Phone: Start: 1950 TETANUS EVERY 10 YR TETANUS EVERY 10 YR [facility] Work Phone: Start: 1950 Tetanus vaccination Tetanus: Every 1 0yrs [facility] End: 05-03-2021 Bone density scan XR Bone Density DEXA Axial Imaging Routine Menopausal disorder 1 Occurrences starting 05/03/2020 until 05/03/2021 [facility] Comment on above: 1 Occurrences starti ng 05/03/2020 until 05/03/2021 End: 05-03-2020 MG Breast - bilateral screening Mammography Screening Bilateral Imaging Routine Screening Mammogram, Encounter For Once for 1 Occurrences starting 05/03/2020 until 05/03/2020 [facility] Comment on above: Once for 1 Occurrenc es starting 05/03/2020 until 05/03/2020 MG Breast - bilatera l screening Mammography Screening Bilateral Imaging Routine Screening mammogram, encounter for 05/03/2020 2:07 PM EDT [facility] Microscopic examinat ion of vaginal Papanicolaou smear Thinprep Pap Smear Pathology and Cytology Routine Special screening for malignant neoplasm of vagina Ordered: 05/03/2020 [facility] Comment on above: Ordered: 05/03/2020 Thinprep Pap Smear, Screening Thinprep Pap Smear, Screening Routine Special screening for malignant neoplasms, vagina Ordered: 04/15/2017 [facility] Work Phone: Comment on above: Ordered: 04/15/2017 Payers Date Payer Category Payer Medicare [employer] [place] [facility] AETNA MEDICARE PLAN (PPO) [id number] 2019-Present [id number] 2019 Medicare [id number] 1950 Unknown [id number] 1950 Unknown [id number] 1950 Unknown [id number] Medicare [id number] Medicare [id number] Medicare Medicare [id number] Self-pay Self Pay [id number] Social History Date Type Detail Facility Start: 04-15-2017 End: 02-28-2020 Tobacco smoking status [facility] Never smoker [facility] Sex Assigned At Not on file [facility] Work Phone: Start: 05-03-2020 Tobacco use and exposure Never used [facility] Start: 05-03-2020 Alcohol intake Current drinke r of alcohol (finding) [facility] Start: 04-15-2017 Alcohol Comment Social [facility] Exposure to SARS-CoV-2 (event) Not sure [facility] Sex Assigned At Sex Assigned At [facility] Other Start: 1950 Sex Assigned At Female F [facility] Evaluation note 05-29-2022 Note Date & [...] understanding. Patient states she is leaving for [place] for 6 months and does not wish to proceed with injections at this time. May, Other chronic pain (ICD-10 - G89.29) Continue with current treatment plan. [facility] Other Evaluation note 05-09-2022 Note Date & [...] - G89.29) Continue with current treatment plan. [facility] Other Evaluation note 04-21-2022 Note Date & [...] recently attended physical therapy which provided minimal skilled nursing improvement. She feels pain is negatively impacting [...] negative findings were considered in medical decision-making. [facility] Other Evaluation note Note Date & Type Note Facility Evaluation note No assessment information vanda cowart [facility] Work Phone: Evaluation note Note Date & Type Note Facility Evaluation note No Information [facility] Other History general Narrative - Reported Note Date & Type Note Facility History general Narrative - Reported Type Medical History CELLULITIS Medical History HYPOTHYROID Medical History hiatal hernia Surgical History HYSTERECTOMY Surgical History L KNEE Surgical History APPENDIX Surgical History GALLBLADDER Hospitalization History see above Hospitalization History cellulitis right leg [facility] Other History of Present Illness * Akshat [...] been noticing recurrent yeast infections. She uses [id number] Monistat, which seems to help. I gave her a prescription for Diflucan 150 mg, #1 with 5 refills. I did tell the patient that if she would need refills after this expires, we can do this over the phone as long as it is within 1 year. Review of Systems: I have reviewed and agree with the ROS as gathered by the donor support technician. Past Medical History: Diagnosis Date [...] with the ROS as gathered by the donor support technician. Past Medical History: Diagnosis Date [...] file Gets together: Not on file Attends sikh service: Not on file Active member of [...] Mammography Screening Bilateral Akshat Webber MD [address] [place] [address] [facility] [address] [place] [id number] Status Reason Specialty Diagnoses / Procedures Referred By Contact Referred To Contact Authorized Radiology Diagnoses Menopausal disorder Procedures XR Bone Density DEXA Axial Akshat Webber MD [address] [place] [id number] Status Reason Specialty Diagnoses / Procedures Referred By Contact Referred To Contact Pending Review Radiology Diagnoses Screening mammogram, encounter for Procedures Mammography Screening Bilateral Akshat Webber MD [address] [place] [id number] Advance Directives Documents on File Type Date 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 Advance Directives and Livin g Will 05/03/2020 12:00 AM Documents on File Type Date Recorded 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 Advance Directives and Livin g [...] Procedures Mammography Screening Bilateral Akshat Webber MD [address] [place] [address] [facility] [address] [place] [address] Reason Comments Annual Exam Status Reason Specialty Diagnoses / Procedures Referred By Contact Referred To Contact Pending Review Radiology Diagnoses Screening mammogram, encounter for Procedures Mammography Screening Bilateral Akshat Webber MD [address] [place] [phone] INFORMATION SOURCE (unrecogn ized section and content) DATE CREATED AUTHOR 05/03/2020 [facility] DATE CREATED AUTHOR AUTHOR'S ORGANIZ ATION 05/09/2020 [facility] DATE CREATED AUTHOR AUTHOR'S ORGANIZ ATION 04/22/2022 [facility] Quick Note - Quan, Sallie L, [...] BE BASED ON THE PRIMARY CLINICAL RECORDS. [employer] provides no warranty or guarantee of the accuracy or completeness of information in this document.
[2024-03-28 09:57] VITALS: BP 150/72; PULSE 69; O2SAT 97
--- NOTE | 2024-03-28 09:57 | VEINCLINIC_ITS ---
Vital Signs 03/28/24 09:57 03/28/24 10:01 Height 5 ft 1 in Weight 73.482 kg BP 150/72 H BP Location Right Brachial BP Position Sitting BP Cuff Size Adult BP Source Manual Cuff Respiration 16 Pulse 69 Pulse Source Monitor Pulse Oximetry (%) 97 Oxygen Delivery Method Room Air Comment The patient's blood pressure is elevated. Varicose Veins Patient in this day for EVLT of right AASV veins Sundeep Arzola MD personally performed the services described in this documentation, as scribed by Ranjit Henderson RN in my presence and it is both accurate and complete. Ranjit Arzola RN, am scribing for, and in the presence of, Dr. Sundeep Wilkins and in the presence of the patient. medial (Distal/medial right leg ulcer) thigh: bilateral, knee: bilateral, calf: bilateral and ankle: bilateral cramping, sharp and other 7 30+ years Worsened in recent months: Yes standing elevating extremities, compression stockings and other (Rest) Reports edema, leg edema and other (stasis ulcer to right distal/medial calf, cellulitis, DVT) History of lower extremity trauma: No Superficial thrombophlebitis: No Family history of varicose veins: yes Has patient had previous lower extremity venous surgery: No Patient has previously received the following treatment(s) for lower extremity varicose veins: Reports sclerotherapy Does patient have a history of : yes Does patient intend to have future pregnancies: no Has patient had lower extremity venous scan with relux testing: Yes Support hose used: Yes Prescribed by provider: No Problems walking or doing physical activity: No Do you walk much: Yes Do you stand much: Yes Medication compliance: good Large amounts of Vitamin K: No Review of Systems ROS Narrative Sundeep Arzola MD personally performed the services described in this documentation, as scribed by Ranjit Henderson RN in my presence and it is both accurate and complete. Ranjit Arzola RN, am scribing for, and in the presence of, Dr. Sundeep Wilkins and in the presence of the patient.. Status of ROS 10 or more systems reviewed and unremark able except as noted in history and below Cardiovascular Reports: edema and leg pain with exertion Musculoskeletal Reports: extremity pain, extremity swelling and muscle cramps Integumentary/Breast Reports: itching, redness, changing lesion, non-healing lesion and changes in skin color Neurological Reports: weakness in extremities Hematologic/Lymphatic Reports: easy bruising [facility] Medical History (Updated 03/10/24 @ 09:44 by Rossy Weller) Phlebitis and thrombophlebitis of superficial vessels of left lower extremity ?I80.02 - Phlebitis and thrombophlebitis of superficial vessels of left lower extremity (ICD-10) Phlebitis and thrombophlebitis of superficial vessels of right lower extremity ?I80.01 - Phlebitis and thrombophlebitis of superficial vessels of right lower extremity (ICD-10) Varicose veins of bilateral lower extremities with pain ?I83.813 - Varicose veins of bilateral lower extremities with pain (ICD-10) Hypothyroidism ?E03.9 - Hypothyroidism, unspecified (ICD-10) Cellulitis and abscess of leg ?L03.119 - Cellulitis of unspecified part of limb (ICD-10) ?L02.419 - Cutaneous abscess of limb, unspecified (ICD-10) DVT (deep venous thrombosis) ?I82.409 - Acute embolism and thrombosis of unspecified deep veins of unspecified lower extremity (ICD-10) 3 para 3 ?Z78.9 - Other specified health status (ICD-10) Surgical History (Updated 02/22/24 @ 14:45 by Rossy Weller) History of arthroscopic knee surgery ?Z98.890 - Other specified postprocedural states (ICD-10) History of cholecystectomy ?Z90.49 - Acquired absence of other specified parts of digestive tract (ICD- 10) History of hysterectomy ?Z90.710 - Acquired absence of both cervix and uterus (ICD-10) Family History (Updated 02/22/24 @ 14:46 by Rossy Weller) Mother Family history of cancer Varicose veins of bilateral lower extremities with pain Father Family history of cancer Brother Family history of cancer Sister Family history of cancer Social History (Updated 02/22/24 @ 14:47 by Rossy Weller) Within the past year, how often did you have a drink containing alcohol: 2-4 times a month Smoking status: Never smoker Non-prescribed substance use: denies use Meds Home Medications and Allergies Home Medications ?Medication ?Instructions ?Recorded ?Confirmed ?Type ibuprofen 200 mg tablet (IBU-200) 200 mg PO Q8H 02/22/24 03/21/24 History levothyroxine .ROUTE 02/22/24 History ropinirole .ROUTE 02/22/24 History Allergies Allergy/AdvReac Type Severity Reaction Status Date / Time No Known Drug Allergies Allergy Unverified 02/22/24 14:43 Exam Narrative Exam Narrative: ISundeep MD personally performed the services described in this documentation, as scribed by Ranjit Henderson RN in my presence and it is both accurate and complete. I, Ranjit Henderson RN, am scribing for, and in the presence of, Dr. Sundeep Wilkins and in the presence of the patient. Procedures Procedure Instructions Procedures Plan of care: Risks and benefits of the procedure were discussed at length and informed written consent was obtained.? Time-out completed for verification of correct patient, procedure and site.? Staff present during time-out: Ranjit Henderson RN,? Sundeep Wilkins MD, Cristal Garnett [facility], Time Out Time__954 Patient prepped and procedure performed in usual sterile fashion. Risk of injury related to use of Diode laser and/or laser devices__CR___ ? Serial number of laser used :? [id number] Control panel self test performed, electrical cords in good condition, floor is dry, basin of water available, fire extinguisher in close proximity_CR__ Polycarbonate goggles available and Laser warning signs outside of doors___CR__ Eye protection provided to patient and staff in room_CR___ Use of laser retardant drapes and dull blackened instruments as directed__CR___ Use of nonflammable prep solutions and use of saline soaked sponges to protect tissues as indicated _CR___ Length __8__ cm Laser operated by _Dr. Wilkins Physician verbal confirmation laser locked in place__CR__ Laser start time (date and time) _03/28/2024@1009 Laser stop time(date and time) __03/28/2024@1010 Good _8.0___ Average laser use __592__Joules Average laser use___74__seconds Pulse continuous ___CR_? Pulse intermittent ___ Amount of Tumescent used _75cc Evaluated patient for signs and symptoms of electrical injury __CR___ ? Skin clear at insertion site __CR___ Patient tolerated procedure well.? Left leg Coban dressing applied to access site.? Applied Left thigh high leg compression stocking. Will return on 04/04/2024 for Left leg limited venous ultrasound and exam.
--- NOTE | 2024-03-28 10:00 | W.VEIN ---
Discharge Plan Discharge Disposition: Home, Self-Care Outpatient Diagnostics: [facility] Facility EST LMTD (Routine) Timeframe: 2 Weeks Facility: [facility] - Location: Vein Center Ordered By: Vance Zhu VC EXT Venous RT LMTD (Routine) Timeframe: 2 Weeks Facility: [facility] - Location: Vein Center Ordered By: Vance Zhu Follow Up Appointments: 04/05/2024 Plan of Treatment: f/u examination by physician and right limited u/s Print Language: [place] Discharge Date/Time: 03/28/24 10:03
[2024-03-28] MEDS: 0.9 % SODIUM CHLORIDE 500 ML, LIDOCAINE HCL 20 ML, SODIUM BICARBONATE 10 MEQ INJ (10:30)
[2024-03-28] MEDS: LIDOCAINE HCL 1% 100 MG/10 ML MDV INJ (10:30)
== END 2024-03-28 10:03 | disposition home or self-care (01) ==
PROVIDERS: PCP Radiology Diagnostic Radiology; Visit Provider Radiology Diagnostic Radiology
DX: I83.813 Varicose veins of bilateral lower extremities with pain (principal)
CPT/HCPCS: 36478

== ENCOUNTER 2024-04-04 10:01 | Outpatient (OUT) | payer MEDICARE, SELFPAY ==
--- NOTE | 2024-04-04 10:04 | VEIN_ITS ---
Patient Name: RADHA SALGADO MR#: [id number] : 1950 Exam Date: 04/04/2024 Ordering Doctor: DR VANCE ZHU M.D. RADIOLOGY REPORT PROCEDURE: [facility] EST LMTD [facility] - OFFICE VISIT FOLLOW UP COMPARISON: [facility] EST LMTD, 03/18/2024. [facility] EST LMTD, 03/10/2024. PROGRESS NOTES: The patient reports some numbness of the distal right leg. This occurred after intravenous laser ablation of the perforating veins. The patient reports no significant problems in the left leg following intravenous laser ablation of the anterior accessory saphenous vein. The patient did wear her compression stocking and tried exercise. The patient did not require oral analgesics. The patient does have concern as her treatments need to be completed by May 19 for her trip to [place]. Physical exam demonstrates no erythema or warmth to suggest cellulitis or thrombophlebitis. There is a 5 mm healing venous stasis ulceration on the anterior medial mid to distal right lower leg, markedly improved from the prior exams. 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 Review of the ultrasound performed the same day demonstrates occlusive thrombus extending throughout the treated right leg treated perforating vein in left leg anterior accessory saphenous vein. Heat induced thrombus is 7.9 cm from the saphenofemoral junction. No deep vein thrombus.. The patient expressed a desire to proceed with treatment of incompetent varicose veins with micro foam chemical ablation. I informed the patient this would likely require multiple bilateral sessions given the large amount of varicose veins.. VEIN/[facility] EST LMTD IMPRESSION: 1. Successful ablation of treated right leg incompetent perforating veins in treated left leg anterior accessory saphenous vein 2. Persistent bilateral incompetent varicose, reticular and spider veins. PLAN: Micro foam chemical ablation incompetent varicose veins Nurse notes, history and physical were reviewed and confirmed, see attached forms. The nurse was present throughout the physical exam and consultation Dictated by: Vance Zhu MD on 04/04/2024 at 11:50 Approved by: Vance Zhu MD on 04/04/2024 at 11:52
--- NOTE | 2024-04-04 10:04 | VEIN_ITS ---
Patient Name: RADHA SALGADO MR#: [id number] : 1950 Exam Date: 04/04/2024 Ordering Doctor: DR VANCE ZHU M.D. RADIOLOGY REPORT PROCEDURE: [facility] EXT VENOUS DEE LIMITED COMPARISON: None. INDICATIONS: Phlebitis of superficial vein of bilateral lower extremities I80.03 TECHNIQUE: Lower extremity lora scale and Duplex Doppler evaluation of the deep venous system from the inguinal ligament through the calf veins. FINDINGS: REGION: Right lower extremity. THROMBI: Acute occlusive thrombus. Heat induced thrombus in two perforators distal medial lower leg. COMPRESSIBILITY: Non-compressible segments. FLOW: Areas on no flow. OTHER: Negative. REGION: Left lower extremity. THROMBI: Acute occlusive thrombus. Heat induced thrombus in proximal AASV 7.9 cm from SFJ and extends to mid/distal thigh. COMPRESSIBILITY: Non-compressible segments. FLOW: Areas on no flow. OTHER: Patent varicose vein off of proximal AASV measures 4.6 mm. *Exam performed in accordance with [facility] practice guidelines- Peripheral venous ultrasound, November 17, 2009. CONCLUSION: Post ablation occlusion of treated right leg incompetent perforating veins. Post ablation occlusion of the left anterior accessory saphenous vein with heat induced thrombus 7.9 cm from the saphenofemoral junction Dictated by: Vance Zhu MD on 04/04/2024 at 11:49 Approved by: Vance Zhu MD on 04/04/2024 at 11:50
--- OUTSIDE RECORDS SUMMARY | 2024-04-04 10:21 | XMS_ITS | CCD ---
Author Organization 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 Estate Firm Manager Name Role Phone Unavailable Primary Care Provider Ty Clinton Primary Care Provider [phone] AKSHAT WEBBER Attending TY Austin Primary Care TY Clinton Attending TY Clinton Primary Care AKSHAT Pichardo Attending AKSHAT Cuevas Referring TY Austin Primary Care Reynold Corrales Unavailable MD Ty Del Angel Primary Care Provider MD Reynold Roper Attending Provider MD Ty Del Angel Primary Care Provider MD Reynold Roper Attending Provider Reynold Roper Attending Unavailable Reynold Roper Admitting Unavailable Ty Del Angel Primary Care Unavailable Medications Current Medications Medication Drug Class(es) Dates Sig (Normalized) Sig (Original) acetaminophen 325 mg oral capsule (4 sources) Start: 02-21-2020 take 650 mg by mouth every four to six hours Acetaminophen Active 650 MG PO EVERY 4-6 HOURS 60 February 21, 2020 12:00am Allergy (4 sources) Allergy PRN Acti ve calcium carbonate 1250 mg / cholecalciferol 200 unt oral tablet (2 sources) Vitamin D take 1 tablet by mouth once daily calcium-vitamin D (OS-[place] +D) 500 mg(1,250mg) -200 unit per tablet [...] 5 04/15/2017 04/15/2017 Active lactobacillus rhamnosus gg [id number] unt oral capsule (2 sources) take 1 capsule by mouth once daily Lactobacillus rhamnosus GG (CULTURELLE) 10 billion cell capsule Take 1 capsule by mouth daily Takes friendly Betsey . 0 Active levothyroxine sodium 0.075 mg oral tablet (12 sources) l-Thyroxine Start: 02-17-2017 take 1 tablet [...] 04/15/2018 Active rOPINIRole 1 mg oral tablet (3 sources) Nonergot Dopamine Agonist Start: 024 take 1 mg by mouth once daily at bedtime Ropinirole Active 1 MG PO Daily at bedtime February 01, 2024 12:00am Completed/Discontinued Medications Medication Drug Class(es) Dates Sig (Normalized) Sig (Original) Allergy Pill (4 sources) Start: 02-21-2020 End: 02-01-2024 take 1 tablet by mouth once daily Allergy Pill Discontinued 1 TAB PO Daily February 21, 2020 12:00am February 01, 2024 1:42pm Start: 02-21-2020 take 1 tablet by mouth once da daisy Allergy Pill Active 1 TAB PO Daily February 21, 2020 12:00am cephalexin 500 mg oral capsule (4 sources) Cephalosporin Antibacterial Start: 02-21-2020 End: 03-02-2020 take 1 capsule by mouth every six hours Cephalexin (Keflex) 500 mg capsule Discontinued 500 MG PO Q6H 28 February 21, 2020 12:00am March 02, 2020 9:43am diclofenac sodium 75 mg delayed release oral tablet (4 sources) Nonsteroidal Anti-inflammatory Drug Start: 02-21-2020 End: 02-01-2024 take 75 mg by mouth twice daily Diclofenac Sodium Discontinued 75 MG PO Twice daily February 21, 2020 12:00am February 01, 2024 1:42pm linezolid 600 mg oral tablet (4 sources) Oxazolidinone Antibacterial Start: 03-02-2020 End: 02-01-2024 take 600 mg by mouth twice daily Linezolid Discontinued 600 MG PO Twice daily 12 06March 02, 2020 12:00am February 01, 2024 1:40pm traMADol hydrochloride 50 mg oral tablet (4 sources) Opioid Agonist Start: 03-02-2020 End: 02-01-2024 take 50 mg by mouth every six hours Tramadol Discontinued 50 MG PO Q6H 10 01March 02, 2020 12:00am February 01, 2024 1:42pm Problems Active Problems Problem Classification Problem Date Documented Da te Episodic/Chronic Menopausal disorders (1 source) Disorder associated with menstruation AND/OR menopause; Translations: [Menopausal disorder] Chronic Other circulatory disease (4 sources) Elevated blood pressure; Translations: [Elevated blood-pressure reading, without diagnosis of hypertension] 02-28-2020 Episodic Other nervous system disorders (6 sources) Chronic pain; Translations: [Other chronic pain] 03-28-2024 Chronic Other nervous system disorders (5 sources) Other chronic pain; Translations: [Other chronic pain] Onset: 2 Resolved: 2 Chronic Phlebitis; thrombophlebitis and thromboembolism (4 sources) Venous thrombosis; Translations: [Phlebitis and thrombophlebitis of unspecified site] 02-01-2024 Episodic Residual codes; unclassified (4 sources) Edema of right lower limb; Translations: [Localized edema] 02-28-2020 Episodic Skin and subcutaneous tissue infections (4 sources) Cellulitis; Translations: [Cellulitis, unspecified] 02-28-2020 Episodic Spondylosis; intervertebral disc disorders; other back problems (16 sources) Cervical spondylosis; Translations: [Spondylosis without myelopathy or radiculopathy, cervical region] Onset: 2 Resolved: 2 Chronic Spondylosis; intervertebral disc disorders; other back problems (3 sources) Occipital neuralgia Onset: 2 Resolved: 2 Episodic Unclassified (3 sources) Patient encounter status; Translations: [Encounter for gynecological examination without abnormal finding] Varicose veins of lower extremity (4 sources) Varicose veins of lower extremity; Translations: [...] Value Interpretation Reference Range Facil ity XR lumbar spine AP/LAT/FLX/E XTon 03-28-2024 XR lumbar spine AP/LAT/FLX/EXT [facility] [place] [address] XRay Report Signed Patient: Janneth Arceo MR#: [id number] : 1950 Acct:[id number] Age/Sex: 73 / F ADM Date: 03/28/24 Loc: XD Room: Type: [facility] Attending Dr: Reynold Roper MD Copies to: Reynold Roper MD Ordering Provider: Reynold Roper MD Date of Service: 03/28/24 XR/XR lumbar spine AP/LAT/FLX/EXT: M47.817 - Spondylosis without myelopathy or radiculopathy... LUMBAR SPINE - 4 views CLINICAL HISTORY: Low back pain radiating to left hip for 2 months COMPARISON: None FINDINGS: Vertebral body heights appear maintained. Diffuse moderate degenerative disease with endplate and facet joint degenerative changes without pathological motion. SI joints also demonstrate mild degenerative change. XR/XR lumbar spine AP/LAT/FLX/EXT IMPRESSION: DIFFUSE MODERATE DEGENERATIVE DISC DISEASE. Impression dictated by: Marcel Landry Jr., D.OMusa03/28/2024 3:28 PM Dictation Location: [place] [address] Transcribed By: [facility] 03/28/24 1528 Dictated By: Marcel Landry Jr, DO 03/28/24 1526 Signed By: 03/28/24 1528 Normal [facility] MM SCREENING BILATERALon MM SCREENING BILATERAL EXAMINATION: [...] sent to the patient regarding the results. [facility], along with the National [employer], the [employer], and [facility], recommend annual screening mammograms for women age 40 and older. MPH/ges Workstation ID: [id number] Dictated by: CHELSIE PURDY on ThuMay 04, 2020 10:15:06 AM EDT Transcribed by: JAZZY ALBERTO on ThuMay 04, 2020 10:28:17 AM EDT Finalized by: CHELSIE PURDY on ThuMay 04, 2020 10:38:22 AM EDT Normal [facility] Comment on above: Order Comment: Reduc tion 15 years Mammography Screening Bilwan raldanita 04-15-2017 Mammography Screening Bilateral No mammographic evidence of malignancy. BIRADS: BIRADS - CATEGORY 2 Benign, no evidence of malignancy. Normal interval follow-up is recommended in 12 months. OVERALL ASSESSMENT - BENIGN A letter of notification will be sent to the patient regarding the results. [facility], along with the National Comprehensive Cancer Network, the [employer], and [facility], recommend annual screening mammograms for women age 40 and older. DSS/margiev Workstation ID: [id number] [facility] Mammography Screening Bilateral EXAMINATION: MM SCREENING BILATERAL 04/15/2017 Computer-assisted detection utilized in the interpretation of this exam. COMPARISON: Mammogram dated 03/22/2015. FINDINGS: MLO and CC views of both breasts were obtained using digital technique. The breasts are almost entirely fatty. Mild scarring from bilateral reduction surgery again noted, not significantly changed. No standout mass, suspicious calcification, or architectural distortion identified. [facility] Vital Signs Date Time Vital Sign Value Performing Clinician Facility 03-28-2024 11:16-0400 Diastolic blood pressure 80 mm[Hg] [facility] 03-28-2024 11:16-0400 Heart rate 70 /min [facility] 03-28-2024 11:16-0400 SaO2% (BldA) [Mass fraction] 99 % [facility] 03-28-2024 11:16-0400 Systolic blood pressure 140 mm[Hg] [facility] 02-01-2024 13:43-0400 Body height 154.94 cm [facility] 02-01-2024 13:43-0400 Body mass index (BMI) [Ratio] 31.1 kg/m2 [facility] 02-01-2024 13:43-0400 Body temperature 97.8 [degF] [facility] 02-01-2024 13:43-0400 Body weight 74.84 kg [facility] 02-01-2024 13:43-0400 Diastolic blood pressure 84 mm[Hg] [facility] 02-01-2024 13:43-0400 Heart rate 56 /min [facility] 02-01-2024 13:43-0400 Systolic blood pressure 173 mm[Hg] [facility] 05-29-2022 16:30-0400 Body height 160.02 cm Reynold Roper Other [facility] Other 05-29-2022 16:30-0400 Body mass index (BMI) [Ratio] 33.16 kg/m2 Reynold Roper Other [facility] Other 05-29-2022 16:30-0400 Body weight 84.91 kg Reynold Roper Other [facility] Other 05-29-2022 16:30-0400 Diastolic blood pressure 102 mm[Hg] Reynold Roper Other [facility] Other 05-29-2022 16:30-0400 SaO2% (BldA) [Mass fraction] 99 % Reynold Roper Other [facility] Other 05-29-2022 16:30-0400 Systolic blood pressure 170 mm[Hg] Reynold Roper Other [facility] Other 05-09-2022 11:15-0400 Body height 160.02 cm Reynold Roper Other [facility] Other 05-09-2022 11:15-0400 Body mass index (BMI) [Ratio] 33.19 kg/m2 Reynold Roper Other [facility] Other 05-09-2022 11:15-0400 Body weight 85 kg Reynold Roper Other [facility] Other 05-09-2022 11:15-0400 Diastolic blood pressure 90 mm[Hg] Reynold Roper Other [facility] Other 05-09-2022 11:15-0400 SaO2% (BldA) [Mass fraction] 99 % Reynold Roper Other [facility] Other 05-09-2022 11:15-0400 Systolic blood pressure 164 mm[Hg] Reynold Roper Other [facility] Other 04-21-2022 15:00-0400 Body height 160.02 cm Reynold Roper Other [facility] Other 04-21-2022 15:00-0400 Body mass index (BMI) [Ratio] 33.12 kg/m2 Reynold Roper Other [facility] Other 04-21-2022 15:00-0400 Body weight 84.82 kg Reynold Roper Other [facility] Other 04-21-2022 15:00-0400 Diastolic blood pressure 82 mm[Hg] Reynold Roper Other [facility] Other 04-21-2022 15:00-0400 SaO2% (BldA) [Mass fraction] 99 % Reynold Roper Other [facility] Other 04-21-2022 15:00-0400 Systolic blood pressure 140 mm[Hg] Reynold Roper Other [facility] Other 05-03-2020 14:46-0400 BMI (Body Mass Index) 31.79 kg/m2 Akshat Webber [facility] 05-03-2020 14:46-0400 Body [facility] 78.83 [facility]-2020 14:46-0400 BP Diastolic 84 mm[Hg] [facility] 05-03-2020 14:46-0400 BP Systolic 160 mm[Hg] [facility] 05-03-2020 14:46-0400 Height 157.5 cm [facility] 05-03-2020 14:46-0400 Pulse (Heart Rate) 81 /min Akshat Webber [facility] 04-15-2017 13:39-0400 BMI (Body Mass Index) 33.44 kg/m2 Akshat Webber [facility] Work Phone: 04-15-2017 13:39-0400 BP Diastolic 76 mm[Hg] Akshat Webber [facility] Work Phone: 04-15-2017 13:39-0400 BP Systolic 132 mm[Hg] Akshat Webber [facility] Work Phone: 04-15-2017 13:39-0400 Height 154.9 cm Akshat Webber [facility] Work Phone: 04-15-2017 13:39-0400 Weight 80.29 kg Akshat Webber [facility] Work Phone: Encounters Encounter Date Encounter Type Care Provider Facility Start: 03-28-2024 End: 03-28-2024 ambulatory MD Ty Del Angel Work Phone: [facility] Work Phone: Start: 03-28-2024 End: 03-28-2024 Patient encounter procedure [facility] Work Phone: Start: 02-01-2024 End: 02-01-2024 ambulatory [facility] Work Phone: Start: 02-01-2024 End: 02-01-2024 Patient encounter procedure [facility] Work Phone: Start: 05-29-2022 End: 05-29-2022 ambulatory Reynold Roper Other [facility] Other Start: 05-29-2022 Office outpatient vi sit 25 minutes Reynold Roper [facility] Start: 05-09-2022 End: 05-09-2022 ambulatory Reynold Roper Other [facility] Other Start: 05-09-2022 Patient encounter procedure Reynold Roper [facility] Start: 04-21-2022 End: 04-21-2022 Patient encounter procedure MD Ty Del Angel Work Phone: [facility] Start: 04-21-2022 End: 04-21-2022 ambulatory Reynold Roper Other [facility] Other Start: 04-21-2022 Office consultation new/estab patient 60 min Reynold Roper [facility] Start: 04-15-2022 End: 04-15-2022 ambulatory Reynold Roper Other [facility] Other Start: 04-15-2022 Telephone encounter Reynold Roper [facility] Start: 10-01-2020 End: 10-01-2020 Orders Only Elena To Estrella Work Phone: [facility] Start: 05-03-2020 End: 05-04-2020 Patient encounter procedure AKSHAT WEBBER [facility] Start: 05-03-2020 End: 05-03-2020 Office outpatient new 30 minutes Akshat Webber Work Phone: [facility] Comment on above: Encounter for gyneco logical examination without abnormal finding (Primary Dx); Menopausal disorder; Special screening for malignant neoplasm of vagina Start: 05-03-2020 End: 05-03-2020 Subsequent hospital visit by physician Akshat Webber Work Phone: [facility] Comment on above: Screening mammogram, encounter for Start: 03-28-2020 End: 03-28-2020 Patient encounter procedure [facility] Start: 04-15-2017 End: 04-15-2017 Periodic preventive med est patient 65yrs& older Akshat Webber Work Phone: [facility] Comment on above: Encounter for gyneco logical examination without abnormal finding (Primary Dx);Special screening for malignant neoplasms, vagina;Candidiasis of vulva and vagina;Fatigue, unspecified type;Osteopenia, unspecified location Start: 04-15-2017 End: 04-15-2017 Patient encounter procedure Akshat Webber Work Phone: [facility] Comment on above: Visit for screening mammogram Procedures Date Procedure Procedure Detail Performing Clinician Start: 03-28-2024 X-ray of lumbar spin e, four views MD Ty Del Angel Work Phone: Start: 04-21-2022 X-ray of cervical spine MD Ty Del Angel Work Phone: Start: 05-03-2020 Mammography Elena doss Start: 04-15-2017 Mammography Akshat mcelroy Plan of Treatment Date Care Activity Detail Author Start: 05-03-2021 Screening mammography Mammogram [facility] Start: 04-24-2020 Influenza vaccinatio n given Sequential Influenza Vaccine (#1) [facility] Start: 04-15-2018 History and physical examination, annual for health maintenance Wellness Visit [facility] Start: 04-15-2018 Screening mammography Mammogram [facility] Start: 04-24-2017 SEQUENTIAL INFLUENZA VACCINE (#1) SEQUENTIAL INFLUENZA VACCINE (#1) [facility] Work Phone: Start: 12-18-2015 Pneumococcal vaccination Pneum ococcal Vaccine Age 65+ (1 of 2 - PCV13) [facility] Start: 12-18-2015 PNEUMOCOCCAL VACCINE AGE 65+ (1 of 2 - PCV13) PNEUMOCOCCAL VACCINE AGE 65+ (1 of 2 - PCV13) [facility] Work Phone: Start: 2010 Zoster vaccine hzv l latisha for subcutaneous use ZOSTER VACCINE [facility] Work Phone: Start: 2000 Administration of he rpes zoster vaccine Zoster Vaccines (1 of 2) [facility] Start: 2000 Screening for malign ant neoplasm of colon [facility] Start: 1968 Hepatitis C antibody , confirmatory test Hepatitis C Screening [facility] Start: 1966 COVID-19 Vaccine (1 of 2) COVI D-19 Vaccine (1 of 2) [facility] Start: 1962 Adolescent depressio n screening assessment Depression Screening (PHQ9) [facility] Start: 1950 Colonoscopy COLONOSCOPY [facility] Work Phone: Start: 1950 Fall risk assessment Falls Risk Asse ssment [facility] Start: 1950 HEPATITIS C SCREENING HEPATITIS C SC REENING [facility] Work Phone: Start: 1950 TETANUS EVERY 10 YR TETANUS EVERY 10 YR [facility] Work Phone: Start: 1950 Tetanus vaccination Tetanus: Every 1 0yrs [facility] End: 05-03-2021 Bone density scan XR Bone Density DEXA Axial Imaging Routine Menopausal disorder 1 Occurrences starting 05/03/2020 until 05/03/2021 [facility] Comment on above: 1 Occurrences starti ng 05/03/2020 until 05/03/2021 End: 05-03-2020 MG Breast - bilateral screening Mammography Screening Bilateral Imaging Routine Screening Mammogram, Encounter For Once for 1 Occurrences starting 05/03/2020 until 05/03/2020 [facility] Comment on above: Once for 1 Occurrenc es starting 05/03/2020 until 05/03/2020 MG Breast - bilatera l screening Mammography Screening Bilateral Imaging Routine Screening mammogram, encounter for 05/03/2020 2:07 PM EDT [facility] Microscopic examinat ion of vaginal Papanicolaou smear Thinprep Pap Smear Pathology and Cytology Routine Special screening for malignant neoplasm of vagina Ordered: 05/03/2020 [facility] Comment on above: Ordered: 05/03/2020 Thinprep Pap Smear, Screening Thinprep Pap Smear, Screening Routine Special screening for malignant neoplasms, vagina Ordered: 04/15/2017 [facility] Work Phone: Comment on above: Ordered: 04/15/2017 XR Lumbar spine 4 Views [facility] Payers Date Payer Category Payer Medicare [id number] 2024 Self-pay [id number] 2019 Medicare [employer] MANAGED [place] DICARE A[employer]NA MEDICARE PLAN (PPO) [id number] 2019-Present [id number] 2019 Medicare [id number] 1950 Unknown [id number] 1950 Unknown [id number] 1950 Unknown [id number] Medicare [id number] Medicare Medicare [id number] Unknown [id number] Social History Date Type Detail Facility Start: 04-15-2017 End: 02-28-2020 Tobacco smoking status UTIS Never smoker [facility] Sex Assigned At Not on file [employer] Work Phone: Start: 05-03-2020 Tobacco use and exposure Never used [facility] Start: 05-03-2020 Alcohol intake Current drinke r of alcohol (finding) [facility] Start: 04-15-2017 Alcohol Comment Social [facility] Exposure to SARS-CoV-2 (event) Not sure [facility] Sex Assigned At Sex Assigned At [facility] [employer] Other Start: 1950 Sex Assigned At Female F [facility] Evaluation note 05-29-2022 Note Date & [...] understanding. Patient states she is leaving for [place] for 6 months and does not wish to proceed with injections at this time. May, Other chronic pain (ICD-10 - G89.29) Continue with current treatment plan. [facility] Other Evaluation note 05-09-2022 Note Date & [...] - G89.29) Continue with current treatment plan. [facility] Other Evaluation note 04-21-2022 Note Date & [...] recently attended physical therapy which provided minimal senior living improvement. She feels pain is negatively impacting [...] negative findings were considered in medical decision-making. [employer] Other Evaluation note Note Date & Type Note Facility Evaluation note No assessment information availa [facility] Work Phone: Evaluation note Note Date & Type Note Facility Evaluation note No Information [facility] [employer] Other Evaluation note Note Date & Type Note Facility Evaluation note Diagnosis Onset Date Phlebitis and thrombophlebitis acute Lumbosacral spondylosis acut e Other chronic pain acute Sacroiliitis [facility] Work Phone: History general Narrative - Reported Note Date & Type Note Facility History general Narrative - Reported Type Medical History CELLULITIS Medical History HYPOTHYROID Medical History hiatal hernia Surgical History HYSTERECTOMY Surgical History L KNEE Surgical History APPENDIX Surgical History GALLBLADDER Hospitalization History see above Hospitalization History cellulitis right leg [facility] Other History of Present Illness * Akshat [...] been noticing recurrent yeast infections. She uses [id number] Monistat, which seems to help. I gave her a prescription for Diflucan 150 mg, #1 with 5 refills. I did tell the patient that if she would need refills after this expires, we can do this over the phone as long as it is within 1 year. Review of Systems: I have reviewed and agree with the ROS as gathered by the student support counselor. Past Medical History: Diagnosis Date Disease of [...] (from the past 336 hour(s)). * Janneth CorralJESSIE - 04/15/2017 1:46 PM EDT Questions for the Staff to Ask Last Pap: 03/12/2015 neg Last Mammogram: 04/15/2017 Pending Last Bone Density: 03/22/2015 Osteopenia Review of Systems Janneth A Adis 04/15/17 CONSTITUTIONAL: does not report of fever [...] not report of bleeding easily. If Janneth A Adis reported Yes to any Review of Symptoms, [...] with the ROS as gathered by the student support counselor. Past Medical History: Diagnosis Date Anemia Arthritis [...] file Gets together: Not on file Attends scientology service: Not on file Active member of [...] Procedures Mammography Screening Bilateral Akshat Webber MD [address] [place] [address] [facility] [address] [place] [address] Status Reason Specialty Diagnoses / Procedures Referred By Contact Referred To Contact Authorized Radiology Diagnoses Menopausal disorder Procedures XR Bone Density DEXA Axial Akshat Webber MD [address] [place] [address] Status Reason Specialty Diagnoses / Procedures Referred By Contact Referred To Contact Pending Review Radiology Diagnoses Screening mammogram, encounter for Procedures Mammography Screening Bilateral Akshat Webber MD [address] [place] [address] Advance Directives No Advanced Directives Records FoundDocuments on File Type Date Recorded Patient Or Rn Expl anation Advance Directives and Livin g Will 05/03/2020 12:00 AM Documents on File Type Date Recorded Patient Or Rn Expl anation Advance Directives and Livin g Will 05/03/2020 12:00 AM Advance Directive Response Recorded Date/ Time Advance Directives No February 20 4:34pm Summary Purpose Family History No Family History Records Found Relationship Condition Age at Onset Recorded Date/T rusty father Malignant neoplasm Unknown Unknown Not Specified Unknown Relationship Condition Age at Onset Recorded Date/T rusty father Malignant neoplasm Unknown Unknown mother Unknown Chief Complaint and Reason for Visit Chief Complaint M47.812 Chief Complaint sore on leg Chief Complaint sore on leg Back/hip pain ( last seen 05/2022) Reason for Visit Phlebitis and thromb ophlebitis Lumbosacral spondylosis Other chronic pain Sacroiliitis Chief Complaint sore on leg Back/hip pain ( last seen 05/2022) M47.817 Reason for Visit Phlebitis and thromb ophlebitis Lumbosacral spondylosis Other chronic pain Sacroiliitis Additional Source Comments Reason for Visit (unrecogniz ed section and content) Reason Comments Annual Exam During the last year , has been getting yeast infections Status Reason Specialty Diagnoses / Procedures Referre d By Contact Referred To Contact Closed Radiology Diagnoses Visit for screening mammogram Procedures Mammography Screening Bilateral Akshat Webber MD [address] [place] [address] [facility] [address] [place] [address] Reason Comments Annual Exam Status Reason Specialty Diagnoses / Procedures Referred By Contact Referred To Contact Pending Review Radiology Diagnoses Screening mammogram, encounter for Procedures Mammography Screening Bilateral Akshat Webber MD [address] [place] [id number] INFORMATION SOURCE (unrecogn ized section and content) DATE CREATED AUTHOR 05/03/2020 [facility] DATE CREATED AUTHOR AUTHOR'S ORGANIZ ATION 05/09/2020 [facility] DATE CREATED AUTHOR AUTHOR'S ORGANIZ ATION 03/30/2024 [facility] Quick Note - Sallie Quan TECHNOLOGIST - 05/03/2020 2:00 PM EDT Miscellaneous [...] February 01, 2024 End: February 01, 2024 Team Status: Inactive Member Role Status Dates Ty Del Angel MD Primary Care Provider Active Start: March 28, 2024 End: March 28, 2024 Reynold Roper MD Attending Provider Active Sta rt: March 28, 2024 End: March 28, 2024 Goals (unrecognized section and content) Goals [...] BE BASED ON THE PRIMARY CLINICAL RECORDS. [facility]. provides no warranty or guarantee of the accuracy or completeness of information in this document.
[2024-04-04 10:44] VITALS: BP 145/78; PULSE 78; O2SAT 97; BMI 30.6
--- NOTE | 2024-04-04 10:44 | VEINCLINIC_ITS ---
Vital Signs 3 04/04/24 10:44 Height 5 ft 1 in Weight 73.5 kg BMI 30.6 BP 145/78 H BP Location Left Brachial BP Position Sitting BP Cuff Size Adult BP Source Automatic Cuff Respiration 16 Pulse 78 Pulse Oximetry (%) 97 Comment The patient's blood pressure is elevated. Varicose Veins Patient in today for follow up ultrasound of bilateral lower extremities following EVLT of right perforators and left AASV completed on 03/21/24 and 03/28/24. IVance MD personally performed the services described in this documentation, as scribed by Cristal Garnett RDMS in my presence and it is both accurate and complete. I, Cristal Garnett RDMS, am scribing for, and in the presence of, Dr. Vance Zhu and in the presence of the patient. medial (Distal/medial right leg ulcer) thigh: bilateral, knee: bilateral, calf: bilateral and ankle: bilateral cramping, sharp and other 7 30+ years Worsened in recent months: Yes standing elevating extremities, compression stockings and other (Rest) Reports edema, leg edema and other (stasis ulcer to right distal/medial calf, cellulitis, DVT) History of lower extremity trauma: No Superficial thrombophlebitis: No Family history of varicose veins: yes Has patient had previous lower extremity venous surgery: No Patient has previously received the following treatment(s) for lower extremity varicose veins: Reports sclerotherapy Does patient have a history of : yes Does patient intend to have future pregnancies: no Has patient had lower extremity venous scan with relux testing: Yes Support hose used: Yes Prescribed by provider: No Problems walking or doing physical activity: No Do you walk much: Yes Do you stand much: Yes Medication compliance: good Large amounts of Vitamin K: No Review of Systems 2 ROS0 Narrative Vance Arzola MD personally performed the services described in this documentation, as scribed by Cristal Garnett RDMS in my presence and it is both accurate and complete. I, Cristal Garnett RDMS, am scribing for, and in the presence of, Dr. Vance Zhu and in the presence of the patient. Status of ROS 10 or more systems reviewed and unremark able except as noted in history and below Cardiovascular Reports: edema and leg pain with exertion Musculoskeletal Reports: extremity pain, extremity swelling and muscle cramps Integumentary/Breast Reports: itching, redness, changing lesion, non-healing lesion and changes in skin color Neurological Reports: weakness in extremities Hematologic/Lymphatic Reports: easy bruising PFSH PFS Medical History (Updated 04/04/24 @ 10:48 by Cristal Garnett) Phlebitis and thrombophlebitis of superficial vessels of lower extremities, bilateral ?I80.03 - Phlebitis and thrombophlebitis of superficial vessels of lower extremities, bilateral (ICD-10) Phlebitis and thrombophlebitis of superficial vessels of left lower extremity ?I80.02 - Phlebitis and thrombophlebitis of superficial vessels of left lower extremity (ICD-10) Phlebitis and thrombophlebitis of superficial vessels of right lower extremity ?I80.01 - Phlebitis and thrombophlebitis of superficial vessels of right lower extremity (ICD-10) Varicose veins of bilateral lower extremities with pain ?I83.813 - Varicose veins of bilateral lower extremities with pain (ICD-10) Hypothyroidism ?E03.9 - Hypothyroidism, unspecified (ICD-10) Cellulitis and abscess of leg ?L03.119 - Cellulitis of unspecified part of limb (ICD-10) ?L02.419 - Cutaneous abscess of limb, unspecified (ICD-10) DVT (deep venous thrombosis) ?I82.409 - Acute embolism and thrombosis of unspecified deep veins of unspecified lower extremity (ICD-10) 3 para 3 ?Z78.9 - Other specified health status (ICD-10) Surgical History (Updated 02/22/24 @ 14:45 by Rossy Weller) History of arthroscopic knee surgery ?Z98.890 - Other specified postprocedural states (ICD-10) History of cholecystectomy ?Z90.49 - Acquired absence of other specified parts of digestive tract (ICD- 10) History of hysterectomy ?Z90.710 - Acquired absence of both cervix and uterus (ICD-10) Family History (Updated 02/22/24 @ 14:46 by Rossy Weller) Mother Family history of cancer Varicose veins of bilateral lower extremities with pain Father Family history of cancer Brother Family history of cancer Sister Family history of cancer Social History (Updated 02/22/24 @ 14:47 by Rossy Weller) Within the past year, how often did you have a drink containing alcohol: 2-4 times a month Smoking status: Never smoker Non-prescribed substance use: denies use Meds Home Medications and Allergies Home Medications ?Medication ?Instructions ?Recorded ?Confirmed ?Type ibuprofen 200 mg tablet (IBU-200) 200 mg PO Q8H 02/22/24 03/21/24 History levothyroxine .ROUTE 02/22/24 History ropinirole .ROUTE 02/22/24 History Allergies Allergy/AdvReac Type Severity Reaction Status Date / Time No Known Drug Allergies Allergy Unverified 02/22/24 14:43 Exam Narrative Exam Narrative: Patient has some tenderness to distal right leg and numbness. Vance Arzola MD personally performed the services described in this documentation, as scribed by Cristal Garnett RDMS in my presence and it is both accurate and complete. Cristal Arzola RDMS, am scribing for, and in the presence of, Dr. Vance Zhu and in the presence of the patient. Constitutional Documenting provider has reviewed patient's vital signs: yes Common normals: oriented x3 Lymph Lymphatic: no lymphedema noted Cardio Common normals: regular rate Rate: regular rate Peripheral pulses: posterior tibial pulses present and dorsalis pedis pulses present Extremity Common normals: normal capillary refill General: calf tenderness and edema Right lower extremity: upper leg and lower leg (tenderness and numbness ) Left lower extremity: upper leg and lower leg Extremity image (front): 2 1. wound Neuro Common normals: oriented x3 Results Imaging Venous US: Radiologist's impression: Heat induced thrombus in two perforators right lower leg. Heat induced thrombus in left AASV 8.0 cm from SFJ and extends to mid/distal thigh. Vance Arzola MD personally performed the services described in this documentation, as scribed by Crisatl Garnett RDMS in my presence and it is both accurate and complete. Cristal Arzola RDMS, am scribing for, and in the presence of, Dr. Vance Zhu and in the presence of the patient. Assessment and Plan Assessment and Plan (1) Phlebitis and thrombophlebitis of superficial vessels of lower extremities, bilateral: Plan Plan is for patient to return for Varithena of right leg on 04/05/24. Vance Arzola MD personally performed the services described in this documentation, as scribed by Cristal Garnett RDMS in my presence and it is both accurate and complete. I, Cristal Garnett RDMS, am scribing for, and in the presence of, Dr. Vance Zhu and in the presence of the patient.
--- NOTE | 2024-04-04 13:11 | P.DS_ITS ---
Discharge Plan Discharge Disposition: Home, Self-Care Outpatient Diagnostics: VC Facility EST LMTD (Routine) Timeframe: 2 Weeks Facility: [facility] - Location: [facility] Center Ordered By: Vance Zhu VC INJ Foam Sclerosant WUS CHICKEN AND FISH BUTCHER (Routine) Timeframe: 2 Weeks Facility: [facility] - Location: Vein Center Ordered By: Vance Zhu VC EXT Venous DEE Limited (Routine) Timeframe: 2 Weeks Facility: [facility] - Location: Vein Center Ordered By: Vance Zhu Follow Up Appointments: 04/05/24 Plan of Treatment: Varithena/microfoam of right leg Print Language: Greenlandic Discharge Date/Time: 04/04/24 13:13
== END 2024-04-04 13:13 | disposition home or self-care (01) ==
PROVIDERS: PCP Radiology Diagnostic Radiology; Visit Provider Radiology Diagnostic Radiology
DX: I80.03 Phlebitis and thrombophlebitis of superficial vessels of lower extremities, bilateral (principal)
CPT/HCPCS: 93970; G0463

== ENCOUNTER 2024-04-05 07:58 | Outpatient (OUT) | payer MEDICARE, SELFPAY ==
--- NOTE | 2024-04-04 14:14 | VEINCLINIC_ITS ---
Vital Signs 04/05/24 08:05 04/05/24 08:43 Height 5 ft 1 in Weight 73.482 kg BP 150/82 H BP Location Right Brachial BP Position Sitting BP Cuff Size Adult BP Source Manual Cuff Respiration 16 Pulse 91 H Pulse Source Monitor Pulse Oximetry (%) 99 Oxygen Delivery Method Room Air Comment The patient's blood pressure is elevated. Varicose Veins Patient in this day for microfoam chemical ablation right leg Vance Arzola MD personally performed the services described in this documentation, as scribed by Ranjit Henderson RN in my presence and it is both accurate and complete. IRanjit RN, am scribing for, and in the presence of, Dr. Vance Zhu and in the presence of the patient. medial (Distal/medial right leg ulcer) thigh: bilateral, knee: bilateral, calf: bilateral and ankle: bilateral cramping, sharp and other 7 30+ years Worsened in recent months: Yes standing elevating extremities, compression stockings and other (Rest) Reports edema, leg edema and other (stasis ulcer to right distal/medial calf, cellulitis, DVT) History of lower extremity trauma: No Superficial thrombophlebitis: No Family history of varicose veins: yes Has patient had previous lower extremity venous surgery: No Patient has previously received the following treatment(s) for lower extremity varicose veins: Reports sclerotherapy Does patient have a history of : yes Does patient intend to have future pregnancies: no Has patient had lower extremity venous scan with relux testing: Yes Support hose used: Yes Prescribed by provider: No Problems walking or doing physical activity: No Do you walk much: Yes Do you stand much: Yes Medication compliance: good Large amounts of Vitamin K: No Review of Systems ROS Narrative Vance Arzola MD personally performed the services described in this documentation, as scribed by Ranjit Henderson RN in my presence and it is both accurate and complete. Ranjit Arzola RN, am scribing for, and in the presence of, Dr. Vance Zhu and in the presence of the patient. Status of ROS 10 or more systems reviewed and unremark able except as noted in history and below Cardiovascular Reports: edema and leg pain with exertion Musculoskeletal Reports: extremity pain, extremity swelling and muscle cramps Integumentary/Breast Reports: itching, redness, changing lesion, non-healing lesion and changes in skin color Neurological Reports: weakness in extremities Hematologic/Lymphatic Reports: easy bruising PFSH [facility] Medical History (Updated 04/04/24 @ 10:48 by Cristal Garnett) Phlebitis and thrombophlebitis of superficial vessels of lower extremities, bilateral ?I80.03 - Phlebitis and thrombophlebitis of superficial vessels of lower extremities, bilateral (ICD-10) Phlebitis and thrombophlebitis of superficial vessels of left lower extremity ?I80.02 - Phlebitis and thrombophlebitis of superficial vessels of left lower extremity (ICD-10) Phlebitis and thrombophlebitis of superficial vessels of right lower extremity ?I80.01 - Phlebitis and thrombophlebitis of superficial vessels of right lower extremity (ICD-10) Varicose veins of bilateral lower extremities with pain ?I83.813 - Varicose veins of bilateral lower extremities with pain (ICD-10) Hypothyroidism ?E03.9 - Hypothyroidism, unspecified (ICD-10) Cellulitis and abscess of leg ?L03.119 - Cellulitis of unspecified part of limb (ICD-10) ?L02.419 - Cutaneous abscess of limb, unspecified (ICD-10) DVT (deep venous thrombosis) ?I82.409 - Acute embolism and thrombosis of unspecified deep veins of unspecified lower extremity (ICD-10) 3 para 3 ?Z78.9 - Other specified health status (ICD-10) Surgical History (Updated 02/22/24 @ 14:45 by Rossy Weller) History of arthroscopic knee surgery ?Z98.890 - Other specified postprocedural states (ICD-10) History of cholecystectomy ?Z90.49 - Acquired absence of other specified parts of digestive tract (ICD- 10) History of hysterectomy ?Z90.710 - Acquired absence of both cervix and uterus (ICD-10) Family History (Updated 02/22/24 @ 14:46 by Rossy Weller) Mother Family history of cancer Varicose veins of bilateral lower extremities with pain Father Family history of cancer Brother Family history of cancer Sister Family history of cancer Social History (Updated 02/22/24 @ 14:47 by Rossy Weller) Within the past year, how often did you have a drink containing alcohol: 2-4 times a month Smoking status: Never smoker Non-prescribed substance use: denies use Meds Home Medications and Allergies Home Medications ?Medication ?Instructions ?Recorded ?Confirmed ?Type ibuprofen 200 mg tablet (IBU-200) 200 mg PO Q8H 02/22/24 03/21/24 History levothyroxine .ROUTE 02/22/24 History ropinirole .ROUTE 02/22/24 History Allergies Allergy/AdvReac Type Severity Reaction Status Date / Time No Known Drug Allergies Allergy Unverified 02/22/24 14:43 Exam Narrative Exam Narrative: Patient has some tenderness to distal right leg and numbness. Vance Arzola MD personally performed the services described in this documentation, as scribed by Ranjit Henderson RN in my presence and it is both accurate and complete. IRanjit RN, am scribing for, and in the presence of, Dr. Vance Zhu and in the presence of the patient. Constitutional Documenting provider has reviewed patient's vital signs: yes Common normals: oriented x3 Lymph Lymphatic: no lymphedema noted Cardio Common normals: regular rate Rate: regular rate Peripheral pulses: posterior tibial pulses present and dorsalis pedis pulses present Extremity Common normals: normal capillary refill General: calf tenderness and edema Right lower extremity: upper leg and lower leg (tenderness and numbness ) Left lower extremity: upper leg and lower leg Neuro Common normals: oriented x3 Assessment and Plan Assessment and Plan (1) Varicose veins of bilateral lower extremities with pain: Plan f/u examination with physician along with right leg limited u/s Vance Arzola MD personally performed the services described in this documentation, as scribed by Ranjit Henderson RN in my presence and it is both accurate and complete. Ranjit Arzola RN, am scribing for, and in the presence of, Dr. Vance Zhu and in the presence of the patient. Procedures Procedure Instructions Procedures Right leg microfoam chemical ablation/Varithena: Risks and benefits of the procedure were discussed at length and informed written consent was obtained.? Time-out procedure was performed and the correct patient and procedure were confirmed.? Staff present during time-out: Ranjit Henderson RN and Vance Zhu MD.? Patient prepped and procedure performed in usual sterile fashion.? Patient was placed in Trendelenburg prior to Polidocanol/Varithena injections. Sclerosing Agent:?? 15cc 1% Polidocanol/Varithena Site Injected: Right lecc varithena administered in to a 5cc varicose vein distal medial right lower leg 7cc varithena administered in to a 6mm varicose vein distal right GSV 2cc varithena administere in to a 5mm varicose vein right mid to distal anterior lower leg Number of Injections:? 3 The patient tolerated the procedure well without complication.? Hemostasis was obtained and thigh-high compression stocking was applied with foam pads.? Instructed patient to wear stocking for at least 96 hours and sleep with it and only remove for showering.? The patient was instructed to? wear stocking for 2 weeks.? Patient verbalizes understanding and states they will comply.? Patient was given post-procedure instructions. Patient was discharged in good condition.? Scheduled to undergo limited venous ultrasound and? exam on 04/08/2024. IVance MD personally performed the services described in this doc umentation, as scribed by Ranjit Henderson RN in my presence and it is both accurate and complete. IRanjit RN, am scribing for, and in the presence of, Dr. Vance Zhu and in the presence of the patient.
--- NOTE | 2024-04-04 14:18 | W.VEIN ---
Discharge Plan Discharge Disposition: Home, Self-Care Outpatient Diagnostics: VC Facility EST LMTD (Routine) Timeframe: 2 Weeks Facility: [facility] - Location: Vein Center Ordered By: Vance Zhu VC EXT Venous RT LMTD (Routine) Timeframe: 2 Weeks Facility: [facility] - Location: Vein Center Ordered By: Vance Zhu Follow Up Appointments: f/u 04/08/2024 Plan of Treatment: f/u evaluation with physician along with right leg limited u/s Patient Instructions: Polidocanol (By injection) (Asclera, Varithena) Print Language: Sinhala Discharge Date/Time: 04/05/24 08:44
--- NOTE | 2024-04-05 08:00 | VEIN_ITS ---
[address] [address] Patient Name: RADHA SALGADO MRN: [id number] date: 1950 Sex: F Assigned Patient Location: Current Patient Location: Accession/Order Number: [id number] Exam Date: 04/05/2024 08:00 Report Date: 04/05/2024 08:44 At the request of: MAEGAN WALLER Procedure: VC INJ Foam Sclerosant WUS CLEANER PROCEDURE: VC INJ Foam Sclerosant WUS CLEANER COMPARISON: None. HISTORY: I83.813 - Varicose veins of bilateral lower extremities w... Pre-operative Diagnosis: CEAP class C6 venous insufficiency with pain, tenderness, edema and incompetent right saphenous and varicose vein(s), chronic venous insufficiency right leg secondary to venous incompetence Post-operative Diagnosis: CEAP class C6 venous insufficiency with pain, tenderness, edema and incompetent right saphenous and varicose vein(s), chronic venous insufficiency right leg secondary to venous incompetence Procedure Performed: 1. Ultrasound-guided microfoam chemical ablation with Varithenaregistered 2. Intraoperative ultrasound guidance Anesthesia: None Indications for Procedure: 73-year-old female who presents with a long history of lower extremity pain and swelling varicose veins culminating and nonhealing venous stasis ulcerations. The patient failed conservative medical therapy including medical compression stockings, exercise and analgesics. Prior procedures include a venous laser ablation. Multiple incompetent varicosities of the right leg. Duplex scan showed reflux and enlarged diameters up to 6 mm. The patient underwent informed consent including management options where the complications of infection, bleeding, pain, and skin injury were discussed. Particular attention was spent discussing thrombus extension and deep vein thrombosis as well as the possibility of pulmonary embolus and treatment with oral or injectable blood thinners. Procedure: The patient walked to the procedure room. All applicable staff donned appropriate apparel. A procedure timeout was performed to confirm correct patient, correct extremity, correct procedure, and correct room set-up including presence of all applicable supplies, devices, and drugs. A duplex ultrasound, performed by myself confirmed the location and incompetence of branch saphenous varicosities and their course was marked on the skin together with the dilated tributaries. The extent of treatment of the vein and the associated varicosities was determined through ultrasound mapping. The skin was prepped and then punctured with a butterfly needle and advanced under ultrasound guidance. The Varithenaregistered canister was activated and the canister was primed and purged as required in the instructions for use. Varithenaregistered was drawn into a sterile syringe. The following injections were made: 6 cc injected into a 5 mm varicose vein distal medial right lower leg 7 cc injected into a patent distal right great saphenous vein measuring 6 mm 2 cc injected into a 5 mm varicose vein right mid to distal anterior lower leg Varithenaregistered was slowly administered at 0.5-1.0 cc/second with close observation by ultrasound of its course in the vessels. Total volume utilized was: 15cc. Following administration of Varithenaregistered the leg was elevated and the patient was asked to repeatedly dorsiflex the ankle to limit flow of Varithenaregistered into perforating veins. Once appropriate spasm had been confirmed in the treated veins, the vascular catheter was removed from the leg and light pressure was applied over the puncture site for hemostasis. The common femoral and deep superficial veins were then evaluated for flow and compressibility prior to dressing placement. The lower extremity was kept elevated at 45 degrees above the horizontal and cording material was applied over the saphenous segments and tributaries to allow for eccentric compression over the target vessels including the targeted saphenous vein(s). A multilayer dressing was applied consisting of foam pads, coban and thigh-high 20-30 mm Hg compression elastic support hose were placed on the patient. The leg was lowered only after compression had been applied and the patient was immediately ambulatory. The patient ambulated 10 minutes under supervision and was without apparent concerns at time of release. Post-care instructions include advising patient to keep post-treatment bandages in place and dry for 48 hours, avoid extended periods of inactivity, avoid heavy exercise for one week, wear compression stockings on the treated leg continuously for two weeks, to walk daily for 10 minutes over the next month. The patient was instructed to take an anti-inflammatory medicine as needed and to follow up for color duplex scan of the Saphenous veins, the treated branch saphenous varicosities, the adjacent deep veins, and additional treatment within 7 days. PERSONNEL: Ranjit Henderson RN Electronically authenticated by: MAEGAN WALLER Date: 04/05/2024 08:44
[2024-04-05 08:05] VITALS: BP 150/82; PULSE 91; O2SAT 99
== END 2024-04-05 08:44 | disposition home or self-care (01) ==
LOC: VC 07:58
PROVIDERS: PCP Radiology Diagnostic Radiology; Visit Provider Radiology Diagnostic Radiology
DX: I83.813 Varicose veins of bilateral lower extremities with pain (principal)
CPT/HCPCS: 36466

== ENCOUNTER 2024-04-08 10:43 | Outpatient (OUT) | payer MEDICARE, SELFPAY ==
--- NOTE | 2024-04-08 07:40 | V.VEINS.HP ---
Vital Signs 04/08/24 11:38 Height 5 ft 1 in Weight 73.5 kg BMI 30.6 BP 155/90 H BP Location Left Brachial BP Position Sitting BP Cuff Size Adult BP Source Automatic Cuff Respiration 16 Pulse 72 Pulse Oximetry (%) 99 Comment The patient's blood pressure is elevated. Varicose Veins Patient in today for follow up ultrasound of right lower extremity following treatment of Varithena/microfoam completed on 04/05/24. Sundeep Arzola MD personally performed the services described in this documentation, as scribed by Cristal Garnett RDMS in my presence and it is both accurate and complete. Cristal Arzola RDMS, am scribing for, and in the presence of, Dr. Emy Wilkins and in the presence of the patient. medial (Distal/medial right leg ulcer) thigh: bilateral, knee: bilateral, calf: bilateral and ankle: bilateral cramping, sharp and other 7 30+ years Worsened in recent months: Yes standing elevating extremities, compression stockings and other (Rest) Reports edema, leg edema and other (stasis ulcer to right distal/medial calf, cellulitis, DVT) History of lower extremity trauma: No Superficial thrombophlebitis: No Family history of varicose veins: yes Has patient had previous lower extremity venous surgery: No Patient has previously received the following treatment(s) for lower extremity varicose veins: Reports sclerotherapy Does patient have a history of : yes Does patient intend to have future pregnancies: no Has patient had lower extremity venous scan with relux testing: Yes Support hose used: Yes Prescribed by provider: No Problems walking or doing physical activity: No Do you walk much: Yes Do you stand much: Yes Medication compliance: good Large amounts of Vitamin K: No Review of Systems ROS Narrative Sundeep Arzola MD personally performed the services described in this documentation, as scribed by Cristal Garnett RDMS in my presence and it is both accurate and complete. Cristal Arzola RDMS, am scribing for, and in the presence of, Dr. Emy Wilkins and in the presence of the patient. Status of ROS 10 or more systems reviewed and unremarkable except as noted in history and below Cardiovascular Reports: edema and leg pain with exertion Musculoskeletal Reports: extremity pain, extremity swelling and muscle cramps Integumentary/Breast Reports: itching, redness, changing lesion, non-healing lesion and changes in skin color Neurological Reports: weakness in extremities Hematologic/Lymphatic Reports: easy bruising PFSH [facility] Medical History (Updated 04/04/24 @ 10:48 by Cristal Garnett) Phlebitis and thrombophlebitis of superficial vessels of lower extremities, bilateral ?I80.03 - Phlebitis and thrombophlebitis of superficial vessels of lower extremities, bilateral (ICD-10) Phlebitis and thrombophlebitis of superficial vessels of left lower extremity ?I80.02 - Phlebitis and thrombophlebitis of superficial vessels of left lower extremity (ICD-10) Phlebitis and thrombophlebitis of superficial vessels of right lower extremity ?I80.01 - Phlebitis and thrombophlebitis of superficial vessels of right lower extremity (ICD-10) Varicose veins of bilateral lower extremities with pain ?I83.813 - Varicose veins of bilateral lower extremities with pain (ICD-10) Hypothyroidism ?E03.9 - Hypothyroidism, unspecified (ICD-10) Cellulitis and abscess of leg ?L03.119 - Cellulitis of unspecified part of limb (ICD-10) ?L02.419 - Cutaneous abscess of limb, unspecified (ICD-10) DVT (deep venous thrombosis) ?I82.409 - Acute embolism and thrombosis of unspecified deep veins of unspecified lower extremity (ICD-10) 3 para 3 ?Z78.9 - Other specified health status (ICD-10) Surgical History (Updated 02/22/24 @ 14:45 by Rossy Weller) History of arthroscopic knee surgery ?Z98.890 - Other specified postprocedural states (ICD-10) History of cholecystectomy ?Z90.49 - Acquired absence of other specified parts of digestive tract (ICD-10) History of hysterectomy ?Z90.710 - Acquired absence of both cervix and uterus (ICD-10) Family History (Updated 02/22/24 @ 14:46 by Rossy Weller) Mother Family history of cancer Varicose veins of bilateral lower extremities with pain Father Family history of cancer Brother Family history of cancer Sister Family history of cancer Social History (Updated 02/22/24 @ 14:47 by Rossy Weller) Within the past year, how often did you have a drink containing alcohol: 2-4 times a month Smoking status: Never smoker Non-prescribed substance use: denies use Meds Home Medications and Allergies Home Medications ?Medication ?Instructions ?Recorded ?Confirmed ?Type ibuprofen 200 mg tablet (IBU-200) 200 mg PO Q8H 02/22/24 03/21/24 History levothyroxine .ROUTE 02/22/24 History ropinirole .ROUTE 02/22/24 History aspirin 325 mg tablet 325 mg PO DAILY 04/08/24 04/08/24 History Allergies Allergy/AdvReac Type Severity Reaction Status Date / Time No Known Drug Allergies Allergy Unverified 02/22/24 14:43 Exam Narrative Exam Narrative: Patient has no complaints today. Sundeep Arzola MD personally performed the services described in this documentation, as scribed by Cristal Garnett RDMS in my presence and it is both accurate and complete. Cristal Arzola RDMS, am scribing for, and in the presence of, Dr. Emy Wilkins and in the presence of the patient. Constitutional Documenting provider has reviewed patient's vital signs: yes Common normals: oriented x3 Lymph Lymphatic: no lymphedema noted Cardio Common normals: regular rate Rate: regular rate Peripheral pulses: posterior tibial pulses present and dorsalis pedis pulses present Extremity Common normals: normal capillary refill General: calf tenderness and edema Right lower extremity: upper leg and lower leg (tenderness and numbness ) Left lower extremity: upper leg and lower leg Neuro Common normals: oriented x3 Results Imaging Venous US: Radiologist's impression: Chemically induced thrombus in multiple varicose veins right leg. Thrombus extends into a 4 cm segment of one of the PTVs. Sundeep Arzola MD personally performed the services described in this documentation, as scribed by Cristal Garnett RDMS in my presence and it is both accurate and complete. Cristal Arzola RDMS, am scribing for, and in the presence of, Dr. Emy Wilkins and in the presence of the patient. Assessment and Plan Assessment and Plan (1) Phlebitis and thrombophlebitis of superficial vessels of right lower extremity: Plan Plan is for patient to return for Varithena/microfoam of left leg on 04/12/24. I, Sundeep Wilkins MD personally performed the services described in this documentation, as scribed by Cristal Garnett RDMS in my presence and it is both accurate and complete. I, Cristal Garnett RDMS, am scribing for, and in the presence of, Dr. Emy Wilkins and in the presence of the patient.
--- NOTE | 2024-04-08 10:58 | VEIN_ITS ---
Patient Name: RADHA SALGADO MR#: [id number] : 1950 Exam Date: 04/08/2024 Ordering Doctor: DR MAEGAN WALLER M.D. RADIOLOGY REPORT PROCEDURE: VC EXT VENOUS RT LMTD COMPARISON: VC EXT VENOUS RT LMTD, 03/10/2024. INDICATIONS: I80.01 - Phlebitis and thrombophlebitis of superficial veins right leg TECHNIQUE: Lower extremity lora scale and Duplex Doppler evaluation of the deep venous system from the inguinal ligament through the calf veins. FINDINGS: REGION: Right lower extremity. THROMBI: Positive for DVT. Chemically induced thrombus in multiple varicose veins in right leg. Thrombus extends into a 4 cm segment mid to distal PTV. COMPRESSIBILITY: Non-compressible segments corresponding to thrombus FLOW: Areas of no flow corresponding to thrombus OTHER: Multiple patent varicose veins remain. CONCLUSION: 1. Successful post ablation occlusion of right leg treated branch saphenous varicosities. 2. Short segment of deep vein thrombus within mid-distal posterior tibial vein. Dictated by: Sundeep Wilkins M.D. on 04/08/2024 at 11:41 Approved by: Sundeep Wilkins M.D. on 04/08/2024 at 11:43
--- NOTE | 2024-04-08 10:58 | VEIN_ITS ---
Patient Name: RADHA SALGADO MR#: [id number] : 1950 Exam Date: 04/08/2024 Ordering Doctor: DR MAEGAN WALLER M.D. RADIOLOGY REPORT PROCEDURE: [facility] EST [facility] - OFFICE VISIT FOLLOW UP [facility] PROGRESS NOTES: The patient reports improvement in leg symptoms. There has been interval reduction in varicosities. The patient has followed our recommendations to walk 20-30 minutes once or twice per day since the procedure. Physical exam demonstrates decrease in varicosities of the leg. Persistent varicosities and spider veins are identified along the legs bilaterally. Review of the ultrasound performed the same day demonstrates occlusive thrombus extending throughout the treated vein(s), see separate report, consistent with a successful ablation. No thrombus extending into or beyond the saphenofemoral junction. Short segment of deep vein thrombus within distal posterior tibial vein. The patient expressed a desire to proceed with treatment of remaining incompetent varicosities and spider veins. The patient was informed that treatment was a process and would require several procedures/sessions. VEIN/[facility] LMTD IMPRESSION: 1. Successful ablation of the right leg treated branch saphenous vein(s). 2. Persistent varicose veins and lower extremity symptoms. 3. Short segment of deep vein thrombus within distal posterior tibial vein. PLAN: 1. Microfoam chemical ablation of incompetent branch saphenous varicosities within left leg. 2. 325 mg aspirin once per day for 14 days for treatment of small deep vein thrombus within distal posterior tibial vein of right leg. Follow-up ultrasound evaluation in 2 weeks. Nurse notes, history and physical were reviewed and confirmed, see attached forms. The nurse was present throughout the physical exam and consultation Dictated by: Sundeep Wilkins M.D. on 04/08/2024 at 11:43 Approved by: Sundeep Wilkins M.D. on 04/08/2024 at 11:46
--- OUTSIDE RECORDS SUMMARY | 2024-04-08 11:05 | XMS_ITS | CCD ---
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 Name Role Phone Unavailable Primary Care Provider Ty Clinton Primary Care Provider AKSHAT WEBBER Attending TY Austin Primary Care TY Clinton Attending TY Clinton Primary Care AKSHAT Pichardo Attending AKSHAT Cuevas Referring TY Austin Primary Care Reynold Corrales Unavailable MD Ty Del Angel Primary Care Provider MD Reynold Roper Attending Provider MD Ty Del Angel Primary Care Provider [phone] MD Reynold Roper Attending Provider Reynold Roper [...] 5 04/15/2017 04/15/2017 Active lactobacillus rhamnosus gg [id number] unt oral capsule (2 sources) take 1 [...] AP/LAT/FLX/E XTon 03-28-2024 XR lumbar spine AP/LAT/FLX/EXT [facility] [place] [address] XRay Report Signed Patient: Janneth Arceo MR#: [id number] : 1950 Acct:[id number] Age/Sex: 73 / F ADM Date: 03/28/24 Loc: XD Room: Type: [facility] Attending [...] Landry Jr., D.OMusa03/28/2024 3:28 PM Dictation Location: [place] [address] Transcribed By: [facility] 03/28/24 1528 Dictated By: Marcel Landry Jr, DO 03/28/24 1526 Signed By: 03/28/24 1528 Normal [facility] MM SCREENING BILATERALon MM SCREENING [...] sent to the patient regarding the results. [facility], along with the National [employer], the [employer], and [facility], recommend annual screening mammograms for women age 40 and older. MPH/ges Workstation ID: [id number] Dictated by: CHELSIE PURDY on ThuMay 04, 2020 10:15:06 AM EDT Transcribed by: JAZZY ALBERTO on ThuMay 04, 2020 10:28:17 AM EDT Finalized by: CHELSIE PURDY on ThuMay 04, 2020 10:38:22 AM EDT Normal [facility] Comment on above: Order Comment: Reduc tion 15 years Mammography Screening Bilwan raldanita 04-15-2017 Mammography Screening Bilateral No mammographic evidence of malignancy. BIRADS: BIRADS - CATEGORY 2 Benign, no evidence of malignancy. Normal interval follow-up is recommended in 12 months. OVERALL ASSESSMENT - BENIGN A letter of notification will be sent to the patient regarding the results. [facility], along with the National Comprehensive Cancer Network, the [employer], and [facility], recommend annual screening mammograms for women age 40 and older. DSS/margiev Workstation ID: [id number] [facility] Mammography Screening Bilateral EXAMINATION: MM SCREENING BILATERAL 04/15/2017 Computer-assisted detection utilized in the interpretation of this exam. COMPARISON: Mammogram dated 03/22/2015. FINDINGS: MLO and CC views of both breasts were obtained using digital technique. The breasts are almost entirely fatty. Mild scarring from bilateral reduction surgery again noted, not significantly changed. No standout mass, suspicious calcification, or architectural distortion identified. [facility] Vital Signs Date Time Vital Sign Value Performing Clinician Facility 03-28-2024 11:16-0400 Diastolic blood pressure 80 mm[Hg] [facility] 03-28-2024 11:16-0400 Heart rate 70 /min [facility] 03-28-2024 11:16-0400 SaO2% (BldA) [Mass fraction] 99 % [facility] 03-28-2024 11:16-0400 Systolic blood pressure 140 mm[Hg] [facility] 02-01-2024 13:43-0400 Body height 154.94 cm [facility] 02-01-2024 13:43-0400 Body mass index (BMI) [Ratio] 31.1 kg/m2 [facility] 02-01-2024 13:43-0400 Body temperature 97.8 [degF] [facility] 02-01-2024 13:43-0400 Body weight 74.84 kg [facility] 02-01-2024 13:43-0400 Diastolic blood pressure 84 mm[Hg] [facility] 02-01-2024 13:43-0400 Heart rate 56 /min [facility] 02-01-2024 13:43-0400 Systolic blood pressure 173 mm[Hg] [facility] 05-29-2022 16:30-0400 Body height 160.02 cm Reynold Roper Other [facility] Other 05-29-2022 16:30-0400 Body mass index (BMI) [Ratio] 33.16 kg/m2 Reynold Roper Other [facility] Other 05-29-2022 16:30-0400 Body weight 84.91 kg Reynold Roper Other [facility] Other 05-29-2022 16:30-0400 Diastolic blood pressure 102 mm[Hg] Reynold Roper Other [facility] Other 05-29-2022 16:30-0400 SaO2% (BldA) [Mass fraction] 99 % Reynold Roper Other [facility] Other 05-29-2022 16:30-0400 Systolic blood pressure 170 mm[Hg] Reynold Roper Other [facility] Other 05-09-2022 11:15-0400 Body height 160.02 cm Reynold Roper Other [facility] Other 05-09-2022 11:15-0400 Body mass index (BMI) [Ratio] 33.19 kg/m2 Reynold Roper Other [facility] Other 05-09-2022 11:15-0400 Body weight 85 kg Reynold Roper Other [facility] Other 05-09-2022 11:15-0400 Diastolic blood pressure 90 mm[Hg] Reynold Roper Other [facility] Other 05-09-2022 11:15-0400 SaO2% (BldA) [Mass fraction] 99 % Reynold Roper Other [facility] Other 05-09-2022 11:15-0400 Systolic blood pressure 164 mm[Hg] Reynold Roper Other [facility] Other 04-21-2022 15:00-0400 Body height 160.02 cm Reynold Roper Other [facility] Other 04-21-2022 15:00-0400 Body mass index (BMI) [Ratio] 33.12 kg/m2 Reynold Roper Other [facility] Other 04-21-2022 15:00-0400 Body weight 84.82 kg Reynold Roper Other [facility] Other 04-21-2022 15:00-0400 Diastolic blood pressure 82 mm[Hg] Reynold Roper Other [facility] Other 04-21-2022 15:00-0400 SaO2% (BldA) [Mass fraction] 99 % Reynold Roper Other [facility] Other 04-21-2022 15:00-0400 Systolic blood pressure 140 mm[Hg] Reynold Roper Other [facility] Other 05-03-2020 14:46-0400 BMI (Body Mass Index) 31.79 kg/m2 Akshat Webber [facility] 05-03-2020 14:46-0400 [facility] 14:46-0400 BP Diastolic 84 mm[Hg] [facility] 05-03-2020 14:46-0400 BP Systolic 160 mm[Hg] [facility] 05-03-2020 14:46-0400 Height 157.5 cm [facility] 05-03-2020 14:46-0400 Pulse (Heart Rate) 81 /min Akshat Webber [facility] 04-15-2017 13:39-0400 BMI (Body Mass Index) 33.44 kg/m2 Akshat Webber [facility] Work Phone: 04-15-2017 13:39-0400 BP Diastolic 76 mm[Hg] Akshat Webber [facility] Work Phone: 04-15-2017 13:39-0400 BP Systolic 132 mm[Hg] Akshat Webber [facility] Work Phone: 04-15-2017 13:39-0400 Height 154.9 cm Akshat Webber [facility] Work Phone: 04-15-2017 13:39-0400 Weight 80.29 kg Akshat Webber [facility] Work Phone: Encounters Encounter Date Encounter Type Care Provider Facility Start: 03-28-2024 End: 03-28-2024 ambulatory MD Ty Del Angel Work Phone: [facility] Work Phone: Start: 03-28-2024 End: 03-28-2024 Patient encounter procedure [facility] Work Phone: Start: 02-01-2024 End: 02-01-2024 ambulatory [facility] Work Phone: Start: 02-01-2024 End: 02-01-2024 Patient encounter procedure [facility] Work Phone: Start: 05-29-2022 End: 05-29-2022 ambulatory Reynold Roper Other [facility] [employer] Other Start: 05-29-2022 Office outpatient vi sit 25 minutes Reynold Roper [facility] Start: 05-09-2022 End: 05-09-2022 ambulatory Reynold Roper Other [facility] Other Start: 05-09-2022 Patient encounter procedure Reynold Roper [facility] Start: 04-21-2022 End: 04-21-2022 Patient encounter procedure MD Ty Del Angel Work Phone: [facility] Start: 04-21-2022 End: 04-21-2022 ambulatory Reynold Roper Other [facility] Other Start: 04-21-2022 Office consultation new/estab patient 60 min Reynold Roper [facility] Start: 04-15-2022 End: 04-15-2022 ambulatory Reynold Roper Other [facility] Other Start: 04-15-2022 Telephone encounter Reynold Roper [facility] Start: 10-01-2020 End: 10-01-2020 Orders Only Elena To Estrella Work Phone: [facility] Start: 05-03-2020 End: 05-04-2020 Patient encounter procedure AKSHAT WEBBER [facility] Start: 05-03-2020 End: 05-03-2020 Office outpatient new 30 minutes Akshat Webber Work Phone: [facility] Comment on above: Encounter for gyneco logical examination without abnormal finding (Primary Dx); Menopausal disorder; Special screening for malignant neoplasm of vagina Start: 05-03-2020 End: 05-03-2020 Subsequent hospital visit by physician Akshat Webber Work Phone: [facility] Comment on above: Screening mammogram, encounter for Start: 03-28-2020 End: 03-28-2020 Patient encounter procedure [facility] Start: 04-15-2017 End: 04-15-2017 Periodic preventive med est patient 65yrs& older Akshat Webber Work Phone: [facility] Comment on above: Encounter for gyneco logical examination without abnormal finding (Primary Dx);Special screening for malignant neoplasms, vagina;Candidiasis of vulva and vagina;Fatigue, unspecified type;Osteopenia, unspecified location Start: 04-15-2017 End: 04-15-2017 Patient encounter procedure Akshat Webber Work Phone: [facility] Comment on above: Visit [...] vaccinatio n given Sequential Influenza Vaccine (#1) [facility] Start: 04-15-2018 History and physical examination, annual for health maintenance Wellness Visit [facility] Start: 04-15-2018 Screening mammography [facility]ammogram [facility] Start: 04-24-2017 SEQUENTIAL INFLUENZA VACCINE (#1) SEQUENTIAL INFLUENZA VACCINE (#1) [facility] Work Phone: Start: 12-18-2015 Pneumococcal vaccination Pneum ococcal Vaccine Age 65+ (1 of 2 - PCV13) [facility] Start: 12-18-2015 PNEUMOCOCCAL VACCINE AGE 65+ (1 of 2 - PCV13) PNEUMOCOCCAL VACCINE AGE 65+ (1 of 2 - PCV13) [facility] Work Phone: Start: 2010 Zoster vaccine hzv l latisha for subcutaneous use ZOSTER VACCINE [facility] Work Phone: Start: 2000 Administration of he rpes zoster vaccine Zoster Vaccines (1 of 2) [facility] Start: 2000 Screening for malign ant neoplasm of colon [facility] Start: 1968 Hepatitis C antibody , confirmatory test Hepatitis C Screening [facility] Start: 1966 COVID-19 Vaccine (1 of 2) COVI D-19 Vaccine (1 of 2) [facility] Start: 1962 Adolescent depressio n screening assessment Depression Screening (PHQ9) [facility] Start: 1950 Colonoscopy COLONOSCOPY [facility] Work Phone: Start: 1950 Fall risk assessment Falls Risk Asse ssment [facility] Start: 1950 HEPATITIS C SCREENING HEPATITIS C SC REENING [facility] Work Phone: Start: 1950 TETANUS EVERY 10 YR TETANUS EVERY 10 YR [facility] Work Phone: Start: 1950 Tetanus vaccination Tetanus: Every 1 0yrs [facility] End: 05-03-2021 Bone density scan XR Bone Density DEXA Axial Imaging Routine Menopausal disorder 1 Occurrences starting 05/03/2020 until 05/03/2021 [facility] Comment on above: 1 Occurrences starti ng 05/03/2020 until 05/03/2021 End: 05-03-2020 MG Breast - bilateral screening Mammography Screening Bilateral Imaging Routine Screening Mammogram, Encounter For Once for 1 Occurrences starting 05/03/2020 until 05/03/2020 [facility] Comment on above: Once for 1 Occurrenc es starting 05/03/2020 until 05/03/2020 MG Breast - bilatera l screening Mammography Screening Bilateral Imaging Routine Screening mammogram, encounter for 05/03/2020 2:07 PM EDT [facility] Microscopic examinat ion of vaginal Papanicolaou smear Thinprep Pap Smear Pathology and Cytology Routine Special screening for malignant neoplasm of vagina Ordered: 05/03/2020 [facility] Comment on above: Ordered: 05/03/2020 Thinprep Pap Smear, Screening Thinprep Pap Smear, Screening Routine Special screening for malignant neoplasms, vagina Ordered: 04/15/2017 [facility] Work Phone: Comment on above: Ordered: 04/15/2017 XR Lumbar spine [address] [facility] Payers Date Payer Category Payer Medicare [id number] 2024 Self-pay [id number] 2019 Medicare [employer] MANAGED [place] DICARE AETNA MEDICARE PLAN (PPO) [id number] 2019-Present [id number] 2019 Medicare [id number] 1950 Unknown [id number] 1950 Unknown [id number] 1950 Unknown [id number] Medicare [id number] Medicare Medicare [id number] Unknown [id number] Social History Date Type Detail Facility Start: 04-15-2017 End: 02-28-2020 Tobacco smoking status OHIS Never smoker [facility] Sex Assigned At Not on file [employer] Zachary Prell Work Phone: Start: 05-03-2020 Tobacco use and exposure Never used [facility] Start: 05-03-2020 Alcohol intake Current drinke r of alcohol (finding) [facility] Start: 04-15-2017 Alcohol Comment Social [facility] Exposure to SARS-CoV-2 (event) Not sure [facility] Sex Assigned At Sex Assigned At [facility] Other Start: 1950 Sex Assigned At Female F [facility] Evaluation note 05-29-2022 Note Date & Type [...] understanding. Patient states she is leaving for [place] for 6 months and does not wish to proceed with injections at this time. May, Other chronic pain (ICD-10 - G89.29) Continue with current treatment plan. [facility] Other Evaluation note 05-09-2022 Note Date & [...] - G89.29) Continue with current treatment plan. [facility] Other Evaluation note 04-21-2022 Note Date & [...] recently attended physical therapy which provided minimal fpc improvement. She feels pain is negatively impacting [...] negative findings were considered in medical decision-making. [facility] Other Evaluation note Note Date & Type Note Facility Evaluation note No assessment information availa [facility] Work Phone: Evaluation note Note Date & Type Note Facility Evaluation note No Information [facility] [employer] Other Evaluation note Note Date & Type Note Facility Evaluation note Diagnosis Onset Date Phlebitis and thrombophlebitis acute Lumbosacral spondylosis acut e Other chronic pain acute Sacroiliitis [facility] Work Phone: History general Narrative - Reported Note Date & Type Note Facility History general Narrative - Reported Type Medical History CELLULITIS Medical History HYPOTHYROID Medical History hiatal hernia Surgical History HYSTERECTOMY Surgical History L KNEE Surgical History APPENDIX Surgical History GALLBLADDER Hospitalization History see above Hospitalization History cellulitis right leg [facility] Other History of Present Illness * Akshat [...] been noticing recurrent yeast infections. She uses zytort-[id number] Monistat, which seems to help. I gave her a prescription for Diflucan 150 mg, #1 with 5 refills. I did tell the patient that if she would need refills after this expires, we can do this over the phone as long as it is within 1 year. Review of Systems: I have reviewed and agree with the ROS as gathered by the sales support rep. Past Medical History: Diagnosis Date Disease of [...] with the ROS as gathered by the sales support rep. Past Medical History: Diagnosis Date Anemia Arthritis [...] file Gets together: Not on file Attends episcopal service: Not on file Active member of [...] Procedures Mammography Screening Bilateral Akshat Webber MD [address] [place] [address] [facility] [address] [place] [address] Status Reason Specialty Diagnoses / Procedures Referred By Contact Referred To Contact Authorized Radiology Diagnoses Menopausal disorder Procedures XR Bone Density DEXA Axial Akshat Webber MD [address] [place] [address] Status Reason Specialty Diagnoses / Procedures Referred By Contact Referred To Contact Pending Review Radiology Diagnoses Screening mammogram, encounter for Procedures Mammography Screening Bilateral Akshat Webber MD [address] [place] [address] Advance Directives No Advanced Directives Records FoundDocuments on File Type Date Recorded 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 Advance Directives and Livin g Will 05/03/2020 12:00 AM Documents on File Type Date Recorded 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 Advance Directives and Livin [...] Procedures Mammography Screening Bilateral Akshat Webber MD [address] [place] [address] [facility] [address] [place] [address] Reason Comments Annual Exam Status Reason Specialty Diagnoses / Procedures Referred By Contact Referred To Contact Pending Review Radiology Diagnoses Screening mammogram, encounter for Procedures Mammography Screening Bilateral Akshat Webber MD [address] [place] [id number] INFORMATION SOURCE (unrecogn ized section and content) DATE CREATED AUTHOR 05/03/2020 [facility] DATE CREATED AUTHOR AUTHOR'S ORGANIZ ATION 05/09/2020 [facility] DATE CREATED AUTHOR AUTHOR'S ORGANIZ ATION 03/30/2024 [facility] Quick Note - Sallie Quan [...] BE BASED ON THE PRIMARY CLINICAL RECORDS. [facility] [employer] [facility]. provides no warranty or guarantee of the accuracy or completeness of information in this document.
[2024-04-08 11:38] VITALS: BP 155/90; PULSE 72; O2SAT 99; BMI 30.6
--- NOTE | 2024-04-08 11:39 | P.DS_ITS ---
Discharge Plan Discharge Disposition: Home, Self-Care Outpatient Diagnostics: VC INJ Foam Sclerosant SE FITNESS DIRECTOR (Routine) Timeframe: 2 Weeks Facility: [facility] - Location: [facility] Ordered By: Sundeep Wilkins Follow Up Appointments: 04/12/24 Plan of Treatment: Varithena/microfoam of left leg Print Language: Albanian Discharge Date/Time: 04/08/24 11:42
--- NOTE | 2024-04-08 11:39 | W.VEIN ---
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
== END 2024-04-08 11:42 | disposition home or self-care (01) ==
PROVIDERS: PCP Radiology Diagnostic Radiology; Visit Provider Radiology Diagnostic Radiology
DX: I80.01 Phlebitis and thrombophlebitis of superficial vessels of right lower extremity (principal)
CPT/HCPCS: 93971; G0463

== ENCOUNTER 2024-04-12 08:52 | Outpatient (OUT) | payer MEDICARE, SELFPAY ==
--- NOTE | 2024-04-11 10:57 | V.VEINS.HP ---
Vital Signs 04/12/24 08:55 04/12/24 09:33 Height 5 ft 1 in Weight 73.482 kg BP 130/70 BP Location Right Radial BP Position Sitting BP Cuff Size Adult BP Source Manual Cuff Respiration 16 Pulse 77 Pulse Source Monitor Pulse Oximetry (%) 97 Oxygen Delivery Method Room Air Comment The patient's blood pressure is elevated. Varicose Veins Patient in today for microfoam chemical ablation Vance Arzola MD personally performed the services described in this documentation, as scribed by Ranjit Henderson RN in my presence and it is both accurate and complete. IRanjit RN, am scribing for, and in the presence of, Dr. Vance Zhu and in the presence of the patient. medial (Distal/medial right leg ulcer) thigh: bilateral, knee: bilateral, calf: bilateral and ankle: bilateral cramping, sharp and other 7 30+ years Worsened in recent months: Yes standing elevating extremities, compression stockings and other (Rest) Reports edema, leg edema and other (stasis ulcer to right distal/medial calf, cellulitis, DVT) History of lower extremity trauma: No Superficial thrombophlebitis: No Family history of varicose veins: yes Has patient had previous lower extremity venous surgery: No Patient has previously received the following treatment(s) for lower extremity varicose veins: Reports sclerotherapy Does patient have a history of : yes Does patient intend to have future pregnancies: no Has patient had lower extremity venous scan with relux testing: Yes Support hose used: Yes Prescribed by provider: No Problems walking or doing physical activity: No Do you walk much: Yes Do you stand much: Yes Medication compliance: good Large amounts of Vitamin K: No Review of Systems ROS Narrative Vance Arzola MD personally performed the services described in this documentation, as scribed by Ranjit Henderson RN in my presence and it is both accurate and complete. Ranjit Arzola RN, am scribing for, and in the presence of, Dr. Vance Zhu and in the presence of the patient. Status of ROS 10 or more systems reviewed and unremarkable except as noted in history and below Cardiovascular Reports: edema and leg pain with exertion Musculoskeletal Reports: extremity pain, extremity swelling and muscle cramps Integumentary/Breast Reports: itching, redness, changing lesion, non-healing lesion and changes in skin color Neurological Reports: weakness in extremities Hematologic/Lymphatic Reports: easy bruising PFSH [facility] Medical History (Updated 04/04/24 @ 10:48 by Cristal Garnett) Phlebitis and thrombophlebitis of superficial vessels of lower extremities, bilateral ?I80.03 - Phlebitis and thrombophlebitis of superficial vessels of lower extremities, bilateral (ICD-10) Phlebitis and thrombophlebitis of superficial vessels of left lower extremity ?I80.02 - Phlebitis and thrombophlebitis of superficial vessels of left lower extremity (ICD-10) Phlebitis and thrombophlebitis of superficial vessels of right lower extremity ?I80.01 - Phlebitis and thrombophlebitis of superficial vessels of right lower extremity (ICD-10) Varicose veins of bilateral lower extremities with pain ?I83.813 - Varicose veins of bilateral lower extremities with pain (ICD-10) Hypothyroidism ?E03.9 - Hypothyroidism, unspecified (ICD-10) Cellulitis and abscess of leg ?L03.119 - Cellulitis of unspecified part of limb (ICD-10) ?L02.419 - Cutaneous abscess of limb, unspecified (ICD-10) DVT (deep venous thrombosis) ?I82.409 - Acute embolism and thrombosis of unspecified deep veins of unspecified lower extremity (ICD-10) 3 para 3 ?Z78.9 - Other specified health status (ICD-10) Surgical History (Updated 02/22/24 @ 14:45 by Rossy Weller) History of arthroscopic knee surgery ?Z98.890 - Other specified postprocedural states (ICD-10) History of cholecystectomy ?Z90.49 - Acquired absence of other specified parts of digestive tract (ICD-10) History of hysterectomy ?Z90.710 - Acquired absence of both cervix and uterus (ICD-10) Family History (Updated 02/22/24 @ 14:46 by Rossy Weller) Mother Family history of cancer Varicose veins of bilateral lower extremities with pain Father Family history of cancer Brother Family history of cancer Sister Family history of cancer Social History (Updated 02/22/24 @ 14:47 by Rossy Weller) Within the past year, how often did you have a drink containing alcohol: 2-4 times a month Smoking status: Never smoker Non-prescribed substance use: denies use Meds Home Medications and Allergies Home Medications ?Medication ?Instructions ?Recorded ?Confirmed ?Type ibuprofen 200 mg tablet (IBU-200) 200 mg PO Q8H 02/22/24 03/21/24 History levothyroxine .ROUTE 02/22/24 History ropinirole .ROUTE 02/22/24 History aspirin 325 mg tablet 325 mg PO DAILY 04/08/24 04/08/24 History Allergies Allergy/AdvReac Type Severity Reaction Status Date / Time No Known Drug Allergies Allergy Unverified 02/22/24 14:43 Exam Narrative Exam Narrative: Vance Arzola MD personally performed the services described in this documentation, as scribed by Ranjit Henderson RN in my presence and it is both accurate and complete. IRanjit RN, am scribing for, and in the presence of, Dr. Vance Zhu and in the presence of the patient. Constitutional Documenting provider has reviewed patient's vital signs: yes Common normals: oriented x3 Lymph Lymphatic: no lymphedema noted Cardio Common normals: regular rate Rate: regular rate Peripheral pulses: posterior tibial pulses present and dorsalis pedis pulses present Extremity Common normals: normal capillary refill General: calf tenderness and edema Right lower extremity: upper leg and lower leg (tenderness and numbness ) Left lower extremity: upper leg and lower leg Neuro Common normals: oriented x3 Assessment and Plan Assessment and Plan (1) Varicose veins of bilateral lower extremities with pain: Plan f/u evaluation along with left leg limited u/s Vance Arzola MD personally performed the services described in this documentation, as scribed by Ranjit Henderson RN in my presence and it is both accurate and complete. Ranjit Arzola RN, am scribing for, and in the presence of, Dr. Vance Zhu and in the presence of the patient. Procedures Procedure Instructions Procedures leg microfoam chemical ablation/Varithena: Risks and benefits of the procedure were discussed at length and informed written consent was obtained.? Time-out procedure was performed and the correct patient and procedure were confirmed.? Staff present during time-out: Ranjit Henderson RN and Vance Zhu MD.? Patient prepped and procedure performed in usual sterile fashion.? Patient was placed in Trendelenburg prior to Polidocanol/Varithena injections. Sclerosing Agent:??14 cc 1% Polidocanol/Varithena Site Injected: left lecc varithena administered in to a 5mm distal GSV 5cc varithena administered in to a 5mm varicose vein proximal medial lower leg 2cc varithena administered in to a 3mm varicose vein anterior lower leg 1cc varithena administered in to a lateral ankle 1cc varithena administered in to a medial ankle Number of Injections:? 5 The patient tolerated the procedure well without complication.? Hemostasis was obtained and thigh-high compression stocking was applied with foam pads.? Instructed patient to wear stocking for at least 96 hours and sleep with it and only remove for showering.? The patient was instructed to? wear stocking for 2 weeks.? Patient verbalizes understanding and states they will comply.? Patient was given post-procedure instructions. Patient was discharged in good condition.? Scheduled to undergo limited venous ultrasound and? exam on 04/15/2024. IVance MD personally performed the services described in this documentation, as scribed by Ranjit Henderson RN in my presence and it is both accurate and complete. IRanjit RN, am scribing for, and in the presence of, Dr. Vance Zhu and in the presence of the patient.
--- NOTE | 2024-04-11 11:08 | W.VEIN ---
Discharge Plan Discharge Disposition: Home, Self-Care Outpatient Diagnostics: VC EXT Venous LT Limited (Routine) Timeframe: 2 Weeks Facility: [facility] - Location: [facility] Ordered By: Vance Zhu Follow Up Appointments: 04/15/2024 Plan of Treatment: f/u evaluation with physician along with left leg limited u/s Patient Instructions: Polidocanol (By injection) (Asclera, Varithena) Print Language: Kinyarwanda Discharge Date/Time: 04/12/24 09:34
--- NOTE | 2024-04-11 11:09 | V.VEINS.HP ---
[facility] Medical History (Updated 04/04/24 @ 10:48 by Cristal Garnett) Phlebitis and thrombophlebitis of superficial vessels of lower extremities, bilateral ?I80.03 - Phlebitis and thrombophlebitis of superficial vessels of lower extremities, bilateral (ICD-10) Phlebitis and thrombophlebitis of superficial vessels of left lower extremity ?I80.02 - Phlebitis and thrombophlebitis of superficial vessels of left lower extremity (ICD-10) Phlebitis and thrombophlebitis of superficial vessels of right lower extremity ?I80.01 - Phlebitis and thrombophlebitis of superficial vessels of right lower extremity (ICD-10) Varicose veins of bilateral lower extremities with pain ?I83.813 - Varicose veins of bilateral lower extremities with pain (ICD-10) Hypothyroidism ?E03.9 - Hypothyroidism, unspecified (ICD-10) Cellulitis and abscess of leg ?L03.119 - Cellulitis of unspecified part of limb (ICD-10) ?L02.419 - Cutaneous abscess of limb, unspecified (ICD-10) DVT (deep venous thrombosis) ?I82.409 - Acute embolism and thrombosis of unspecified deep veins of unspecified lower extremity (ICD-10) 3 para 3 ?Z78.9 - Other specified health status (ICD-10) Surgical History (Updated 02/22/24 @ 14:45 by Rossy Weller) History of arthroscopic knee surgery ?Z98.890 - Other specified postprocedural states (ICD-10) History of cholecystectomy ?Z90.49 - Acquired absence of other specified parts of digestive tract (ICD-10) History of hysterectomy ?Z90.710 - Acquired absence of both cervix and uterus (ICD-10) Family History (Updated 02/22/24 @ 14:46 by Rossy Weller) Mother Family history of cancer Varicose veins of bilateral lower extremities with pain Father Family history of cancer Brother Family history of cancer Sister Family history of cancer Social History (Updated 02/22/24 @ 14:47 by Rossy Weller) Within the past year, how often did you have a drink containing alcohol: 2-4 times a month Smoking status: Never smoker Non-prescribed substance use: denies use Meds Home Medications and Allergies Home Medications ?Medication ?Instructions ?Recorded ?Confirmed ?Type ibuprofen 200 mg tablet (IBU-200) 200 mg PO Q8H 02/22/24 03/21/24 History levothyroxine .ROUTE 02/22/24 History ropinirole .ROUTE 02/22/24 History aspirin 325 mg tablet 325 mg PO DAILY 04/08/24 04/08/24 History Allergies Allergy/AdvReac Type Severity Reaction Status Date / Time No Known Drug Allergies Allergy Unverified 02/22/24 14:43 Assessment and Plan Assessment and Plan (1) Varicose veins of bilateral lower extremities with pain: Plan f/u evaluation with physician along with left leg limited u/s IVance MD personally performed the services described in this documentation, as scribed by Ranjit Henderson RN in my presence and it is both accurate and complete. IRanjit RN, am scribing for, and in the presence of, Dr. Vance Zhu and in the presence of the patient.
--- NOTE | 2024-04-12 08:53 | VEIN_ITS ---
[address] [address] Patient Name: RADHA SALGADO MRN: [id number] date: 1950 Sex: F Assigned Patient Location: Current Patient Location: Accession/Order Number: [id number] Exam Date: 04/12/2024 08:53 Report Date: 04/12/2024 10:07 At the request of: MARIELA BARRAGAN Procedure: VC INJ Foam Sclerosant [employer]IST PROCEDURE: VC INJ Foam Sclerosant [employer]US [employer]IST COMPARISON: None. HISTORY: I83.813 - Varicose veins of bilateral lower extremities w... Pre-operative Diagnosis: CEAP class C6 venous insufficiency with pain, tenderness, edema and incompetent left saphenous and varicose vein(s), chronic venous insufficiency left leg secondary to venous incompetence Post-operative Diagnosis: CEAP class C6 venous insufficiency with pain, tenderness, edema and incompetent left saphenous and varicose vein(s), chronic venous insufficiency left leg secondary to venous incompetence Procedure Performed: 1. Ultrasound-guided microfoam chemical ablation with Varithenaregistered 2. Intraoperative ultrasound guidance Anesthesia: None Indications for Procedure: 73-year-old female presents with a long history of lower extremity pain and swelling culminating in venous stasis ulcerations. The patient failed conservative medical therapy including medical compression stockings, exercise and analgesics. Prior procedures include a venous laser ablation. Multiple incompetent varicosities of the left leg. Duplex scan showed reflux and enlarged diameters up to 5 mm. The patient underwent informed consent including management options where the complications of infection, bleeding, pain, and skin injury were discussed. Particular attention was spent discussing thrombus extension and deep vein thrombosis as well as the possibility of pulmonary embolus and treatment with oral or injectable blood thinners. Procedure: The patient walked to the procedure room. All applicable staff donned appropriate apparel. A procedure timeout was performed to confirm correct patient, correct extremity, correct procedure, and correct room set-up including presence of all applicable supplies, devices, and drugs. A duplex ultrasound, performed by myself confirmed the location and incompetence of branch saphenous varicosities and their course was marked on the skin together with the dilated tributaries. The extent of treatment of the vein and the associated varicosities was determined through ultrasound mapping. The skin was prepped and then punctured with a butterfly needle and advanced under ultrasound guidance. The Varithenaregistered canister was activated and the canister was primed and purged as required in the instructions for use. Varithenaregistered was drawn into a sterile syringe. The following injections were made: 6 cc injected into a distal left 5 mm incompetent great saphenous vein 5 cc injected into a 5 mm varicose vein proximal medial lower leg 2 cc injected into a 3 mm varicose vein anterior lower leg 1 cc injected into a lateral ankle varicose vein 1 cc injected into a medial ankle The spleen Varithenaregistered was slowly administered at 0.5-1.0 cc/second with close observation by ultrasound of its course in the vessels. Total volume utilized was: 14cc. Following administration of Varithenaregistered the leg was elevated and the patient was asked to repeatedly dorsiflex the ankle to limit flow of Varithenaregistered into perforating veins. Once appropriate spasm had been confirmed in the treated veins, the vascular catheter was removed from the leg and light pressure was applied over the puncture site for hemostasis. The common femoral and deep superficial veins were then evaluated for flow and compressibility prior to dressing placement. The lower extremity was kept elevated at 45 degrees above the horizontal and cording material was applied over the saphenous segments and tributaries to allow for eccentric compression over the target vessels including the targeted saphenous vein(s). A multilayer dressing was applied consisting of foam pads, coban and thigh-high 20-30 mm Hg compression elastic support hose were placed on the patient. The leg was lowered only after compression had been applied and the patient was immediately ambulatory. The patient ambulated 10 minutes under supervision and was without apparent concerns at time of release. Post-care instructions include advising patient to keep post-treatment bandages in place and dry for 48 hours, avoid extended periods of inactivity, avoid heavy exercise for one week, wear compression stockings on the treated leg continuously for two weeks, to walk daily for 10 minutes over the next month. The patient was instructed to take an anti-inflammatory medicine as needed and to follow up for color duplex scan of the Saphenous veins, the treated branch saphenous varicosities, the adjacent deep veins, and additional treatment within 7 days. PERSONNEL: Ranjit Henderson RN Electronically authenticated by: MAEGAN WALLER Date: 04/12/2024 10:07
[2024-04-12 08:55] VITALS: BP 130/70; PULSE 77; O2SAT 97
--- OUTSIDE RECORDS SUMMARY | 2024-04-12 09:14 | XMS_ITS | CCD ---
Author Organization [facility] Care Team Providers Care Cork Insulation Setter Name Role Phone Unavailable Primary Care Provider Ty Clinton Primary Care Provider AKSHAT WEBBER Attending TY Austin Primary Care TY Clinton Attending TY Clinton Primary Care AKSHAT Pichardo Attending AKSHAT Cuevas Referring TY Austin Primary Care Reynold Corrales Unavailable MD Ty Del Angel Primary Care Provider MD Reynold Roper Attending Provider MD Ty Del Angel Primary Care Provider [phone] MD Reynold Roper Attending Provider Reynold Roper [...] 5 04/15/2017 04/15/2017 Active lactobacillus rhamnosus gg [id number] unt oral capsule (2 sources) take 1 [...] AP/LAT/FLX/E XTon 03-28-2024 XR lumbar spine AP/LAT/FLX/EXT [facility] [place] [address] XRay Report Signed Patient: Janneth Arceo MR#: [id number] : 1950 Acct:[id number] Age/Sex: 73 / F ADM Date: 03/28/24 Loc: XD Room: Type: [facility] Attending Dr: Reynold Roper MD Copies to: [...] Landry Jr., D.OMusa03/28/2024 3:28 PM Dictation Location: [place] [address] Transcribed By: [facility] 03/28/24 1528 Dictated By: Marcel Landry Jr, DO 03/28/24 1526 Signed By: 03/28/24 1528 Normal [facility] MM SCREENING BILATERALon MM SCREENING [...] sent to the patient regarding the results. [facility], along with the National [employer], the [employer], and [facility], recommend annual screening mammograms for women age 40 and older. MPH/ges Workstation ID: [id number] Dictated by: CHELSIE PURDY on ThuMay 04, 2020 10:15:06 AM EDT Transcribed by: JAZZY ALBERTO on ThuMay 04, 2020 10:28:17 AM EDT Finalized by: CHELSIE PURDY on ThuMay 04, 2020 10:38:22 AM EDT Normal [facility] Comment on above: Order Comment: Reduc tion 15 years Mammography Screening Bilwan raldanita 04-15-2017 Mammography Screening Bilateral No mammographic evidence of malignancy. BIRADS: BIRADS - CATEGORY 2 Benign, no evidence of malignancy. Normal interval follow-up is recommended in 12 months. OVERALL ASSESSMENT - BENIGN A letter of notification will be sent to the patient regarding the results. [facility], along with the National Comprehensive Cancer Network, the [employer], and [facility], recommend annual screening mammograms for women age 40 and older. DSS/margiev Workstation ID: [id number] [facility] Mammography Screening Bilateral EXAMINATION: MM SCREENING BILATERAL 04/15/2017 Computer-assisted detection utilized in the interpretation of this exam. COMPARISON: Mammogram dated 03/22/2015. FINDINGS: MLO and CC views of both breasts were obtained using digital technique. The breasts are almost entirely fatty. Mild scarring from bilateral reduction surgery again noted, not significantly changed. No standout mass, suspicious calcification, or architectural distortion identified. [facility] Vital Signs Date Time Vital Sign Value Performing Clinician Facility 03-28-2024 11:16-0400 Diastolic blood pressure 80 mm[Hg] [facility] 03-28-2024 11:16-0400 Heart rate 70 /min [facility] 03-28-2024 11:16-0400 SaO2% (BldA) [Mass fraction] 99 % [facility] 03-28-2024 11:16-0400 Systolic blood pressure 140 mm[Hg] [facility] 02-01-2024 13:43-0400 Body height 154.94 cm [facility] 02-01-2024 13:43-0400 Body mass index (BMI) [Ratio] 31.1 kg/m2 [facility] 02-01-2024 13:43-0400 Body temperature 97.8 [degF] [facility] 02-01-2024 13:43-0400 Body weight 74.84 kg [facility] 02-01-2024 13:43-0400 Diastolic blood pressure 84 mm[Hg] [facility] 02-01-2024 13:43-0400 Heart rate 56 /min [facility] 02-01-2024 13:43-0400 Systolic blood pressure 173 mm[Hg] [facility] 05-29-2022 16:30-0400 Body height 160.02 cm Reynold Roper Other [facility] 05-29-2022 16:30-0400 Body mass index (BMI) [Ratio] 33.16 kg/m2 Reynold Roper Other [facility] Other 05-29-2022 16:30-0400 Body weight 84.91 kg Reynold Roper Other [facility] Other 05-29-2022 16:30-0400 Diastolic blood pressure 102 mm[Hg] Reynold Roper Other [facility] 05-29-2022 16:30-0400 SaO2% (BldA) [Mass fraction] 99 % Reynold Roper Other [facility] 05-29-2022 16:30-0400 Systolic blood pressure 170 mm[Hg] Reynold Roper Other [facility] 05-09-2022 11:15-0400 Body height 160.02 cm Reynold Roper Other [facility] Other 05-09-2022 11:15-0400 Body mass index (BMI) [Ratio] 33.19 kg/m2 Reynold Roper Other [facility] Other 05-09-2022 11:15-0400 Body weight 85 kg Reynold Roper Other [facility] Other 05-09-2022 11:15-0400 Diastolic blood pressure 90 mm[Hg] Reynold Roper Other [facility] 05-09-2022 11:15-0400 SaO2% (BldA) [Mass fraction] 99 % Reynold Roper Other [facility] 05-09-2022 11:15-0400 Systolic blood pressure 164 mm[Hg] Reynold Roper Other [facility] 04-21-2022 15:00-0400 Body height 160.02 cm Reynold Roper Other [facility] 04-21-2022 15:00-0400 Body mass index (BMI) [Ratio] 33.12 kg/m2 Reynold Roper Other [facility] 04-21-2022 15:00-0400 Body weight 84.82 kg Reynold Roper Other [facility] Other 04-21-2022 15:00-0400 Diastolic blood pressure 82 mm[Hg] Reynold Roper Other [facility] 04-21-2022 15:00-0400 SaO2% (BldA) [Mass fraction] 99 % Reynold Roper Other [facility] 04-21-2022 15:00-0400 Systolic blood pressure 140 mm[Hg] Reynold Roper Other [facility] Other 05-03-2020 14:46-0400 BMI (Body Mass Index) 31.79 kg/m2 Akshat Webber [facility] 05-03-2020 14:46-0400 Body [facility] 14:46-0400 BP Diastolic 84 mm[Hg] [facility] 05-03-2020 14:46-0400 BP Systolic 160 mm[Hg] [facility] 05-03-2020 14:46-0400 Height 157.5 cm [facility] 05-03-2020 14:46-0400 Pulse (Heart Rate) 81 /min Akshat Webber [facility] 04-15-2017 13:39-0400 BMI (Body Mass Index) 33.44 kg/m2 Akshat Webber [facility] Work Phone: 04-15-2017 13:39-0400 BP Diastolic 76 mm[Hg] Akshat Webber [facility] Work Phone: 04-15-2017 13:39-0400 BP Systolic 132 mm[Hg] Akshat Webber [facility] Work Phone: 04-15-2017 13:39-0400 Height 154.9 cm Akshat Webber [facility] Work Phone: 04-15-2017 13:39-0400 Weight 80.29 kg Akshat Webber [facility] Work Phone: Encounters Encounter Date Encounter Type Care Provider Facility Start: 03-28-2024 End: 03-28-2024 ambulatory MD Ty Del Angel Work Phone: [facility] Work Phone: Start: 03-28-2024 End: 03-28-2024 Patient encounter procedure [facility] Work Phone: Start: 02-01-2024 End: 02-01-2024 ambulatory [facility] Work Phone: Start: 02-01-2024 End: 02-01-2024 Patient encounter procedure [facility] Work Phone: Start: 05-29-2022 End: 05-29-2022 ambulatory Reynold Roper Other [facility] Other Start: 05-29-2022 Office outpatient vi sit 25 minutes Reynold Roper [facility] Start: 05-09-2022 End: 05-09-2022 ambulatory Reynold Roper Other [facility] Other Start: 05-09-2022 Patient encounter procedure Reynold Roper [facility] Start: 04-21-2022 End: 04-21-2022 Patient encounter procedure MD Ty Del Angel Work Phone: [facility] Start: 04-21-2022 End: 04-21-2022 ambulatory Reynold Roper Other [facility] Other Start: 04-21-2022 Office consultation new/estab patient 60 min Reynold Roper [facility] Start: 04-15-2022 End: 04-15-2022 ambulatory Reynold Roper Other [facility] Other Start: 04-15-2022 Telephone encounter Reynold Roper [facility] Start: 10-01-2020 End: 10-01-2020 Orders Only Elena To Estrella Work Phone: [facility] Start: 05-03-2020 End: 05-04-2020 Patient encounter procedure AKSHAT WEBBER [facility] Start: 05-03-2020 End: 05-03-2020 Office outpatient new 30 minutes Akshat Webber Work Phone: [facility] Comment on above: Encounter for gyneco logical examination without abnormal finding (Primary Dx); Menopausal disorder; Special screening for malignant neoplasm of vagina Start: 05-03-2020 End: 05-03-2020 Subsequent hospital visit by physician Akshat Webber Work Phone: [facility] Comment on above: Screening mammogram, encounter for Start: 03-28-2020 End: 03-28-2020 Patient encounter procedure [facility] Start: 04-15-2017 End: 04-15-2017 Periodic preventive med est patient 65yrs& older Akshat Webber Work Phone: [facility] Comment on above: Encounter for gyneco logical examination without abnormal finding (Primary Dx);Special screening for malignant neoplasms, vagina;Candidiasis of vulva and vagina;Fatigue, unspecified type;Osteopenia, unspecified location Start: 04-15-2017 End: 04-15-2017 Patient encounter procedure Akshat Webber Work Phone: [facility] Comment on above: [...] vaccinatio n given Sequential Influenza Vaccine (#1) [facility] Start: 04-15-2018 History and physical examination, annual for health maintenance Wellness Visit [facility] Start: 04-15-2018 Screening mammography Mammogram [facility] Start: 04-24-2017 SEQUENTIAL INFLUENZA VACCINE (#1) SEQUENTIAL INFLUENZA VACCINE (#1) [facility] Work Phone: Start: 12-18-2015 Pneumococcal vaccination Pneum ococcal Vaccine Age 65+ (1 of 2 - PCV13) [facility] Start: 12-18-2015 PNEUMOCOCCAL VACCINE AGE 65+ (1 of 2 - PCV13) PNEUMOCOCCAL VACCINE AGE 65+ (1 of 2 - PCV13) [facility] Work Phone: Start: 2010 Zoster vaccine hzv l latisha for subcutaneous use ZOSTER VACCINE [facility] Work Phone: Start: 2000 Administration of he rpes zoster vaccine Zoster Vaccines (1 of 2) [facility] Start: 2000 Screening for malign ant neoplasm of colon [facility] Start: 1968 Hepatitis C antibody , confirmatory test Hepatitis C Screening [facility] Start: 1966 COVID-19 Vaccine (1 of 2) COVI D-19 Vaccine (1 of 2) [facility] Start: 1962 Adolescent depressio n screening assessment Depression Screening (PHQ9) [facility] Start: 1950 Colonoscopy COLONOSCOPY [facility] Work Phone: Start: 1950 Fall risk assessment Falls Risk Asse ssment [facility] Start: 1950 HEPATITIS C SCREENING HEPATITIS C SC REENING [facility] Work Phone: Start: 1950 TETANUS EVERY 10 YR TETANUS EVERY 10 YR [facility] Work Phone: Start: 1950 Tetanus vaccination Tetanus: Every 1 0yrs [facility] End: 05-03-2021 Bone density scan XR Bone Density DEXA Axial Imaging Routine Menopausal disorder 1 Occurrences starting 05/03/2020 until 05/03/2021 [facility] Comment on above: 1 Occurrences starti ng 05/03/2020 until 05/03/2021 End: 05-03-2020 MG Breast - bilateral screening Mammography Screening Bilateral Imaging Routine Screening Mammogram, Encounter For Once for 1 Occurrences starting 05/03/2020 until 05/03/2020 [facility] Comment on above: Once for 1 Occurrenc es starting 05/03/2020 until 05/03/2020 MG Breast - bilatera l screening Mammography Screening Bilateral Imaging Routine Screening mammogram, encounter for 05/03/2020 2:07 PM EDT [facility] Microscopic examinat ion of vaginal Papanicolaou smear Thinprep Pap Smear Pathology and Cytology Routine Special screening for malignant neoplasm of vagina Ordered: 05/03/2020 [facility] Comment on above: Ordered: 05/03/2020 Thinprep Pap Smear, Screening Thinprep Pap Smear, Screening Routine Special screening for malignant neoplasms, vagina Ordered: 04/15/2017 [facility] Work Phone: Comment on above: Ordered: 04/15/2017 XR Lumbar spine 4 Views [facility] Payers Date Payer Category Payer Medicare [id number] 2024 Self-pay [id number] 2019 Medicare [employer] MANAGED [place] DICARE A[employer]NA MEDICARE PLAN (PPO) [id number] 2019-Present [id number] 2019 Medicare [id number] 1950 Unknown [id number] 1950 Unknown [id number] 1950 Unknown [id number] Medicare [id number] Medicare Medicare [id number] Unknown [id number] Social History Date Type Detail Facility Start: 04-15-2017 End: 02-28-2020 Tobacco smoking status DCIS Never smoker [facility] Sex Assigned At Not on file [facility] [employer] Work Phone: Start: 05-03-2020 Tobacco use and exposure Never used [facility] Start: 05-03-2020 Alcohol intake Current drinke r of alcohol (finding) [facility] Start: 04-15-2017 Alcohol Comment Social [facility] Exposure to SARS-CoV-2 (event) Not sure [facility] Sex Assigned At Sex Assigned At [facility] Other Start: 1950 Sex Assigned At Female F [facility] Evaluation note 05-29-2022 Note Date & [...] understanding. Patient states she is leaving for [place] for 6 months and does not wish to proceed with injections at this time. May, Other chronic pain (ICD-10 - G89.29) Continue with current treatment plan. [facility] Other Evaluation note 05-09-2022 Note Date & [...] - G89.29) Continue with current treatment plan. [facility] Other Evaluation note 04-21-2022 Note Date & [...] recently attended physical therapy which provided minimal assisted improvement. She feels pain is negatively impacting [...] negative findings were considered in medical decision-making. [facility] Other Evaluation note Note Date & Type Note Facility Evaluation note No assessment information availa [facility] Work Phone: Evaluation note Note Date & Type Note Facility Evaluation note No Information [facility] [employer] Other Evaluation note Note Date & Type Note Facility Evaluation note Diagnosis Onset Date Phlebitis and thrombophlebitis acute Lumbosacral spondylosis acut e Other chronic pain acute Sacroiliitis [facility] Work Phone: History general Narrative - Reported Note Date & Type Note Facility History general Narrative - Reported Type Medical History CELLULITIS Medical History HYPOTHYROID Medical History hiatal hernia Surgical History HYSTERECTOMY Surgical History L KNEE Surgical History APPENDIX Surgical History GALLBLADDER Hospitalization History see above Hospitalization History cellulitis right leg [facility] Other History of Present Illness * Akshat [...] been noticing recurrent yeast infections. She uses [id number]-[id number] Monistat, which seems to help. I gave her a prescription for Diflucan 150 mg, #1 with 5 refills. I did tell the patient that if she would need refills after this expires, we can do this over the phone as long as it is within 1 year. Review of Systems: I have reviewed and agree with the ROS as gathered by the application support administrator. Past Medical History: Diagnosis Date Disease of [...] with the ROS as gathered by the application support administrator. Past Medical History: Diagnosis Date Anemia Arthritis [...] file Gets together: Not on file Attends latter-day service: Not on file Active member of [...] Procedures Mammography Screening Bilateral Akshat Webber MD [address] [place] [address] [facility] [address] [place] [place] [address] Status Reason Specialty Diagnoses / Procedures Referred By Contact Referred To Contact Authorized Radiology Diagnoses Menopausal disorder Procedures XR Bone Density DEXA Axial Akshat Webber MD [address] [place] [address] Status Reason Specialty Diagnoses / Procedures Referred By Contact Referred To Contact Pending Review Radiology Diagnoses Screening mammogram, encounter for Procedures Mammography Screening Bilateral Akshat Webber MD [address] [place] [address] Advance Directives No Advanced Directives Records FoundDocuments on File Type Date Recorded 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 Advance Directives and Livin g Will 05/03/2020 12:00 AM Documents on File Type Date Recorded 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 Advance Directives and Livin g [...] Procedures Mammography Screening Bilateral Akshat Webber MD [address] [place] [address] [facility] [address] [place] [place] [address] Reason Comments Annual Exam Status Reason Specialty Diagnoses / Procedures Referred By Contact Referred To Contact Pending Review Radiology Diagnoses Screening mammogram, encounter for Procedures Mammography Screening Bilateral Akshat Webber MD [address] [place] [id number] INFORMATION SOURCE (unrecogn ized section and content) DATE CREATED AUTHOR 05/03/2020 [facility] DATE CREATED AUTHOR AUTHOR'S ORGANIZ ATION 05/09/2020 [facility] DATE CREATED AUTHOR AUTHOR'S ORGANIZ ATION 03/30/2024 [facility] Quick Note - Sallie [...] BE BASED ON THE PRIMARY CLINICAL RECORDS. [facility] [employer] [facility]. provides no warranty or guarantee of the accuracy or completeness of information in this document.
== END 2024-04-12 09:34 | disposition home or self-care (01) ==
LOC: VC 08:52
PROVIDERS: PCP Radiology Diagnostic Radiology; Visit Provider Radiology Diagnostic Radiology
DX: I83.813 Varicose veins of bilateral lower extremities with pain (principal)
CPT/HCPCS: 36466

== ENCOUNTER 2024-04-15 08:25 | Outpatient (OUT) | payer MEDICARE, SELFPAY ==
[2024-04-15 07:28] VITALS: BMI 30.4
--- NOTE | 2024-04-15 07:28 | V.VEINS.HP ---
Vital Signs 04/15/24 07:28 Height 5 ft 1 in Weight 73 kg BMI 30.4 Varicose Veins Patient in today for follow up ultrasound post Varithena/microfoam chemical ablation left leg. Vance Arzola MD personally performed the services described in this documentation, as scribed by Rossy Weller RVT, RDMS in my presence and it is both accurate and complete. Rossy Arzola RVT, RDMS, am scribing for, and in the presence of, Dr. Vance Zhu and in the presence of the patient. medial (Distal/medial right leg ulcer) thigh: bilateral, knee: bilateral, calf: bilateral and ankle: bilateral cramping, sharp and other 7 30+ years Worsened in recent months: Yes standing elevating extremities, compression stockings and other (Rest) Reports edema, leg edema and other (stasis ulcer to right distal/medial calf, cellulitis, DVT) History of lower extremity trauma: No Superficial thrombophlebitis: No Family history of varicose veins: yes Has patient had previous lower extremity venous surgery: No Patient has previously received the following treatment(s) for lower extremity varicose veins: Reports sclerotherapy Does patient have a history of : yes Does patient intend to have future pregnancies: no Has patient had lower extremity venous scan with relux testing: Yes Support hose used: Yes Prescribed by provider: No Problems walking or doing physical activity: No Do you walk much: Yes Do you stand much: Yes Medication compliance: good Large amounts of Vitamin K: No Review of Systems ROS Narrative Vance Arzola MD personally performed the services described in this documentation, as scribed by Rossy Weller RVT, RDMS in my presence and it is both accurate and complete. Rossy Arzola RVT, RDMS, am scribing for, and in the presence of, Dr. Vance Zhu and in the presence of the patient. Status of ROS 10 or more systems reviewed and unremarkable except as noted in history and below Cardiovascular Reports: edema and leg pain with exertion Musculoskeletal Reports: extremity pain, extremity swelling and muscle cramps Integumentary/Breast Reports: itching, redness, changing lesion, non-healing lesion and changes in skin color Neurological Reports: weakness in extremities Hematologic/Lymphatic Reports: easy bruising [facility] Medical History (Updated 04/04/24 @ 10:48 by Cristal Garnett) Phlebitis and thrombophlebitis of superficial vessels of lower extremities, bilateral ?I80.03 - Phlebitis and thrombophlebitis of superficial vessels of lower extremities, bilateral (ICD-10) Phlebitis and thrombophlebitis of superficial vessels of left lower extremity ?I80.02 - Phlebitis and thrombophlebitis of superficial vessels of left lower extremity (ICD-10) Phlebitis and thrombophlebitis of superficial vessels of right lower extremity ?I80.01 - Phlebitis and thrombophlebitis of superficial vessels of right lower extremity (ICD-10) Varicose veins of bilateral lower extremities with pain ?I83.813 - Varicose veins of bilateral lower extremities with pain (ICD-10) Hypothyroidism ?E03.9 - Hypothyroidism, unspecified (ICD-10) Cellulitis and abscess of leg ?L03.119 - Cellulitis of unspecified part of limb (ICD-10) ?L02.419 - Cutaneous abscess of limb, unspecified (ICD-10) DVT (deep venous thrombosis) ?I82.409 - Acute embolism and thrombosis of unspecified deep veins of unspecified lower extremity (ICD-10) 3 para 3 ?Z78.9 - Other specified health status (ICD-10) Surgical History (Updated 02/22/24 @ 14:45 by Rossy Weller) History of arthroscopic knee surgery ?Z98.890 - Other specified postprocedural states (ICD-10) History of cholecystectomy ?Z90.49 - Acquired absence of other specified parts of digestive tract (ICD-10) History of hysterectomy ?Z90.710 - Acquired absence of both cervix and uterus (ICD-10) Family History (Updated 02/22/24 @ 14:46 by Rossy Weller) Mother Family history of cancer Varicose veins of bilateral lower extremities with pain Father Family history of cancer Brother Family history of cancer Sister Family history of cancer Social History (Updated 02/22/24 @ 14:47 by Rossy Weller) Within the past year, how often did you have a drink containing alcohol: 2-4 times a month Smoking status: Never smoker Non-prescribed substance use: denies use Meds Home Medications and Allergies Home Medications ?Medication ?Instructions ?Recorded ?Confirmed ?Type ibuprofen 200 mg tablet (IBU-200) 200 mg PO Q8H 02/22/24 03/21/24 History levothyroxine .ROUTE 02/22/24 History ropinirole .ROUTE 02/22/24 History aspirin 325 mg tablet 325 mg PO DAILY 04/08/24 04/08/24 History Allergies Allergy/AdvReac Type Severity Reaction Status Date / Time No Known Drug Allergies Allergy Unverified 02/22/24 14:43 Exam Narrative Exam Narrative: Vance Arzola MD personally performed the services described in this documentation, as scribed by Rossy Weller RVT, RDMS in my presence and it is both accurate and complete. Rossy Arzola RVT, RDMS, am scribing for, and in the presence of, Dr. Vance Zhu and in the presence of the patient. Constitutional Documenting provider has reviewed patient's vital signs: yes Common normals: oriented x3 Lymph Lymphatic: no lymphedema noted Cardio Common normals: regular rate Rate: regular rate Peripheral pulses: posterior tibial pulses present and dorsalis pedis pulses present Extremity Common normals: normal capillary refill General: calf tenderness and edema Right lower extremity: upper leg and lower leg (tenderness and numbness ) Left lower extremity: upper leg and lower leg Neuro Common normals: oriented x3 Results Imaging Venous US: Radiologist's impression: The ultrasound demonstrates 1 cm segment of DVT in rt distal ATV. Otherwise negative for DVT bilaterally. Varithena induced thrombus visualized at prox/med calf, dist/lat calf, and lateral ankle. Assessment and Plan Assessment and Plan (1) Varicose veins of bilateral lower extremities with pain: (2) Phlebitis and thrombophlebitis of superficial vessels of left lower extremity: Plan Patient in today for follow up ultrasound of lower extremity following treatment of Varithena/microfoam completed on 04/12/24.
--- NOTE | 2024-04-15 07:31 | W.VEIN ---
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 Print Language: Tamazight Discharge Date/Time: 04/15/24 09:22
--- NOTE | 2024-04-15 08:27 | VEIN_ITS ---
Patient Name: RADHA SALGADO MR#: [id number] : 1950 Exam Date: 04/15/2024 Ordering Doctor: DR VANCE ZHU M.D. RADIOLOGY REPORT PROCEDURE: FACILITY EST [facility] - OFFICE VISIT FOLLOW UP COMPARISON: [facility] EST [facility], 04/08/2024. FACILITY EST [facility], 04/04/2024. PROGRESS NOTES: The patient reports no significant problems following micro foam chemical ablation of left leg incompetent varicose veins. The patient did wear her compression stocking. The patient did not require oral analgesics. The patient has exercise. Physical exam demonstrates multiple bilateral thrombosed varicose veins. No residual varicose veins in the left leg. Multiple patent right leg varicose veins. Review of the ultrasound performed the same day demonstrates occlusive thrombus extending throughout the treated left leg varicose veins. A 1 cm segment of deep vein thrombus is identified in the distal anterior tibial vein at the level of the ankle, no treatment for this thrombus was recommended to the patient. No residual varicose veins on the left leg. Multiple right leg incompetent varicose veins The patient expressed a desire to proceed with treatment of right leg incompetent varicose veins with micro foam chemical ablation. VEIN/ Facility EST LMTD IMPRESSION: 1. Successful ablation of left leg incompetent varicose veins. 2. Persistent right leg incompetent varicose veins. PLAN: Micro foam chemical ablation right leg incompetent varicose veins Nurse notes, history and physical were reviewed and confirmed, see attached forms. The nurse was present throughout the physical exam and consultation Dictated by: Vance Zhu MD on 04/15/2024 at 09:09 Approved by: Vance Zhu MD on 04/15/2024 at 09:13
--- OUTSIDE RECORDS SUMMARY | 2024-04-15 08:29 | XMS_ITS | CCD ---
Author Organization [facility] Care Team Providers Care Ladderman Name Role Phone Unavailable Primary Care Provider Ty Clinton Primary Care Provider AKSHAT WEBBER Attending TY Austin Primary Care TY Clinton Attending TY Clinton Primary Care AKSHAT Pichardo Attending AKSHAT Cuevas Referring TY Austin Primary Care Reynold Corrales Unavailable MD Ty Shah Primary Care Provider [phone] MD Reynold Roper Attending Provider [phone] MD Ty Shah Primary Care Provider [phone] MD Reynold Roper Attending Provider Reynold Roper Attending Unavailable Reynold Roper Admitting Unavailable Ty Shah Primary Care Unavailable JOSLYN OLIVARES Attending Unavailable REYNOLD ROPER Referring Unavailable Medications Current Medications Medication Drug Class(es) [...] 5 04/15/2017 04/15/2017 Active lactobacillus rhamnosus gg [id number] unt oral capsule (2 sources) take 1 [...] hours Tramadol Discontinued 50 MG PO Q6H 20 March 02, 2020 12:00am February 01, 2024 1:42pm [...] AP/LAT/FLX/E XTon 03-28-2024 XR lumbar spine AP/LAT/FLX/EXT [facility] Main [place] [address] [place] [address] XRay Report Signed Patient: Radha Salgado MR#: [id number] : 1950 Acct:[id number] Age/Sex: 73 / F ADM Date: 03/28/24 Loc: XD Room: Type: [facility] Attending Dr: Reynold Roper MD Copies [...] DISEASE. Impression dictated by: Marcel Landry Jr., D.O.03/28/2024 3:28 PM Dictation Location: [place] [address] Transcribed By: [facility] 03/28/24 1528 Dictated By: Marcel Landry Jr, DO 03/28/24 1526 Signed By: 03/28/24 1528 Normal [facility] MM SCREENING BILATERALon MM [...] sent to the patient regarding the results. [facility], along with the National [employer], the [employer], and [facility], recommend annual screening mammograms for women age 40 and older. MPH/ges Workstation ID: [id number] Dictated by: CHELSIE PURDY on ThuMay 04, 2020 10:15:06 AM EDT Transcribed by: JAZZY ALBERTO on ThuMay 04, 2020 10:28:17 AM EDT Finalized by: CHELSIE PURDY on ThuMay 04, 2020 10:38:[address] [facility] Comment on above: Order Comment: Reduc tion 15 years Mammography Screening Bilwan olivares 04-15-2017 Mammography Screening Bilateral No mammographic evidence of malignancy. BIRADS: BIRADS - CATEGORY 2 Benign, no evidence of malignancy. Normal interval follow-up is recommended in 12 months. OVERALL ASSESSMENT - BENIGN A letter of notification will be sent to the patient regarding the results. [facility], along with the National [employer] Network, the [employer], and [facility], recommend annual screening mammograms for women age 40 and older. DSS/mkv Workstation ID: [id number] [facility] Mammography Screening Bilateral EXAMINATION: MM SCREENING BILATERAL 04/15/2017 Computer-assisted detection utilized in the interpretation of this exam. COMPARISON: Mammogram dated 03/22/2015. FINDINGS: MLO and CC views of both breasts were obtained using digital technique. The breasts are almost entirely fatty. Mild scarring from bilateral reduction surgery again noted, not significantly changed. No standout mass, suspicious calcification, or architectural distortion identified. [facility] Vital Signs Date Time Vital Sign Value Performing Clinician Facility 03-28-2024 11:16-0400 Diastolic blood pressure 80 mm[Hg] [facility] 03-28-2024 11:16-0400 Heart rate 70 /min [facility] 03-28-2024 11:16-0400 SaO2% (BldA) [Mass fraction] 99 % [facility] 03-28-2024 11:16-0400 Systolic blood pressure 140 mm[Hg] [facility] 02-01-2024 13:43-0400 Body height 154.94 cm [facility] 02-01-2024 13:43-0400 Body mass index (BMI) [Ratio] 31.1 kg/m2 [facility] 02-01-2024 13:43-0400 Body temperature 97.8 [degF] [facility] 02-01-2024 13:43-0400 Body weight 74.84 kg [facility] 02-01-2024 13:43-0400 Diastolic blood pressure 84 mm[Hg] [facility] 02-01-2024 13:43-0400 Heart rate 56 /min [facility] 02-01-2024 13:43-0400 Systolic blood pressure 173 mm[Hg] [facility] 05-29-2022 16:30-0400 Body height 160.02 cm [facility] [employer] Other 05-29-2022 16:30-0400 Body mass index (BMI) [Ratio] 33.16 kg/m2 Reynold Roper Other [facility] Other 05-29-2022 16:30-0400 Body weight 84.91 kg Reynold Roper Other [facility] Other 05-29-2022 16:30-0400 Diastolic blood pressure 102 mm[Hg] Reynold Roper Other [facility] Other 05-29-2022 16:30-0400 SaO2% (BldA) [Mass fraction] 99 % Reynold Roper Other [facility] Other 05-29-2022 16:30-0400 Systolic blood pressure 170 mm[Hg] Reynold Jacquelin Other [facility] Other 05-09-2022 11:15-0400 Body height 160.02 cm Reynold Roper Other [facility] Other 05-09-2022 11:15-0400 Body mass index (BMI) [Ratio] 33.19 kg/m2 Reynold Roper Other [facility] Other 05-09-2022 11:15-0400 Body weight 85 kg Reynold Roper Other [facility] Other 05-09-2022 11:15-0400 Diastolic blood pressure 90 mm[Hg] Reynold Roper Other [facility] Other 05-09-2022 11:15-0400 SaO2% (BldA) [Mass fraction] 99 % Reynold Roper Other [facility] Other 05-09-2022 11:15-0400 Systolic blood pressure 164 mm[Hg] Reynold Roper Other [facility] Other 04-21-2022 15:00-0400 Body height 160.02 cm Reynold Roper Other [facility] Other 04-21-2022 15:00-0400 Body mass index (BMI) [Ratio] 33.12 kg/m2 Reynold Roper Other [facility] Other 04-21-2022 15:00-0400 Body weight 84.82 kg Reynold Roper Other [facility] Other 04-21-2022 15:00-0400 Diastolic blood pressure 82 mm[Hg] Reynold Roper Other [facility] Other 04-21-2022 15:00-0400 SaO2% (BldA) [Mass fraction] 99 % Reynold Roper Other [facility] Other 04-21-2022 15:00-0400 Systolic blood pressure 140 mm[Hg] Reynold Roper Other [facility] Other 05-03-2020 14:46-0400 BMI (Body Mass Index) 31.79 kg/m2 Akshat Webber [facility] 05-03-2020 14:46-0400 Body weight 78.83 kg Akshat Webber [facility] 05-03-2020 14:46-0400 BP Diastolic 84 mm[Hg] Akshat Webber [facility] 05-03-2020 14:46-0400 BP Systolic 160 mm[Hg] Akshat Webber [facility] 05-03-2020 14:46-0400 Height 157.5 [facility] 14:46-0400 Pulse (Heart Rate) 81 /min Akshat Webber [facility] 04-15-2017 13:39-0400 BMI (Body Mass Index) 33.44 kg/m2 Akshat Webber [facility] Work Phone: 04-15-2017 13:39-0400 BP Diastolic 76 mm[Hg] Akshat Webber [facility] Work Phone: 04-15-2017 13:39-0400 BP Systolic 132 mm[Hg] Akshat Webber [facility] Work Phone: 04-15-2017 13:39-0400 Height 154.9 cm Akshat Webber [facility] Work Phone: 04-15-2017 13:39-0400 Weight 80.29 kg Akshat Webber [facility] Work Phone: Encounters Encounter Date Encounter Type Care Provider Facility Start: 04-13-2024 End: 04-13-2024 ambulatory JOSLYN OLIVARES Not Available Start: 03-28-2024 End: 03-28-2024 ambulatory MD Ty Shah Work Phone: [facility] Work Phone: Start: 03-28-2024 End: 03-28-2024 Patient encounter procedure [facility] Work Phone: Start: 02-01-2024 End: 02-01-2024 ambulatory [facility] Work Phone: Start: 02-01-2024 End: 02-01-2024 Patient encounter procedure [facility] Work Phone: Start: 05-29-2022 End: 05-29-2022 ambulatory Reynold Roper Other [facility] Other Start: 05-29-2022 Office outpatient vi sit 25 minutes Reynold Roper [facility] Start: 05-09-2022 End: 05-09-2022 ambulatory Reynold Roper Other [facility] Other Start: 05-09-2022 Patient encounter procedure Reynold Roper [facility] Start: 04-21-2022 End: 04-21-2022 Patient encounter procedure MD Ty Shah Work Phone: [facility] Start: 04-21-2022 End: 04-21-2022 ambulatory Reynold Roper Other [facility] Other Start: 04-21-2022 Office consultation new/estab patient 60 min Reynold Roper [facility] Start: 04-15-2022 End: 04-15-2022 ambulatory Reynold Roper Other [facility] Other Start: 04-15-2022 Telephone encounter Reynold Roper [facility] Start: 10-01-2020 End: 10-01-2020 Orders Only Elena Zuleika De La Rosa Work Phone: [facility] Start: 05-03-2020 End: 05-04-2020 Patient encounter procedure AKSHAT WEBBER [facility] Start: 05-03-2020 End: 05-03-2020 Office outpatient new 30 minutes Akshat Webber Work Phone: [facility] Comment on above: Encounter for gyneco logical examination without abnormal finding (Primary Dx); Menopausal disorder; Special screening for malignant neoplasm of vagina Start: 05-03-2020 End: 05-03-2020 Subsequent hospital visit by physician Akshat Webber Work Phone: [facility] Comment on above: Screening mammogram, encounter for Start: 03-28-2020 End: 03-28-2020 Patient encounter procedure TY TORRES SHAH [facility] Start: 04-15-2017 End: 04-15-2017 Periodic preventive med est patient 65yrs& older Akshat Webber Work Phone: [facility] Comment on above: Encounter for gyneco logical examination without abnormal finding (Primary Dx);Special screening for malignant neoplasms, vagina;Candidiasis of vulva and vagina;Fatigue, unspecified type;Osteopenia, unspecified location Start: 04-15-2017 End: 04-15-2017 Patient encounter procedure Akshat Webber Work Phone: [facility] Comment on above: Visit for screening mammogram Procedures Date Procedure Procedure Detail Performing Clinician Start: 03-28-2024 X-ray of lumbar spin e, four views MD Ty Shah Work Phone: Start: 04-21-2022 X-ray of cervical spine MD Ty Shah Work Phone: Start: 05-03-2020 Mammography Elena Gonzalez [facility] Start: 04-15-2017 Mammography Akshat mcelroy Plan of Treatment Date Care Activity Detail Author Start: 05-03-2021 Screening mammography Mammogram [facility] Start: 04-24-2020 Influenza vaccinatio n given Sequential Influenza Vaccine (#1) [facility] Start: 04-15-2018 History and physical examination, annual for health maintenance Wellness Visit [facility] Start: 04-15-2018 Screening mammography Mammogram [facility] Start: 04-24-2017 SEQUENTIAL INFLUENZA VACCINE (#1) SEQUENTIAL INFLUENZA VACCINE (#1) [facility] Work Phone: Start: 12-18-2015 Pneumococcal vaccination Pneum ococcal Vaccine Age 65+ (1 of 2 - PCV13) [facility] Start: 12-18-2015 PNEUMOCOCCAL VACCINE AGE 65+ (1 of 2 - PCV13) PNEUMOCOCCAL VACCINE AGE 65+ (1 of 2 - PCV13) [facility] Work Phone: Start: 2010 Zoster vaccine hzv l latisha for subcutaneous use ZOSTER VACCINE [facility] Work Phone: Start: 2000 Administration of he rpes zoster vaccine Zoster Vaccines (1 of 2) [facility] Start: 2000 Screening for malign ant neoplasm of colon [facility] Start: 1968 Hepatitis C antibody , confirmatory test Hepatitis C Screening [facility] Start: 1966 COVID-19 Vaccine (1 of 2) COVI D-19 Vaccine (1 of 2) [facility] Start: 1962 Adolescent depressio n screening assessment Depression Screening (PHQ9) [facility] Start: 1950 Colonoscopy COLONOSCOPY [facility] Work Phone: Start: 1950 Fall risk assessment Falls Risk Asse ssment [facility] Start: 1950 HEPATITIS C SCREENING HEPATITIS C SC BONITA [facility] Work Phone: Start: 1950 TETANUS EVERY 10 YR TETANUS EVERY 10 YR [facility] Work Phone: Start: 1950 Tetanus vaccination Tetanus: Every 1 0yrs [facility] End: 05-03-2021 Bone density scan XR Bone Density DEXA Axial Imaging Routine Menopausal disorder 1 Occurrences starting 05/03/2020 until 05/03/2021 [facility] Comment on above: 1 Occurrences starti ng 05/03/2020 until 05/03/2021 End: 05-03-2020 MG Breast - bilateral screening Mammography Screening Bilateral Imaging Routine Screening Mammogram, Encounter For Once for 1 Occurrences starting 05/03/2020 until 05/03/2020 [facility] Comment on above: Once for 1 Occurrenc es starting 05/03/2020 until 05/03/2020 MG Breast - bilatera l screening Mammography Screening Bilateral Imaging Routine Screening mammogram, encounter for 05/03/2020 2:07 PM EDT [facility] Microscopic examinat ion of vaginal Papanicolaou smear Thinprep Pap Smear Pathology and Cytology Routine Special screening for malignant neoplasm of vagina Ordered: 05/03/2020 [facility] Comment on above: Ordered: 05/03/2020 Thinprep Pap Smear, Screening Thinprep Pap Smear, Screening Routine Special screening for malignant neoplasms, vagina Ordered: 04/15/2017 [facility] Work Phone: Comment on above: Ordered: 04/15/2017 XR Lumbar spine 4 Views [facility] Payers Date Payer Category Payer Self-pay [id number] 2021 Medicare [id number] 2019 Medicare [employer] [place]NA[place]ED [place] DICARE [employer] MEDICARE PLAN (PPO) [id number] 2019-Present [id number] 2019 Medicare [id number] 1950 Unknown [id number] 1950 Unknown [id number] 1950 Unknown [id number] 1950 Unknown [id number] Medicare [id number] Medicare Medicare [id number] Unknown [id number] Social History Date Type Detail Facility Start: 04-15-2017 End: 02-28-2020 Tobacco smoking status [facility] Never smoker [facility] Sex Assigned At Not on file [employer] Work Phone: Start: 05-03-2020 Tobacco use and exposure Never used [facility] Start: 05-03-2020 Alcohol intake Current drinke r of alcohol (finding) [facility] Start: 04-15-2017 Alcohol Comment Social [facility] Exposure to SARS-CoV-2 (event) Not sure [facility] Sex Assigned At Sex Assigned At [facility] Other Start: 1950 Sex Assigned At Female F [facility] Evaluation note 05-29-2022 Note Date & [...] - G89.29) Continue with current treatment plan. [facility] Other Evaluation note 05-09-2022 Note Date & [...] - G89.29) Continue with current treatment plan. [facility] Other Evaluation note 04-21-2022 Note Date & [...] recently attended physical therapy which provided minimal intermediate improvement. She feels pain is negatively impacting her daily activities and sleeping pattern. Prior to examining the patient, I reviewed office notes from referring provider, Dr Shah. Different treatment options were discussed in detail [...] negative findings were considered in medical decision-making. [facility] Other Evaluation note Note Date & Type Note Facility Evaluation note No assessment information availa [facility] Work Phone: Evaluation note Note Date & Type Note Facility Evaluation note No Information [facility] [employer] Other Evaluation note Note Date & Type Note Facility Evaluation note Diagnosis Onset Date Phlebitis and thrombophlebitis acute Lumbosacral spondylosis acut e Other chronic pain acute Sacroiliitis [facility] Work Phone: History general Narrative - Reported Note Date & Type Note Facility History general Narrative - Reported Type Medical History CELLULITIS Medical History HYPOTHYROID Medical History hiatal hernia Surgical History HYSTERECTOMY Surgical History L KNEE Surgical History APPENDIX Surgical History GALLBLADDER Hospitalization History see above Hospitalization History cellulitis right leg [facility] Other History of Present Illness * Akshat [...] been noticing recurrent yeast infections. She uses tutvzn-jim-[id number] Monistat, which seems to help. I gave her a prescription for Diflucan 150 mg, #1 with 5 refills. I did tell the patient that if she would need refills after this expires, we can do this over the phone as long as it is within 1 year. Review of Systems: I have reviewed and agree with the ROS as gathered by the clinical support tech. Past Medical History: Diagnosis Date Disease of [...] visit (from the past 336 hour(s)). * Radha Corral LPN - 04/15/2017 1:46 PM EDT Questions for the Staff to Ask Last Pap: 03/12/2015 neg Last Mammogram: 04/15/2017 Pending Last Bone Density: 03/22/2015 Osteopenia Review of Systems Radha Salgado 04/15/17 CONSTITUTIONAL: does not report of fever [...] does not report of bleeding easily. If Radha Salgado reported Yes to any Review of Symptoms, [...] with the ROS as gathered by the clinical support tech. Past Medical History: Diagnosis Date Anemia Arthritis [...] file Gets together: Not on file Attends restorationism service: Not on file Active member of [...] Procedures Mammography Screening Bilateral Akshat Webber MD [address] [place] [address] [facility] [address] [place] [id number] Status Reason Specialty Diagnoses / Procedures Referred By Contact Referred To Contact Authorized Radiology Diagnoses Menopausal disorder Procedures XR Bone Density DEXA Axial Akshat Webber MD [address] [place] [id number] Status Reason Specialty Diagnoses / Procedures Referred By Contact Referred To Contact Pending Review Radiology Diagnoses Screening mammogram, encounter for Procedures Mammography Screening Bilateral Akshat Webber MD [address] [place] [address] Advance Directives No Advanced Directives Records FoundDocuments on File Type Date Recorded 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 Advance Directives and Livin g Will 05/03/2020 12:00 AM Documents on File Type Date Recorded 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 Advance Directives and Livin g [...] Procedures Mammography Screening Bilateral Akshat Webber MD [address] [place] [address] [facility] [address] [place] [address] Reason Comments Annual Exam Status Reason Specialty Diagnoses / Procedures Referred By Contact Referred To Contact Pending Review Radiology Diagnoses Screening mammogram, encounter for Procedures Mammography Screening Bilateral Akshat Webber MD [address] [place] [address] INFORMATION SOURCE (unrecogn ized section and content) DATE CREATED AUTHOR 05/03/2020 [facility] DATE CREATED AUTHOR AUTHOR'S ORGANIZ ATION 05/09/2020 [facility] DATE CREATED AUTHOR AUTHOR'S ORGANIZ ATION 03/30/2024 [facility] DATE CREATED AUTHOR AUTHOR'S ORGANIZ ATION 04/15/2024 [facility] Specialists EPIC Quick Note - Sallie Quan TECHNOLOGIST - 05/03/2020 2:00 PM EDT Miscellaneous Notes (unrecog nized section and content) Pt and Tech wore P.P.E. documented in this encounter Care Teams (unrecognized sec tion and content) Team Status: Inactive Member Role Status Dates Ty Shah MD Primary Care Provider Active Reynold Roper MD Attending Provider Active Team Status: Active Member Role Status Dates Ty Shah MD Primary Care Provider Active Team Status: Inactive Member Role Status Dates Ty Shah MD Primary Care Provider Active Start: February 01, 2024 End: February 01, 2024 Andres Reyes MD Attending Provider Active Sta rt: February 01, 2024 End: February 01, 2024 Team Status: Inactive Member Role Status Dates Ty Shah MD Primary Care Provider Active Start: March [...] BE BASED ON THE PRIMARY CLINICAL RECORDS. [employer] provides no warranty or guarantee of the accuracy or completeness of information in this document.
--- NOTE | 2024-04-15 08:36 | VEIN_ITS ---
Patient Name: RADHA SALGADO MR#: [id number] : 1950 Exam Date: 04/15/2024 Ordering Doctor: DR VANCE ZHU M.D. RADIOLOGY REPORT PROCEDURE: VC EXT VENOUS DEE LIMITED COMPARISON: VC EXT VENOUS DEE LIMITED, 04/04/2024. INDICATIONS: I80.03 - Phlebitis and thrombophlebitis of superficial ve... TECHNIQUE: Lower extremity lora scale and Duplex Doppler evaluation of the deep venous system from the inguinal ligament through the calf veins. FINDINGS: REGION: Right lower extremity. THROMBI: Acute and chronic appearing thrombi. DVT visualized in approximately 1 cm segment of ATV anterior ankle. COMPRESSIBILITY: Non-compressible segments. FLOW: Areas on no flow. OTHER: Negative. REGION: Left lower extremity. THROMBI: Acute and chronic appearing thrombi. Varithena induced thrombus visualized at prox/med calf, dist/lat calf, and lateral ankle. COMPRESSIBILITY: Non-compressible segments. FLOW: Areas on no flow. OTHER: Negative. *Exam performed in accordance with [facility] practice guidelines- Peripheral venous ultrasound, November 17, 2009. CONCLUSION: 1. 1 cm segment of deep vein thrombus in the anterior tibial vein at the ankle 2. Occlusion of treated bilateral varicose veins 3. No residual varicose veins in the right leg 4. Multiple residual incompetent varicose veins in the left leg Dictated by: Vance Zhu MD on 04/15/2024 at 09:01 Approved by: Vance Zhu MD on 04/15/2024 at 09:05
== END 2024-04-15 09:22 | disposition home or self-care (01) ==
LOC: VC 08:25
PROVIDERS: PCP Radiology Diagnostic Radiology; Visit Provider Radiology Diagnostic Radiology
DX: I80.03 Phlebitis and thrombophlebitis of superficial vessels of lower extremities, bilateral (principal)
CPT/HCPCS: 93970; G0463

== ENCOUNTER 2024-04-18 09:51 | Outpatient (OUT) | payer MEDICARE, SELFPAY ==
--- NOTE | 2024-04-15 09:18 | V.VEINS.HP ---
Vital Signs 04/18/24 10:05 BP 116/62 BP Location Left Brachial BP Position Sitting BP Cuff Size Adult BP Source Manual Cuff Respiration 16 Pulse 65 Pulse Source Monitor Pulse Oximetry (%) 98 Oxygen Delivery Method Room Air Varicose Veins Patient in today for microfoam chemical ablation Vance Arzola MD personally performed the services described in this documentation, as scribed by Ranjit Henderson RN in my presence and it is both accurate and complete. IRanjit RN, am scribing for, and in the presence of, Dr. Vance Zhu and in the presence of the patient. medial (Distal/medial right leg ulcer) thigh: bilateral, knee: bilateral, calf: bilateral and ankle: bilateral cramping, sharp and other 7 30+ years Worsened in recent months: Yes standing elevating extremities, compression stockings and other (Rest) Reports edema, leg edema and other (stasis ulcer to right distal/medial calf, cellulitis, DVT) History of lower extremity trauma: No Superficial thrombophlebitis: No Family history of varicose veins: yes Has patient had previous lower extremity venous surgery: No Patient has previously received the following treatment(s) for lower extremity varicose veins: Reports sclerotherapy Does patient have a history of : yes Does patient intend to have future pregnancies: no Has patient had lower extremity venous scan with relux testing: Yes Support hose used: Yes Prescribed by provider: No Problems walking or doing physical activity: No Do you walk much: Yes Do you stand much: Yes Medication compliance: good Large amounts of Vitamin K: No Review of Systems ROS Narrative Vance Arzola MD personally performed the services described in this documentation, as scribed by Ranjit Henderson RN in my presence and it is both accurate and complete. Ranjit Arzola RN, am scribing for, and in the presence of, Dr. Vance Zhu and in the presence of the patient. Status of ROS 10 or more systems reviewed and unremarkable except as noted in history and below Cardiovascular Reports: edema and leg pain with exertion Musculoskeletal Reports: extremity pain, extremity swelling and muscle cramps Integumentary/Breast Reports: itching, redness, changing lesion, non-healing lesion and changes in skin color Neurological Reports: weakness in extremities Hematologic/Lymphatic Reports: easy bruising PFSH [facility] Medical History (Updated 04/04/24 @ 10:48 by Cristal Garnett) Phlebitis and thrombophlebitis of superficial vessels of lower extremities, bilateral ?I80.03 - Phlebitis and thrombophlebitis of superficial vessels of lower extremities, bilateral (ICD-10) Phlebitis and thrombophlebitis of superficial vessels of left lower extremity ?I80.02 - Phlebitis and thrombophlebitis of superficial vessels of left lower extremity (ICD-10) Phlebitis and thrombophlebitis of superficial vessels of right lower extremity ?I80.01 - Phlebitis and thrombophlebitis of superficial vessels of right lower extremity (ICD-10) Varicose veins of bilateral lower extremities with pain ?I83.813 - Varicose veins of bilateral lower extremities with pain (ICD-10) Hypothyroidism ?E03.9 - Hypothyroidism, unspecified (ICD-10) Cellulitis and abscess of leg ?L03.119 - Cellulitis of unspecified part of limb (ICD-10) ?L02.419 - Cutaneous abscess of limb, unspecified (ICD-10) DVT (deep venous thrombosis) ?I82.409 - Acute embolism and thrombosis of unspecified deep veins of unspecified lower extremity (ICD-10) 3 para 3 ?Z78.9 - Other specified health status (ICD-10) Surgical History (Updated 02/22/24 @ 14:45 by Rossy Weller) History of arthroscopic knee surgery ?Z98.890 - Other specified postprocedural states (ICD-10) History of cholecystectomy ?Z90.49 - Acquired absence of other specified parts of digestive tract (ICD-10) History of hysterectomy ?Z90.710 - Acquired absence of both cervix and uterus (ICD-10) Family History (Updated 02/22/24 @ 14:46 by Rossy Weller) Mother Family history of cancer Varicose veins of bilateral lower extremities with pain Father Family history of cancer Brother Family history of cancer Sister Family history of cancer Social History (Updated 02/22/24 @ 14:47 by Rossy Weller) Within the past year, how often did you have a drink containing alcohol: 2-4 times a month Smoking status: Never smoker Non-prescribed substance use: denies use Meds Home Medications and Allergies Home Medications ?Medication ?Instructions ?Recorded ?Confirmed ?Type ibuprofen 200 mg tablet (IBU-200) 200 mg PO Q8H 02/22/24 03/21/24 History levothyroxine .ROUTE 02/22/24 History ropinirole .ROUTE 02/22/24 History aspirin 325 mg tablet 325 mg PO DAILY 04/08/24 04/08/24 History Allergies Allergy/AdvReac Type Severity Reaction Status Date / Time No Known Drug Allergies Allergy Unverified 02/22/24 14:43 Exam Narrative Exam Narrative: Vance Arzola MD personally performed the services described in this documentation, as scribed by Ranjit Henderson RN in my presence and it is both accurate and complete. Ranjit Azrola RN, am scribing for, and in the presence of, Dr. Vance Zhu and in the presence of the patient. Constitutional Documenting provider has reviewed patient's vital signs: yes Common normals: oriented x3 Lymph Lymphatic: no lymphedema noted Cardio Common normals: regular rate Rate: regular rate Peripheral pulses: posterior tibial pulses present and dorsalis pedis pulses present Extremity Common normals: normal capillary refill General: calf tenderness and edema Right lower extremity: upper leg and lower leg (tenderness and numbness ) Left lower extremity: upper leg and lower leg Neuro Common normals: oriented x3 Assessment and Plan Assessment and Plan Plan f/u evaluation with physician along with right leg limited u/s Vance Arzola MD personally performed the services described in this documentation, as scribed by Ranjit Henderson RN in my presence and it is both accurate and complete. Ranjit Arzola RN, am scribing for, and in the presence of, Dr. Vance Zhu and in the presence of the patient. Procedures Procedure Instructions Procedures Right leg microfoam chemical ablation/Varithena: Risks and benefits of the procedure were discussed at length and informed written consent was obtained.? Time-out procedure was performed and the correct patient and procedure were confirmed.? Staff present during time-out: Ranjit Henderson RN and Vance Zhu MD.? Patient prepped and procedure performed in usual sterile fashion.? Patient was placed in Trendelenburg prior to Polidocanol/Varithena injections. Sclerosing Agent:??15 cc 1% Polidocanol/Varithena Site Injected: Right lecc varithena administered in to a 5mm varicose vein mid medial right lower leg 4cc varithena administered in to a 4mm varicose vein mid anterior right lower leg 5cc varithena administered in to a 4mm varicose vein mid medial right lower leg Number of Injections:? 3 The patient tolerated the procedure well without complication.? Hemostasis was obtained and thigh-high compression stocking was applied with foam pads.? Instructed patient to wear stocking for at least 96 hours and sleep with it and only remove for showering.? The patient was instructed to? wear stocking for 2 weeks.? Patient verbalizes understanding and states they will comply.? Patient was given post-procedure instructions. Patient was discharged in good condition.? Scheduled to undergo limited venous ultrasound and? exam on 04/22/2024 IVance MD personally performed the services described in this documentation, as scribed by Ranjit Henderson RN in my presence and it is both accurate and complete. IRanjit RN, am scribing for, and in the presence of, Dr. Vance Zhu and in the presence of the patient.
--- NOTE | 2024-04-15 09:19 | W.VEIN ---
Discharge Plan Discharge Disposition: Home, Self-Care Outpatient Diagnostics: [facility] Facility EST LMTD (Routine) Timeframe: 2 Weeks Facility: [facility] - Location: [facility] Ordered By: Vance Zhu VC EXT Venous RT LMTD (Routine) Timeframe: 2 Weeks Facility: [facility] - Location: Vein Center Ordered By: Vance Zhu Follow Up Appointments: 04/18/2024 Plan of Treatment: f/u evaluation with physician along with right leg limited u/s Patient Instructions: Polidocanol (By injection) (Karthik Granadosthenabil) Print Language: Afghan Discharge Date/Time: 04/18/24 12:28
--- NOTE | 2024-04-18 09:57 | VEIN_ITS ---
[address] [address] Patient Name: RADHA SALGADO MRN: [id number] date: 1950 Sex: F Assigned Patient Location: Current Patient Location: Accession/Order Number: [id number] Exam Date: 04/18/2024 09:57 Report Date: 04/18/2024 10:56 At the request of: MAEGAN WALLER Procedure: VC INJ Foam Sclerosant WUS STEEL ANALYST PROCEDURE: VC INJ Foam Sclerosant WUS STEEL ANALYST COMPARISON: None. HISTORY: I83.813 - Varicose veins of bilateral lower extremities w... Pre-operative Diagnosis: CEAP class C6 venous insufficiency with pain, tenderness, edema and incompetent right saphenous and varicose vein(s), chronic venous insufficiency right leg secondary to venous incompetence Post-operative Diagnosis: CEAP class C6 venous insufficiency with pain, tenderness, edema and incompetent right saphenous and varicose vein(s), chronic venous insufficiency right leg secondary to venous incompetence Procedure Performed: 1. Ultrasound-guided microfoam chemical ablation with Varithenaregistered 2. Intraoperative ultrasound guidance Anesthesia: None Indications for Procedure: 73-year-old female who presents with a long history of lower extremity pain and swelling varicose veins culminating in venous stasis ulcerations. The patient failed conservative medical therapy including medical compression stockings, exercise and analgesics. Prior procedures include endovenous laser ablation and Microfoam chemical ablation. Multiple incompetent varicosities of the right leg. Duplex scan showed reflux and enlarged diameters up to 5 mm. The patient underwent informed consent including management options where the complications of infection, bleeding, pain, and skin injury were discussed. Particular attention was spent discussing thrombus extension and deep vein thrombosis as well as the possibility of pulmonary embolus and treatment with oral or injectable blood thinners. Procedure: The patient walked to the procedure room. All applicable staff donned appropriate apparel. A procedure timeout was performed to confirm correct patient, correct extremity, correct procedure, and correct room set-up including presence of all applicable supplies, devices, and drugs. A duplex ultrasound, performed by myself confirmed the location and incompetence of branch saphenous varicosities and their course was marked on the skin together with the dilated tributaries. The extent of treatment of the vein and the associated varicosities was determined through ultrasound mapping. The skin was prepped and then punctured with a butterfly needle and advanced under ultrasound guidance. The Varithenaregistered canister was activated and the canister was primed and purged as required in the instructions for use. Varithenaregistered was drawn into a sterile syringe. The following injections were made: 6 cc injected into a 5 mm varicose vein mid medial right lower leg 4 cc injected into a 4 mm varicose vein mid anterior right lower leg 5 cc injected into a 4 mm varicose vein mid medial right lower leg Varithenaregistered was slowly administered at 0.5-1.0 cc/second with close observation by ultrasound of its course in the vessels. Total volume utilized was: 15cc. Following administration of Varithenaregistered the leg was elevated and the patient was asked to repeatedly dorsiflex the ankle to limit flow of Varithenaregistered into perforating veins. Once appropriate spasm had been confirmed in the treated veins, the vascular catheter was removed from the leg and light pressure was applied over the puncture site for hemostasis. The common femoral and deep superficial veins were then evaluated for flow and compressibility prior to dressing placement. The lower extremity was kept elevated at 45 degrees above the horizontal and cording material was applied over the saphenous segments and tributaries to allow for eccentric compression over the target vessels including the targeted saphenous vein(s). A multilayer dressing was applied consisting of foam pads, coban and thigh-high 20-30 mm Hg compression elastic support hose were placed on the patient. The leg was lowered only after compression had been applied and the patient was immediately ambulatory. The patient ambulated 10 minutes under supervision and was without apparent concerns at time of release. Post-care instructions include advising patient to keep post-treatment bandages in place and dry for 48 hours, avoid extended periods of inactivity, avoid heavy exercise for one week, wear compression stockings on the treated leg continuously for two weeks, to walk daily for 10 minutes over the next month. The patient was instructed to take an anti-inflammatory medicine as needed and to follow up for color duplex scan of the Saphenous veins, the treated branch saphenous varicosities, the adjacent deep veins, and additional treatment within 7 days. PERSONNEL: Ranjit Henderson RN Electronically authenticated by: MAEGAN WALLER Date: 04/18/2024 10:56
--- OUTSIDE RECORDS SUMMARY | 2024-04-18 10:04 | XMS_ITS | CCD ---
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 Name Role Phone Unavailable Primary Care Provider Ty Clinton Primary Care Provider AKSHAT WEBBER Attending TY Austin Primary Care TY Clinton Attending TY Clinton Primary Care AKSHAT Pichardo Attending AKSHAT Cuevas Referring TY Austin Primary Care Reynold Corrales Unavailable MD Ty Shah Primary Care Provider MD Reynold Roper Attending Provider [phone] MD Ty Shah Primary Care Provider [phone] MD Reynold Roper Attending Provider Reynold Roper [...] 5 04/15/2017 04/15/2017 Active lactobacillus rhamnosus gg [id number] unt oral capsule (2 sources) take 1 [...] AP/LAT/FLX/E XTon 03-28-2024 XR lumbar spine AP/LAT/FLX/EXT [facility] Main [place] [address] [place] [address] XRay Report Signed Patient: Radha Salgado MR#: [id number] : 1950 Acct:[id number] Age/Sex: 73 / F ADM Date: 03/28/24 Loc: XD Room: Type: [facility] Attending Dr: Reynold Roper MD [...] Landry Jr., D.O.03/28/2024 3:28 PM Dictation Location: [place] [address] Transcribed By: [facility] 03/28/24 1528 Dictated By: Marcel Landry Jr, DO 03/28/24 1526 Signed By: 03/28/24 1528 Normal [facility] MM SCREENING BILATERALon MM [...] sent to the patient regarding the results. [facility], along with the National [employer], the [employer], and [facility], recommend annual screening mammograms for women age 40 and older. MPH/ges Workstation ID: [id number] Dictated by: CHELSIE PURDY on ThuMay 04, 2020 10:15:06 AM EDT Transcribed by: JAZZY ALBERTO on ThuMay 04, 2020 10:28:17 AM EDT Finalized by: CHELSIE PURDY on ThuMay 04, 2020 10:38:22 AM EDT Normal [facility] Comment on above: Order Comment: Reduc tion 15 years Mammography Screening Bilwan olivares 04-15-2017 Mammography Screening Bilateral No mammographic evidence of malignancy. BIRADS: BIRADS - CATEGORY 2 Benign, no evidence of malignancy. Normal interval follow-up is recommended in 12 months. OVERALL ASSESSMENT - BENIGN A letter of notification will be sent to the patient regarding the results. [facility], along with the National Comprehensive Cancer Network, the [employer], and [facility], recommend annual screening mammograms for women age 40 and older. DSS/mkv Workstation ID: [id number] [facility] Mammography Screening Bilateral EXAMINATION: MM SCREENING BILATERAL 04/15/2017 Computer-assisted detection utilized in the interpretation of this exam. COMPARISON: Mammogram dated 03/22/2015. FINDINGS: MLO and CC views of both breasts were obtained using digital technique. The breasts are almost entirely fatty. Mild scarring from bilateral reduction surgery again noted, not significantly changed. No standout mass, suspicious calcification, or architectural distortion identified. [facility] Vital Signs Date Time Vital Sign Value Performing Clinician Facility 03-28-2024 11:16-0400 Diastolic blood pressure 80 mm[Hg] [facility] 03-28-2024 11:16-0400 Heart rate 70 /min [facility] 03-28-2024 11:16-0400 SaO2% (BldA) [Mass fraction] 99 % [facility] 03-28-2024 11:16-0400 Systolic blood pressure 140 mm[Hg] [facility] 02-01-2024 13:43-0400 Body height 154.94 cm [facility] 02-01-2024 13:43-0400 Body mass index (BMI) [Ratio] 31.1 kg/m2 [facility] 02-01-2024 13:43-0400 Body temperature 97.8 [degF] [facility] 02-01-2024 13:43-0400 Body weight 74.84 kg [facility] 02-01-2024 13:43-0400 Diastolic blood pressure 84 mm[Hg] [facility] 02-01-2024 13:43-0400 Heart rate 56 /min [facility] 02-01-2024 13:43-0400 Systolic blood pressure 173 mm[Hg] [facility] 05-29-2022 16:30-0400 Body height 160.02 cm Reynold Roper Other [employer] [facility] [employer] Other 05-29-2022 16:30-0400 Body mass index (BMI) [Ratio] 33.16 kg/m2 Reynold Roper Other [employer] Other 05-29-2022 16:30-0400 Body weight 84.91 kg Reynold Roper Other [facility] Other 05-29-2022 16:30-0400 Diastolic blood pressure 102 mm[Hg] Reynold Roper Other [employer] Other 05-29-2022 16:30-0400 SaO2% (BldA) [Mass fraction] 99 % Reynold Roper Other [employer] Other 05-29-2022 16:30-0400 Systolic blood pressure 170 mm[Hg] Reynold Jacquelin Other [employer] Other 05-09-2022 11:15-0400 Body height 160.02 cm Reynold Roper Other [employer] Other 05-09-2022 11:15-0400 Body mass index (BMI) [Ratio] 33.19 kg/m2 Reynodl Roper Other [employer] Other 05-09-2022 11:15-0400 Body weight 85 kg Reynold Roper Other [employer] Other 05-09-2022 11:15-0400 Diastolic blood pressure 90 mm[Hg] Reynold Roper Other [employer] Other 05-09-2022 11:15-0400 SaO2% (BldA) [Mass fraction] 99 % Reynold Roper Other [employer] Other 05-09-2022 11:15-0400 Systolic blood pressure 164 mm[Hg] Reynold Roper Other [employer] Other 04-21-2022 15:00-0400 Body height 160.02 cm Reynold Roper Other [employer] Other 04-21-2022 15:00-0400 Body mass index (BMI) [Ratio] 33.12 kg/m2 Reynold Roper Other [employer] Other 04-21-2022 15:00-0400 Body weight 84.82 kg Reynold Roper Other [employer] Other 04-21-2022 15:00-0400 Diastolic blood pressure 82 mm[Hg] Reynold Roper Other [employer] Other 04-21-2022 15:00-0400 SaO2% (BldA) [Mass fraction] 99 % Reynold Roper Other [employer] Other 04-21-2022 15:00-0400 Systolic blood pressure 140 mm[Hg] Reynold Roper Other [employer] Other 05-03-2020 14:46-0400 BMI (Body Mass Index) 31.79 kg/m2 Akshat Webber [facility] 05-03-2020 14:46-0400 Body weight 78.83 kg Akshat Webber [facility] 05-03-2020 14:46-0400 BP Diastolic 84 mm[Hg] Akshat Webber [facility] 05-03-2020 14:46-0400 BP Systolic 160 mm[Hg] Akshat Webber [facility] 05-03-2020 14:46-0400 Height 157.5 cm [facility] [place] 05-03-2020 14:46-0400 Pulse (Heart Rate) 81 /min Akshat Webber [facility] 04-15-2017 13:39-0400 BMI (Body Mass Index) 33.44 kg/m2 Akshat Webber [facility] Work Phone: 04-15-2017 13:39-0400 BP Diastolic 76 mm[Hg] Akshat Webber [facility] Work Phone: 04-15-2017 13:39-0400 BP Systolic 132 mm[Hg] Akshat Webber [facility] Work Phone: 04-15-2017 13:39-0400 Height 154.9 cm Akshat Webber [facility] Work Phone: 04-15-2017 13:39-0400 Weight 80.29 kg Akshat Webber [facility] Work Phone: Encounters Encounter Date Encounter Type Care Provider Facility Start: 04-13-2024 End: 04-13-2024 ambulatory JOSLYN OLIVARES Not Available Start: 03-28-2024 End: 03-28-2024 ambulatory MD Ty Shah Work Phone: [facility] Work Phone: Start: 03-28-2024 End: 03-28-2024 Patient encounter procedure [facility] Work Phone: Start: 02-01-2024 End: 02-01-2024 ambulatory [facility] Work Phone: Start: 02-01-2024 End: 02-01-2024 Patient encounter procedure [facility] Work Phone: Start: 05-29-2022 End: 05-29-2022 ambulatory Reynold Roper Other [facility] Other Start: 05-29-2022 Office outpatient vi sit 25 minutes Reynold Roper [facility] Start: 05-09-2022 End: 05-09-2022 ambulatory Reynold Roper Other [employer] Other Start: 05-09-2022 Patient encounter procedure Reynold Roper [facility] Start: 04-21-2022 End: 04-21-2022 Patient encounter procedure MD Ty Shah Work Phone: [facility] Start: 04-21-2022 End: 04-21-2022 ambulatory Reynold Roper Other [facility] Other Start: 04-21-2022 Office consultation new/estab patient 60 min Reynold Roper [facility] Start: 04-15-2022 End: 04-15-2022 ambulatory Reynold Roper Other [employer] Other Start: 04-15-2022 Telephone encounter Reynold Roper [facility] Start: 10-01-2020 End: 10-01-2020 Orders Only Elena Zuleika De La Rosa Work Phone: [facility] Start: 05-03-2020 End: 05-04-2020 Patient encounter procedure AKSHAT WEBBER [facility] Start: 05-03-2020 End: 05-03-2020 Office outpatient new 30 minutes Akshat Webber Work Phone: [facility] Comment on above: Encounter for gyneco logical examination without abnormal finding (Primary Dx); Menopausal disorder; Special screening for malignant neoplasm of vagina Start: 05-03-2020 End: 05-03-2020 Subsequent hospital visit by physician Akshat Webber Work Phone: [facility] Comment on above: Screening mammogram, encounter for Start: 03-28-2020 End: 03-28-2020 Patient encounter procedure TY TORRES SH[facility] Start: 04-15-2017 End: 04-15-2017 Periodic preventive med est patient 65yrs& older Akshat Webber Work Phone: [facility] Comment on above: Encounter for gyneco logical examination without abnormal finding (Primary Dx);Special screening for malignant neoplasms, vagina;Candidiasis of vulva and vagina;Fatigue, unspecified type;Osteopenia, unspecified location Start: 04-15-2017 End: 04-15-2017 Patient encounter procedure Akshat Webber Work Phone: [facility] Comment on above: [...] vaccinatio n given Sequential Influenza Vaccine (#1) [facility] Start: 04-15-2018 History and physical examination, annual for health maintenance Wellness Visit [facility] Start: 04-15-2018 Screening mammography [facility] Start: 04-24-2017 SEQUENTIAL INFLUENZA VACCINE (#1) SEQUENTIAL INFLUENZA VACCINE (#1) [facility] Work Phone: Start: 12-18-2015 Pneumococcal vaccination Pneum ococcal Vaccine Age 65+ (1 of 2 - PCV13) [facility] Start: 12-18-2015 PNEUMOCOCCAL VACCINE AGE 65+ (1 of 2 - PCV13) PNEUMOCOCCAL VACCINE AGE 65+ (1 of 2 - PCV13) [facility] Work Phone: Start: 2010 Zoster vaccine hzv l latisha for subcutaneous use ZOSTER VACCINE [facility] Work Phone: Start: 2000 Administration of he rpes zoster vaccine Zoster Vaccines (1 of 2) [facility] Start: 2000 Screening for malign ant neoplasm of colon [facility] Start: 1968 Hepatitis C antibody , confirmatory test Hepatitis C Screening [facility] Start: 1966 COVID-19 Vaccine (1 of 2) COVI D-19 Vaccine (1 of 2) [facility] Start: 1962 Adolescent depressio n screening assessment Depression Screening (PHQ9) [facility] Start: 1950 Colonoscopy COLONOSCOPY [facility] Work Phone: Start: 1950 Fall risk assessment Falls Risk Asse ssment [facility] Start: 1950 HEPATITIS C SCREENING HEPATITIS C SC BONITA [facility] Work Phone: Start: 1950 TETANUS EVERY 10 YR TETANUS EVERY 10 YR [facility] Work Phone: Start: 1950 Tetanus vaccination Tetanus: Every 1 0yrs [facility] End: 05-03-2021 Bone density scan XR Bone Density DEXA Axial Imaging Routine Menopausal disorder 1 Occurrences starting 05/03/2020 until 05/03/2021 [facility] Comment on above: 1 Occurrences starti ng 05/03/2020 until 05/03/2021 End: 05-03-2020 MG Breast - bilateral screening Mammography Screening Bilateral Imaging Routine Screening Mammogram, Encounter For Once for 1 Occurrences starting 05/03/2020 until 05/03/2020 [facility] Comment on above: Once for 1 Occurrenc es starting 05/03/2020 until 05/03/2020 MG Breast - bilatera l screening Mammography Screening Bilateral Imaging Routine Screening mammogram, encounter for 05/03/2020 2:07 PM EDT [facility] Microscopic examinat ion of vaginal Papanicolaou smear Thinprep Pap Smear Pathology and Cytology Routine Special screening for malignant neoplasm of vagina Ordered: 05/03/2020 [facility] Comment on above: Ordered: 05/03/2020 Thinprep Pap Smear, Screening Thinprep Pap Smear, Screening Routine Special screening for malignant neoplasms, vagina Ordered: 04/15/2017 [facility] Work Phone: Comment on above: Ordered: 04/15/2017 XR Lumbar spine 4 Views [facility] Payers Date Payer Category Payer Self-pay [id number] 2021 Medicare [id number] 2019 Medicare [employer] [place]NA[employer]ED [place] DICARE A[employer] MEDICARE PLAN (PPO) [id number] 2019-Present [id number] 2019 Medicare [id number] 1950 Unknown [id number] 1950 Unknown [id number] 1950 Unknown [id number] 1950 Unknown [id number] Medicare [id number] Medicare Medicare [id number] Unknown [id number] Social History Date Type Detail Facility Start: 04-15-2017 End: 02-28-2020 Tobacco smoking status [facility] Never smoker [facility] Sex Assigned At Not on file [employer] Work Phone: Start: 05-03-2020 Tobacco use and exposure Never used [facility] Start: 05-03-2020 Alcohol intake Current drinke r of alcohol (finding) [facility] Start: 04-15-2017 Alcohol Comment Social [facility] Exposure to SARS-CoV-2 (event) Not sure [facility] Sex Assigned At Sex Assigned At [facility] Other Start: 1950 Sex Assigned At Female [...] understanding. Patient states she is leaving for [place] for 6 months and does not wish to proceed with injections at this time. May, Other chronic pain (ICD-10 - G89.29) Continue with current treatment plan. [facility] Other Evaluation note 05-09-2022 Note Date & [...] - G89.29) Continue with current treatment plan. [facility] Other Evaluation note 04-21-2022 Note Date & [...] recently attended physical therapy which provided minimal fci improvement. She feels pain is negatively impacting [...] negative findings were considered in medical decision-making. [employer] Other Evaluation note Note Date & Type Note Facility Evaluation note No assessment information availa [facility] Work Phone: Evaluation note Note Date & Type Note Facility Evaluation note No Information [facility] [employer] Other Evaluation note Note Date & Type Note Facility Evaluation note Diagnosis Onset Date Phlebitis and thrombophlebitis acute Lumbosacral spondylosis acut e Other chronic pain acute Sacroiliitis [facility] Work Phone: History general Narrative - Reported Note Date & Type Note Facility History general Narrative - Reported Type Medical History CELLULITIS Medical History HYPOTHYROID Medical History hiatal hernia Surgical History HYSTERECTOMY Surgical History L KNEE Surgical History APPENDIX Surgical History GALLBLADDER Hospitalization History see above Hospitalization History cellulitis right leg [facility] Other History of Present Illness * Akshat [...] been noticing recurrent yeast infections. She uses [id number] Monistat, which seems to help. I gave her a prescription for Diflucan 150 mg, #1 with 5 refills. I did tell the patient that if she would need refills after this expires, we can do this over the phone as long as it is within 1 year. Review of Systems: I have reviewed and agree with the ROS as gathered by the product support technician. Past Medical History: Diagnosis Date [...] with the ROS as gathered by the product support technician. Past Medical History: Diagnosis Date [...] Procedures Mammography Screening Bilateral Akshat Webber MD [address] [place] [address] [facility] [address] [place] [id number] Status Reason Specialty Diagnoses / Procedures Referred By Contact Referred To Contact Authorized Radiology Diagnoses Menopausal disorder Procedures XR Bone Density DEXA Axial Akshat Webber MD [address] [place] [id number] Status Reason Specialty Diagnoses / Procedures Referred By Contact Referred To Contact Pending Review Radiology Diagnoses Screening mammogram, encounter for Procedures Mammography Screening Bilateral Akshat Webber MD [address] [place] [address] Advance Directives No Advanced Directives Records FoundDocuments on File Type Date Recorded 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 Advance Directives and Livin g Will 05/03/2020 12:00 AM Documents on File Type Date Recorded 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 Advance Directives and Livin g [...] Procedures Mammography Screening Bilateral Akshat Webber MD [address] [place] [address] [facility] [address] [place] [address] Reason Comments Annual Exam Status Reason Specialty Diagnoses / Procedures Referred By Contact Referred To Contact Pending Review Radiology Diagnoses Screening mammogram, encounter for Procedures Mammography Screening Bilateral Akshat Webber MD [address] [place] [address] INFORMATION SOURCE (unrecogn ized section and content) DATE CREATED AUTHOR 05/03/2020 [facility] DATE CREATED AUTHOR AUTHOR'S ORGANIZ ATION 05/09/2020 [facility] ospital DATE CREATED AUTHOR AUTHOR'S ORGANIZ ATION 03/30/2024 [facility] ysician Group DATE CREATED AUTHOR AUTHOR'S ORGANIZ ATION 04/15/2024 [facility] Specialists EPIC Quick Note - Sallie [...] BE BASED ON THE PRIMARY CLINICAL RECORDS. [employer] provides no warranty or guarantee of the accuracy or completeness of information in this document.
[2024-04-18 10:05] VITALS: BP 116/62; PULSE 65; O2SAT 98
== END 2024-04-18 12:28 | disposition home or self-care (01) ==
LOC: VC 09:51
PROVIDERS: PCP Radiology Diagnostic Radiology; Visit Provider Radiology Diagnostic Radiology
DX: I83.813 Varicose veins of bilateral lower extremities with pain (principal)
CPT/HCPCS: 36466

== ENCOUNTER 2024-04-22 08:54 | Outpatient (OUT) | payer MEDICARE, SELFPAY ==
--- OUTSIDE RECORDS SUMMARY | 2024-04-22 09:03 | XMS_ITS | CCD ---
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 Role Phone Unavailable Primary Care Provider Ty Clinton Primary Care Provider AKSHAT WEBBER Attending TY Austin Primary Care TY Clinton Attending TY Clinton Primary Care UnavailAKSHAT Garcia Attending UnavailAKSHAT Go Referring UnavailTY Bernal Primary Care Reynold Corrales Unavailable MD Ty Shah Primary Care Provider [phone] MD Reynold Roper Attending Provider MD Ty Shah Primary Care Provider MD Reynold Roper Attending Provider Reynold Roper Attending Unavailable Reynold Roper Admitting Unavailable Ty Shah Primary Care Unavailable JOSLYN OLIVARES Attending Unavailable REYNOLD ROPER Referring Unavailable GLORY PEREZ Attending Unavailable REYNOLD ROPER Referring Unavailable Medications [...] 5 04/15/2017 04/15/2017 Active lactobacillus rhamnosus gg [id number] unt oral capsule (2 sources) take 1 [...] AP/LAT/FLX/E XTon 03-28-2024 XR lumbar spine AP/LAT/FLX/EXT [facility] [place] [address] XRay Report Signed Patient: Radha Salgado MR#: [id number] : 1950 Acct:[id number] Age/Sex: 73 / F ADM Date: 03/28/24 Loc: XD Room: Type: [facility] Attending Dr: Reynold Roper MD Copies [...] Landry Jr., D.O.03/28/2024 3:28 PM Dictation Location: [place] [address] Transcribed By: [facility] 03/28/24 1528 Dictated By: Marcel Landry Jr, DO 03/28/24 1526 Signed By: 03/28/24 1528 Normal [facility] MM SCREENING BILATERALon MM SCREENING BILATERAL EXAMINATION: [...] sent to the patient regarding the results. [facility], along with the National [employer], the [employer], and [facility], recommend annual screening mammograms for women age 40 and older. [employer] Workstation ID: [id number] Dictated by: CHELSIE PURDY on ThuMay 04, 2020 10:15:06 AM EDT Transcribed by: JAZZY ALBERTO on ThuMay 04, 2020 10:28:17 AM EDT Finalized by: CHELSIE PURDY on ThuMay 04, 2020 10:38:22 AM EDT Normal [facility] Comment on above: Order Comment: Reduc tion 15 years Mammography Screening Bilwan ralon 04-15-2017 Mammography Screening Bilateral No mammographic evidence of malignancy. BIRADS: BIRADS - CATEGORY 2 Benign, no evidence of malignancy. Normal interval follow-up is recommended in 12 months. OVERALL ASSESSMENT - BENIGN A letter of notification will be sent to the patient regarding the results. [facility], along with the National Comprehensive Cancer Network, the [employer], and [facility], recommend annual screening mammograms for women age 40 and older. [employer] Workstation ID: [id number] [employer] [facility] Mammography Screening Bilateral EXAMINATION: MM SCREENING BILATERAL 04/15/2017 Computer-assisted detection utilized in the interpretation of this exam. COMPARISON: Mammogram dated 03/22/2015. FINDINGS: MLO and CC views of both breasts were obtained using digital technique. The breasts are almost entirely fatty. Mild scarring from bilateral reduction surgery again noted, not significantly changed. No standout mass, suspicious calcification, or architectural distortion identified. [employer] [facility] Vital Signs Date Time Vital Sign Value Performing Clinician Facility 03-28-2024 11:16-0400 Diastolic blood pressure 80 mm[Hg] [facility] 03-28-2024 11:16-0400 Heart rate 70 /min [facility] 03-28-2024 11:16-0400 SaO2% (BldA) [Mass fraction] 99 % [facility] 03-28-2024 11:16-0400 Systolic blood pressure 140 mm[Hg] [facility] 02-01-2024 13:43-0400 Body height 154.94 cm [facility] 02-01-2024 13:43-0400 Body mass index (BMI) [Ratio] 31.1 kg/m2 [facility] 02-01-2024 13:43-0400 Body temperature 97.8 [degF] [facility] 02-01-2024 13:43-0400 Body weight 74.84 kg [facility] 02-01-2024 13:43-0400 Diastolic blood pressure 84 mm[Hg] [facility] 02-01-2024 13:43-0400 Heart rate 56 /min [facility] 02-01-2024 13:43-0400 Systolic blood pressure 173 mm[Hg] [facility] 05-29-2022 16:30-0400 Body height 160.02 cm Reynold Roper Other [facility] Other 05-29-2022 16:30-0400 Body mass index (BMI) [Ratio] 33.16 kg/m2 Reynold Roper Other [facility] Other 05-29-2022 16:30-0400 Body weight 84.91 kg Reynold Roper Other [facility] Other 05-29-2022 16:30-0400 Diastolic blood pressure 102 mm[Hg] Reynold Roper Other [facility] Other 05-29-2022 16:30-0400 SaO2% (BldA) [Mass fraction] 99 % Reynold Roper Other [facility] Other 05-29-2022 16:30-0400 Systolic blood pressure 170 mm[Hg] Reynold Jacquelin Other [facility] Other 05-09-2022 11:15-0400 Body height 160.02 cm Reynold Roper Other [facility] Other 05-09-2022 11:15-0400 Body mass index (BMI) [Ratio] 33.19 kg/m2 Reynold Roper Other [facility] Other 05-09-2022 11:15-0400 Body weight 85 kg Reynold Roper Other [facility] Other 05-09-2022 11:15-0400 Diastolic blood pressure 90 mm[Hg] Reynold Jacquelin Other [facility] Other 05-09-2022 11:15-0400 SaO2% (BldA) [Mass fraction] 99 % Reynold Roper Other [facility] Other 05-09-2022 11:15-0400 Systolic blood pressure 164 mm[Hg] Reynold Jacquelin Other [facility] Other 04-21-2022 15:00-0400 Body height 160.02 cm Reynold Roper Other [facility] Other 04-21-2022 15:00-0400 Body mass index (BMI) [Ratio] 33.12 kg/m2 Reynold Jacquelin Other [facility] Other 04-21-2022 15:00-0400 Body weight 84.82 kg Reynold Jacquelin Other [facility] Other 04-21-2022 15:00-0400 Diastolic blood pressure 82 mm[Hg] Reynold Jacquelin Other [facility] Other 04-21-2022 15:00-0400 SaO2% (BldA) [Mass fraction] 99 % Reynold Roper Other [facility] Other 04-21-2022 15:00-0400 Systolic blood pressure 140 mm[Hg] Reynold Almazanky Other [facility] Other 05-03-2020 14:46-0400 BMI (Body Mass Index) 31.79 kg/m2 Akshat Webber [facility] 05-03-2020 14:46-0400 [facility] 78.[facility] 14:46-0400 BP Diastolic 84 mm[Hg] Akshat Richard [facility] 05-03-2020 14:46-0400 BP Systolic 160 mm[Hg] Akshat Webber [facility] 05-03-2020 14:46-0400 Height 157.5 cm [facility] 05-03-2020 14:46-0400 Pulse (Heart Rate) 81 /min Akshat Olliesimnavi [facility] 04-15-2017 13:39-0400 BMI (Body Mass Index) 33.44 kg/m2 Akshat Webber [facility] Work Phone: 04-15-2017 13:39-0400 BP Diastolic 76 mm[Hg] Akshat Webber [facility] Work Phone: 04-15-2017 13:39-0400 BP Systolic 132 mm[Hg] Akshat Webber [facility] Work Phone: 04-15-2017 13:39-0400 Height 154.9 cm Akshat Wbeber [facility] Work Phone: 04-15-2017 13:39-0400 Weight 80.29 kg Akshat Webber [facility] Work Phone: Encounters Encounter Date Encounter Type Care Provider Facility Start: 04-18-2024 End: 04-18-2024 ambulatory GLORY PEREZ Not Available Start: 04-13-2024 End: 04-13-2024 ambulatory JOSLYN OLIVARES Not Available Start: 03-28-2024 End: 03-28-2024 ambulatory MD Ty Shah Work Phone: [facility] Work Phone: Start: 03-28-2024 End: 03-28-2024 Patient encounter procedure [facility] Work Phone: Start: 02-01-2024 End: 02-01-2024 ambulatory [facility] Work Phone: Start: 02-01-2024 End: 02-01-2024 Patient encounter procedure [facility] Work Phone: Start: 05-29-2022 End: 05-29-2022 ambulatory Reynold Roper Other [facility] Other Start: 05-29-2022 Office outpatient vi sit 25 minutes Reynold Roper [facility] Start: 05-09-2022 End: 05-09-2022 ambulatory Reynold Roper Other [facility] Other Start: 05-09-2022 Patient encounter procedure Reynold Roper [facility] Start: 04-21-2022 End: 04-21-2022 Patient encounter procedure MD Ty Shah Work Phone: [facility] Start: 04-21-2022 End: 04-21-2022 ambulatory Reynold Roper Other [facility] Other Start: 04-21-2022 Office consultation new/estab patient 60 min Reynolddenice Roper [facility] Start: 04-15-2022 End: 04-15-2022 ambulatory Reynolddenice Roper Other [facility] Other Start: 04-15-2022 Telephone encounter Reynold Roper [facility] Start: 10-01-2020 End: 10-01-2020 Orders Only Elena De La Rosa Work Phone: [facility] Start: 05-03-2020 End: 05-04-2020 Patient encounter procedure AKSHAT WEBBER [facility] Start: 05-03-2020 End: 05-03-2020 Office outpatient new 30 minutes Akshat Webber Work Phone: [facility] Comment on above: Encounter for gyneco logical examination without abnormal finding (Primary Dx); Menopausal disorder; Special screening for malignant neoplasm of vagina Start: 05-03-2020 End: 05-03-2020 Subsequent hospital visit by physician Akshat Webber Work Phone: [facility] Comment on above: Screening mammogram, encounter for Start: 03-28-2020 End: 03-28-2020 Patient encounter procedure TY TORRES SHAH [facility] Start: 04-15-2017 End: 04-15-2017 Periodic preventive med est patient 65yrs& older Akshat Webber Work Phone: [facility] Comment on above: Encounter for gyneco logical examination without abnormal finding (Primary Dx);Special screening for malignant neoplasms, vagina;Candidiasis of vulva and vagina;Fatigue, unspecified type;Osteopenia, unspecified location Start: 04-15-2017 End: 04-15-2017 Patient encounter procedure Akshat Webber Work Phone: [facility] Comment on above: Visit for screening mammogram Procedures Date Procedure Procedure Detail Performing Clinician Start: 03-28-2024 X-ray of lumbar spin e, four views MD Ty Shah Work Phone: Start: 04-21-2022 X-ray of cervical spine MD Ty Shah Work Phone: Start: 05-03-2020 Mammography Elena Lsia doss Start: 04-15-2017 Mammography Akshat mcelroy Plan of Treatment Date Care Activity Detail Author Start: 05-03-2021 Screening mammography Mammogram [facility] Start: 04-24-2020 Influenza vaccinatio n given Sequential Influenza Vaccine (#1) [facility] Start: 04-15-2018 History and physical examination, annual for health maintenance Wellness Visit [facility] Start: 04-15-2018 Screening mammography Mammogram [facility] Start: 04-24-2017 SEQUENTIAL INFLUENZA VACCINE (#1) SEQUENTIAL INFLUENZA VACCINE (#1) [facility] Work Phone: Start: 12-18-2015 Pneumococcal vaccination Pneum ococcal Vaccine Age 65+ (1 of 2 - PCV13) [facility] Start: 12-18-2015 PNEUMOCOCCAL VACCINE AGE 65+ (1 of 2 - PCV13) PNEUMOCOCCAL VACCINE AGE 65+ (1 of 2 - PCV13) [facility] Work Phone: Start: 2010 Zoster vaccine hzv l latisha for subcutaneous use ZOSTER VACCINE [facility] Work Phone: Start: 2000 Administration of he rpes zoster vaccine Zoster Vaccines (1 of 2) [facility] Start: 2000 Screening for malign ant neoplasm of colon [facility] Start: 1968 Hepatitis C antibody , confirmatory test Hepatitis C Screening [facility] Start: 1966 COVID-19 Vaccine (1 of 2) COVI D-19 Vaccine (1 of 2) [facility] Start: 1962 Adolescent depressio n screening assessment Depression Screening (PHQ9) [facility] Start: 1950 Colonoscopy COLONOSCOPY [facility] Work Phone: Start: 1950 Fall risk assessment Falls Risk Asse hayden [facility] Start: 1950 HEPATITIS C SCREENING HEPATITIS C SC BONITA [facility] Work Phone: Start: 1950 TETANUS EVERY 10 YR TETANUS EVERY 10 YR [facility] Work Phone: Start: 1950 Tetanus vaccination Tetanus: Every 1 0yrs [facility] End: 05-03-2021 Bone density scan XR Bone Density DEXA Axial Imaging Routine Menopausal disorder 1 Occurrences starting 05/03/2020 until 05/03/2021 [facility] Comment on above: 1 Occurrences starti ng 05/03/2020 until 05/03/2021 End: 05-03-2020 MG Breast - bilateral screening Mammography Screening Bilateral Imaging Routine Screening Mammogram, Encounter For Once for 1 Occurrences starting 05/03/2020 until 05/03/2020 [facility] Comment on above: Once for 1 Occurrenc es starting 05/03/2020 until 05/03/2020 MG Breast - bilatera l screening Mammography Screening Bilateral Imaging Routine Screening mammogram, encounter for 05/03/2020 2:07 PM EDT [facility] Microscopic examinat ion of vaginal Papanicolaou smear Thinprep Pap Smear Pathology and Cytology Routine Special screening for malignant neoplasm of vagina Ordered: 05/03/2020 [facility] Comment on above: Ordered: 05/03/2020 Thinprep Pap Smear, Screening Thinprep Pap Smear, Screening Routine Special screening for malignant neoplasms, vagina Ordered: 04/15/2017 [facility] Work Phone: Comment on above: Ordered: 04/15/2017 XR Lumbar spine 4 Views [facility] Payers Date Payer Category Payer Self-pay [id number] 2021 Medicare [id number] 2019 Medicare [employer] MANAGED ME DICARE AETNA MEDICARE PLAN (PPO) [id number] 2019-Present [id number] 2019 Medicare [id number] 1950 Unknown [id number] 1950 Unknown [id number] 1950 Unknown [id number] 1950 Unknown [id number] 1950 Unknown [id number] Medicare [id number] Medicare Medicare [id number] Unknown [id number] Social History Date Type Detail Facility Start: 04-15-2017 End: 02-28-2020 Tobacco smoking status [facility] Never smoker [facility] Sex Assigned At Not on file [employer] Work Phone: Start: 05-03-2020 Tobacco use and exposure Never used [facility] Start: 05-03-2020 Alcohol intake Current drinke r of alcohol (finding) [facility] Start: 04-15-2017 Alcohol Comment Social [facility] Exposure to SARS-CoV-2 (event) Not sure [facility] Sex Assigned At Sex Assigned At [facility] Other Start: 1950 Sex Assigned At Female F [facility] Evaluation note 05-29-2022 Note Date & [...] understanding. Patient states she is leaving for [place] for 6 months and does not wish to proceed with injections at this time. May, Other chronic pain (ICD-10 - G89.29) Continue with current treatment plan. [facility] Other Evaluation note 05-09-2022 Note Date & [...] - G89.29) Continue with current treatment plan. [facility] Other Evaluation note 04-21-2022 Note Date & [...] recently attended physical therapy which provided minimal half-way improvement. She feels pain is negatively impacting [...] negative findings were considered in medical decision-making. [facility] Other Evaluation note Note Date & Type Note Facility Evaluation note No assessment information [facility] Work Phone: Evaluation note Note Date & Type Note Facility Evaluation note No Information [facility] [employer] Other Evaluation note Note Date & Type Note Facility Evaluation note Diagnosis Onset Date Phlebitis and thrombophlebitis acute Lumbosacral spondylosis acut e Other chronic pain acute Sacroiliitis acute [facility] Work Phone: History general Narrative - Reported Note Date & Type Note Facility History general Narrative - Reported Type Medical History CELLULITIS Medical History HYPOTHYROID Medical History hiatal hernia Surgical History HYSTERECTOMY Surgical History L KNEE Surgical History APPENDIX Surgical History GALLBLADDER Hospitalization History see above Hospitalization History cellulitis right leg [facility] [employer] Other History of Present Illness * [...] been noticing recurrent yeast infections. She uses [id number] Monistat, which seems to help. I gave her a prescription for Diflucan 150 mg, #1 with 5 refills. I did tell the patient that if she would need refills after this expires, we can do this over the phone as long as it is within 1 year. Review of Systems: I have reviewed and agree with the ROS as gathered by the technical support associate. Past Medical History: Diagnosis Date Disease of [...] with the ROS as gathered by the technical support associate. Past Medical History: Diagnosis Date Anemia Arthritis [...] file Gets together: Not on file Attends bahai service: Not on file Active member of [...] Procedures Mammography Screening Bilateral Akshat Webber MD [facility] [place] [address] [facility] [address] [place] [address] Status Reason Specialty Diagnoses / Procedures Referred By Contact Referred To Contact Authorized Radiology Diagnoses Menopausal disorder Procedures XR Bone Density DEXA Axial Akshat Webber MD [address] [place] [address] Status Reason Specialty Diagnoses / Procedures Referred By Contact Referred To Contact Pending Review Radiology Diagnoses Screening mammogram, encounter for Procedures Mammography Screening Bilateral Akshat Webber MD [address] [place] [address] Advance Directives No Advanced Directives Records FoundDocuments on File Type Date Recorded 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 Advance Directives and Livin g Will 05/03/2020 12:00 AM Documents on File Type Date Recorded 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 Advance Directives and Livin g [...] Procedures Mammography Screening Bilateral Akshat Webber MD [address] [place] [address] [facility] [address] [place] [address] Reason Comments Annual Exam Status Reason Specialty Diagnoses / Procedures Referred By Contact Referred To Contact Pending Review Radiology Diagnoses Screening mammogram, encounter for Procedures Mammography Screening Bilateral Akshat Webber MD [address] [place] [address] INFORMATION SOURCE (unrecogn ized section and content) DATE CREATED AUTHOR 05/03/2020 [facility] DATE CREATED AUTHOR AUTHOR'S ORGANIZ ATION 05/09/2020 [facility] DATE CREATED AUTHOR AUTHOR'S ORGANIZ ATION 03/30/2024 [facility] DATE CREATED AUTHOR AUTHOR'S ORGANIZ ATION 04/20/[address] [facility] d[facility] Specialists EPIC Quick Note - Sallie [...] BE BASED ON THE PRIMARY CLINICAL RECORDS. [employer] provides no warranty or guarantee of the accuracy or completeness of information in this document.
--- NOTE | 2024-04-22 09:11 | VEIN_ITS ---
Patient Name: RADHA SALGADO MR#: [id number] : 1950 Exam Date: 04/22/2024 Ordering Doctor: DR MAEGAN WALLER M.D. RADIOLOGY REPORT PROCEDURE: VC EXT VENOUS RT LMTD COMPARISON: VC EXT VENOUS RT LMTD, 04/08/2024. INDICATIONS: I80.01 - Phlebitis and thrombophlebitis of superficial veins right leg TECHNIQUE: Lower extremity lora scale and Duplex Doppler evaluation of the deep venous system from the inguinal ligament through the calf veins. FINDINGS: REGION: Right lower extremity. THROMBI: Negative for DVT. 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 COMPRESSIBILITY: Non-compressible segments corresponding to thrombus FLOW: Areas of no flow corresponding to thrombus OTHER: Patent varicose vein proximal medial lower leg measures 4.3 mm with 3.9s reflux. Varicose vein proximal posterior calf measures 4.8 mm with 2.7s reflux. CONCLUSION: 1. Successful ablation of right leg treated branch saphenous varicosities. Treatment of remaining incompetent branch saphenous varicosities via microfoam chemical ablation is recommended if there are any remaining treatments. Dictated by: Sundeep Wilkins M.D. on 04/26/2024 at 13:41 Approved by: Sundeep Wilkins M.D. on 04/26/2024 at 13:44
--- NOTE | 2024-04-22 09:38 | W.VEIN ---
Discharge Plan Discharge Disposition: Home, Self-Care Outpatient Diagnostics: VC INJ Sclerosing SOLMULT Vein (Routine) Timeframe: 2 Weeks Facility: [facility] - Location: [facility] Ordered By: Vance Zhu Follow Up Appointments: 05/02/24 Plan of Treatment: Sclerotherapy of bilateral legs Print Language: Moldovan Discharge Date/Time: 04/22/24 09:41
== END 2024-04-22 09:41 | disposition home or self-care (01) ==
PROVIDERS: PCP Radiology Diagnostic Radiology; Visit Provider Radiology Diagnostic Radiology
DX: I80.01 Phlebitis and thrombophlebitis of superficial vessels of right lower extremity (principal)
CPT/HCPCS: 93971

== ENCOUNTER 2024-04-26 08:55 | Outpatient (OUT) | payer MEDICARE, SELFPAY ==
--- NOTE | 2024-04-20 13:40 | VEINCLINIC_ITS ---
Vital Signs 04/26/24 09:52 04/26/24 09:55 Height 5 ft 1 in Weight 73.482 kg BP 160/78 H BP Location Right Radial BP Position Sitting BP Cuff Size Adult BP Source Manual Cuff Respiration 16 Pulse 70 Pulse Source Monitor Pulse Oximetry (%) 98 Oxygen Delivery Method Room Air Comment The patient's blood pressure is elevated. Varicose Veins Patient in today for sclerotherapy Sundeep Arzola MD personally performed the services described in this documentation, as scribed by Ranjit Henderson RN in my presence and it is both accurate and complete. IRanjit RN, am scribing for, and in the presence of, Dr. Sundeep Wilkins and in the presence of the patient. medial (Distal/medial right leg ulcer) thigh: bilateral, knee: bilateral, calf: bilateral and ankle: bilateral cramping, sharp and other 7 30+ years Worsened in recent months: Yes standing elevating extremities, compression stockings and other (Rest) Reports edema, leg edema and other (stasis ulcer to right distal/medial calf, cellulitis, DVT) History of lower extremity trauma: No Superficial thrombophlebitis: No Family history of varicose veins: yes Has patient had previous lower extremity venous surgery: No Patient has previously received the following treatment(s) for lower extremity varicose veins: Reports sclerotherapy Does patient have a history of : yes Does patient intend to have future pregnancies: no Has patient had lower extremity venous scan with relux testing: Yes Support hose used: Yes Prescribed by provider: No Problems walking or doing physical activity: No Do you walk much: Yes Do you stand much: Yes Medication compliance: good Large amounts of Vitamin K: No Review of Systems ROS Narrative Sundeep Arzola MD personally performed the services described in this documentation, as scribed by Ranjit Henderson RN in my presence and it is both accurate and complete. Ranjit Arzola RN, am scribing for, and in the presence of, Dr. Sundeep Wilkins and in the presence of the patient. Status of ROS 10 or more systems reviewed and unremark able except as noted in history and below Cardiovascular Reports: edema and leg pain with exertion Musculoskeletal Reports: extremity pain, extremity swelling and muscle cramps Integumentary/Breast Reports: itching, redness, changing lesion, non-healing lesion and changes in skin color Neurological Reports: weakness in extremities Hematologic/Lymphatic Reports: easy bruising PFSH [facility] Medical History (Updated 04/04/24 @ 10:48 by Cristal Garnett) Phlebitis and thrombophlebitis of superficial vessels of lower extremities, bilateral ?I80.03 - Phlebitis and thrombophlebitis of superficial vessels of lower extremities, bilateral (ICD-10) Phlebitis and thrombophlebitis of superficial vessels of left lower extremity ?I80.02 - Phlebitis and thrombophlebitis of superficial vessels of left lower extremity (ICD-10) Phlebitis and thrombophlebitis of superficial vessels of right lower extremity ?I80.01 - Phlebitis and thrombophlebitis of superficial vessels of right lower extremity (ICD-10) Varicose veins of bilateral lower extremities with pain ?I83.813 - Varicose veins of bilateral lower extremities with pain (ICD-10) Hypothyroidism ?E03.9 - Hypothyroidism, unspecified (ICD-10) Cellulitis and abscess of leg ?L03.119 - Cellulitis of unspecified part of limb (ICD-10) ?L02.419 - Cutaneous abscess of limb, unspecified (ICD-10) DVT (deep venous thrombosis) ?I82.409 - Acute embolism and thrombosis of unspecified deep veins of unspecified lower extremity (ICD-10) 3 para 3 ?Z78.9 - Other specified health status (ICD-10) Surgical History (Updated 02/22/24 @ 14:45 by Rossy Weller) History of arthroscopic knee surgery ?Z98.890 - Other specified postprocedural states (ICD-10) History of cholecystectomy ?Z90.49 - Acquired absence of other specified parts of digestive tract (ICD- 10) History of hysterectomy ?Z90.710 - Acquired absence of both cervix and uterus (ICD-10) Family History (Updated 02/22/24 @ 14:46 by Rossy Weller) Mother Family history of cancer Varicose veins of bilateral lower extremities with pain Father Family history of cancer Brother Family history of cancer Sister Family history of cancer Social History (Updated 02/22/24 @ 14:47 by Rossy Weller) Within the past year, how often did you have a drink containing alcohol: 2-4 times a month Smoking status: Never smoker Non-prescribed substance use: denies use Meds Home Medications and Allergies Home Medications ?Medication ?Instructions ?Recorded ?Confirmed ?Type ibuprofen 200 mg tablet (IBU-200) 200 mg PO Q8H 02/22/24 03/21/24 History levothyroxine .ROUTE 02/22/24 History ropinirole .ROUTE 02/22/24 History aspirin 325 mg tablet 325 mg PO DAILY 04/08/24 04/08/24 History Allergies Allergy/AdvReac Type Severity Reaction Status Date / Time No Known Drug Allergies Allergy Unverified 02/22/24 14:43 Exam Narrative Exam Narrative: Sundeep Arzola MD personally performed the services described in this documentation, as scribed by Ranjit Henderson RN in my presence and it is both accurate and complete. Ranjit Arzola RN, am scribing for, and in the presence of, Dr. Sundeep Wilkins and in the presence of the patient. Constitutional Documenting provider has reviewed patient's vital signs: yes Common normals: oriented x3 Lymph Lymphatic: no lymphedema noted Cardio Common normals: regular rate Rate: regular rate Peripheral pulses: posterior tibial pulses present and dorsalis pedis pulses present Extremity Common normals: normal capillary refill General: calf tenderness and edema Right lower extremity: upper leg and lower leg (tenderness and numbness ) Left lower extremity: upper leg and lower leg Neuro Common normals: oriented x3 Assessment and Plan Assessment and Plan (1) Varicose veins of bilateral lower extremities with pain: Plan Patient to return for sclerotherapy left leg. Sundeep Arzola MD personally performed the services described in this documentation, as scribed by Ranjit Henderson RN in my presence and it is both accurate and complete. Ranjit Arzola RN, am scribing for, and in the presence of, Dr. Sundeep Wilkins and in the presence of the patient. Procedures Procedure Instructions Procedures sclerotherapy: Risks and benefits of the procedure were discussed at length and informed written consent was obtained.? Time-out procedure was performed and the correct patient and procedure were confirmed.? Staff present during time-out: Ranjit Henderson RN and Sundeep Wilkins MD.? Patient prepped and procedure performed in usual sterile fashion. Injections performed by Dr. Wilkins and Ranjit Henderson RN Sclerosing Agent:?? 4cc 0.5% Polidocanol Site Injected: right leg Number of Injections: 18 Anesthesia: Supercooled air The patient tolerated the procedure well without complication.? Hemostasis was obtained and thigh-high compression stocking was applied by patient.? Instructed patient to wear stocking for at least 96 hours and sleep with it and only remove for showering.? Will wear stocking for 2 weeks.? The patient verbalizes understanding and states they will comply.? Patient was given post-procedure instructions. Patient was discharged in good condition.? Scheduled to undergo additional injection sclerotherapy on 05/02/2024.
--- NOTE | 2024-04-20 13:42 | W.VEIN ---
Discharge Plan Discharge Disposition: Home, Self-Care Outpatient Diagnostics: VC INJ Sclerosing SOLMULT Vein (Routine) Timeframe: 2 Weeks Facility: [facility] - Location: [facility] Ordered By: Sundeep Wilkins Follow Up Appointments: 05/02/2024 Plan of Treatment: sclerotherapy left leg Patient Instructions: Polidocanol (By injection) (Asclera, Varithena) Print Language: Georgian Discharge Date/Time: 04/26/24 09:54
--- NOTE | 2024-04-26 08:58 | VEIN_ITS ---
[address] [address] Patient Name: RADHA SALGADO MRN: [id number] date: 1950 Sex: F Assigned Patient Location: Current Patient Location: Accession/Order Number: [id number] Exam Date: 04/26/2024 09:04 Report Date: 04/26/2024 11:01 At the request of: MAEGAN WALLER Procedure: VC INJ Sclerosing SOLMULT Vein EXAMINATION: VC INJ Sclerosing SOLMULT Vein HISTORY: I83.813 - Varicose veins of bilateral lower extremities w... The risks and benefits of the procedure were explained at length to the patient and informed written consent was obtained. The procedure was performed under sterile technique. The patient's leg was wrapped with Coban and postprocedural verbal and written instructions provided. Ranjit Henderson RN was present and assisted. SCLEROSANT: 2mL 0.5% Polidocanol. VEIN(S) INJECTED: 18 veins in the left leg. VISUALIZATION: Ultrasound was not used to visualize the sclerosant. ANESTHESIA: Supercooled air. COMPLICATIONS: None. Electronically authenticated by: MARIELA BARRAGAN Date: 04/26/2024 11:01
--- OUTSIDE RECORDS SUMMARY | 2024-04-26 09:17 | XMS_ITS | CCD ---
Author Organization [facility] Care Team Providers Care Cream Hauler Name Role Phone Unavailable Primary Care Provider Ty Clinton Primary Care Provider AKSHAT WEBBER Attending TY Austin Primary Care TY Clinton Attending TY Clinton Primary Care UnavailAKSHAT Garcia Attending UnavailAKSHAT Go Referring UnavailTY Bernal Primary Care Reynold Corrales Unavailable MD Ty Shah Primary Care Provider [phone] MD Reynold Roper Attending Provider MD Ty Shah Primary Care Provider MD Reynold Roper Attending Provider Reynold Roper Attending Unavailable Reynold Roper Admitting Unavailable Ty Shah Primary Care Unavailable JOSLYN OLIVARES Attending Unavailable REYNOLD ROPER Referring Unavailable GLORY PEREZ Attending Unavailable REYNOLD ROPER Referring Unavailable GLORY [...] 5 04/15/2017 04/15/2017 Active lactobacillus rhamnosus gg [id number] unt oral capsule (2 sources) take 1 [...] AP/LAT/FLX/E XTon 03-28-2024 XR lumbar spine AP/LAT/FLX/EXT [facility] [place] [address] XRay Report Signed Patient: Radha Salgado MR#: [id number] : 1950 Acct:[id number] Age/Sex: 73 / F ADM Date: 03/28/24 Loc: XD Room: Type: [facility] Attending Dr: Reynold Roper MD Copies to: [...] Landry Jr., D.O.03/28/2024 3:28 PM Dictation Location: [place] [address] Transcribed By: [facility] 03/28/24 1528 Dictated By: Marcel Landry Jr, DO 03/28/24 1526 Signed By: 03/28/24 1528 Normal [facility] Physician [facility] MM SCREENING BILATERALon MM SCREENING BILATERAL EXAMINATION: [...] sent to the patient regarding the results. [facility], along with the [employer], the [employer], and [facility], recommend annual screening mammograms for women age 40 and older. MPH/ges Workstation ID: [id number] Dictated by: CHELSIE PURDY on ThuMay 04, 2020 10:15:06 AM EDT Transcribed by: JAZZY ALBERTO on ThuMay 04, 2020 10:28:17 AM EDT Finalized by: CHELSIE PURDY on ThuMay 04, 2020 10:38:22 AM EDT Normal [facility] Comment on above: Order Comment: Reduc tion 15 years Mammography Screening Andre olivares 04-15-2017 Mammography Screening Bilateral No mammographic evidence of malignancy. BIRADS: BIRADS - CATEGORY 2 Benign, no evidence of malignancy. Normal interval follow-up is recommended in 12 months. OVERALL ASSESSMENT - BENIGN A letter of notification will be sent to the patient regarding the results. [facility], along with the [employer], the [employer], and [facility], recommend annual screening mammograms for women age 40 and older. [employer] Workstation ID: [id number] [facility] Mammography Screening Bilateral EXAMINATION: MM SCREENING BILATERAL 04/15/2017 Computer-assisted detection utilized in the interpretation of this exam. COMPARISON: Mammogram dated 03/22/2015. FINDINGS: MLO and CC views of both breasts were obtained using digital technique. The breasts are almost entirely fatty. Mild scarring from bilateral reduction surgery again noted, not significantly changed. No standout mass, suspicious calcification, or architectural distortion identified. [facility] Vital Signs Date Time Vital Sign Value Performing Clinician Facility 03-28-2024 11:16-0400 Diastolic blood pressure 80 mm[Hg] [facility] 03-28-2024 11:16-0400 Heart rate 70 /min [facility] 03-28-2024 11:16-0400 SaO2% (BldA) [Mass fraction] 99 % [facility] 03-28-2024 11:16-0400 Systolic blood pressure 140 mm[Hg] [facility] 02-01-2024 13:43-0400 Body height 154.94 cm [facility] 02-01-2024 13:43-0400 Body mass index (BMI) [Ratio] 31.1 kg/m2 [facility] 02-01-2024 13:43-0400 Body temperature 97.8 [degF] [facility] 02-01-2024 13:43-0400 Body weight 74.84 kg [facility] 02-01-2024 13:43-0400 Diastolic blood pressure 84 mm[Hg] [facility] 02-01-2024 13:43-0400 Heart rate 56 /min [facility] 02-01-2024 13:43-0400 Systolic blood pressure 173 mm[Hg] [facility] 05-29-2022 16:30-0400 Body height 160.02 cm Reynold Roper Other [facility] Other 05-29-2022 16:30-0400 Body mass index (BMI) [Ratio] 33.16 kg/m2 Reynold Mares [facility] Other 05-29-2022 16:30-0400 Body weight 84.91 kg Reynold Roper Other [facility] Other 05-29-2022 16:30-0400 Diastolic blood pressure 102 mm[Hg] Reynold Roper Other [facility] Other 05-29-2022 16:30-0400 SaO2% (BldA) [Mass fraction] 99 % Reynold Roper Other [facility] Other 05-29-2022 16:30-0400 Systolic blood pressure 170 mm[Hg] Reynold Roper Other [facility] Other 05-09-2022 11:15-0400 Body height 160.02 cm Reynold Roper Other [facility] Other 05-09-2022 11:15-0400 Body mass index (BMI) [Ratio] 33.19 kg/m2 Reynold Roper Other [facility] Other 05-09-2022 11:15-0400 Body weight 85 kg Reynold Roper Other [facility] Other 05-09-2022 11:15-0400 Diastolic blood pressure 90 mm[Hg] Reynold Roper Other [facility] Other 05-09-2022 11:15-0400 SaO2% (BldA) [Mass fraction] 99 % Reynold Roper Other [facility] Other 05-09-2022 11:15-0400 Systolic blood pressure 164 mm[Hg] Reynold Roper Other [facility] Other 04-21-2022 15:00-0400 Body height 160.02 cm Reynold Roper Other [facility] Other 04-21-2022 15:00-0400 Body mass index (BMI) [Ratio] 33.12 kg/m2 Reynold Roper Other [facility] Other 04-21-2022 15:00-0400 Body weight 84.82 kg Reynold Roper Other [facility] Other 04-21-2022 15:00-0400 Diastolic blood pressure 82 mm[Hg] Reynold Almazanky Other [facility] Other 04-21-2022 15:00-0400 SaO2% (BldA) [Mass fraction] 99 % Reynold Roper Other [facility] Other 04-21-2022 15:00-0400 Systolic blood pressure 140 mm[Hg] Reynold Roper Other [facility] Other 05-03-2020 14:46-0400 BMI (Body Mass Index) 31.79 kg/m2 Akshat Webber [facility] 05-03-2020 14:46-0400 Body weight 78.83 kg Akshat Webber [facility] 05-03-2020 14:46-0400 BP Diastolic 84 mm[Hg] Akshat Webber [facility] 05-03-2020 14:46-0400 BP Systolic 160 mm[Hg] Akshat Webber [facility] 05-03-2020 14:46-0400 Height 157.5 cm Akshat Webber [facility] 05-03-2020 14:46-0400 Pulse (Heart Rate) 81 /min Akshat Webber [facility] 04-15-2017 13:39-0400 BMI (Body Mass Index) 33.44 kg/m2 Akshat Webber [facility] Work Phone: 04-15-2017 13:39-0400 BP Diastolic 76 mm[Hg] Akshat Webber [facility] Work Phone: 04-15-2017 13:39-0400 BP Systolic 132 mm[Hg] Akshat Webber [facility] Work Phone: 04-15-2017 13:39-0400 Height 154.9 cm Akshat Webber [facility] Work Phone: 04-15-2017 13:39-0400 Weight 80.29 kg Akshat Webber [facility] Work Phone: Encounters Encounter Date Encounter Type Care Provider Facility Start: 04-20-2024 End: 04-20-2024 ambulatory GLORY DEPOY Not Available Start: 04-18-2024 End: 04-18-2024 ambulatory GLORY DEPOY Not Available Start: 04-13-2024 End: 04-13-2024 ambulatory JOSLYNARIANA CALVOELISE Not Available Start: 03-28-2024 End: 03-28-2024 ambulatory MD Ty Shah Work Phone: [facility] Work Phone: Start: 03-28-2024 End: 03-28-2024 Patient encounter procedure [facility] Work Phone: Start: 02-01-2024 End: 02-01-2024 ambulatory [facility] Work Phone: Start: 02-01-2024 End: 02-01-2024 Patient encounter procedure [facility] Work Phone: Start: 05-29-2022 End: 05-29-2022 ambulatory Reynold Roper Other [facility] [employer] Other Start: 05-29-2022 Office outpatient vi sit 25 minutes Reynold Roper [facility] Start: 05-09-2022 End: 05-09-2022 ambulatory Reynold Roper Other [facility] Other Start: 05-09-2022 Patient encounter procedure Reynold Roper [facility] Start: 04-21-2022 End: 04-21-2022 Patient encounter procedure MD Ty Shah Work Phone: [facility] Start: 04-21-2022 End: 04-21-2022 ambulatory Reynold Roper Other [facility] Other Start: 04-21-2022 Office consultation new/estab patient 60 min Reynolddenice Roper [facility] Start: 04-15-2022 End: 04-15-2022 ambulatory Reynold Roper Other [facility] Other Start: 04-15-2022 Telephone encounter Reynold Roper [facility] Start: 10-01-2020 End: 10-01-2020 Orders Only Elena Daleymeron De La Rosa Work Phone: [facility] Start: 05-03-2020 End: 05-04-2020 Patient encounter procedure AKSHAT WEBBER [facility] Start: 05-03-2020 End: 05-03-2020 Office outpatient new 30 minutes Akshat Webber Work Phone: [facility] Comment on above: Encounter for gyneco logical examination without abnormal finding (Primary Dx); Menopausal disorder; Special screening for malignant neoplasm of vagina Start: 05-03-2020 End: 05-03-2020 Subsequent hospital visit by physician Akshat Webber Work Phone: [facility] Comment on above: Screening mammogram, encounter for Start: 03-28-2020 End: 03-28-2020 Patient encounter procedure TY TORRES SHAH [facility] Start: 04-15-2017 End: 04-15-2017 Periodic preventive med est patient 65yrs& older Akshat Webber Work Phone: [facility] Gyne[facility] Comment on above: Encounter for gyneco logical examination without abnormal finding (Primary Dx);Special screening for malignant neoplasms, vagina;Candidiasis of vulva and vagina;Fatigue, unspecified type;Osteopenia, unspecified location Start: 04-15-2017 End: 04-15-2017 Patient encounter procedure Akshat Webber Work Phone: [facility] Comment on above: Visit for screening mammogram Procedures Date Procedure Procedure Detail Performing Clinician Start: 03-28-2024 X-ray of lumbar spin e, four views MD Ty Shah Work Phone: Start: 04-21-2022 X-ray of cervical spine MD Ty Shah Work Phone: Start: 05-03-2020 Mammography Elena Lisa doss Start: 04-15-2017 Mammography Akshat mcelroy Plan of Treatment Date Care Activity Detail Author Start: 05-03-2021 Screening mammography Mammogram [facility] Start: 04-24-2020 Influenza vaccinatio n given Sequential Influenza Vaccine (#1) [facility] Start: 04-15-2018 History and physical examination, annual for health maintenance Wellness Visit [facility] Start: 04-15-2018 Screening mammography Mammogram [facility] Start: 04-24-2017 SEQUENTIAL INFLUENZA VACCINE (#1) SEQUENTIAL INFLUENZA VACCINE (#1) [facility] Work Phone: Start: 12-18-2015 Pneumococcal vaccination Pneum ococcal Vaccine Age 65+ (1 of 2 - PCV13) [facility] Start: 12-18-2015 PNEUMOCOCCAL VACCINE AGE 65+ (1 of 2 - PCV13) PNEUMOCOCCAL VACCINE AGE 65+ (1 of 2 - PCV13) [facility] Work Phone: Start: 2010 Zoster vaccine hzv l latisha for subcutaneous use ZOSTER VACCINE [facility] Work Phone: Start: 2000 Administration of he rpes zoster vaccine Zoster Vaccines (1 of 2) [facility] Start: 2000 Screening for malign ant neoplasm of colon [facility] Start: 1968 Hepatitis C antibody , confirmatory test Hepatitis C Screening [facility] Start: 1966 COVID-19 Vaccine (1 of 2) COVI D-19 Vaccine (1 of 2) [facility] Start: 1962 Adolescent depressio n screening assessment Depression Screening (PHQ9) [facility] Start: 1950 Colonoscopy COLONOSCOPY [facility] Work Phone: Start: 1950 Fall risk assessment Falls Risk Asse ssment [facility] Start: 1950 HEPATITIS C SCREENING HEPATITIS C SC REENING [facility] Work Phone: Start: 1950 TETANUS EVERY 10 YR TETANUS EVERY 10 YR [facility] Work Phone: Start: 1950 Tetanus vaccination Tetanus: Every 1 0yrs [facility] End: 05-03-2021 Bone density scan XR Bone Density DEXA Axial Imaging Routine Menopausal disorder 1 Occurrences starting 05/03/2020 until 05/03/2021 [facility] Comment on above: 1 Occurrences starti ng 05/03/2020 until 05/03/2021 End: 05-03-2020 MG Breast - bilateral screening Mammography Screening Bilateral Imaging Routine Screening Mammogram, Encounter For Once for 1 Occurrences starting 05/03/2020 until 05/03/2020 [facility] Comment on above: Once for 1 Occurrenc es starting 05/03/2020 until 05/03/2020 MG Breast - bilatera l screening Mammography Screening Bilateral Imaging Routine Screening mammogram, encounter for 05/03/2020 2:07 PM EDT [facility] Microscopic examinat ion of vaginal Papanicolaou smear Thinprep Pap Smear Pathology and Cytology Routine Special screening for malignant neoplasm of vagina Ordered: 05/03/2020 [facility] Comment on above: Ordered: 05/03/2020 Thinprep Pap Smear, Screening Thinprep Pap Smear, Screening Routine Special screening for malignant neoplasms, vagina Ordered: 04/15/2017 [facility] Work Phone: Comment on above: Ordered: 04/15/2017 XR Lumbar spine 4 Views [facility] Payers Date Payer Category Payer Self-pay [id number] 2021 Medicare [id number] 2019 Medicare [employer] [place] [employer] MEDICARE PLAN (PPO) [id number] 2019-Present [id number] 2019 Medicare [id number] 1950 Unknown [id number] 1950 Unknown [id number] 1950 Unknown [id number] 1950 Unknown [id number] 1950 Unknown [id number] 1950 Unknown [id number] Medicare [id number] Medicare Medicare [id number] Unknown [id number] Social History Date Type Detail Facility Start: 04-15-2017 End: 02-28-2020 Tobacco smoking status [facility] Never smoker [facility] Sex Assigned At Not on file [employer] Work Phone: Start: 05-03-2020 Tobacco use and exposure Never used [facility] Start: 05-03-2020 Alcohol intake Current drinke r of alcohol (finding) [facility] Start: 04-15-2017 Alcohol Comment [facility] Exposure to SARS-CoV-2 (event) Not sure [facility] Sex Assigned At Sex Assigned At [facility] Other Start: 1950 Sex Assigned At Female F [facility] Evaluation note 05-29-2022 Note Date [...] understanding. Patient states she is leaving for [place] for 6 months and does not wish to proceed with injections at this time. May, Other chronic pain (ICD-10 - G89.29) Continue with current treatment plan. [facility] Other Evaluation note 05-09-2022 Note Date & [...] - G89.29) Continue with current treatment plan. 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 She feels pain is negatively impacting [...] negative findings were considered in medical decision-making. [facility] Other Evaluation note Note Date & Type Note Facility Evaluation note No assessment information availa ble [facility] Work Phone: Evaluation note Note Date & Type Note Facility Evaluation note No Information [facility] [employer] Other Evaluation note Note Date & Type Note Facility Evaluation note Diagnosis Onset Date Phlebitis and thrombophlebitis acute Lumbosacral spondylosis acut e Other chronic pain acute Sacroiliitis acute [facility] Work Phone: History general Narrative - Reported Note Date & Type Note Facility History general Narrative - Reported Type Medical History CELLULITIS Medical History HYPOTHYROID Medical History hiatal hernia Surgical History HYSTERECTOMY Surgical History L KNEE Surgical History APPENDIX Surgical History GALLBLADDER Hospitalization History see above Hospitalization History cellulitis right leg [facility] Other History of Present Illness * Akshat [...] been noticing recurrent yeast infections. She uses [id number] Monistat, which seems to help. I gave her a prescription for Diflucan 150 mg, #1 with 5 refills. I did tell the patient that if she would need refills after this expires, we can do this over the phone as long as it is within 1 year. Review of Systems: I have reviewed and agree with the ROS as gathered by the patient support partner. Past Medical History: Diagnosis Date Disease of [...] with the ROS as gathered by the patient support partner. Past Medical History: Diagnosis Date Anemia Arthritis Cellulitis and abscess of leg right leg 2019 Disease of thyroid gland hypothyroidism Osteopenia Past [...] file Gets together: Not on file Attends adventism service: Not on file Active member of [...] for screening mammogram Procedures Mammography Screening Bilateral Aksaht Webber MD [address] [place] [id number] [facility] [address] [place] [address] Status Reason Specialty Diagnoses / Procedures Referred By Contact Referred To Contact Authorized Radiology Diagnoses Menopausal disorder Procedures XR Bone Density DEXA Axial Akshat Webber MD [address] [place] [id number] Status Reason Specialty Diagnoses / Procedures Referred By Contact Referred To Contact Pending Review Radiology Diagnoses Screening mammogram, encounter for Procedures Mammography Screening Bilateral Akshat Webber MD [address] [place] [id number] Advance Directives No Advanced Directives Records FoundDocuments on File Type Date Recorded Patient Bioinformatics Team Member Expl anation Advance Directives and Livin g Will 05/03/2020 12:00 AM Documents on File Type Date Recorded Patient Bioinformatics Team Member Expl anation Advance Directives and Livin g [...] Procedures Mammography Screening Bilateral Akshat Webber MD [address] [place] [id number] [facility] [address] [place] [address] Reason Comments Annual Exam Status Reason Specialty Diagnoses / Procedures Referred By Contact Referred To Contact Pending Review Radiology Diagnoses Screening mammogram, encounter for Procedures Mammography Screening Bilateral Akshat Webber MD [address] [place] [address] INFORMATION SOURCE (unrecogn ized section and content) DATE CREATED AUTHOR 05/03/2020 [facility] DATE CREATED AUTHOR AUTHOR'S ORGANIZ ATION 05/09/2020 [facility] DATE CREATED AUTHOR AUTHOR'S ORGANIZ ATION 03/30/2024 [facility] DATE CREATED AUTHOR AUTHOR'S ORGANIZ ATION 04/22/2024 [facility] EPIC Quick Note - [...] BE BASED ON THE PRIMARY CLINICAL RECORDS. [facility] [employer] [facility]. provides no warranty or guarantee of the accuracy or completeness of information in this document.
[2024-04-26 09:55] VITALS: BP 160/78; PULSE 70; O2SAT 98
== END 2024-04-26 09:54 | disposition home or self-care (01) ==
LOC: VC 08:55
PROVIDERS: PCP Radiology Diagnostic Radiology; Visit Provider Radiology Diagnostic Radiology
DX: I83.813 Varicose veins of bilateral lower extremities with pain (principal)
CPT/HCPCS: 36471

== ENCOUNTER 2024-05-02 12:58 | Outpatient (OUT) | payer MEDICARE, SELFPAY ==
--- NOTE | 2024-05-02 07:22 | V.VEINS.HP ---
Vital Signs 05/02/24 13:51 BP 160/80 H BP Location Left Brachial BP Position Sitting BP Cuff Size Adult BP Source Manual Cuff Respiration 18 Pulse 74 Pulse Source Monitor Pulse Oximetry (%) 98 Oxygen Delivery Method Room Air Comment The patient's blood pressure is elevated. Varicose Veins Patient in today for sclerotherapy Vance Arzola MD personally performed the services described in this documentation, as scribed by Ranjit Henderson RN in my presence and it is both accurate and complete. Ranjit Arzola RN, am scribing for, and in the presence of, Dr. Vance Zhu and in the presence of the patient. medial (Distal/medial right leg ulcer) thigh: bilateral, knee: bilateral, calf: bilateral and ankle: bilateral cramping, sharp and other 7 30+ years Worsened in recent months: Yes standing elevating extremities, compression stockings and other (Rest) Reports edema, leg edema and other (stasis ulcer to right distal/medial calf, cellulitis, DVT) History of lower extremity trauma: No Superficial thrombophlebitis: No Family history of varicose veins: yes Has patient had previous lower extremity venous surgery: No Patient has previously received the following treatment(s) for lower extremity varicose veins: Reports sclerotherapy Does patient have a history of : yes Does patient intend to have future pregnancies: no Has patient had lower extremity venous scan with relux testing: Yes Support hose used: Yes Prescribed by provider: No Problems walking or doing physical activity: No Do you walk much: Yes Do you stand much: Yes Medication compliance: good Large amounts of Vitamin K: No Review of Systems ROS Narrative Vance Arzola MD personally performed the services described in this documentation, as scribed by Ranjit Henderson RN in my presence and it is both accurate and complete. Ranjit Arzola RN, am scribing for, and in the presence of, Dr. Vance Zhu and in the presence of the patient. Status of ROS 10 or more systems reviewed and unremarkable except as noted in history and below Cardiovascular Reports: edema and leg pain with exertion Musculoskeletal Reports: extremity pain, extremity swelling and muscle cramps Integumentary/Breast Reports: itching, redness, changing lesion, non-healing lesion and changes in skin color Neurological Reports: weakness in extremities Hematologic/Lymphatic Reports: easy bruising [facility] Medical History (Updated 04/04/24 @ 10:48 by Cristal Garnett) Phlebitis and thrombophlebitis of superficial vessels of lower extremities, bilateral ?I80.03 - Phlebitis and thrombophlebitis of superficial vessels of lower extremities, bilateral (ICD-10) Phlebitis and thrombophlebitis of superficial vessels of left lower extremity ?I80.02 - Phlebitis and thrombophlebitis of superficial vessels of left lower extremity (ICD-10) Phlebitis and thrombophlebitis of superficial vessels of right lower extremity ?I80.01 - Phlebitis and thrombophlebitis of superficial vessels of right lower extremity (ICD-10) Varicose veins of bilateral lower extremities with pain ?I83.813 - Varicose veins of bilateral lower extremities with pain (ICD-10) Hypothyroidism ?E03.9 - Hypothyroidism, unspecified (ICD-10) Cellulitis and abscess of leg ?L03.119 - Cellulitis of unspecified part of limb (ICD-10) ?L02.419 - Cutaneous abscess of limb, unspecified (ICD-10) DVT (deep venous thrombosis) ?I82.409 - Acute embolism and thrombosis of unspecified deep veins of unspecified lower extremity (ICD-10) 3 para 3 ?Z78.9 - Other specified health status (ICD-10) Surgical History (Updated 05/02/24 @ 13:53 by Ranjit Henderson) S/P sclerotherapy of varicose veins ?Z98.890 - Other specified postprocedural states (ICD-10) ?Z86.79 - Personal history of other diseases of the circulatory system (ICD-10) History of arthroscopic knee surgery ?Z98.890 - Other specified postprocedural states (ICD-10) History of cholecystectomy ?Z90.49 - Acquired absence of other specified parts of digestive tract (ICD-10) History of hysterectomy ?Z90.710 - Acquired absence of both cervix and uterus (ICD-10) Family History (Updated 02/22/24 @ 14:46 by Rossy Weller) Mother Family history of cancer Varicose veins of bilateral lower extremities with pain Father Family history of cancer Brother Family history of cancer Sister Family history of cancer Social History (Updated 02/22/24 @ 14:47 by Rossy Weller) Within the past year, how often did you have a drink containing alcohol: 2-4 times a month Smoking status: Never smoker Non-prescribed substance use: denies use Meds Home Medications and Allergies Home Medications ?Medication ?Instructions ?Recorded ?Confirmed ?Type ibuprofen 200 mg tablet (IBU-200) 200 mg PO Q8H 02/22/24 03/21/24 History levothyroxine .ROUTE 02/22/24 History ropinirole .ROUTE 02/22/24 History aspirin 325 mg tablet 325 mg PO DAILY 04/08/24 04/08/24 History Allergies Allergy/AdvReac Type Severity Reaction Status Date / Time No Known Drug Allergies Allergy Unverified 02/22/24 14:43 Exam Narrative Exam Narrative: Vance Arzola MD personally performed the services described in this documentation, as scribed by Ranjit Henderson RN in my presence and it is both accurate and complete. Ranjit Arzola RN, am scribing for, and in the presence of, Dr. Vance Zhu and in the presence of the patient. Constitutional Documenting provider has reviewed patient's vital signs: yes Common normals: oriented x3 Lymph Lymphatic: no lymphedema noted Cardio Common normals: regular rate Rate: regular rate Peripheral pulses: posterior tibial pulses present and dorsalis pedis pulses present Extremity Common normals: normal capillary refill General: calf tenderness and edema Right lower extremity: upper leg and lower leg (tenderness and numbness ) Left lower extremity: upper leg and lower leg Neuro Common normals: oriented x3 Assessment and Plan Assessment and Plan Plan sclerotherapy 05/05/2024 Vance Arzola MD personally performed the services described in this documentation, as scribed by Ranjit Henderson RN in my presence and it is both accurate and complete. Ranjit Arzola RN, am scribing for, and in the presence of, Dr. Vance Zhu and in the presence of the patient. Procedures Procedure Instructions Procedures sclerotherapy: Risks and benefits of the procedure were discussed at length and informed written consent was obtained.? Time-out procedure was performed and the correct patient and procedure were confirmed.? Staff present during time-out: Ranjit Henderson RN and Vance Zhu MD.? Patient prepped and procedure performed in usual sterile fashion. Injections performed by and Ranjit Henderson RN Sclerosing Agent:?? 4cc 0.5% Polidocanol Site Injected: left leg Number of Injections: 26 Anesthesia: Supercooled air The patient tolerated the procedure well without complication.? Hemostasis was obtained and thigh-high compression stocking was applied by patient.? Instructed patient to wear stocking for at least 96 hours and sleep with it and only remove for showering.? Will wear stocking for 2 weeks.? The patient verbalizes understanding and states they will comply.? Patient was given post-procedure instructions. Patient was discharged in good condition.? Scheduled to undergo additional injection sclerotherapy on 05/05/2024. IVance MD personally performed the services described in this documentation, as scribed by Ranjit Henderson RN in my presence and it is both accurate and complete. IRanjit RN, am scribing for, and in the presence of, Dr. Vance Zhu and in the presence of the patient.
--- NOTE | 2024-05-02 07:25 | W.VEIN ---
Discharge Plan Discharge Disposition: Home, Self-Care Outpatient Diagnostics: VC INJ Sclerosing SOLMULT Vein (Routine) Timeframe: 2 Weeks Facility: [facility] - Location: [facility] Ordered By: Vance Zhu Follow Up Appointments: 05/05/2024 Patient Instructions: Polidocanol (By injection) Print Language: Occitan Discharge Date/Time: 05/02/24 13:56
--- NOTE | 2024-05-02 13:05 | VEIN_ITS ---
[address] [address] Patient Name: RADHA SALGADO MRN: [id number] date: 1950 Sex: F Assigned Patient Location: [facility] Current Patient Location: Accession/Order Number: [id number] Exam Date: 05/02/2024 13:05 Report Date: 05/02/2024 14:48 At the request of: MARIELA BARRAGAN Procedure: VC INJ Sclerosing SOLMULT Vein EXAMINATION: VC INJ Sclerosing SOLMULT Vein HISTORY: I83.813 - Varicose veins of bilateral lower extremities w... COMPARISON: No relevant comparison available. TECHNIQUE: The risks and benefits of the procedure were explained at length to the patient and informed written consent was obtained. Ranjit Henderson was present and assisted. The procedure was performed under sterile technique. The patient's leg was wrapped with Coban and postprocedural verbal and written instructions provided. SCLEROSANT: 2 cc, 0.5% polidocanol VEIN(S) INJECTED: 26 veins in the left leg VISUALIZATION: Ultrasound was not used to visualize the sclerosant ANESTHESIA: Supercooled air COMPLICATIONS: None VEIN/VC INJ Sclerosing SOLMULT Vein IMPRESSION: Technically successful sclerotherapy as described Electronically authenticated by: MAEGAN WALLER Date: 05/02/2024 14:48
--- OUTSIDE RECORDS SUMMARY | 2024-05-02 13:28 | XMS_ITS | CCD ---
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 Name Role Phone Unavailable Primary Care Provider Ty Clinton Primary Care Provider [phone] AKSHAT WEBBER Attending Unavailab TY Lucas Primary Care UnavailReynold Bullock Unavailable MD Ty Shah Primary Care Provider MD Reynold Roper Attending Provider [phone] MD Ty Shah Primary Care Provider [phone] MD Reynold Roper Attending Provider Reynold Roper Attending Unavailable Reynold Roper Admitting Unavailable Ty Shah Primary Care Unavailable JOSLYN OLIVARES Attending Unavailable REYNOLD ROPER Referring Unavailable GLORY PEREZ Attending Unavailable REYNOLD ROPER Referring Unavailable GLORY PEREZ Attending Unavailable REYNOLD ROPER Referring Unavailable GLORY PEREZ Attending Unavailable REYNOLD ROPER Referring Unavailable TY SHAH Referring UnavailTY Griggs Attending UnavailTY Griggs Primary Care Unavailabl e Medications Current Medications Medication Drug Class(es) Dates Sig (Normalized) Sig (Original) acetaminophen 325 mg oral capsule (5 sources) Start: 02-21-2020 take 650 mg by [...] 5 04/15/2017 04/15/2017 Active lactobacillus rhamnosus gg [id number] unt oral capsule (2 sources) take 1 capsule by mouth once daily Lactobacillus rhamnosus GG (CULTURELLE) 10 billion cell capsule Take 1 capsule by mouth daily Takes friendly Betsey . 0 Active levothyroxine sodium 0.075 mg oral tablet (13 sources) l-Thyroxine Start: 02-17-2017 take 1 tablet [...] 04/15/2018 Active rOPINIRole 1 mg oral tablet (4 sources) Nonergot Dopamine Agonist Start: 024 take 1 mg by mouth once daily at bedtime Ropinirole Active 1 MG PO Daily at bedtime February 01, 2024 12:00am Completed/Discontinued Medications Medication Drug Class(es) Dates Sig (Normalized) Sig (Original) Allergy Pill (5 sources) Start: 02-21-2020 End: 02-01-2024 take 1 tablet by mouth once daily Allergy Pill Discontinued 1 TAB PO Daily February 21, 2020 12:00am February 01, 2024 1:42pm Start: 02-21-2020 take 1 tablet by mouth once da daisy Allergy Pill Active 1 TAB PO Daily February 21, 2020 12:00am cephalexin 500 mg oral capsule (5 sources) Cephalosporin Antibacterial Start: 02-21-2020 End: 03-02-2020 take 1 capsule by mouth every six hours Cephalexin (Keflex) 500 mg capsule Discontinued 500 MG PO Q6H 28 February 21, 2020 12:00am March 02, 2020 9:43am diclofenac sodium 75 mg delayed release oral tablet (5 sources) Nonsteroidal Anti-inflammatory Drug Start: 02-21-2020 End: 02-01-2024 take 75 mg by mouth twice daily Diclofenac Sodium Discontinued 75 MG PO Twice daily February 21, 2020 12:00am February 01, 2024 1:42pm linezolid 600 mg oral tablet (5 sources) Oxazolidinone Antibacterial Start: 03-02-2020 End: 02-01-2024 take 600 mg by mouth twice daily Linezolid Discontinued 600 MG PO Twice daily 12 06March 02, 2020 12:00am February 01, 2024 1:40pm traMADol hydrochloride 50 mg oral tablet (5 sources) Opioid Agonist Start: 03-02-2020 End: 02-01-2024 take 50 mg by mouth every six hours Tramadol Discontinued 50 MG PO Q6H 10 01March 02, 2020 12:00am February 01, 2024 1:42pm Problems Active Problems Problem Classification Problem Date Documented Da te Episodic/Chronic Menopausal disorders (1 source) Disorder associated with menstruation AND/OR menopause; Translations: [Menopausal disorder] Chronic Other circulatory disease (5 sources) Elevated blood pressure; Translations: [Elevated blood-pressure reading, without diagnosis of hypertension] 02-28-2020 Episodic Other nervous system disorders (7 sources) Chronic pain; Translations: [Other chronic pain] 03-28-2024 Chronic Other nervous system disorders (7 sources) Other chronic pain; Translations: [Other chronic pain] Onset: 2 Resolved: 2 Chronic Other non-traumatic joint disorders (1 source) Hip pain; Translations: [Pain in left hip] 05-02-2024 Episodic Other non-traumatic joint disorders (1 source) Pain in left hip; Translations: [Pain in joint, pelvic region and thigh] 05-02-2024 Episodic Other screening for suspected conditions (not mental disorders or infectious disease) (3 sources) Breast neoplasm screening status; Translations: [Encounter for screening mammogram for malignant neoplasm of breast] Onset: 4 Episodic Phlebitis; thrombophlebitis and thromboembolism (5 sources) Venous thrombosis; Translations: [Phlebitis and thrombophlebitis of unspecified site] 02-01-2024 Episodic Residual codes; unclassified (5 sources) Edema of right lower limb; Translations: [Localized edema] 02-28-2020 Episodic Skin and subcutaneous tissue infections (5 sources) Cellulitis; Translations: [Cellulitis, unspecified] 02-28-2020 Episodic Spondylosis; intervertebral disc disorders; other back problems (20 sources) Cervical spondylosis; Translations: [Spondylosis without myelopathy or radiculopathy, cervical region] Onset: 2 Resolved: 2 Chronic Spondylosis; intervertebral disc disorders; other back problems (3 sources) Occipital neuralgia Onset: 2 Resolved: 2 Episodic Unclassified (3 sources) Patient encounter status; Translations: [Encounter for gynecological examination without abnormal finding] Varicose veins of lower extremity (5 sources) Varicose veins of lower extremity; Translations: [Asymptomatic varicose veins of unspecified lower extremity] 02-28-2020 Episodic Past or Other Problems Problem Classification Problem Date Documented Da te Episodic/Chronic Malaise and fatigue (1 source) Fatigue Episodic Mycoses (1 source) Candidal vulvovaginitis Episodic Other bone disease and musculoskeletal deformities (1 source) Osteopenia Episodic Unclassified (1 source) Encounter for gynecological examination without abnormal finding Unclassified (1 source) Screening status Results Test Name Value Interpretation Reference Range Facil ity MM SCREENING CHRISSY BILATERALo n 04-29-2024 MM SCREENING CHRISSY BILATERAL EXAMINATION: MM SCREENING CHRISSY BILATERAL HISTORY: ANNUAL COMPARISON: 05/03/2020, 04/15/2017 TECHNIQUE: CC and MLO views of both breasts were obtained. 3D tomography was performed. CAD was evaluated. FINDINGS: Breast composition: Fatty The breasts are identical in size. Minimal glandular density seen appears to be stable appearance. I do not see any distinct new area of mass, architectural distortion or malignant calcifications. IMPRESSION: No interval change or sign of malignancy. BIRADS: BIRADS - CATEGORY 2 Benign, no evidence of malignancy. Normal interval follow-up is recommended in 12 months. OVERALL ASSESSMENT - BENIGN A letter of notification will be sent to the patient regarding the results. [facility], along with the National [employer], the [employer], and [facility], recommend annual screening mammograms for women age 40 and older. [facility]/ Workstation ID: [id number] Dictated by: SERGE DLAEY on ThuApr 29, 2024 1:28:50 PM EDT Transcribed by: LILIANA JOHNSON on ThuApr 29, 2024 2:06:50 PM EDT Finalized by: SERGE DALEY on ThuApr 29, 2024 2:13:19 PM EDT Normal [facility] XR lumbar spine AP/LAT/FLX/E XTon 03-28-2024 XR lumbar spine AP/LAT/FLX/EXT [facility] [place] [address] [place] [address] XRay Report Signed Patient: Janneth Arceo MR#: [id number] : 1950 Acct:[id number] Age/Sex: 73 / F ADM Date: 03/28/24 Loc: XD Room: Type: [facility] Attending Dr: Reynold Roper MD Copies to: [...] Landry Jr., D.OMusa03/28/2024 3:28 PM Dictation Location: [facility]08 Transcribed By: [facility] 03/28/24 1528 Dictated By: Marcel Landry Jr DO 03/28/24 1526 Signed By: 03/28/24 1528 Normal [facility] Mammography Screening Bilate ralon 04-15-2017 Mammography Screening Bilateral No mammographic evidence of malignancy. BIRADS: BIRADS - CATEGORY 2 Benign, no evidence of malignancy. Normal interval follow-up is recommended in 12 months. OVERALL ASSESSMENT - BENIGN A letter of notification will be sent to the patient regarding the results. [facility], along with the National Comprehensive Cancer [facility], the [employer], and [facility], recommend annual screening mammograms for women age 40 and older. [employer] Workstation ID: [id number] [facility] Mammography Screening Bilateral EXAMINATION: MM SCREENING BILATERAL 04/15/2017 Computer-assisted detection utilized in the interpretation of this exam. COMPARISON: Mammogram dated 03/22/2015. FINDINGS: MLO and CC views of both breasts were obtained using digital technique. The breasts are almost entirely fatty. Mild scarring from bilateral reduction surgery again noted, not significantly changed. No standout mass, suspicious calcification, or architectural distortion identified. [email or web address] [facility] Vital Signs Date Time Vital Sign Value Performing Clinician Facility 05-02-2024 10:06-0400 Diastolic blood pressure 92 mm[Hg] MD Ty Shah Work Phone: [facility] 05-02-2024 10:06-0400 Heart rate 53 /min MD Ty Shah Work Phone: [facility] 05-02-2024 10:06-0400 SaO2% (BldA) [Mass fraction] 99 % MD Ty Shah Work Phone: [facility] 05-02-2024 10:06-0400 Systolic blood pressure 180 mm[Hg] MD Ty Shah Work Phone: [facility] 03-28-2024 11:16-0400 Diastolic blood pressure 80 mm[Hg] [facility] 03-28-2024 11:16-0400 Heart rate 70 /min [facility] 03-28-2024 11:16-0400 SaO2% (BldA) [Mass fraction] 99 % [facility] 03-28-2024 11:16-0400 Systolic blood pressure 140 mm[Hg] [facility] 02-01-2024 13:43-0400 Body height 154.94 cm [facility] 02-01-2024 13:43-0400 Body mass index (BMI) [Ratio] 31.1 kg/m2 [facility] 02-01-2024 13:43-0400 Body temperature 97.8 [degF] [facility] 02-01-2024 13:43-0400 Body weight 74.84 kg [facility] 02-01-2024 13:43-0400 Diastolic blood pressure 84 mm[Hg] [facility] 02-01-2024 13:43-0400 Heart rate 56 /min [facility] 02-01-2024 13:43-0400 Systolic blood pressure 173 mm[Hg] [facility] 05-29-2022 16:30-0400 Body height 160.02 cm Reynold Roper Other [facility] Other 05-29-2022 16:30-0400 Body mass index (BMI) [Ratio] 33.16 kg/m2 Reynold Roper Other [facility] Other 05-29-2022 16:30-0400 Body weight 84.91 kg Reynold Roper Other [facility] Other 05-29-2022 16:30-0400 Diastolic blood pressure 102 mm[Hg] Reynold Roper Other [facility] Other 05-29-2022 16:30-0400 SaO2% (BldA) [Mass fraction] 99 % Reynold Roper Other [facility] Other 05-29-2022 16:30-0400 Systolic blood pressure 170 mm[Hg] Reynold Roper Other [facility] Other 05-09-2022 11:15-0400 Body height 160.02 cm Reynold Roper Other [facility] Other 05-09-2022 11:15-0400 Body mass index (BMI) [Ratio] 33.19 kg/m2 Reynold Roper Other [facility] Other 05-09-2022 11:15-0400 Body weight 85 kg Reynold Roper Other [facility] Other 05-09-2022 11:15-0400 Diastolic blood pressure 90 mm[Hg] Reynold Jacquelin Other [facility] Other 05-09-2022 11:15-0400 SaO2% (BldA) [Mass fraction] 99 % Reynold Jacquelin Other [facility] Other 05-09-2022 11:15-0400 Systolic blood pressure 164 mm[Hg] Reynold Jacquelin Other [facility] Other 04-21-2022 15:00-0400 Body height 160.02 cm Reynold Roper Other [facility] Other 04-21-2022 15:00-0400 Body mass index (BMI) [Ratio] 33.12 kg/m2 Reynold Roper Other [facility] Other 04-21-2022 15:00-0400 Body weight 84.82 kg Reynold Jacquelin Other [facility] Other 04-21-2022 15:00-0400 Diastolic blood pressure 82 mm[Hg] Reynold Jacquelin Other [facility] Other 04-21-2022 15:00-0400 SaO2% (BldA) [Mass fraction] 99 % Reynold Roper Other [facility] Other 04-21-2022 15:00-0400 Systolic blood pressure 140 mm[Hg] Reynold Roper Other [facility] Other 05-03-2020 14:46-0400 BMI (Body Mass Index) 31.79 kg/m2 [facility] 05-03-2020 14:46-0400 Body weight 78.83 kg [facility] 05-03-2020 14:46-0400 BP Diastolic 84 mm[Hg] [facility] 05-03-2020 14:46-0400 BP Systolic 160 mm[Hg] [facility] 05-03-2020 14:46-0400 Height 157.5 cm [facility] 05-03-2020 14:46-0400 Pulse (Heart Rate) 81 /min [facility] 04-15-2017 13:39-0400 BMI (Body Mass Index) 33.44 kg/m2 [facility] Work Phone: 04-15-2017 13:39-0400 BP Diastolic 76 mm[Hg] [facility] Work Phone: 04-15-2017 13:39-0400 BP Systolic 132 mm[Hg] Akshat Webber [facility] Work Phone: 04-15-2017 13:39-0400 Height 154.9 cm [facility] Work Phone: 04-15-2017 13:39-0400 Weight 80.29 kg [facility] Work Phone: Encounters Encounter Date Encounter Type Care Provider Facility Start: 05-02-2024 End: 05-02-2024 ambulatory MD Ty Shah Work Phone: [facility] Work Phone: Start: 05-02-2024 End: 05-02-2024 Patient encounter procedure MD Ty Shah Work Phone: [facility] Work Phone: Start: 04-29-2024 End: 04-29-2024 ambulatory TY TORRES [facility] Start: 04-26-2024 End: 04-26-2024 ambulatory GLORY DEPOY Not Available Start: 04-20-2024 End: 04-20-2024 ambulatory GLORY DEPOY Not Available Start: 04-18-2024 End: 04-18-2024 ambulatory GLORY DEPOY Not Available Start: 04-13-2024 End: 04-13-2024 ambulatory JOSLYN OLIVARES Not Available Start: 03-28-2024 End: 03-28-2024 ambulatory MD Ty Shah Work Phone: [facility] Work Phone: Start: 03-28-2024 End: 03-28-2024 Patient encounter procedure [facility] Work Phone: Start: 02-01-2024 End: 02-01-2024 ambulatory [facility] Work Phone: Start: 02-01-2024 End: 02-01-2024 Patient encounter procedure [facility] Work Phone: Start: 05-29-2022 End: 05-29-2022 ambulatory Reynold Roper Other [facility] Other Start: 05-29-2022 Office outpatient vi sit 25 minutes Reynold Roper [facility] Start: 05-09-2022 End: 05-09-2022 ambulatory Reynold Roper Other [facility] Other Start: 05-09-2022 Patient encounter procedure Reynold Roper [facility] Start: 04-21-2022 End: 04-21-2022 Patient encounter procedure MD Ty Shah Work Phone: [facility] Start: 04-21-2022 End: 04-21-2022 ambulatory Reynold Roper Other [facility] Other Start: 04-21-2022 Office consultation new/estab patient 60 min Reynold Roper [facility] Start: 04-15-2022 End: 04-15-2022 ambulatory Reynold Roper Other [facility] Other Start: 04-15-2022 Telephone encounter Reynold Roper [facility] Start: 10-01-2020 End: 10-01-2020 Orders Only Elena To Estrella Work Phone: [facility] Start: 05-03-2020 End: 05-03-2020 Patient encounter procedure AKSHAT WEBBER [facility] Start: 05-03-2020 End: 05-03-2020 Office outpatient new 30 minutes Akshat Webber Work Phone: [facility] Comment on above: Encounter for gyneco logical examination without abnormal finding (Primary Dx); Menopausal disorder; Special screening for malignant neoplasm of vagina Start: 05-03-2020 End: 05-03-2020 Subsequent hospital visit by physician Akshat Webber Work Phone: [facility] Comment on above: Screening mammogram, encounter for Start: 04-15-2017 End: 04-15-2017 Periodic preventive med est patient 65yrs& older Akshat Webber Work Phone: [facility] Comment on above: Encounter for gyneco logical examination without abnormal finding (Primary Dx);Special screening for malignant neoplasms, vagina;Candidiasis of vulva and vagina;Fatigue, unspecified type;Osteopenia, unspecified location Start: 04-15-2017 End: 04-15-2017 Patient encounter procedure Akshat Webber Work Phone: [facility] Comment on above: Visit for screening mammogram Procedures Date Procedure Procedure Detail Performing Clinician Start: 03-28-2024 X-ray of lumbar spin e, four views MD Ty Shah Work Phone: Start: 04-21-2022 X-ray of cervical spine MD Ty Shah Work Phone: Start: 05-03-2020 Mammography Elena Gonzalez damionlorena Start: 04-15-2017 Mammography Akshat mcelroy Plan of Treatment Date Care Activity Detail Author Start: 05-03-2021 Screening mammography Mammogram [facility] Start: 04-24-2020 Influenza vaccinatio n given Sequential Influenza Vaccine (#1) [facility] Start: 04-15-2018 History and physical examination, annual for health maintenance Wellness Visit [facility] Start: 04-15-2018 Screening mammography Mammogram [facility] Start: 04-24-2017 SEQUENTIAL INFLUENZA VACCINE (#1) SEQUENTIAL INFLUENZA VACCINE (#1) [facility] Work Phone: Start: 12-18-2015 Pneumococcal vaccination Pneum ococcal Vaccine Age 65+ (1 of 2 - PCV13) [facility] Start: 12-18-2015 PNEUMOCOCCAL VACCINE AGE 65+ (1 of 2 - PCV13) PNEUMOCOCCAL VACCINE AGE 65+ (1 of 2 - PCV13) [facility] Work Phone: Start: 2010 Zoster vaccine hzv l latisha for subcutaneous use ZOSTER VACCINE [facility] Work Phone: Start: 2000 Administration of he rpes zoster vaccine Zoster Vaccines (1 of 2) [facility] Start: 2000 Screening for malign ant neoplasm of colon [facility] Start: 1968 Hepatitis C antibody , confirmatory test Hepatitis C Screening [facility] Start: 1966 COVID-19 Vaccine (1 of 2) COVI D-19 Vaccine (1 of 2) [facility] Start: 1962 Adolescent depressio n screening assessment Depression Screening (PHQ9) [facility] Start: 1950 Colonoscopy COLONOSCOPY [facility] Work Phone: Start: 1950 Fall risk assessment Falls Risk Asse ssment [facility] Start: 1950 HEPATITIS C SCREENING HEPATITIS C SC REENING [facility] Work Phone: Start: 1950 TETANUS EVERY 10 YR TETANUS EVERY 10 YR [facility] Work Phone: Start: 1950 Tetanus vaccination Tetanus: Every 1 0yrs [facility] End: 05-03-2021 Bone density scan XR Bone Density DEXA Axial Imaging Routine Menopausal disorder 1 Occurrences starting 05/03/2020 until 05/03/2021 [facility] Comment on above: 1 Occurrences starti ng 05/03/2020 until 05/03/2021 End: 05-03-2020 MG Breast - bilateral screening Mammography Screening Bilateral Imaging Routine Screening Mammogram, Encounter For Once for 1 Occurrences starting 05/03/2020 until 05/03/2020 [facility] Comment on above: Once for 1 Occurrenc es starting 05/03/2020 until 05/03/2020 MG Breast - bilatera l screening Mammography Screening Bilateral Imaging Routine Screening mammogram, encounter for 05/03/2020 2:07 PM EDT [facility] Microscopic examinat ion of vaginal Papanicolaou smear Thinprep Pap Smear Pathology and Cytology Routine Special screening for malignant neoplasm of vagina Ordered: 05/03/2020 [facility] Comment on above: Ordered: 05/03/2020 MR Lumbar spine WO contrast [facility] Thinprep Pap Smear, Screening Thinprep Pap Smear, Screening Routine Special screening for malignant neoplasms, vagina Ordered: 04/15/2017 [facility] Work Phone: Comment on above: Ordered: 04/15/2017 XR Hip - left 2 Views [facility] XR Lumbar spine [address] [facility] Payers Date Payer Category Payer Self-pay [id number] 2021 Medicare [id number] 2019 Medicare [employer] MANAGED ME DICARE A[employer] MEDICARE PLAN (PPO) [id number] 2019-Present [id number] 2019 Medicare [id number] 1950 Unknown [id number] 1950 Unknown [id number] 1950 Unknown [id number] 1950 Unknown [id number] 1950 Unknown [id number] 1950 Unknown [id number] Medicare [id number] Medicare Medicare [id number] Unknown [id number] Social History Date Type Detail Facility Start: 04-15-2017 End: 02-28-2020 Tobacco smoking status [facility] Never smoker [facility] Sex Assigned At Not on file [facility] [employer] Work Phone: Start: 05-03-2020 Tobacco use and exposure Never used [facility] Start: 05-03-2020 Alcohol intake Current drinke r of alcohol (finding) [facility] Start: 04-15-2017 Alcohol Comment Social [facility] Exposure to SARS-CoV-2 (event) Not sure [facility] Sex Assigned At Sex Assigned At [facility] Other Start: 1950 Sex Assigned At Female [facility] Evaluation note 05-29-2022 Note Date [...] understanding. Patient states she is leaving for [place] for 6 months and does not wish to proceed with injections at this time. May, Other chronic pain (ICD-10 - G89.29) Continue with current treatment plan. [facility] Other Evaluation note 05-09-2022 Note Date & [...] - G89.29) Continue with current treatment plan. [facility] Other Evaluation note 04-21-2022 Note Date & [...] recently attended physical therapy which provided minimal alf improvement. She feels pain is negatively impacting [...] negative findings were considered in medical decision-making. [facility] Other Evaluation note Note Date & Type Note Facility Evaluation note No assessment information [facility] Work Phone: Evaluation note Note Date & Type Note Facility Evaluation note No Information [facility] [employer] Other Evaluation note Note Date & Type Note Facility Evaluation note Diagnosis Onset Date Phlebitis and thrombophlebitis acute Lumbosacral spondylosis acut e Other chronic pain acute Sacroiliitis acute [facility] Work Phone: Evaluation note Note Date & Type Note Facility Evaluation note Diagnosis Onset Date Lumbosacral spondylosis acut e Other chronic pain acute Sacroiliitis acute Left hip pain acute Lumbosacral spondylosis acut e Other chronic pain acute Sacroiliitis acute [facility] Work Phone: History general Narrative - Reported Note Date & Type Note Facility History general Narrative - Reported Type Medical History CELLULITIS Medical History HYPOTHYROID Medical History hiatal hernia Surgical History HYSTERECTOMY Surgical History L KNEE Surgical History APPENDIX Surgical History GALLBLADDER Hospitalization History see above Hospitalization History cellulitis right leg [facility] Other History of Present Illness * Akshat [...] been noticing recurrent yeast infections. She uses [id number] Monistat, which seems to help. I gave [...] file Gets together: Not on file Attends baptism service: Not on file Active member of [...] Mammography Screening Bilateral Akshat Webber MD [address] [place] [address] [facility] [address] [place] [address] Status Reason Specialty Diagnoses / Procedures Referred By Contact Referred To Contact Authorized Radiology Diagnoses Menopausal disorder Procedures XR Bone Density DEXA Axial Akshat Webber MD [address] [place] [address] Status Reason Specialty Diagnoses / Procedures Referred By Contact Referred To Contact Pending Review Radiology Diagnoses Screening mammogram, encounter for Procedures Mammography Screening Bilateral Akshat Webber MD [facility] [place] [address] Advance Directives Documents on File Type Date Recorded Patient Training Associate Expl anation Advance Directives and Livin g Will 05/03/2020 12:00 AM Documents on File Type Date Recorded Patient Training Associate Expl anation Advance Directives and Livin g [...] spondylosis Other chronic pain Sacroiliitis Chief Complaint Back/hip pain ( last seen 05/2022) M47.817 FOLLOW UP AFTER PT FOR LOW BACK Reason for Visit Lumbosacral spondylo sis Other chronic pain Sacroiliitis Left hip pain Lumbosacral spondylosis Other chronic pain Sacroiliitis Additional Source Comments Reason for Visit (unrecogniz ed section and content) Reason Comments Annual Exam During the last year , has been getting yeast infections Status Reason Specialty Diagnoses / Procedures Referre d By Contact Referred To Contact Closed Radiology Diagnoses Visit for screening mammogram Procedures Mammography Screening Bilateral Akshat Webber MD [address] [place] [address] [facility] [address] [place] [address] Reason Comments Annual Exam Status Reason Specialty Diagnoses / Procedures Referred By Contact Referred To Contact Pending Review Radiology Diagnoses Screening mammogram, encounter for Procedures Mammography Screening Bilateral Akshat Webber MD [address] [place] [address] INFORMATION SOURCE (unrecogn ized section and content) DATE CREATED AUTHOR 05/03/2020 [facility] DATE CREATED AUTHOR AUTHOR'S ORGANIZ ATION 03/30/2024 [facility] DATE CREATED AUTHOR AUTHOR'S ORGANIZ ATION 04/27/2024 [facility] EPIC DATE CREATED AUTHOR AUTHOR'S ORGANIZ ATION 05/01/2024 [facility] Quick Note - Sallie Quan TECHNOLOGIST - [...] March 28, 2024 End: March 28, 2024 Team Status: Inactive Member Role Status Dates Ty Shah MD Primary Care Provider Active Start: May 02, 2024 End: May 02, 2024 Reynold Roper MD Attending Provider Active Sta rt: May 02, 2024 End: May 02, 2024 Goals (unrecognized section and content) Goals [...] ON THE PRIMARY CLINICAL RECORDS. [facility] [employer] [facility]. provides no warranty or guarantee of the accuracy or completeness of information in this document.
[2024-05-02 13:51] VITALS: BP 160/80; PULSE 74; O2SAT 98
== END 2024-05-02 13:56 | disposition home or self-care (01) ==
LOC: VC 13:04
PROVIDERS: PCP Radiology Diagnostic Radiology; Visit Provider Radiology Diagnostic Radiology
DX: I83.813 Varicose veins of bilateral lower extremities with pain (principal)
CPT/HCPCS: 36471

== ENCOUNTER 2024-05-05 09:18 | Outpatient (OUT) | payer MEDICARE, SELFPAY ==
--- NOTE | 2024-05-04 08:44 | VEINCLINIC_ITS ---
Vital Signs 05/05/24 09:25 05/05/24 11:23 Height 5 ft 2 in Weight 74.843 kg BP 158/76 H BP Location Right Brachial BP Position Sitting BP Cuff Size Adult BP Source Manual Cuff Respiration 16 Pulse 72 Pulse Source Monitor Pulse Oximetry (%) 100 Oxygen Delivery Method Room Air Comment The patient's blood pressure is elevated. Varicose Veins Patient in today for sclerotherapy Vance Arzola MD personally performed the services described in this documentation, as scribed by Ranjit Henderson RN in my presence and it is both accurate and complete. IRanjit RN, am scribing for, and in the presence of, Dr. Vance Zhu and in the presence of the patient. medial (Distal/medial right leg ulcer) thigh: bilateral, knee: bilateral, calf: bilateral and ankle: bilateral cramping, sharp and other 7 30+ years Worsened in recent months: Yes standing elevating extremities, compression stockings and other (Rest) Reports edema, leg edema and other (stasis ulcer to right distal/medial calf, cellulitis, DVT) History of lower extremity trauma: No Superficial thrombophlebitis: No Family history of varicose veins: yes Has patient had previous lower extremity venous surgery: No Patient has previously received the following treatment(s) for lower extremity varicose veins: Reports sclerotherapy Does patient have a history of : yes Does patient intend to have future pregnancies: no Has patient had lower extremity venous scan with relux testing: Yes Support hose used: Yes Prescribed by provider: No Problems walking or doing physical activity: No Do you walk much: Yes Do you stand much: Yes Medication compliance: good Large amounts of Vitamin K: No Review of Systems ROS Narrative Vance Arzola MD personally performed the services described in this documentation, as scribed by Ranjit Henderson RN in my presence and it is both accurate and complete. Ranjit Arzola RN, am scribing for, and in the presence of, Dr. Vance Zhu and in the presence of the patient. Status of ROS 10 or more systems reviewed and unremark able except as noted in history and below Cardiovascular Reports: edema and leg pain with exertion Musculoskeletal Reports: extremity pain, extremity swelling and muscle cramps Integumentary/Breast Reports: itching, redness, changing lesion, non-healing lesion and changes in skin color Neurological Reports: weakness in extremities Hematologic/Lymphatic Reports: easy bruising PFSH [facility] Medical History (Updated 04/04/24 @ 10:48 by Cristal Garnett) Phlebitis and thrombophlebitis of superficial vessels of lower extremities, bilateral ?I80.03 - Phlebitis and thrombophlebitis of superficial vessels of lower extremities, bilateral (ICD-10) Phlebitis and thrombophlebitis of superficial vessels of left lower extremity ?I80.02 - Phlebitis and thrombophlebitis of superficial vessels of left lower extremity (ICD-10) Phlebitis and thrombophlebitis of superficial vessels of right lower extremity ?I80.01 - Phlebitis and thrombophlebitis of superficial vessels of right lower extremity (ICD-10) Varicose veins of bilateral lower extremities with pain ?I83.813 - Varicose veins of bilateral lower extremities with pain (ICD-10) Hypothyroidism ?E03.9 - Hypothyroidism, unspecified (ICD-10) Cellulitis and abscess of leg ?L03.119 - Cellulitis of unspecified part of limb (ICD-10) ?L02.419 - Cutaneous abscess of limb, unspecified (ICD-10) DVT (deep venous thrombosis) ?I82.409 - Acute embolism and thrombosis of unspecified deep veins of unsp ecified lower extremity (ICD-10) 3 para 3 ?Z78.9 - Other specified health status (ICD-10) Surgical History (Updated 05/05/24 @ 11:26 by Ranjit Henderson) S/P sclerotherapy of varicose veins ?Z98.890 - Other specified postprocedural states (ICD-10) ?Z86.79 - Personal history of other diseases of the circulatory system (ICD- 10) History of arthroscopic knee surgery ?Z98.890 - Other specified postprocedural states (ICD-10) History of cholecystectomy ?Z90.49 - Acquired absence of other specified parts of digestive tract (ICD- 10) History of hysterectomy ?Z90.710 - Acquired absence of both cervix and uterus (ICD-10) Family History (Updated 02/22/24 @ 14:46 by Rossy Weller) Mother Family history of cancer Varicose veins of bilateral lower extremities with pain Father Family history of cancer Brother Family history of cancer Sister Family history of cancer Social History (Updated 02/22/24 @ 14:47 by Rossy Elmlinger) Within the past year, how often did you have a drink containing alcohol: 2-4 times a month Smoking status: Never smoker Non-prescribed substance use: denies use Meds Home Medications and Allergies Home Medications ?Medication ?Instructions ?Recorded ?Confirmed ?Type ibuprofen 200 mg tablet (IBU-200) 200 mg PO Q8H 02/22/24 03/21/24 History levothyroxine .ROUTE 02/22/24 History ropinirole .ROUTE 02/22/24 History aspirin 325 mg tablet 325 mg PO DAILY 04/08/24 04/08/24 History Allergies Allergy/AdvReac Type Severity Reaction Status Date / Time No Known Drug Allergies Allergy Unverified 02/22/24 14:43 Exam Narrative Exam Narrative: Vance Arzola MD personally performed the services described in this document ation, as scribed by Ranjit Henderson RN in my presence and it is both accurate and complete. Ranjit Arzola RN, am scribing for, and in the presence of, Dr. Vance Zhu and in the presence of the patient. Constitutional Documenting provider has reviewed patient's vital signs: yes Common normals: oriented x3 Lymph Lymphatic: no lymphedema noted Cardio Common normals: regular rate Rate: regular rate Peripheral pulses: posterior tibial pulses present and dorsalis pedis pulses present Extremity Common normals: normal capillary refill General: calf tenderness and edema Right lower extremity: upper leg and lower leg (tenderness and numbness ) Left lower extremity: upper leg and lower leg Neuro Common normals: oriented x3 Assessment and Plan Assessment and Plan (1) Varicose veins of bilateral lower extremities with pain: Plan additional sclerotherapy Vance Arzola MD personally performed the services described in this documentation, as scribed by Ranjit Henderson RN in my presence and it is both accurate and complete. Ranjit Arzola RN, am scribing for, and in the presence of, Dr. Vance Zhu and in the presence of the patient. Procedures Procedure Instructions Procedures sclerotherapy: Risks and benefits of the procedure were discussed at length and informed written consent was obtained.? Time-out procedure was performed and the correct patient and procedure were confirmed.? Staff present during time-out: Ranjit Henderson RN and Vance Zhu MD.? Patient prepped and procedure performed in usual sterile fashion. Injections performed by and Ranjit Henderson RN Sclerosing Agent:?? 4cc 0.5% Polidocanol Site Injected: right leg Number of Injections: 27 Anesthesia: Supercooled air The patient tolerated the procedure well without complication.? Hemostasis was obtained and thigh-high compression stocking was applied by patient.? Instructed patient to wear stocking for at least 96 hours and sleep with it and only remove for showering.? Will wear stocking for 2 weeks.? The patient verbalizes understanding and states they will comply.? Patient was given post-procedure instructions. Patient was discharged in good condition.? Scheduled to undergo additional injection sclerotherapy on 05/10/2024 IVance MD personally performed the services described in this documentation, as scribed by Ranjit Henderson RN in my presence and it is both accurate and complete. IRanjit RN, am scribing for, and in the presence of, Dr. Vance Zhu and in the presence of the patient.
--- NOTE | 2024-05-04 08:54 | W.VEIN ---
Discharge Plan Discharge Disposition: Home, Self-Care Outpatient Diagnostics: VC INJ Sclerosing SOLMULT Vein (Routine) Timeframe: 2 Weeks Facility: [facility] - Location: [facility] Ordered By: Vance Zhu Follow Up Appointments: 04/11/2024 Patient Instructions: Polidocanol (By injection) Print Language: Luxembourgish Discharge Date/Time: 05/05/24 11:24
--- NOTE | 2024-05-05 09:19 | VEIN_ITS ---
[address] [address] Patient Name: RADHA SALGADO MRN: [id number] date: 1950 Sex: F Assigned Patient Location: Current Patient Location: [facility] Accession/Order Number: [id number] Exam Date: 05/05/2024 09:20 Report Date: 05/05/2024 10:50 At the request of: MAEGAN WALLER Procedure: VC INJ Sclerosing SOLMULT Vein EXAMINATION: VC INJ Sclerosing SOLMULT Vein HISTORY: I83.813 - Varicose veins of bilateral lower extremities w... COMPARISON: No relevant comparison available. TECHNIQUE: The risks and benefits of the procedure were explained at length to the patient and informed written consent was obtained. Ranjit Henderson was present and assisted. The procedure was performed under sterile technique. The patient's leg was wrapped with Coban and postprocedural verbal and written instructions provided. SCLEROSANT: 4 cc, 0.5% polidocanol VEIN(S) INJECTED: 27 veins in the right leg VISUALIZATION: Ultrasound was not used to visualize the sclerosant ANESTHESIA: Supercooled air COMPLICATIONS: None VEIN/VC INJ Sclerosing SOLMULT Vein IMPRESSION: Technically successful sclerotherapy as described Electronically authenticated by: MAEGAN WALLER Date: 05/05/2024 10:50
[2024-05-05 09:25] VITALS: BP 158/76; PULSE 72; O2SAT 100
--- OUTSIDE RECORDS SUMMARY | 2024-05-05 09:26 | XMS_ITS | CCD ---
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 Name Role Phone Unavailable Primary Care Provider UnavailTy Roberson Primary Care Provider [phone] AKSHAT WEBBER Attending Unavailab TY Lucas Primary Care UnavailReynold Bullock Unavailable MD Ty Shah Primary Care Provider [phone] MD Reynold Roper Attending Provider MD yT Shah Primary Care Provider MD Reynold Roper Attending Provider JOSLYN OLIVARES Attending Unavailable JACQUELIN, REYNOLD Referring Unavailable GLORY PEREZ Attending Unavailable JACQUELINREYNOLD QUINTANILLA Referring Unavailable GLORY PEREZ Attending Unavailable JACQUELIN, REYNOLD Referring Unavailable DEPGLORY RIVERA Attending Unavailable JACQUELIN, REYNOLD Referring Unavailable TY SHAH Referring UnavailTY Roberson Attending UnavailTY Roberson Primary Care Unavailabl e Reynold Roper S Attending Unavailable Ty Shah Primary Care Unavailable Jacquelin, Reynold S Admitting Unavailable Reynold Roper S Attending Unavailable Ty Shah Primary Care Unavailable Delbert Roperif S Admitting Unavailable Medications Current Medications Medication Drug Class(es) Dates Sig (Normalized) Sig (Original) acetaminophen 325 mg oral capsule (6 sources) Start: 02-21-2020 take 650 mg by [...] 5 04/15/2017 04/15/2017 Active lactobacillus rhamnosus gg [id number] unt oral capsule (2 sources) take 1 capsule by mouth once daily Lactobacillus rhamnosus GG (CULTURELLE) 10 billion cell capsule Take 1 capsule by mouth daily Takes friendly Betsey . 0 Active levothyroxine sodium 0.075 mg oral tablet (14 sources) l-Thyroxine Start: 02-17-2017 take 1 tablet [...] 04/15/2018 Active rOPINIRole 1 mg oral tablet (5 sources) Nonergot Dopamine Agonist Start: 024 take 1 mg by mouth once daily at bedtime Ropinirole Active 1 MG PO Daily at bedtime February 01, 2024 12:00am Completed/Discontinued Medications Medication Drug Class(es) Dates Sig (Normalized) Sig (Original) Allergy Pill (6 sources) Start: 02-21-2020 End: 02-01-2024 take 1 tablet by mouth once daily Allergy Pill Discontinued 1 TAB PO Daily February 21, 2020 12:00am February 01, 2024 1:42pm Start: 02-21-2020 take 1 tablet by mouth once da daisy Allergy Pill Active 1 TAB PO Daily February 21, 2020 12:00am cephalexin 500 mg oral capsule (6 sources) Cephalosporin Antibacterial Start: 02-21-2020 End: 03-02-2020 take 1 capsule by mouth every six hours Cephalexin (Keflex) 500 mg capsule Discontinued 500 MG PO Q6H 28 February 21, 2020 12:00am March 02, 2020 9:43am diclofenac sodium 75 mg delayed release oral tablet (6 sources) Nonsteroidal Anti-inflammatory Drug Start: 02-21-2020 End: 02-01-2024 take 75 mg by mouth twice daily Diclofenac Sodium Discontinued 75 MG PO Twice daily February 21, 2020 12:00am February 01, 2024 1:42pm linezolid 600 mg oral tablet (6 sources) Oxazolidinone Antibacterial Start: 03-02-2020 End: 02-01-2024 take 600 mg by mouth twice daily Linezolid Discontinued 600 MG PO Twice daily 12 06March 02, 2020 12:00am February 01, 2024 1:40pm traMADol hydrochloride 50 mg oral tablet (6 sources) Opioid Agonist Start: 03-02-2020 End: 02-01-2024 take 50 mg by mouth every six hours Tramadol Discontinued 50 MG PO Q6H 20 March 02, 2020 12:00am February 01, 2024 1:42pm Problems Active Problems Problem Classification Problem Date Documented Da te Episodic/Chronic Menopausal disorders (1 source) Disorder associated with menstruation AND/OR menopause; Translations: [Menopausal disorder] Chronic Other circulatory disease (6 sources) Elevated blood pressure; Translations: [Elevated blood-pressure reading, without diagnosis of hypertension] 02-28-2020 Episodic Other nervous system disorders (8 sources) Chronic pain; Translations: [Other chronic pain] 03-28-2024 Chronic Other nervous system disorders (9 sources) Other chronic pain; Translations: [Other chronic pain] Onset: 2 Resolved: 2 Chronic Other non-traumatic joint disorders (2 sources) Hip pain; Translations: [Pain in left hip] 05-02-2024 Episodic Other non-traumatic joint disorders (3 sources) Pain in left hip; Translations: [Pain in joint, pelvic region and thigh] Onset: 4 05-02-2024 Episodic Other screening for suspected conditions (not mental disorders or infectious disease) (3 sources) Breast neoplasm screening status; Translations: [Encounter for screening mammogram for malignant neoplasm of breast] Onset: 4 Episodic Phlebitis; thrombophlebitis and thromboembolism (6 sources) Venous thrombosis; Translations: [Phlebitis and thrombophlebitis of unspecified site] 02-01-2024 Episodic Residual codes; unclassified (6 sources) Edema of right lower limb; Translations: [Localized edema] 02-28-2020 Episodic Skin and subcutaneous tissue infections (6 sources) Cellulitis; Translations: [Cellulitis, unspecified] 02-28-2020 Episodic [...] abnormal finding] Varicose veins of lower extremity (6 sources) Varicose veins of lower extremity; Translations: [...] Value Interpretation Reference Range Facil ity XR hip LT min 2V(w/wo pelvis )*on 05-02-2024 XR hip LT min 2V(w/wo pelvis)* [facility] Main [place] [address] [place] [address] XRay Report Signed Patient: Janneth Arceo MR#: [id number] : 1950 Acct:[id number] Age/Sex: 73 / F ADM Date: 05/02/24 Loc: XD Room: Type: [facility] Attending Dr: Reynold Roper MD Copies to: Reynold Roper MD Ordering Provider: Reynold Roper MD Date of Service: 05/02/24 XR/XR hip LT min 2V(w/wo pelvis)*: M25.552 - Pain in left hip 2 views LEFT plain film COMPARISON: None HISTORY: LEFT hip pain posteriorly. Radiation. ACUTE FINDINGS: None DEGENERATIVE CHANGE: Mild hip joint degeneration. Greater trochanter spurring. SOFT TISSUE FINDINGS: Unremarkable JOINT EFFUSION: None POSTOP CHANGES: None BONY MINERALIZATION: Adequate XR/XR hip LT min 2V(w/wo pelvis)* IMPRESSION: Mild LEFT hip degeneration with greater trochanter spurring Impression dictated by: Deacon Alvarado M.D.05/02/2024 4:45 PM Dictation Location: [place] [address] Transcribed By: [facility] 05/02/24 1645 Dictated By: Deacon Alvarado DO 05/02/24 1644 Signed By: 05/02/24 1645 Normal [facility] MM SCREENING CHRISSY BILATERALo n 04-29-2024 MM [...] the patient regarding the results. [facility], along with the [employer], the [employer], and [facility], recommend annual screening mammograms for women age 40 and older. [facility]/ Workstation ID: [id number] Dictated by: SERGE DALEY on ThuApr 29, 2024 1:28:50 PM EDT Transcribed by: LILIANA JOHNSON on ThuApr 29, 2024 2:06:50 PM EDT Finalized by: SERGE DALEY on ThuApr 29, 2024 2:13:19 PM EDT Normal [facility] XR lumbar spine AP/LAT/FLX/E XTon 03-28-2024 XR lumbar spine AP/LAT/FLX/EXT [facility] [place] [address] XRay Report Signed Patient: Janneth Arceo MR#: [id number] : 1950 Acct:[id number] Age/Sex: 73 / F ADM Date: 03/28/24 Loc: XD Room: Type: [facility] Attending Dr: Reynold Roper MD Copies [...] Landry Jr., D.O.03/28/2024 3:28 PM Dictation Location: [place] [address] Transcribed By: [facility] 03/28/24 1528 Dictated By: Marcel Landry Jr, DO 03/28/24 1526 Signed By: 03/28/24 1528 Normal [facility] Mammography Screening Bilwan virtua [facility] 04-15-2017 Mammography Screening Bilateral No mammographic evidence of malignancy. BIRADS: BIRADS - CATEGORY 2 Benign, no evidence of malignancy. Normal interval follow-up is recommended in 12 months. OVERALL ASSESSMENT - BENIGN A letter of notification will be sent to the patient regarding the results. [facility], along with the National [employer] Network, the [employer], and [facility], recommend annual screening mammograms for women age 40 and older. [employer] Workstation ID: [id number] [facility] Mammography Screening Bilateral EXAMINATION: MM SCREENING BILATERAL 04/15/2017 Computer-assisted detection utilized in the interpretation of this exam. COMPARISON: Mammogram dated 03/22/2015. FINDINGS: MLO and CC views of both breasts were obtained using digital technique. The breasts are almost entirely fatty. Mild scarring from bilateral reduction surgery again noted, not significantly changed. No standout mass, suspicious calcification, or architectural distortion identified. [facility] Vital Signs Date Time Vital Sign Value Performing Clinician Facility 05-02-2024 10:06-0400 Diastolic blood pressure 92 mm[Hg] MD Ty Shah Work Phone: [facility] 05-02-2024 10:06-0400 Heart rate 53 /min MD Ty Shah Work Phone: [facility] 05-02-2024 10:06-0400 SaO2% (BldA) [Mass fraction] 99 % MD Ty Shah Work Phone: [facility] 05-02-2024 10:06-0400 Systolic blood pressure 180 mm[Hg] MD Ty Shah Work Phone: [facility] 03-28-2024 11:16-0400 Diastolic blood pressure 80 mm[Hg] [facility] 03-28-2024 11:16-0400 Heart rate 70 /min [facility] 03-28-2024 11:16-0400 SaO2% (BldA) [Mass fraction] 99 % [facility] 03-28-2024 11:16-0400 Systolic blood pressure 140 mm[Hg] [facility] 02-01-2024 13:43-0400 Body height 154.94 cm [facility] 02-01-2024 13:43-0400 Body mass index (BMI) [Ratio] 31.1 kg/m2 [facility] 02-01-2024 13:43-0400 Body temperature 97.8 [degF] [facility] 02-01-2024 13:43-0400 Body weight 74.84 kg [facility] 02-01-2024 13:43-0400 Diastolic blood pressure 84 mm[Hg] [facility] 02-01-2024 13:43-0400 Heart rate 56 /min [facility] 02-01-2024 13:43-0400 Systolic blood pressure 173 mm[Hg] [facility] 05-29-2022 16:30-0400 Body height 160.02 cm Reynold Roper Other [facility] 05-29-2022 16:30-0400 Body mass index (BMI) [Ratio] 33.16 kg/m2 Reynold Roper Other [facility] 05-29-2022 16:30-0400 Body weight 84.91 kg Reynold Roper Other [facility] Other 05-29-2022 16:30-0400 Diastolic blood pressure 102 mm[Hg] Reynolddenice Roper Other [facility] Other 05-29-2022 16:30-0400 SaO2% (BldA) [Mass fraction] 99 % Reynold Almazanky Other [facility] Other 05-29-2022 16:30-0400 Systolic blood pressure 170 mm[Hg] Reynold Jacquelin Other [facility] Other 05-09-2022 11:15-0400 Body height 160.02 cm Reynold Almazanky Other [facility] Other 05-09-2022 11:15-0400 Body mass index (BMI) [Ratio] 33.19 kg/m2 Reynold Almazanky Other [facility] Other 05-09-2022 11:15-0400 Body weight 85 kg Reynold Jacquelin Other [facility] Other 05-09-2022 11:15-0400 Diastolic blood pressure 90 mm[Hg] Reynold Roper Other [facility] Other 05-09-2022 11:15-0400 SaO2% (BldA) [Mass fraction] 99 % Reynold Roper Other [facility] Other 05-09-2022 11:15-0400 Systolic blood pressure 164 mm[Hg] Reynold Jacquelin Other [facility] Other 04-21-2022 15:00-0400 Body height 160.02 cm Reynold Roper Other [facility] Other 04-21-2022 15:00-0400 Body mass index (BMI) [Ratio] 33.12 kg/m2 Reynold Roper Other [facility] Other 04-21-2022 15:00-0400 Body weight 84.82 kg Reynold Roper Other [facility] Other 04-21-2022 15:00-0400 Diastolic blood pressure 82 mm[Hg] Reynold Roper Other [facility] Other 04-21-2022 15:00-0400 SaO2% (BldA) [Mass fraction] 99 % Reynold Roper Other [facility] Other 04-21-2022 15:00-0400 Systolic blood pressure 140 mm[Hg] Reynold Jacquelin Other [facility] Other 05-03-2020 14:46-0400 BMI (Body Mass Index) 31.79 kg/m2 Akshat Webber [facility] 05-03-2020 14:46-0400 Body weight 78.83 kg Akshta Webber [facility] 05-03-2020 14:46-0400 BP Diastolic 84 mm[Hg] Akshat Webber [facility] 05-03-2020 14:46-0400 BP Systolic 160 mm[Hg] Akshta Webber [facility] 05-03-2020 14:46-0400 Height 157.5 cm Akshat Webber [facility] 05-03-2020 14:46-0400 Pulse (Heart Rate) 81 /min Akshat Webber [facility] 04-15-2017 13:39-0400 BMI (Body Mass Index) 33.44 kg/m2 Akshat Webber [facility] Work Phone: 04-15-2017 13:39-0400 BP Diastolic 76 mm[Hg] Akshat Webber [facility] Work Phone: 04-15-2017 13:39-0400 BP Systolic 132 mm[Hg] Akshat Webber [facility] Work Phone: 04-15-2017 13:39-0400 Height 154.9 cm Akshat Webber [facility] Work Phone: 04-15-2017 13:39-0400 Weight 80.29 kg Akshat Webber [facility] Work Phone: Encounters Encounter Date Encounter Type Care Provider Facility Start: 05-02-2024 End: 05-02-2024 ambulatory MD Ty Shah Work Phone: [facility] Work Phone: Start: 05-02-2024 End: 05-02-2024 Patient encounter procedure MD Ty Shah Work Phone: [facility] Work Phone: Start: 04-29-2024 End: 04-29-2024 ambulatory TY TORRES SHAH [facility] Start: 04-26-2024 End: 04-26-2024 ambulatory GLORY DEPOY Not Available Start: 04-20-2024 End: 04-20-2024 ambulatory GLORY DEPOY Not Available Start: 04-18-2024 End: 04-18-2024 ambulatory GLORY PEREZ Not Available Start: 04-13-2024 End: 04-13-2024 ambulatory JOSLYN OLIVARES Not Available Start: 03-28-2024 End: 03-28-2024 ambulatory MD Ty Shah Work Phone: [facility] Work Phone: Start: 03-28-2024 End: 03-28-2024 Patient encounter procedure [facility] Work Phone: Start: 02-01-2024 End: 02-01-2024 ambulatory [facility] Work Phone: Start: 02-01-2024 End: 02-01-2024 Patient encounter procedure [facility] Work Phone: Start: 05-29-2022 End: 05-29-2022 ambulatory Reynold Jacquelin Other [facility] Other Start: 05-29-2022 Office outpatient vi sit 25 minutes Reynold Jacquelin [facility] Start: 05-09-2022 End: 05-09-2022 ambulatory Reynold Jacquelin Other [facility] Other Start: 05-09-2022 Patient encounter procedure Reynold Jacquelin [facility] Start: 04-21-2022 End: 04-21-2022 Patient encounter procedure MD Ty Shah Work Phone: [facility] Start: 04-21-2022 End: 04-21-2022 ambulatory Reynold Jacquelin Other [facility] Other Start: 04-21-2022 Office consultation new/estab patient 60 min Reynold Jacquelin [facility] Start: 04-15-2022 End: 04-15-2022 ambulatory Reynold Jacquelin Other [facility] Other Start: 04-15-2022 Telephone encounter Reynold Roper [facility] Start: 10-01-2020 End: 10-01-2020 Orders Only Elena De La Rosa Work Phone: [facility] Start: 05-03-2020 End: 05-03-2020 Patient encounter procedure AKSHAT WEBBER [facility] Start: 05-03-2020 End: 05-03-2020 Office outpatient new 30 minutes Akshat Webber Work Phone: [facility] Comment on above: Encounter for gyneco logical examination without abnormal finding (Primary Dx); Menopausal disorder; Special screening for malignant neoplasm of vagina Start: 05-03-2020 End: 05-03-2020 Subsequent hospital visit by physician Akshat Webber Work Phone: [facility] Comment on above: Screening mammogram, encounter for Start: 04-15-2017 End: 04-15-2017 Periodic preventive med est patient 65yrs& older Akshat Webber Work Phone: [facility] Comment on above: Encounter for gyneco logical examination without abnormal finding (Primary Dx);Special screening for malignant neoplasms, vagina;Candidiasis of vulva and vagina;Fatigue, unspecified type;Osteopenia, unspecified location Start: 04-15-2017 End: 04-15-2017 Patient encounter procedure Akshat Webber Work Phone: [facility] Comment on above: Visit for screening mammogram Procedures Date Procedure Procedure Detail Performing Clinician Start: 05-02-2024 Plain X-ray of left hip MD Ty Shah Work Phone: Start: 03-28-2024 X-ray of lumbar spin e, four views MD Ty Shah Work Phone: Start: 04-21-2022 X-ray of cervical spine MD Ty Shah Work Phone: Start: 05-03-2020 Mammography Elena doss Start: 04-15-2017 Mammography Akshat mcelroy Plan of Treatment Date Care Activity Detail Author Start: 05-03-2021 Screening mammography [facility] Start: 04-24-2020 Influenza vaccinatio n given Sequential Influenza Vaccine (#1) [facility] Start: 04-15-2018 History and physical examination, annual for health maintenance Wellness Visit [facility] Start: 04-15-2018 Screening mammography [facility]ammogram [facility] Start: 04-24-2017 SEQUENTIAL INFLUENZA VACCINE (#1) SEQUENTIAL INFLUENZA VACCINE (#1) [facility] Work Phone: Start: 12-18-2015 Pneumococcal vaccination Pneum ococcal Vaccine Age 65+ (1 of 2 - PCV13) [facility] Start: 12-18-2015 PNEUMOCOCCAL VACCINE AGE 65+ (1 of 2 - PCV13) PNEUMOCOCCAL VACCINE AGE 65+ (1 of 2 - PCV13) [facility] Work Phone: Start: 2010 Zoster vaccine hzv l latisha for subcutaneous use ZOSTER VACCINE [facility] Work Phone: Start: 2000 Administration of he rpes zoster vaccine Zoster Vaccines (1 of 2) [facility] Start: 2000 Screening for malign ant neoplasm of colon [facility] Start: 1968 Hepatitis C antibody , confirmatory test Hepatitis C Screening [facility] Start: 1966 COVID-19 Vaccine (1 of 2) COVI D-19 Vaccine (1 of 2) [facility] Start: 1962 Adolescent depressio n screening assessment Depression Screening (PHQ9) [facility] Start: 1950 Colonoscopy COLONOSCOPY [facility] Work Phone: Start: 1950 Fall risk assessment Falls Risk Asse ssment [facility] Start: 1950 HEPATITIS C SCREENING HEPATITIS C SC REENING [facility] Work Phone: Start: 1950 TETANUS EVERY 10 YR TETANUS EVERY 10 YR [facility] Work Phone: Start: 1950 Tetanus vaccination Tetanus: Every 1 0yrs [facility] End: 05-03-2021 Bone density scan XR Bone Density DEXA Axial Imaging Routine Menopausal disorder 1 Occurrences starting 05/03/2020 until 05/03/2021 [facility] Comment on above: 1 Occurrences starti ng 05/03/2020 until 05/03/2021 End: 05-03-2020 MG Breast - bilateral screening Mammography Screening Bilateral Imaging Routine Screening Mammogram, Encounter For Once for 1 Occurrences starting 05/03/2020 until 05/03/2020 [facility] Comment on above: Once for 1 Occurrenc es starting 05/03/2020 until 05/03/2020 MG Breast - bilatera l screening Mammography Screening Bilateral Imaging Routine Screening mammogram, encounter for 05/03/2020 2:07 PM EDT [facility] Microscopic examinat ion of vaginal Papanicolaou smear Thinprep Pap Smear Pathology and Cytology Routine Special screening for malignant neoplasm of vagina Ordered: 05/03/2020 [facility] Comment on above: Ordered: 05/03/2020 MR Lumbar spine WO contrast [facility] Thinprep Pap Smear, Screening Thinprep Pap Smear, Screening Routine Special screening for malignant neoplasms, vagina Ordered: 04/15/2017 [facility] Work Phone: Comment on above: Ordered: 04/15/2017 XR Hip - left 2 Views [facility] XR Lumbar spine 4 Views [facility] Payers Date Payer Category Payer Self-pay [id number] 2021 Medicare [id number] 2019 [place] [employer] [place] [employer] MEDIC[place] PLAN (PPO) [id number] 2019-Present [id number] 2019 Medicare [id number] 1950 Unknown [id number] 1950 Unknown [id number] 1950 Unknown [id number] 1950 Unknown [id number] 1950 Unknown [id number] 1950 Unknown [id number] Medicare [id number] Medicare Medicare [id number] Unknown [id number] Unknown [id number] Social History Date Type Detail Facility Start: 04-15-2017 End: 02-28-2020 Tobacco smoking status [facility] Never smoker [facility] Sex Assigned At Not on file [facility] Work Phone: Start: 05-03-2020 Tobacco use and exposure Never used [facility] Start: 05-03-2020 Alcohol intake Current drinke r of alcohol (finding) [facility] Start: 04-15-2017 Alcohol Comment Social [facility] Exposure to SARS-CoV-2 (event) Not sure [facility] Sex Assigned At Sex Assigned At formerly [facility] Other Start: 1950 Sex Assigned At Female [facility] Evaluation note 05-29-2022 Note Date & [...] - G89.29) Continue with current treatment plan. [facility] Other Evaluation note 05-09-2022 Note Date & [...] - G89.29) Continue with current treatment plan. [facility] Other Evaluation note 04-21-2022 Note Date & [...] recently attended physical therapy which provided minimal lobsterman improvement. She feels pain is negatively impacting [...] negative findings were considered in medical decision-making. [facility] Other Evaluation note Note Date & Type Note Facility Evaluation note No assessment information availa [facility] Work Phone: Evaluation note Note Date & Type Note Facility Evaluation note No Information [facility] Other Evaluation note Note Date & Type Note Facility Evaluation note Diagnosis Onset Date Phlebitis and thrombophlebitis acute Lumbosacral spondylosis acut e Other chronic pain acute Sacroiliitis [facility] Work Phone: Evaluation note Note Date & Type Note Facility Evaluation note Diagnosis Onset Date Lumbosacral spondylosis acut e Other chronic pain acute Sacroiliitis acute Left hip pain acute Lumbosacral spondylosis acut e Other chronic pain acute Sacroiliitis acute [facility] Work Phone: History general Narrative - Reported Note Date & Type Note Facility History general Narrative - Reported Type Medical History CELLULITIS Medical History HYPOTHYROID Medical History hiatal hernia Surgical History HYSTERECTOMY Surgical History L KNEE Surgical History APPENDIX Surgical History GALLBLADDER Hospitalization History see above Hospitalization History cellulitis right leg [facility] Other History of Present Illness * Akshat [...] been noticing recurrent yeast infections. She uses [id number] Monistat, which seems to help. I gave her a prescription for Diflucan 150 mg, #1 with 5 refills. I did tell the patient that if she would need refills after this expires, we can do this over the phone as long as it is within 1 year. Review of Systems: I have reviewed and agree with the ROS as gathered by the direct support staff. Past Medical History: Diagnosis Date Disease of [...] with the ROS as gathered by the direct support staff. Past Medical History: Diagnosis Date Anemia Arthritis [...] file Gets together: Not on file Attends quaker service: Not on file Active member of [...] Procedures Mammography Screening Bilateral Akshat Webber MD [address] [place] [id number] [facility] [place] [address] Status Reason Specialty Diagnoses / Procedures Referred By Contact Referred To Contact Authorized Radiology Diagnoses Menopausal disorder Procedures XR Bone Density DEXA Axial Akshat Webber MD [address] [place] [id number] Status Reason Specialty Diagnoses / Procedures Referred By Contact Referred To Contact Pending Review Radiology Diagnoses Screening mammogram, encounter for Procedures Mammography Screening Bilateral Akshat Webber MD [address] [place] [address] Advance Directives No Advanced Directives Records FoundDocuments on File Type Date Recorded 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 Advance Directives and Livin g Will 05/03/2020 12:00 AM Documents on File Type Date Recorded 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 Advance Directives and Livin g [...] pain Lumbosacral spondylosis Other chronic pain Sacroiliitis Chief Complaint Back/hip pain ( last seen 05/2022) M47.817 FOLLOW UP AFTER PT FOR LOW BACK M25.552 Reason for Visit Lumbosacral spondylo sis Other [...] Procedures Mammography Screening Bilateral Akshat Webber MD [address] [place] [address] [facility] [address] [place] [address] Reason Comments Annual Exam Status Reason Specialty Diagnoses / Procedures Referred By Contact Referred To Contact Pending Review Radiology Diagnoses Screening mammogram, encounter for Procedures Mammography Screening Bilateral Akshat Webber MD [address] [place] [address] INFORMATION SOURCE (unrecogn ized section and content) DATE CREATED AUTHOR 05/03/2020 [facility] DATE CREATED AUTHOR AUTHOR'S ORGANIZ ATION 04/27/2024 [facility] EPIC DATE CREATED AUTHOR AUTHOR'S ORGANIZ ATION 05/01/2024 [facility] DATE CREATED AUTHOR AUTHOR'S ORGANIZ ATION 05/03/2024 [facility] Quick Note - Sallie Quan [...] BE BASED ON THE PRIMARY CLINICAL RECORDS. [facility]. provides no warranty or guarantee of the accuracy or completeness of information in this document.
== END 2024-05-05 11:24 | disposition home or self-care (01) ==
LOC: VC 09:18
PROVIDERS: PCP Radiology Diagnostic Radiology; Visit Provider Radiology Diagnostic Radiology
DX: I83.813 Varicose veins of bilateral lower extremities with pain (principal)
CPT/HCPCS: 36471

== ENCOUNTER 2024-05-10 08:58 | Outpatient (OUT) | payer MEDICARE, SELFPAY ==
--- NOTE | 2024-05-09 08:48 | VEINCLINIC_ITS ---
Vital Signs 05/10/24 09:10 05/10/24 09:37 Height 5 ft 1 in Weight 73.482 kg BP 140/78 BP Location Left Brachial BP Position Sitting BP Cuff Size Adult BP Source Manual Cuff Respiration 16 Pulse 75 Pulse Source Monitor Pulse Oximetry (%) 97 Oxygen Delivery Method Nasal Cannula Comment The patient's blood pressure is elevated. Varicose Veins Patient in today for sclerotherapy Vance Arzola MD personally performed the services described in this documentation, as scribed by Ranjit Henderson RN in my presence and it is both accurate and complete. IRanjit RN, am scribing for, and in the presence of, Dr. Vance Zhu and in the presence of the patient. medial (Distal/medial right leg ulcer) thigh: bilateral, knee: bilateral, calf: bilateral and ankle: bilateral cramping, sharp and other 7 30+ years Worsened in recent months: Yes standing elevating extremities, compression stockings and other (Rest) Reports edema, leg edema and other (stasis ulcer to right distal/medial calf, cellulitis, DVT) History of lower extremity trauma: No Superficial thrombophlebitis: No Family history of varicose veins: yes Has patient had previous lower extremity venous surgery: No Patient has previously received the following treatment(s) for lower extremity varicose veins: Reports sclerotherapy Does patient have a history of : yes Does patient intend to have future pregnancies: no Has patient had lower extremity venous scan with relux testing: Yes Support hose used: Yes Prescribed by provider: No Problems walking or doing physical activity: No Do you walk much: Yes Do you stand much: Yes Medication compliance: good Large amounts of Vitamin K: No Review of Systems ROS Narrative Vance Arzola MD personally performed the services described in this documentation, as scribed by Ranjit Henderson RN in my presence and it is both accurate and complete. Ranjit Arzola RN, am scribing for, and in the presence of, Dr. Vance Zhu and in the presence of the patient. Status of ROS 10 or more systems reviewed and unremark able except as noted in history and below Cardiovascular Reports: edema and leg pain with exertion Musculoskeletal Reports: extremity pain, extremity swelling and muscle cramps Integumentary/Breast Reports: itching, redness, changing lesion, non-healing lesion and changes in skin color Neurological Reports: weakness in extremities Hematologic/Lymphatic Reports: easy bruising PFSH PFSH Medical History (Updated 04/04/24 @ 10:48 by Cristal Garnett) Phlebitis and thrombophlebitis of superficial vessels of lower extremities, bilateral ?I80.03 - Phlebitis and thrombophlebitis of superficial vessels of lower extremities, bilateral (ICD-10) Phlebitis and thrombophlebitis of superficial vessels of left lower extremity ?I80.02 - Phlebitis and thrombophlebitis of superficial vessels of left lower extremity (ICD-10) Phlebitis and thrombophlebitis of superficial vessels of right lower extremity ?I80.01 - Phlebitis and thrombophlebitis of superficial vessels of right lower extremity (ICD-10) Varicose veins of bilateral lower extremities with pain ?I83.813 - Varicose veins of bilateral lower extremities with pain (ICD-10) Hypothyroidism ?E03.9 - Hypothyroidism, unspecified (ICD-10) Cellulitis and abscess of leg ?L03.119 - Cellulitis of unspecified part of limb (ICD-10) ?L02.419 - Cutaneous abscess of limb, unspecified (ICD-10) DVT (deep venous thrombosis) ?I82.409 - Acute embolism and thrombosis of unspecified deep veins of uns pecified lower extremity (ICD-10) 3 para 3 ?Z78.9 - Other specified health status (ICD-10) Surgical History (Updated 05/10/24 @ 09:44 by Ranjit Henderson) S/P sclerotherapy of varicose veins ?Z98.890 - Other specified postprocedural states (ICD-10) ?Z86.79 - Personal history of other diseases of the circulatory system (ICD- 10) History of arthroscopic knee surgery ?Z98.890 - Other specified postprocedural states (ICD-10) History of cholecystectomy ?Z90.49 - Acquired absence of other specified parts of digestive tract (ICD- 10) History of hysterectomy ?Z90.710 - Acquired absence of both cervix and uterus (ICD-10) Family History (Updated 02/22/24 @ 14:46 by Rossy Weller) Mother Family history of cancer Varicose veins of bilateral lower extremities with pain Father Family history of cancer Brother Family history of cancer Sister Family history of cancer Social History (Updated 02/22/24 @ 14:47 by Rossy Weller) Within the past year, how often did you have a drink containing alcohol: 2-4 times a month Smoking status: Never smoker Non-prescribed substance use: denies use Meds Home Medications and Allergies Home Medications ?Medication ?Instructions ?Recorded ?Confirmed ?Type ibuprofen 200 mg tablet (IBU-200) 200 mg PO Q8H 02/22/24 03/21/24 History levothyroxine .ROUTE 02/22/24 History ropinirole .ROUTE 02/22/24 History aspirin 325 mg tablet 325 mg PO DAILY 04/08/24 04/08/24 History Allergies Allergy/AdvReac Type Severity Reaction Status Date / Time No Known Drug Allergies Allergy Unverified 02/22/24 14:43 Exam Narrative Exam Narrative: Vance Arzola MD personally performed the services described in this documen tation, as scribed by Ranjit Henderson RN in my presence and it is both accurate and complete. Ranjit Arzola RN, am scribing for, and in the presence of, Dr. Vance Zhu and in the presence of the patient. Constitutional Documenting provider has reviewed patient's vital signs: yes Common normals: oriented x3 Lymph Lymphatic: no lymphedema noted Cardio Common normals: regular rate Rate: regular rate Peripheral pulses: posterior tibial pulses present and dorsalis pedis pulses present Extremity Common normals: normal capillary refill General: calf tenderness and edema Right lower extremity: upper leg and lower leg (tenderness and numbness ) Left lower extremity: upper leg and lower leg Neuro Common normals: oriented x3 Assessment and Plan Assessment and Plan (1) Varicose veins of bilateral lower extremities with pain: Plan Additional sclerotherapy Vance Arzola MD personally performed the services described in this documentation, as scribed by Ranjit Henderson RN in my presence and it is both accurate and complete. Ranjit Arzola RN, am scribing for, and in the presence of, Dr. Vance Zhu and in the presence of the patient. Procedures Procedure Instructions Procedures sclerotherapy: Risks and benefits of the procedure were discussed at length and informed written consent was obtained.? Time-out procedure was performed and the correct patient and procedure were confirmed.? Staff present during time-out: Ranjit Henderson RN and Vance Zhu MD.? Patient prepped and procedure performed in usual sterile fashion. Injections performed by and Ranjit Henderson RN Sclerosing Agent:?? 4cc 0.5% Polidocanol Site Injected: left leg Number of Injections: 27 Anesthesia: Supercooled air The patient tolerated the procedure well without complication.? Hemostasis was obtained and thigh-high compression stocking was applied by patient.? Instructed patient to wear stocking for at least 96 hours and sleep with it and only remove for showering.? Will wear stocking for 2 weeks.? The patient verbalizes understanding and states they will comply.? Patient was given post-procedure instructions. Patient was discharged in good condition.? Scheduled to undergo additional injection sclerotherapy on 05/12/2024 IVance MD personally performed the services described in this documentation, as scribed by Ranjit Henderson RN in my presence and it is both accurate and complete. IRanjit RN, am scribing for, and in the presence of, Dr. Vance Zhu and in the presence of the patient.
--- NOTE | 2024-05-09 08:49 | W.VEIN ---
Discharge Plan Discharge Disposition: Home, Self-Care Outpatient Diagnostics: VC INJ Sclerosing SOLMULT Vein (Routine) Timeframe: 2 Weeks Facility: [facility] - Location: Vein Center Ordered By: Vance Zhu Follow Up Appointments: 05/12/2024 Plan of Treatment: Additional sclerotherapy Patient Instructions: Polidocanol (By injection) Print Language: Anguill[place] Discharge Date/Time: 05/10/24 09:38
--- NOTE | 2024-05-10 08:59 | VEIN_ITS ---
[address] [address] Patient Name: RADHA SALGADO MRN: [id number] date: 1950 Sex: F Assigned Patient Location: [facility] Current Patient Location: Accession/Order Number: [id number] Exam Date: 05/10/2024 08:59 Report Date: 05/10/2024 12:49 At the request of: MAEGAN WALLER Procedure: VC INJ Sclerosing SOLMULT Vein EXAMINATION: VC INJ Sclerosing SOLMULT Vein HISTORY: I83.813 - Varicose veins of bilateral lower extremities w... COMPARISON: No relevant comparison available. TECHNIQUE: The risks and benefits of the procedure were explained at length to the patient and informed written consent was obtained. was present and assisted. The procedure was performed under sterile technique. The patient's leg was wrapped with Coban and postprocedural verbal and written instructions provided. SCLEROSANT: 4 cc, 0.5% polidocanol VEIN(S) INJECTED: 24 veins in the left leg VISUALIZATION: Ultrasound was not used to visualize the sclerosant ANESTHESIA: Supercooled air COMPLICATIONS: None VEIN/VC INJ Sclerosing SOLMULT Vein IMPRESSION: Technically successful sclerotherapy as described Electronically authenticated by: MAEGAN WALLER Date: 05/10/2024 12:49
[2024-05-10 09:10] VITALS: BP 140/78; PULSE 75; O2SAT 97
--- OUTSIDE RECORDS SUMMARY | 2024-05-10 09:14 | XMS_ITS | CCD ---
Author Organization [facility] Care Team Providers Care Clerk Of Works Name Role Phone Unavailable Primary Care Provider UnavailTy Roberson Primary Care Provider [phone] AKSHAT WEBBER Attending Unavailab TY Lucas Primary Care UnavailReynold Bullock Unavailable MD Ty Shah Primary Care Provider MD Reynold Roper Attending Provider MD Ty Shah Primary Care Provider [phone] MD Reynold Roper Attending Provider JOSLYN OLIVARES Attending Unavailable JACQUELIN, REYNOLD Referring Unavailable GLORY PEREZ Attending Unavailable REYNOLD ROPER Referring Unavailable GLORY PEREZ Attending Unavailable JACQUELIN, [...] 5 04/15/2017 04/15/2017 Active lactobacillus rhamnosus gg [id number] unt oral capsule (2 sources) take 1 [...] 05-02-2024 XR hip LT min 2V(w/wo pelvis)* [facility] [place] [address] [place] [address] XRay Report Signed Patient: Janneth Arceo MR#: [id number] : 1950 Acct:[id number] Age/Sex: 73 / F ADM Date: 05/02/24 Loc: XD Room: Type: [facility] Attending Dr: Reynold Roper MD Copies to: [...] Deacon Alvarado M.D.05/02/2024 4:45 PM Dictation Location: [place] [address] Transcribed By: [facility] 05/02/24 1645 Dictated By: Deacon Alvarado DO 05/02/24 1644 Signed By: 05/02/24 1645 Normal [facility] MM SCREENING CHRISSY BILATERALo n [...] sent to the patient regarding the results. [facility], along with the National Comprehensive Cancer Network, the [employer], and [facility], recommend annual screening mammograms for women age 40 [address] [facility]/ Workstation ID: [id number] Dictated by: SERGE DALEY on ThuApr 29, 2024 1:28:50 PM EDT Transcribed by: LILIANA JOHNSON on ThuApr 29, 2024 2:06:50 PM EDT Finalized by: SERGE DALEY on ThuApr 29, 2024 2:13:19 PM EDT Normal [facility] XR lumbar spine AP/LAT/FLX/E XTon 03-28-2024 XR lumbar spine AP/LAT/FLX/EXT [place] [address] XRay Report Signed Patient: Janneth Arceo MR#: [id number] : 1950 Acct:[id number] Age/Sex: 73 / F ADM Date: 03/28/24 Loc: XD Room: Type: [facility] Attending Dr: Reynold Roper MD Copies to: [...] Landry Jr., D.O.03/28/2024 3:28 PM Dictation Location: [place] [address] Transcribed By: [facility] 03/28/24 1528 Dictated By: Marcel Landry Jr, DO 03/28/24 1526 Signed By: 03/28/24 1528 Normal [facility] Mammography Screening [facility] 04-15-2017 Mammography Screening Bilateral No mammographic evidence of malignancy. BIRADS: BIRADS - CATEGORY 2 Benign, no evidence of malignancy. Normal interval follow-up is recommended in 12 months. OVERALL ASSESSMENT - BENIGN A letter of notification will be sent to the patient regarding the results. [facility], along with the National Comprehensive Cancer Network, the [employer], and [facility], recommend annual screening mammograms for women age 40 and older. [employer] Workstation ID: [id number] [facility] Mammography Screening Bilateral EXAMINATION: MM SCREENING BILATERAL 04/15/2017 Computer-assisted detection utilized in the interpretation of this exam. COMPARISON: Mammogram dated 03/22/2015. FINDINGS: MLO and CC views of both breasts were obtained using digital technique. The breasts are almost entirely fatty. Mild scarring from bilateral reduction surgery again noted, not significantly changed. No standout mass, suspicious calcification, or architectural distortion identified. [facility] Vital Signs Date Time Vital Sign Value Performing Clinician Facility 05-02-2024 10:06-0400 Diastolic blood pressure 92 mm[Hg] MD Ty Shah Work Phone: [facility] 05-02-2024 10:06-0400 Heart rate 53 /min MD Ty Shah Work Phone: [facility] 05-02-2024 10:06-0400 SaO2% (BldA) [Mass fraction] 99 % MD Ty Shah Work Phone: [facility] 05-02-2024 10:06-0400 Systolic blood pressure 180 mm[Hg] MD Ty Shah Work Phone: [facility] 03-28-2024 11:16-0400 Diastolic blood pressure 80 mm[Hg] [facility] 03-28-2024 11:16-0400 Heart rate 70 /min [facility] 03-28-2024 11:16-0400 SaO2% (BldA) [Mass fraction] 99 % [facility] 03-28-2024 11:16-0400 Systolic blood pressure 140 mm[Hg] [facility] 02-01-2024 13:43-0400 Body height 154.94 cm [facility] 02-01-2024 13:43-0400 Body mass index (BMI) [Ratio] 31.1 kg/m2 [facility] 02-01-2024 13:43-0400 Body temperature 97.8 [degF] [facility] 02-01-2024 13:43-0400 Body weight 74.84 kg [facility] 02-01-2024 13:43-0400 Diastolic blood pressure 84 mm[Hg] [facility] 02-01-2024 13:43-0400 Heart rate 56 /min [facility] 02-01-2024 13:43-0400 Systolic blood pressure 173 mm[Hg] [facility] 05-29-2022 16:30-0400 Body height 160.02 cm Reynold Roper Other [facility] Other 05-29-2022 16:30-0400 Body mass index (BMI) [Ratio] 33.16 kg/m2 Reynold Roper Other [facility] Other 05-29-2022 16:30-0400 Body weight 84.91 kg Reynold Roper Other [facility] Other 05-29-2022 16:30-0400 Diastolic blood pressure 102 mm[Hg] Reynolddenice Roper Other [facility] Other 05-29-2022 16:30-0400 SaO2% (BldA) [Mass fraction] 99 % Reynold Almazanky Other [facility] Other 05-29-2022 16:30-0400 Systolic blood pressure 170 mm[Hg] Reynold Jacquelin Other [facility] Other 05-09-2022 11:15-0400 Body height 160.02 cm Reynold Almazanky Other [facility] Other 05-09-2022 11:15-0400 Body mass index (BMI) [Ratio] 33.19 kg/m2 Reynold Almazanky Other [facility] Other 05-09-2022 11:15-0400 Body weight 85 kg Reynold Jacquelin Other [facility] Other 05-09-2022 11:15-0400 Diastolic blood pressure 90 mm[Hg] Reynold Roper Other [facility] Other 05-09-2022 11:15-0400 SaO2% (BldA) [Mass fraction] 99 % Reynold Roper Other [facility] Other 05-09-2022 11:15-0400 Systolic blood pressure 164 mm[Hg] Reynold Jacquelin Other [facility] Other 04-21-2022 15:00-0400 Body height 160.02 cm Reynold Roper Other [facility] Other 04-21-2022 15:00-0400 Body mass index (BMI) [Ratio] 33.12 kg/m2 Reynold Roper Other [facility] Other 04-21-2022 15:00-0400 Body weight 84.82 kg Reynold Roper Other [facility] Other 04-21-2022 15:00-0400 Diastolic blood pressure 82 mm[Hg] Reynold Roper Other [facility] Other 04-21-2022 15:00-0400 SaO2% (BldA) [Mass fraction] 99 % Reynold Roper Other [facility] Other 04-21-2022 15:00-0400 Systolic blood pressure 140 mm[Hg] Reynold Jacquelin Other [facility] Other 05-03-2020 14:46-0400 BMI (Body Mass Index) 31.79 kg/m2 Akshat Webber [facility] 05-03-2020 14:46-0400 Body weight 78.83 kg Akshat Webber [facility] 05-03-2020 14:46-0400 BP Diastolic 84 mm[Hg] Akshat Webber [facility] 05-03-2020 14:46-0400 BP Systolic 160 mm[Hg] Akshat Webber [facility] 05-03-2020 14:46-0400 Height 157.5 cm Akshat Webber [facility] 05-03-2020 14:46-0400 Pulse (Heart Rate) 81 /min Akshat Webber [facility] 04-15-2017 13:39-0400 BMI (Body Mass Index) 33.44 kg/m2 Akshat Webber [facility] Work Phone: 04-15-2017 13:39-0400 BP Diastolic 76 mm[Hg] Akshat Webber [facility] Work Phone: 04-15-2017 13:39-0400 BP Systolic 132 mm[Hg] Akshat Webber [facility] Work Phone: 04-15-2017 13:39-0400 Height 154.9 cm Akshat Webber [facility] Work Phone: 04-15-2017 13:39-0400 Weight 80.29 kg Akshat Webber [facility] Work Phone: Encounters Encounter Date Encounter Type Care Provider Facility Start: 05-02-2024 End: 05-02-2024 ambulatory MD Ty Shah Work Phone: [facility] Work Phone: Start: 05-02-2024 End: 05-02-2024 Patient encounter procedure MD Ty Shah Work Phone: [facility] Work Phone: Start: 04-29-2024 End: 04-29-2024 ambulatory TY TORRES SHAH [facility] Start: 04-26-2024 End: 04-26-2024 ambulatory GLORY DEPOY Not Available Start: 04-20-2024 End: 04-20-2024 ambulatory GLORY DEPOY Not Available Start: 04-18-2024 End: 04-18-2024 ambulatory GLORY PEREZ Not Available Start: 04-13-2024 End: 04-13-2024 ambulatory JOSLYN OLIVARES Not Available Start: 03-28-2024 End: 03-28-2024 ambulatory MD Ty Shah Work Phone: [facility] Work Phone: Start: 03-28-2024 End: 03-28-2024 Patient encounter procedure [facility] Work Phone: Start: 02-01-2024 End: 02-01-2024 ambulatory [facility] Work Phone: Start: 02-01-2024 End: 02-01-2024 Patient encounter procedure [facility] Work Phone: Start: 05-29-2022 End: 05-29-2022 ambulatory Reynold Jacquelin Other [facility] Other Start: 05-29-2022 Office outpatient vi sit 25 minutes Reynold Jacquelin [facility] Start: 05-09-2022 End: 05-09-2022 ambulatory Reynold Jacquelin Other [facility] Other Start: 05-09-2022 Patient encounter procedure Reynold Jacquelin [facility] Start: 04-21-2022 End: 04-21-2022 Patient encounter procedure MD Ty Shah Work Phone: [facility] Start: 04-21-2022 End: 04-21-2022 ambulatory Reynold Jacquelin Other [facility] Other Start: 04-21-2022 Office consultation new/estab patient 60 min Reynold Jacquelin [facility] Start: 04-15-2022 End: 04-15-2022 ambulatory Reynold Jacquelin Other [facility] Other Start: 04-15-2022 Telephone encounter Reynold Roper [facility] Start: 10-01-2020 End: 10-01-2020 Orders Only Elena De La Rosa Work Phone: [facility] Start: 05-03-2020 End: 05-03-2020 Patient encounter procedure AKSHAT WEBBER [facility] Start: 05-03-2020 End: 05-03-2020 Office outpatient new 30 minutes Akshat Webber Work Phone: [facility] Comment on above: Encounter for gyneco logical examination without abnormal finding (Primary Dx); Menopausal disorder; Special screening for malignant neoplasm of vagina Start: 05-03-2020 End: 05-03-2020 Subsequent hospital visit by physician Akshat Webber Work Phone: [facility] Comment on above: Screening mammogram, encounter for Start: 04-15-2017 End: 04-15-2017 Periodic preventive med est patient 65yrs& older Akshat Webber Work Phone: [facility] Comment on above: Encounter for gyneco logical examination without abnormal finding (Primary Dx);Special screening for malignant neoplasms, vagina;Candidiasis of vulva and vagina;Fatigue, unspecified type;Osteopenia, unspecified location Start: 04-15-2017 End: 04-15-2017 Patient encounter procedure Akshat Webber Work Phone: [facility] Comment on above: [...] Author Start: 05-03-2021 Screening mamm[facility] Start: 04-24-2020 Influenza vaccinatio n given Sequential Influenza Vaccine (#1) [facility] Start: 04-15-2018 History and physical examination, annual for health maintenance Wellness Visit [facility] Start: 04-15-2018 Screening mammography [facility]ammogram [facility] Start: 04-24-2017 SEQUENTIAL INFLUENZA VACCINE (#1) SEQUENTIAL INFLUENZA VACCINE (#1) [facility] Work Phone: Start: 12-18-2015 Pneumococcal vaccination Pneum ococcal Vaccine Age 65+ (1 of 2 - PCV13) [facility] Start: 12-18-2015 PNEUMOCOCCAL VACCINE AGE 65+ (1 of 2 - PCV13) PNEUMOCOCCAL VACCINE AGE 65+ (1 of 2 - PCV13) [facility] Work Phone: Start: 2010 Zoster vaccine hzv l latisha for subcutaneous use ZOSTER VACCINE [facility] Work Phone: Start: 2000 Administration of he rpes zoster vaccine Zoster Vaccines (1 of 2) [facility] Start: 2000 Screening for malign ant neoplasm of colon [facility] Start: 1968 Hepatitis C antibody , confirmatory test Hepatitis C Screening [facility] Start: 1966 COVID-19 Vaccine (1 of 2) COVI D-19 Vaccine (1 of 2) [facility] Start: 1962 Adolescent depressio n screening assessment Depression Screening (PHQ9) [facility] Start: 1950 Colonoscopy COLONOSCOPY [facility] Work Phone: Start: 1950 Fall risk assessment Falls Risk Asse ssment [facility] Start: 1950 HEPATITIS C SCREENING HEPATITIS C SC REENING [facility] Work Phone: Start: 1950 TETANUS EVERY 10 YR TETANUS EVERY 10 YR [facility] Work Phone: Start: 1950 Tetanus vaccination Tetanus: Every 1 0yrs [facility] End: 05-03-2021 Bone density scan XR Bone Density DEXA Axial Imaging Routine Menopausal disorder 1 Occurrences starting 05/03/2020 until 05/03/2021 [facility] Comment on above: 1 Occurrences starti ng 05/03/2020 until 05/03/2021 End: 05-03-2020 MG Breast - bilateral screening Mammography Screening Bilateral Imaging Routine Screening Mammogram, Encounter For Once for 1 Occurrences starting 05/03/2020 until 05/03/2020 [facility] Comment on above: Once for 1 Occurrenc es starting 05/03/2020 until 05/03/2020 MG Breast - bilatera l screening Mammography Screening Bilateral Imaging Routine Screening mammogram, encounter for 05/03/2020 2:07 PM EDT [facility] Microscopic examinat ion of vaginal Papanicolaou smear Thinprep Pap Smear Pathology and Cytology Routine Special screening for malignant neoplasm of vagina Ordered: 05/03/2020 [facility] Comment on above: Ordered: 05/03/2020 MR Lumbar spine WO contrast [facility] Thinprep Pap Smear, Screening Thinprep Pap Smear, Screening Routine Special screening for malignant neoplasms, vagina Ordered: 04/15/2017 [facility] Work Phone: Comment on above: Ordered: 04/15/2017 XR Hip - left 2 Views [facility] XR Lumbar spine 4 Views [facility] Payers Date Payer Category Payer Self-pay [id number] 2021 Medicare [id number] 2019 Medicare [employer] [place] DICARE [employer] MEDICARE PLAN (PPO) [id number] 2019-Present [id number] 2019 Medicare [id number] 1950 Unknown [id number] 1950 Unknown [id number] 1950 Unknown [id number] 1950 Unknown [id number] 1950 Unknown [id number] 1950 Unknown [id number] Medicare [id number] Medicare Medicare [id number] Unknown [id number] Unknown [id number] Social History Date Type Detail Facility Start: 04-15-2017 End: 02-28-2020 Tobacco smoking status [facility] Never smoker [facility] Sex Assigned At Not on file [facility] [employer] Work Phone: Start: 05-03-2020 Tobacco use and exposure Never used [facility] Start: 05-03-2020 Alcohol intake Current drinke r of alcohol (finding) [facility] Start: 04-15-2017 Alcohol Comment Social [facility] Exposure to SARS-CoV-2 (event) Not sure [facility] Sex Assigned At Sex Assigned At [facility] Other Start: 1950 Sex Assigned At Female F [facility] Evaluation note 05-29-2022 Note Date & Type [...] - G89.29) Continue with current treatment plan. [facility] Other Evaluation note 05-09-2022 Note Date & [...] - G89.29) Continue with current treatment plan. 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 She feels pain is negatively impacting [...] negative findings were considered in medical decision-making. [facility] Other Evaluation note Note Date & Type Note Facility Evaluation note No assessment information availa [facility] Work Phone: Evaluation note Note Date & Type Note Facility Evaluation note No Information [employer] Other Evaluation note Note Date & Type Note Facility Evaluation note Diagnosis Onset Date Phlebitis and thrombophlebitis acute Lumbosacral spondylosis acut e Other chronic pain acute Sacroiliitis [facility] Work Phone: Evaluation note Note Date & Type Note Facility Evaluation note Diagnosis Onset Date Lumbosacral spondylosis acut e Other chronic pain acute Sacroiliitis acute Left hip pain acute Lumbosacral spondylosis acut e Other chronic pain acute Sacroiliitis acute [facility] Work Phone: History general Narrative - Reported Note Date & Type Note Facility History general Narrative - Reported Type Medical History CELLULITIS Medical History HYPOTHYROID Medical History hiatal hernia Surgical History HYSTERECTOMY Surgical History L KNEE Surgical History APPENDIX Surgical History GALLBLADDER Hospitalization History see above Hospitalization History cellulitis right leg [facility] Other History of Present Illness * Akshat [...] been noticing recurrent yeast infections. She uses [id number] Monistat, which seems to help. I gave her a prescription for Diflucan 150 mg, #1 with 5 refills. I did tell the patient that if she would need refills after this expires, we can do this over the phone as long as it is within 1 year. Review of Systems: I have reviewed and agree with the ROS as gathered by the network and threat support specialist. Past Medical History: Diagnosis Date [...] with the ROS as gathered by the network and threat support specialist. Past Medical History: Diagnosis Date [...] file Gets together: Not on file Attends protestant service: Not on file Active member of [...] Mammography Screening Bilateral Akshat Webber MD [address] [place] [address] [facility] [place] [address] Status Reason Specialty Diagnoses / Procedures Referred By Contact Referred To Contact Authorized Radiology Diagnoses Menopausal disorder Procedures XR Bone Density DEXA Axial Akshat Webber MD [address] [place] [id number] Status Reason Specialty Diagnoses / Procedures Referred By Contact Referred To Contact Pending Review Radiology Diagnoses Screening mammogram, encounter for Procedures Mammography Screening Bilateral Akshat Webber MD [address] [place] [address] Advance Directives No Advanced Directives Records FoundDocuments on File Type Date Recorded Patient Pull Through Hooker Expl anation Advance Directives and Livin g Will 05/03/2020 12:00 AM Documents on File Type Date Recorded Patient Pull Through Hooker Expl anation Advance Directives and Livin g [...] Procedures Mammography Screening Bilateral Akshat Webber MD [address] [place] [address] [facility] [address] [place] [address] Reason Comments Annual Exam Status Reason Specialty Diagnoses / Procedures Referred By Contact Referred To Contact Pending Review Radiology Diagnoses Screening mammogram, encounter for Procedures Mammography Screening Bilateral Akshat Webber MD [address] [place] [address] INFORMATION SOURCE (unrecogn ized section and content) DATE CREATED AUTHOR 05/03/2020 [facility] DATE CREATED AUTHOR AUTHOR'S ORGANIZ ATION 04/27/2024 [facility] EPIC DATE CREATED AUTHOR AUTHOR'S ORGANIZ ATION 05/01/2024 [facility] DATE CREATED AUTHOR AUTHOR'S ORGANIZ ATION 05/03/2024 [facility] Quick Note - Sallie Quan [...] BE BASED ON THE PRIMARY CLINICAL RECORDS. [facility] [employer] [facility]. provides no warranty or guarantee of the accuracy or completeness of information in this document.
== END 2024-05-10 09:38 | disposition home or self-care (01) ==
LOC: VC 08:58
PROVIDERS: PCP Radiology Diagnostic Radiology; Visit Provider Radiology Diagnostic Radiology
DX: I83.813 Varicose veins of bilateral lower extremities with pain (principal)
CPT/HCPCS: 36471

== ENCOUNTER 2024-05-12 09:00 | Outpatient (OUT) | payer MEDICARE, SELFPAY ==
--- NOTE | 2024-05-11 08:56 | VEINCLINIC_ITS ---
Vital Signs 05/12/24 09:05 BP 170/88 H BP Location Left Brachial BP Position Sitting BP Cuff Size Adult BP Source Manual Cuff Respiration 16 Pulse 77 Pulse Source Monitor Pulse Oximetry (%) 99 Oxygen Delivery Method Room Air Comment The patient's blood pressure is elevated. Varicose Veins Patient in today for sclerotherapy. Patient B.P. on evaluation notably high. Patient states she was to another physician yesterday and BP was high as well. Patient highly encouraged to notify PCP. Patient states that she will. Vance Arzola MD personally performed the services described in this documentation, as scribed by Ranjit Henderson RN in my presence and it is both accurate and complete. IRanjit RN, am scribing for, and in the presence of, Dr. Vance Zhu and in the presence of the patient. medial (Distal/medial right leg ulcer) thigh: bilateral, knee: bilateral, calf: bilateral and ankle: bilateral cramping, sharp and other 7 30+ years Worsened in recent months: Yes standing elevating extremities, compression stockings and other (Rest) Reports edema, leg edema and other (stasis ulcer to right distal/medial calf, cellulitis, DVT) History of lower extremity trauma: No Superficial thrombophlebitis: No Family history of varicose veins: yes Has patient had previous lower extremity venous surgery: No Patient has previously received the following treatment(s) for lower extremity varicose veins: Reports sclerotherapy Does patient have a history of : yes Does patient intend to have future pregnancies: no Has patient had lower extremity venous scan with relux testing: Yes Support hose used: Yes Prescribed by provider: No Problems walking or doing physical activity: No Do you walk much: Yes Do you stand much: Yes Medication compliance: good Large amounts of Vitamin K: No Review of Systems ROS Narrative Vance Arzola MD personally performed the services described in this documentation, as scribed by Ranjit Henderson RN in my presence and it is both accurate and complete. IRanjit RN, am scribing for, and in the presence of, Dr. Vance Zhu and in the presence of the patient. Status of ROS 10 or more systems reviewed and unremark able except as noted in history and below Cardiovascular Reports: edema and leg pain with exertion Musculoskeletal Reports: extremity pain, extremity swelling and muscle cramps Integumentary/Breast Reports: itching, redness, changing lesion, non-healing lesion and changes in skin color Neurological Reports: weakness in extremities Hematologic/Lymphatic Reports: easy bruising PFSH PFS Medical History (Updated 04/04/24 @ 10:48 by Cristal Garnett) Phlebitis and thrombophlebitis of superficial vessels of lower extremities, bilateral ?I80.03 - Phlebitis and thrombophlebitis of superficial vessels of lower extremities, bilateral (ICD-10) Phlebitis and thrombophlebitis of superficial vessels of left lower extremity ?I80.02 - Phlebitis and thrombophlebitis of superficial vessels of left lower extremity (ICD-10) Phlebitis and thrombophlebitis of superficial vessels of right lower extremity ?I80.01 - Phlebitis and thrombophlebitis of superficial vessels of right lower extremity (ICD-10) Varicose veins of bilateral lower extremities with pain ?I83.813 - Varicose veins of bilateral lower extremities with pain (ICD-10) Hypothyroidism ?E03.9 - Hypothyroidism, unspecified (ICD-10) Cellulitis and abscess of leg ?L03.119 - Cellulitis of unspecified part of limb (ICD-10) ?L02.419 - Cutaneous abscess of limb, unspecified (ICD-10) DVT (deep venous thrombosis) ?I82.409 - Acute embolism and thrombosis of unspecified deep veins of unspecified lower extremity (ICD-10) 3 para 3 ?Z78.9 - Other specified health status (ICD-10) Surgical History (Updated 05/10/24 @ 09:44 by Ranjit Henderson) S/P sclerotherapy of varicose veins ?Z98.890 - Other specified postprocedural states (ICD-10) ?Z86.79 - Personal history of other diseases of the circulatory system (ICD- 10) History of arthroscopic knee surgery ?Z98.890 - Other specified postprocedural states (ICD-10) History of cholecystectomy ?Z90.49 - Acquired absence of other specified parts of digestive tract (ICD- 10) History of hysterectomy ?Z90.710 - Acquired absence of both cervix and uterus (ICD-10) Family History (Updated 02/22/24 @ 14:46 by Rossy Weller) Mother Family history of cancer Varicose veins of bilateral lower extremities with pain Father Family history of cancer Brother Family history of cancer Sister Family history of cancer Social History (Updated 02/22/24 @ 14:47 by Rossy Weller) Within the past year, how often did you have a drink containing alcohol: 2-4 times a month Smoking status: Never smoker Non-prescribed substance use: denies use Meds Home Medications and Allergies Home Medications ?Medication ?Instructions ?Recorded ?Confirmed ?Type ibuprofen 200 mg tablet (IBU-200) 200 mg PO Q8H 02/22/24 03/21/24 History levothyroxine .ROUTE 02/22/24 History ropinirole .ROUTE 02/22/24 History aspirin 325 mg tablet 325 mg PO DAILY 04/08/24 04/08/24 History Allergies Allergy/AdvReac Type Severity Reaction Status Date / Time No Known Drug Allergies Allergy Unverified 02/22/24 14:43 Exam Narrative Exam Narrative: Pin sized wound noted to left proximal medial-posterior lower leg. Wound scabbed and hard to touch. No s/s of infection. Patient encouraged to keep antibiotic ointment and band-aid to area. Vance Arzola MD personally performed the services described in this documentation, as scribed by Ranjit Henderson RN in my presence and it is both accurate and complete. Ranjit Arzola RN, am scribing for, and in the presence of, Dr. Vance Zhu and in the presence of the patient. Constitutional Documenting provider has reviewed patient's vital signs: yes Common normals: oriented x3 Lymph Lymphatic: no lymphedema noted Cardio Common normals: regular rate Rate: regular rate Peripheral pulses: posterior tibial pulses present and dorsalis pedis pulses present Extremity Common normals: normal capillary refill General: calf tenderness and edema Right lower extremity: upper leg and lower leg (tenderness and numbness ) Left lower extremity: upper leg and lower leg Neuro Common normals: oriented x3 Assessment and Plan Assessment and Plan (1) Varicose veins of bilateral lower extremities with pain: Plan further sclerotherapy Vance Arzola MD personally performed the services described in this documentation, as scribed by Ranjit Henderson RN in my presence and it is both accurate and complete. Ranjit Arzola RN, am scribing for, and in the presence of, Dr. Vance Zhu and in the presence of the patient. Procedures Procedure Instructions Procedures sclerotherapy: Risks and benefits of the procedure were discussed at length and informed written consent was obtained.? Time-out procedure was performed and the correct patient and procedure were confirmed.? Staff present during time-out: Ranjit Henderson RN and Vance Zhu MD.? Patient prepped and procedure performed in usual sterile fashion. Injections performed by and Ranjit Henderson RN Sclerosing Agent:?? 4cc 0.5% Polidocanol Site Injected: right leg Number of Injections: 26 Anesthesia: Supercooled air The patient tolerated the procedure well without complication.? Hemostasis was obtained and thigh-high compression stocking was applied by patient.? Instructed patient to wear stocking for at least 96 hours and sleep with it and only remove for showering.? Will wear stocking for 2 weeks.? The patient verbalizes understanding and states they will comply.? Patient was given post-procedure instructions. Patient was discharged in good condition.? Scheduled to undergo additional injection sclerotherapy on 05/16/2024. IVance MD personally performed the services described in this documentation, as scribed by Ranjit Henderson RN in my presence and it is both accurate and complete. IRanjit RN, am scribing for, and in the presence of, Dr. Vance Zhu and in the presence of the patient.
--- NOTE | 2024-05-11 08:57 | W.VEIN ---
Discharge Plan Discharge Disposition: Home, Self-Care Outpatient Diagnostics: VC INJ Sclerosing SOLMULT Vein (Routine) Timeframe: 2 Weeks Facility: [facility] - Location: [facility] Ordered By: Vance Zhu Follow Up Appointments: 05/16/2024 Plan of Treatment: further sclerotherapy Patient Instructions: Polidocanol (By injection) Print Language: Turkmen Discharge Date/Time: 05/12/24 10:02
--- NOTE | 2024-05-12 09:00 | VEIN_ITS ---
[address] [address] Patient Name: RADHA SALGADO MRN: [id number] date: 1950 Sex: F Assigned Patient Location: VC Current Patient Location: Accession/Order Number: [id number] Exam Date: 05/12/2024 09:00 Report Date: 05/12/2024 10:54 At the request of: MAEGAN WALLER Procedure: VC INJ Sclerosing SOLMULT Vein EXAMINATION: VC INJ Sclerosing SOLMULT Vein HISTORY: I83.813 - Varicose veins of bilateral lower extremities w... COMPARISON: No relevant comparison available. TECHNIQUE: The risks and benefits of the procedure were explained at length to the patient and informed written consent was obtained. Ranjit Henderson was present and assisted. The procedure was performed under sterile technique. The patient's leg was wrapped with Coban and postprocedural verbal and written instructions provided. SCLEROSANT: cc, 0.5% polidocanol VEIN(S) INJECTED: 26 veins in the right leg VISUALIZATION: Ultrasound was not used to visualize the sclerosant ANESTHESIA: Supercooled air COMPLICATIONS: None VEIN/VC INJ Sclerosing SOLMULT Vein IMPRESSION: Technically successful sclerotherapy as described Electronically authenticated by: MAEGAN WALLER Date: 05/12/2024 10:54
[2024-05-12 09:05] VITALS: BP 170/88; PULSE 77; O2SAT 99
== END 2024-05-12 10:02 | disposition home or self-care (01) ==
LOC: VC 09:00
PROVIDERS: PCP Radiology Diagnostic Radiology; Visit Provider Radiology Diagnostic Radiology
DX: I83.813 Varicose veins of bilateral lower extremities with pain (principal)
CPT/HCPCS: 36471

== ENCOUNTER 2024-05-16 08:43 | Outpatient (OUT) | payer MEDICARE, SELFPAY ==
--- NOTE | 2024-05-13 08:42 | V.VEINS.HP ---
Vital Signs 05/16/24 09:31 BP 160/80 H BP Location Right Brachial BP Position Sitting BP Cuff Size Adult BP Source Manual Cuff Respiration 16 Pulse 70 Pulse Source Monitor Pulse Oximetry (%) 100 Oxygen Delivery Method Room Air Comment The patient's blood pressure is elevated. Varicose Veins Patient in today for sclerotherapy. Patient B.P. on evaluation notably high. Patient states she was to another physician yesterday and BP was high as well. Patient highly encouraged to notify PCP. Patient states that she will. Vance Arzola MD personally performed the services described in this documentation, as scribed by Ranjit Henderson RN in my presence and it is both accurate and complete. IRanjit RN, am scribing for, and in the presence of, Dr. Vance Zhu and in the presence of the patient. medial (Distal/medial right leg ulcer) thigh: bilateral, knee: bilateral, calf: bilateral and ankle: bilateral cramping, sharp and other 7 30+ years Worsened in recent months: Yes standing elevating extremities, compression stockings and other (Rest) Reports edema, leg edema and other (stasis ulcer to right distal/medial calf, cellulitis, DVT) History of lower extremity trauma: No Superficial thrombophlebitis: No Family history of varicose veins: yes Has patient had previous lower extremity venous surgery: No Patient has previously received the following treatment(s) for lower extremity varicose veins: Reports sclerotherapy Does patient have a history of : yes Does patient intend to have future pregnancies: no Has patient had lower extremity venous scan with relux testing: Yes Support hose used: Yes Prescribed by provider: No Problems walking or doing physical activity: No Do you walk much: Yes Do you stand much: Yes Medication compliance: good Large amounts of Vitamin K: No Review of Systems ROS Narrative Vance Arzola MD personally performed the services described in this documentation, as scribed by Ranjit Henderosn RN in my presence and it is both accurate and complete. IRanjit RN, am scribing for, and in the presence of, Dr. Vance Zhu and in the presence of the patient. Status of ROS 10 or more systems reviewed and unremarkable except as noted in history and below Cardiovascular Reports: edema and leg pain with exertion Musculoskeletal Reports: extremity pain, extremity swelling and muscle cramps Integumentary/Breast Reports: itching, redness, changing lesion, non-healing lesion and changes in skin color Neurological Reports: weakness in extremities Hematologic/Lymphatic Reports: easy bruising PFSH [facility] Medical History (Updated 04/04/24 @ 10:48 by Cristal Garnett) Phlebitis and thrombophlebitis of superficial vessels of lower extremities, bilateral ?I80.03 - Phlebitis and thrombophlebitis of superficial vessels of lower extremities, bilateral (ICD-10) Phlebitis and thrombophlebitis of superficial vessels of left lower extremity ?I80.02 - Phlebitis and thrombophlebitis of superficial vessels of left lower extremity (ICD-10) Phlebitis and thrombophlebitis of superficial vessels of right lower extremity ?I80.01 - Phlebitis and thrombophlebitis of superficial vessels of right lower extremity (ICD-10) Varicose veins of bilateral lower extremities with pain ?I83.813 - Varicose veins of bilateral lower extremities with pain (ICD-10) Hypothyroidism ?E03.9 - Hypothyroidism, unspecified (ICD-10) Cellulitis and abscess of leg ?L03.119 - Cellulitis of unspecified part of limb (ICD-10) ?L02.419 - Cutaneous abscess of limb, unspecified (ICD-10) DVT (deep venous thrombosis) ?I82.409 - Acute embolism and thrombosis of unspecified deep veins of unspecified lower extremity (ICD-10) 3 para 3 ?Z78.9 - Other specified health status (ICD-10) Surgical History (Updated 05/16/24 @ 09:32 by Ranjit Henderson) S/P sclerotherapy of varicose veins ?Z98.890 - Other specified postprocedural states (ICD-10) ?Z86.79 - Personal history of other diseases of the circulatory system (ICD-10) S/P sclerotherapy of varicose veins ?Z98.890 - Other specified postprocedural states (ICD-10) ?Z86.79 - Personal history of other diseases of the circulatory system (ICD-10) History of arthroscopic knee surgery ?Z98.890 - Other specified postprocedural states (ICD-10) History of cholecystectomy ?Z90.49 - Acquired absence of other specified parts of digestive tract (ICD-10) History of hysterectomy ?Z90.710 - Acquired absence of both cervix and uterus (ICD-10) Family History (Updated 02/22/24 @ 14:46 by Rossy Weller) Mother Family history of cancer Varicose veins of bilateral lower extremities with pain Father Family history of cancer Brother Family history of cancer Sister Family history of cancer Social History (Updated 02/22/24 @ 14:47 by Rossy Weller) Within the past year, how often did you have a drink containing alcohol: 2-4 times a month Smoking status: Never smoker Non-prescribed substance use: denies use Meds Home Medications and Allergies Home Medications ?Medication ?Instructions ?Recorded ?Confirmed ?Type ibuprofen 200 mg tablet (IBU-200) 200 mg PO Q8H 02/22/24 03/21/24 History levothyroxine .ROUTE 02/22/24 History ropinirole .ROUTE 02/22/24 History aspirin 325 mg tablet 325 mg PO DAILY 04/08/24 04/08/24 History Allergies Allergy/AdvReac Type Severity Reaction Status Date / Time No Known Drug Allergies Allergy Unverified 02/22/24 14:43 Exam Narrative Exam Narrative: Vance Arzola MD personally performed the services described in this documentation, as scribed by Ranjit Henderson RN in my presence and it is both accurate and complete. Ranjit Arzola RN, am scribing for, and in the presence of, Dr. Vance Zhu and in the presence of the patient. Constitutional Documenting provider has reviewed patient's vital signs: yes Common normals: oriented x3 Lymph Lymphatic: no lymphedema noted Cardio Common normals: regular rate Rate: regular rate Peripheral pulses: posterior tibial pulses present and dorsalis pedis pulses present Extremity Common normals: normal capillary refill General: calf tenderness and edema Right lower extremity: upper leg and lower leg (tenderness and numbness ) Left lower extremity: upper leg and lower leg Neuro Common normals: oriented x3 Assessment and Plan Assessment and Plan (1) Varicose veins of bilateral lower extremities with pain: Plan Patient to f/u in future as necessary. Vance Arzola MD personally performed the services described in this documentation, as scribed by Rnajit Henderson RN in my presence and it is both accurate and complete. Ranjit Arzola RN, am scribing for, and in the presence of, Dr. Vance Zhu and in the presence of the patient. Procedures Procedure Instructions Procedures sclerotherapy: Risks and benefits of the procedure were discussed at length and informed written consent was obtained.? Time-out procedure was performed and the correct patient and procedure were confirmed.? Staff present during time-out: Ranjit Henderson RN and Vance Zhu MD.? Patient prepped and procedure performed in usual sterile fashion. Injections performed by and Ranjit Henderson RN Sclerosing Agent:?? 4cc 0.5% Polidocanol Site Injected: left leg Number of Injections: 23 Anesthesia: Supercooled air The patient tolerated the procedure well without complication.? Hemostasis was obtained and thigh-high compression stocking was applied by patient.? Instructed patient to wear stocking for at least 96 hours and sleep with it and only remove for showering.? Will wear stocking for 2 weeks.? The patient verbalizes understanding and states they will comply.? Patient was given post-procedure instructions. Patient was discharged in good condition.? Plan of care complete at this time. Patient to f/u as necessary. IVance MD personally performed the services described in this documentation, as scribed by Ranjit Henderson RN in my presence and it is both accurate and complete. IRanjit RN, am scribing for, and in the presence of, Dr. Vance Zhu and in the presence of the patient.
--- NOTE | 2024-05-13 08:43 | W.VEIN ---
Discharge Plan Discharge Disposition: Home, Self-Care Patient Instructions: Polidocanol (By injection) Print Language: Romanian Discharge Date/Time: 05/16/24 09:34
--- NOTE | 2024-05-16 08:59 | VEIN_ITS ---
[address] [address] Patient Name: RADHA SALGADO MRN: [id number] date: 1950 Sex: F Assigned Patient Location: VC Current Patient Location: Accession/Order Number: [id number] Exam Date: 05/16/2024 08:59 Report Date: 05/16/2024 10:18 At the request of: MAEGAN WALLER Procedure: VC INJ Sclerosing SOLMULT Vein EXAMINATION: VC INJ Sclerosing SOLMULT Vein HISTORY: I83.813 - Varicose veins of bilateral lower extremities w... COMPARISON: No relevant comparison available. TECHNIQUE: The risks and benefits of the procedure were explained at length to the patient and informed written consent was obtained. Ranjit Henderson was present and assisted. The procedure was performed under sterile technique. The patient's leg was wrapped with Coban and postprocedural verbal and written instructions provided. SCLEROSANT: 4 cc, 0.5% polidocanol VEIN(S) INJECTED: 23 veins in the left leg VISUALIZATION: Ultrasound was not used to visualize the sclerosant ANESTHESIA: Supercooled air COMPLICATIONS: None VEIN/VC INJ Sclerosing SOLMULT Vein IMPRESSION: Technically successful sclerotherapy as described Electronically authenticated by: MAEGAN WALLER Date: 05/16/2024 10:18
--- OUTSIDE RECORDS SUMMARY | 2024-05-16 09:15 | XMS_ITS | CCD ---
Author Organization [facility] Care Team Providers Care Top Lifter Name Role Phone Unavailable Primary Care Provider Unavailabl e Ty Shah Primary Care Provider AKSHAT WEBBER Attending Unavailab le TY SHAH Primary Care Unavailabl e Reynold Roper Unavailable MD Ty Shah Primary Care Provider [phone] MD Reynold Roper Attending Provider MD Ty Shah Primary Care Provider MD Reynold Roper Attending Provider JOSLYN OLIVARES Attending Unavailable JACQUELIN, REYNOLD Referring Unavailable GLORY PEREZ Attending Unavailable JACQUELIN, REYNOLD Referring Unavailable DEPGLOYR RIVERA Attending Unavailable JACQUELIN, REYNOLD Referring Unavailable DEPOYCRISTINEE Attending Unavailable JACQUELIN, REYNOLD Referring Unavailable SHAH, TY SANDADI Referring Unavailabl e ALYSSA TY RADHAADI Attending Unavailabl e SHAH, TY SANDADI Primary Care Unavailabl e Jacquelin, Reynold S Admitting Unavailable Jacquelin, Reynold S Attending Unavailable Shah, Ty S Primary Care Unavailable Shah, Ty S Primary Care Unavailable Jacquelin, Reynold S Admitting Unavailable Jacquelin, Reynold S Attending Unavailable Shah, Ty S Primary Care Unavailable Jacquelin, Reynold S Admitting Unavailable Jacquelin, Reynold S Attending Unavailable Medications Current Medications Medication Drug Class(es) Dates Sig (Normalized) Sig (Original) acetaminophen 325 mg oral capsule (7 sources) Start: 02-21-2020 take 650 mg by [...] dose. 1 tablet 5 04/15/2017 04/15/2017 Active ibuprofen 200 mg oral tablet (1 source) Nonsteroidal Anti-inflammatory Drug Start: 05-11-2024 Ibuprofen Active 200 MG PO every 6 to 8 hours May 11, 2024 12:00am lactobacillus rhamnosus gg [id number] unt oral capsule (2 sources) take 1 capsule by mouth once daily Lactobacillus rhamnosus GG (CULTURELLE) 10 billion cell capsule Take 1 capsule by mouth daily Takes friendly Betsey . 0 Active levothyroxine sodium 0.075 mg oral tablet (15 sources) l-Thyroxine Start: 02-17-2017 take 1 tablet [...] 04/15/2018 Active rOPINIRole 1 mg oral tablet (6 sources) Nonergot Dopamine Agonist Start: 024 take 1 mg by mouth once daily at bedtime Ropinirole Active 1 MG PO Daily at bedtime February 01, 2024 12:00am Completed/Discontinued Medications Medication Drug Class(es) Dates Sig (Normalized) Sig (Original) Allergy Pill (7 sources) Start: 02-21-2020 End: 02-01-2024 take 1 tablet by mouth once daily Allergy Pill Discontinued 1 TAB PO Daily February 21, 2020 12:00am February 01, 2024 1:42pm Start: 02-21-2020 take 1 tablet by mouth once da daisy Allergy Pill Active 1 TAB PO Daily February 21, 2020 12:00am cephalexin 500 mg oral capsule (7 sources) Cephalosporin Antibacterial Start: 02-21-2020 End: 03-02-2020 take 1 capsule by mouth every six hours Cephalexin (Keflex) 500 mg capsule Discontinued 500 MG PO Q6H 20 03February 21, 2020 12:00am March 02, 2020 9:43am diclofenac sodium 75 mg delayed release oral tablet (7 sources) Nonsteroidal Anti-inflammatory Drug Start: 02-21-2020 End: 02-01-2024 take 75 mg by mouth twice daily Diclofenac Sodium Discontinued 75 MG PO Twice daily February 21, 2020 12:00am February 01, 2024 1:42pm linezolid 600 mg oral tablet (7 sources) Oxazolidinone Antibacterial Start: 03-02-2020 End: 02-01-2024 take 600 mg by mouth twice daily Linezolid Discontinued 600 MG PO Twice daily 12 06March 02, 2020 12:00am February 01, 2024 1:40pm traMADol hydrochloride 50 mg oral tablet (7 sources) Opioid Agonist Start: 03-02-2020 End: 02-01-2024 take 50 mg by mouth every six hours Tramadol Discontinued 50 MG PO Q6H 20 March 02, 2020 12:00am February 01, 2024 1:42pm Problems Active Problems Problem Classification Problem Date Documented Da te Episodic/Chronic Menopausal disorders (1 source) Disorder associated with menstruation AND/OR menopause; Translations: [Menopausal disorder] Chronic Other circulatory disease (7 sources) Elevated blood pressure; Translations: [Elevated blood-pressure reading, without diagnosis of hypertension] 02-28-2020 Episodic Other nervous system disorders (9 sources) Chronic pain; Translations: [Other chronic pain] 03-28-2024 Chronic Other nervous system disorders (11 sources) Other chronic pain; Translations: [Other chronic pain] Onset: 2 Resolved: 2 Chronic Other non-traumatic joint disorders (3 sources) Hip pain; Translations: [Pain in left hip] 05-02-2024 Episodic Other non-traumatic joint disorders (4 sources) Pain in left hip; Translations: [Pain in joint, pelvic region and thigh] Onset: 4 05-02-2024 Episodic Other screening for suspected conditions (not mental disorders or infectious disease) (3 sources) Breast neoplasm screening status; Translations: [Encounter for screening mammogram for malignant neoplasm of breast] Onset: 4 Episodic Phlebitis; thrombophlebitis and thromboembolism (7 sources) Venous thrombosis; Translations: [Phlebitis and thrombophlebitis of unspecified site] 02-01-2024 Episodic Residual codes; unclassified (7 sources) Edema of right lower limb; Translations: [Localized edema] 02-28-2020 Episodic Skin and subcutaneous tissue infections (7 sources) Cellulitis; Translations: [Cellulitis, unspecified] 02-28-2020 Episodic [...] abnormal finding] Varicose veins of lower extremity (7 sources) Varicose veins of lower extremity; Translations: [...] 05-02-2024 XR hip LT min 2V(w/wo pelvis)* [facility] Main [place] [id number] XRay Report Signed Patient: Janneth Arceo MR#: [id number] : 1950 Acct:[id number] Age/Sex: 73 / F ADM Date: 05/02/24 Loc: XD Room: Type: [facility] Attending Dr: Reynold Roper MD Copies [...] Deacon Alvarado M.D.05/02/2024 4:45 PM Dictation Location: [place] [address] Transcribed By: [facility] 05/02/24 1645 Dictated By: Deacon Alvarado DO 05/02/24 1644 Signed By: 05/02/24 1645 Normal [facility] MM SCREENING CHRISSY BILATERALo [...] sent to the patient regarding the results. [facility], along with the National Comprehensive Cancer Network, the [employer], and [facility], recommend annual screening mammograms for women age 40 and older. [facility]/ Workstation ID: [id number] Dictated by: SERGE DALEY on ThuApr 29, 2024 1:28:50 PM EDT Transcribed by: LILIANA JOHNSON on ThuApr 29, 2024 2:06:50 PM EDT Finalized by: SERGE DALEY on ThuApr 29, 2024 2:13:[address] [facility] XR lumbar spine AP/LAT/FLX/E XTon 03-28-2024 XR lumbar spine AP/LAT/FLX/EXT [facility] Main [place] [address] [place] [address] XRay Report Signed Patient: Janneth Arceo MR#: [id number] : 1950 Acct:[id number] Age/Sex: 73 / F ADM Date: 03/28/24 Loc: XD Room: Type: [facility] Attending Dr: Reynold Roper MD Copies [...] Landry Jr., D.OMusa03/28/2024 3:28 PM Dictation Location: [place] [address] Transcribed By: [facility] 03/28/24 1528 Dictated By: Marcel Landry Jr, DO 03/28/24 1526 Signed By: 03/28/24 1528 Normal [facility] Mammography Screening Andre olivares 04-15-2017 Mammography Screening Bilateral No mammographic evidence of malignancy. BIRADS: BIRADS - CATEGORY 2 Benign, no evidence of malignancy. Normal interval follow-up is recommended in 12 months. OVERALL ASSESSMENT - BENIGN A letter of notification will be sent to the patient regarding the results. [facility], along with the National Comprehensive Cancer Network, the [employer], and [facility], recommend annual screening mammograms for women age 40 and older. [employer] Workstation ID: [id number] [facility] Mammography Screening Bilateral EXAMINATION: MM SCREENING BILATERAL 04/15/2017 Computer-assisted detection utilized in the interpretation of this exam. COMPARISON: Mammogram dated 03/22/2015. FINDINGS: MLO and CC views of both breasts were obtained using digital technique. The breasts are almost entirely fatty. Mild scarring from bilateral reduction surgery again noted, not significantly changed. No standout mass, suspicious calcification, or architectural distortion identified. [employer] [facility] Vital Signs Date Time Vital Sign Value Performing Clinician Facility 05-11-2024 10:50-0400 Diastolic blood pressure 98 mm[Hg] MD Ty Shah Work Phone: [facility] 05-11-2024 10:50-0400 Heart rate 65 /min MD Ty Shah Work Phone: [facility] 05-11-2024 10:50-0400 Respiratory rate 14 /min MD Ty Shah Work Phone: [facility] 05-11-2024 10:50-0400 SaO2% (BldA) [Mass fraction] 100 % MD Ty Shah Work Phone: [facility] 05-11-2024 10:50-0400 Systolic blood pressure 175 mm[Hg] MD Ty Shah Work Phone: [facility] 05-11-2024 10:33-0400 Inhaled oxygen flow rate 3 L/min MD Ty Shah Work Phone: [facility] 05-11-2024 09:48-0400 Body height 154.94 cm MD Ty Shah Work Phone: [facility] 05-11-2024 09:48-0400 Body weight 74.84 kg MD Ty Shah Work Phone: [facility] 05-02-2024 10:06-0400 Diastolic blood pressure 92 mm[Hg] MD Ty Shah Work Phone: [facility] 05-02-2024 10:06-0400 Heart rate 53 /min MD Ty Shah Work Phone: [facility] 05-02-2024 10:06-0400 SaO2% (BldA) [Mass fraction] 99 % MD Ty Shah Work Phone: [facility] 05-02-2024 10:06-0400 Systolic blood pressure 180 mm[Hg] MD Ty Shah Work Phone: [facility] 03-28-2024 11:16-0400 Diastolic blood pressure 80 mm[Hg] [facility] 03-28-2024 11:16-0400 Heart rate 70 /min [facility] 03-28-2024 11:16-0400 SaO2% (BldA) [Mass fraction] 99 % [facility] 03-28-2024 11:16-0400 Systolic blood pressure 140 mm[Hg] [facility] 02-01-2024 13:43-0400 Body height 154.94 cm [facility] 02-01-2024 13:43-0400 Body mass index (BMI) [Ratio] 31.1 kg/m2 [facility] 02-01-2024 13:43-0400 Body temperature 97.8 [degF] [facility] 02-01-2024 13:43-0400 Body weight 74.84 kg [facility] 02-01-2024 13:43-0400 Diastolic blood pressure 84 mm[Hg] [facility] 02-01-2024 13:43-0400 Heart rate 56 /min [facility] 02-01-2024 13:43-0400 Systolic blood pressure 173 mm[Hg] [facility] 05-29-2022 16:30-0400 Body height 160.02 cm Reynold Roper Other [facility] Other 05-29-2022 16:30-0400 Body mass index (BMI) [Ratio] 33.16 kg/m2 Reynold Roper Other [facility] Other 05-29-2022 16:30-0400 Body weight 84.91 kg Reynold Roper Other [facility] Other 05-29-2022 16:30-0400 Diastolic blood pressure 102 mm[Hg] Reynold Jacquelin Other [facility] Other 05-29-2022 16:30-0400 SaO2% (BldA) [Mass fraction] 99 % Reynold Roper Other [facility] Other 05-29-2022 16:30-0400 Systolic blood pressure 170 mm[Hg] Reynold Roper Other [facility] Other 05-09-2022 11:15-0400 Body height 160.02 cm Reynold Roper Other [facility] Other 05-09-2022 11:15-0400 Body mass index (BMI) [Ratio] 33.19 kg/m2 Reynold Roper Other [facility] Other 05-09-2022 11:15-0400 Body weight 85 kg Reynold Roper Other [facility] Other 05-09-2022 11:15-0400 Diastolic blood pressure 90 mm[Hg] Reynold Jacquelin Other [facility] Other 05-09-2022 11:15-0400 SaO2% (BldA) [Mass fraction] 99 % Reynold Roper Other [facility] Other 05-09-2022 11:15-0400 Systolic blood pressure 164 mm[Hg] Reynold Roper Other [facility] Other 04-21-2022 15:00-0400 Body height 160.02 cm Reynold Roper Other [facility] Other 04-21-2022 15:00-0400 Body mass index (BMI) [Ratio] 33.12 kg/m2 Reynold Roper Other [facility] Other 04-21-2022 15:00-0400 Body weight 84.82 kg Reynold Roper Other [facility] Other 04-21-2022 15:00-0400 Diastolic blood pressure 82 mm[Hg] Reynold Roper Other [facility] Other 04-21-2022 15:00-0400 SaO2% (BldA) [Mass fraction] 99 % Reynold Roper Other [facility] Other 04-21-2022 15:00-0400 Systolic blood pressure 140 mm[Hg] Reynold Roper Other [facility] Other 05-03-2020 14:46-0400 BMI (Body Mass Index) 31.79 kg/m2 Akshat Webber [facility] 05-03-2020 14:46-0400 Body weight 78.83 kg Akshat Webber [facility] 05-03-2020 14:46-0400 BP Diastolic 84 mm[Hg] Akshat Webber [facility] 05-03-2020 14:46-0400 BP Systolic 160 mm[Hg] Akshat Webber [facility] 05-03-2020 14:46-0400 Height 157.5 cm Akshat Webber [facility] 05-03-2020 14:46-0400 Pulse (Heart Rate) 81 /min Akshat Webber [facility] 04-15-2017 13:39-0400 BMI (Body Mass Index) 33.44 kg/m2 Akshat Webber [facility] Work Phone: 04-15-2017 13:39-0400 BP Diastolic 76 mm[Hg] Akshat Webber [facility] Work Phone: 04-15-2017 13:39-0400 BP Systolic 132 mm[Hg] Akshat Webber [facility] Work Phone: 04-15-2017 13:39-0400 Height 154.9 cm Akshat Webber [facility] Work Phone: 04-15-2017 13:39-0400 Weight 80.29 kg Akshat Webber [facility] Work Phone: Encounters Encounter Date Encounter Type Care Provider Facility Start: 05-11-2024 Non-patient / Non-visit MD Camilo Shah Work Phone: [facility] Work Phone: Start: 05-11-2024 End: 05-11-2024 Admission to same day surgery center MD Ty Shah Work Phone: [facility] Work Phone: Start: 05-11-2024 End: 05-11-2024 ambulatory MD Ty Shah Work Phone: [facility] Work Phone: Start: 05-02-2024 End: 05-02-2024 ambulatory MD Ty Shah Work Phone: [facility] Work Phone: Start: 05-02-2024 End: 05-02-2024 Patient encounter procedure MD Ty Shah Work Phone: [facility] Work Phone: Start: 04-29-2024 End: 04-29-2024 [facility] Start: 04-26-2024 End: 04-26-2024 ambulatory GLORY DEPOY Not Available Start: 04-20-2024 End: 04-20-2024 ambulatory GLORY DEPOY Not Available Start: 04-18-2024 End: 04-18-2024 ambulatory GLORY DEPOY Not Available Start: 04-13-2024 End: 04-13-2024 ambulatory JOSLYN OLIVARES Not Available Start: 03-28-2024 End: 03-28-2024 ambulatory MD Ty Shah Work Phone: [facility] Work Phone: Start: 03-28-2024 End: 03-28-2024 Patient encounter procedure [facility] Work Phone: Start: 02-01-2024 End: 02-01-2024 ambulatory [facility] Work Phone: Start: 02-01-2024 End: 02-01-2024 Patient encounter procedure [facility] Work Phone: Start: 05-29-2022 End: 05-29-2022 ambulatory Reynold Roper Other [facility] Other Start: 05-29-2022 Office outpatient vi sit 25 minutes Reynold Roper [facility] Start: 05-09-2022 End: 05-09-2022 ambulatory Reynold Roper Other [facility] Other Start: 05-09-2022 Patient encounter procedure Reynold Roper [facility] Start: 04-21-2022 End: 04-21-2022 Patient encounter procedure MD Ty Shah Work Phone: [facility] Start: 04-21-2022 End: 04-21-2022 ambulatory Reynold Almazanky Other [facility] Other Start: 04-21-2022 Office consultation new/estab patient 60 min Reynold Roper [facility] Start: 04-15-2022 End: 04-15-2022 ambulatory Reynold Roper Other [facility] Other Start: 04-15-2022 Telephone encounter Reynold Roper [facility] Start: 10-01-2020 End: 10-01-2020 Orders Only Elena To Estrella Work Phone: [facility] Start: 05-03-2020 End: 05-03-2020 Patient encounter procedure AKSHAT WEBBER [facility] Start: 05-03-2020 End: 05-03-2020 Office outpatient new 30 minutes Akshat Webber Work Phone: [facility] Comment on above: Encounter for gyneco logical examination without abnormal finding (Primary Dx); Menopausal disorder; Special screening for malignant neoplasm of vagina Start: 05-03-2020 End: 05-03-2020 Subsequent hospital visit by physician Akshat Webber Work Phone: [facility] Comment on above: Screening mammogram, encounter for Start: 04-15-2017 End: 04-15-2017 Periodic preventive med est patient 65yrs& older Akshat Webber Work Phone: [facility] Comment on above: Encounter for gyneco logical examination without abnormal finding (Primary Dx);Special screening for malignant neoplasms, vagina;Candidiasis of vulva and vagina;Fatigue, unspecified type;Osteopenia, unspecified location Start: 04-15-2017 End: 04-15-2017 Patient encounter procedure Akshat Webber Work Phone: [facility] Comment on above: Visit for screening mammogram Procedures Date Procedure Procedure Detail Performing Clinician Start: 05-11-2024 Injection of local anesthetic into sacroiliac joint MD Ty Shah Work Phone: Start: 05-02-2024 Plain X-ray of left hip MD Ty Shah Work Phone: Start: 03-28-2024 X-ray of lumbar spin e, four views MD Ty Shah Work Phone: Start: 04-21-2022 X-ray of cervical spine MD Ty Shah Work Phone: Start: 05-03-2020 Mammography Elena doss Start: 04-15-2017 Mammography Akshat mcelroy Plan of Treatment Date Care Activity Detail Author Start: 05-11-2024 [facility] Start: 05-03-2021 Screening mammography Mammogram [facility] Start: 04-24-2020 Influenza vaccinatio n given Sequential Influenza Vaccine (#1) [facility] Start: 04-15-2018 History and physical examination, annual for health maintenance Wellness Visit [facility] Start: 04-15-2018 Screening mammography Mammogram [facility] Start: 04-24-2017 SEQUENTIAL INFLUENZA VACCINE (#1) SEQUENTIAL INFLUENZA VACCINE (#1) [facility] Work Phone: Start: 12-18-2015 Pneumococcal vaccination Pneum ococcal Vaccine Age 65+ (1 of 2 - PCV13) [facility] Start: 12-18-2015 PNEUMOCOCCAL VACCINE AGE 65+ (1 of 2 - PCV13) PNEUMOCOCCAL VACCINE AGE 65+ (1 of 2 - PCV13) [facility] Work Phone: Start: 2010 Zoster vaccine hzv l latisha for subcutaneous use ZOSTER VACCINE [facility] Work Phone: Start: 2000 Administration of he rpes zoster vaccine Zoster Vaccines (1 of 2) [facility] Start: 2000 Screening for malign ant neoplasm of colon [facility] Start: 1968 Hepatitis C antibody , confirmatory test Hepatitis C Screening [facility] Start: 1966 COVID-19 Vaccine (1 of 2) COVI D-19 Vaccine (1 of 2) [facility] Start: 1962 Adolescent depressio n screening assessment Depression Screening (PHQ9) [facility] Start: 1950 Colonoscopy COLONOSCOPY [facility] Work Phone: Start: 1950 Fall risk assessment Falls [facility]se [facility] Start: 1950 HEPATITIS C SCREENING HEPATITIS C SC REENING [facility] Work Phone: Start: 1950 TETANUS EVERY 10 YR TETANUS EVERY 10 YR [facility] Work Phone: Start: 1950 Tetanus vaccination Tetanus: Every 1 0yrs [facility] End: 05-03-2021 Bone density scan XR Bone Density DEXA Axial Imaging Routine Menopausal disorder 1 Occurrences starting 05/03/2020 until 05/03/2021 [facility] Comment on above: 1 Occurrences starti ng 05/03/2020 until 05/03/2021 End: 05-03-2020 MG Breast - bilateral screening Mammography Screening Bilateral Imaging Routine Screening Mammogram, Encounter For Once for 1 Occurrences starting 05/03/2020 until 05/03/2020 [facility] Comment on above: Once for 1 Occurrenc es starting 05/03/2020 until 05/03/2020 MG Breast - bilatera l screening Mammography Screening Bilateral Imaging Routine Screening mammogram, encounter for 05/03/2020 2:07 PM EDT [facility] Microscopic examinat ion of vaginal Papanicolaou smear Thinprep Pap Smear Pathology and Cytology Routine Special screening for malignant neoplasm of vagina Ordered: 05/03/2020 [facility] Comment on above: Ordered: 05/03/2020 MR Lumbar spine WO contrast [facility] Patient Education Know your Meds Jacquelin Non Diagnostic Block [facility] Work Phone: Patient referral [facility] Work Phone: Thinprep Pap Smear, Screening Thinprep Pap Smear, Screening Routine Special screening for malignant neoplasms, vagina Ordered: 04/15/2017 [facility] Work Phone: Comment on above: Ordered: 04/15/2017 XR Hip - left 2 Views [facility] XR Lumbar spine 4 Views [facility] Payers Date Payer Category Payer Self-pay [id number] 2021 Medicare [id number] 2019 Medicare [employer] MANAGED ME DICARE [employer] MEDICARE PLAN (PPO) [id number] 2019-Present [id number] 2019 Medicare [id number] 1950 Unknown [id number] 1950 Unknown [id number] 1950 Unknown [id number] 1950 Unknown [id number] 1950 Unknown [id number] 1950 Unknown [id number] Medicare [id number] Medicare Medicare [id number] Unknown [id number] Unknown [id number] Unknown [id number] Social History Date Type Detail Facility Start: 04-15-2017 End: 05-11-2024 Tobacco smoking status [facility] Never smoker [facility] Sex Assigned At Not on file [facility] [employer] Work Phone: Start: 05-03-2020 Tobacco use and exposure Never used [facility] Start: 05-03-2020 Alcohol intake Current drinke r of alcohol (finding) [facility] Start: 04-15-2017 Alcohol Comment [facility] Exposure to SARS-CoV-2 (event) Not sure [facility] Sex Assigned At Sex Assigned At Bir [facility] Other Start: 1950 Sex Assigned At Female F [facility] Goals Date Patient Goal Desired Activity /State Procedure note 05-11-2024 Note Date & Type Note Facility 05-11-2024 Procedure note [facility] Evaluation note 05-29-2022 Note Date & Type [...] - G89.29) Continue with current treatment plan. [facility] Other Evaluation note 05-09-2022 Note Date & [...] - G89.29) Continue with current treatment plan. [facility] Other Evaluation note 04-21-2022 Note Date & [...] recently attended physical therapy which provided minimal joint terminal attack controller improvement. She feels pain is negatively impacting [...] negative findings were considered in medical decision-making. [facility] Other Evaluation note Note Date & Type Note Facility Evaluation note No assessment information availa [facility] Work Phone: Evaluation note Note Date & Type Note Facility Evaluation note No Information [facility] [employer] Other Evaluation note Note Date & Type Note Facility Evaluation note Diagnosis Onset Date Phlebitis and thrombophlebitis acute Lumbosacral spondylosis acut e Other chronic pain acute Sacroiliitis [facility] Work Phone: Evaluation note Note Date & Type Note Facility Evaluation note Diagnosis Onset Date Lumbosacral spondylosis acut e Other chronic pain acute Sacroiliitis acute Left hip pain acute Lumbosacral spondylosis acut e Other chronic pain acute Sacroiliitis [facility] Work Phone: History general Narrative - Reported Note Date & Type Note Facility History general Narrative - Reported Type Medical History CELLULITIS Medical History HYPOTHYROID Medical History hiatal hernia Surgical History HYSTERECTOMY Surgical History L KNEE Surgical History APPENDIX Surgical History GALLBLADDER Hospitalization History see above Hospitalization History cellulitis right leg Zesty Other History of Present Illness * Akshat [...] been noticing recurrent yeast infections. She uses [id number] Monistat, which seems to help. I gave her a prescription for Diflucan 150 mg, #1 with 5 refills. I did tell the patient that if she would need refills after this expires, we can do this over the phone as long as it is within 1 year. Review of Systems: I have reviewed and agree with the ROS as gathered by the ground support equipment assembler. Past Medical History: Diagnosis Date Disease of [...] with the ROS as gathered by the ground support equipment assembler. Past Medical History: Diagnosis Date Anemia Arthritis [...] file Gets together: Not on file Attends mosque service: Not on file Active member of [...] Procedures Mammography Screening Bilateral Akshat Webber MD [address] [place] [id number] [facility] [address] [place] [address] Status Reason Specialty Diagnoses / Procedures Referred By Contact Referred To Contact Authorized Radiology Diagnoses Menopausal disorder Procedures XR Bone Density DEXA Axial Akshat Webber MD [address] [place] [id number] Status Reason Specialty Diagnoses / Procedures Referred By Contact Referred To Contact Pending Review Radiology Diagnoses Screening mammogram, encounter for Procedures Mammography Screening Bilateral Akshat Webber MD [address] [place] [id number] Advance Directives No Advanced Directives Records FoundDocuments on File Type Date Recorded Patient Automatic Spinning Lathe Setter Expl anation Advance Directives and Livin g Will 05/03/2020 12:00 AM Documents on File Type Date Recorded Patient Automatic Spinning Lathe Setter Expl anation Advance Directives and Livin g Will 05/03/2020 12:00 AM Advance Directive Response Recorded Date/ Time Advance Directives No February 20 4:34pm Summary Purpose Family History No Family History Records Found Relationship Condition Age at Onset Recorded Date/T rusty father Malignant neoplasm Unknown Unknown Not Specified Unknown Relationship Condition Age at Onset Recorded Date/T rusty father Malignant neoplasm Unknown Unknown mother Unknown Relationship Condition Age at Onset Recorded Date/T rusty father Unknown Malignant neoplasm of lung Unknown mother Unknown Malignant neoplasm of uterus Unknown brother Malignant neoplasm of colon Unknown Chief Complaint and Reason for Visit [...] UP AFTER PT FOR LOW BACK M25.552 back pain back pain Reason for Visit Lumbosacral spondylo sis Other [...] Procedures Mammography Screening Bilateral Akshat Webber MD [address] [place] [address] [facility] [address] [place] [address] Reason Comments Annual Exam Status Reason Specialty Diagnoses / Procedures Referred By Contact Referred To Contact Pending Review Radiology Diagnoses Screening mammogram, encounter for Procedures Mammography Screening Bilateral Akshat Webber MD [address] [place] [address] INFORMATION SOURCE (unrecogn ized section and content) DATE CREATED AUTHOR 05/03/2020 [facility] DATE CREATED AUTHOR AUTHOR'S ORGANIZ ATION 04/27/2024 [facility] EPIC DATE CREATED AUTHOR AUTHOR'S ORGANIZ ATION 05/01/2024 [facility] DATE CREATED AUTHOR AUTHOR'S ORGANIZ ATION 05/13/2024 [facility] Quick Note - Sallie Quan [...] May 02, 2024 End: May 02, 2024 Team Status: Inactive Member Role Status Dates Ty Shah MD Primary Care Provider Active Start: May 11, 2024 End: May 11, 2024 Reynold Roper MD Attending Provider Active Sta rt: May 11, 2024 End: May 11, 2024 Team Status: Active Member Role Status Dates Ty Shah MD Primary Care Provider Active Start: May 11, 2024 Reynold Roper MD Attending Provider, Other Provider Active Start: May 11, 2024 Goals (unrecognized section and content) Goals [...] BE BASED ON THE PRIMARY CLINICAL RECORDS. [facility] [employer] [facility]. provides no warranty or guarantee of the accuracy or completeness of information in this document.
[2024-05-16 09:31] VITALS: BP 160/80; PULSE 70; O2SAT 100
== END 2024-05-16 09:34 | disposition home or self-care (01) ==
LOC: VC 08:57
PROVIDERS: PCP Radiology Diagnostic Radiology; Visit Provider Radiology Diagnostic Radiology
DX: I83.813 Varicose veins of bilateral lower extremities with pain (principal)
CPT/HCPCS: 36471